=== PATIENT | female | born 1990 | race Caucasian/White ===

== ENCOUNTER 2023-01-10 11:16 | Outpatient (CLI) | payer OTHER, SELFPAY | END 2023-01-10 11:17 | disposition home or self-care (01) | PROVIDERS: Visit Provider Obstetrics & Gynecology | DX: O20.9 Hemorrhage in early pregnancy, unspecified (principal) | CPT/HCPCS: 84702; 84703; 86850; 86900; 86901 ==

== ENCOUNTER 2023-01-12 12:44 | Outpatient (CLI) | payer OTHER, SELFPAY | END 2023-01-12 12:45 | disposition home or self-care (01) | PROVIDERS: Visit Provider Obstetrics & Gynecology | DX: O20.9 Hemorrhage in early pregnancy, unspecified (principal) | CPT/HCPCS: 36415; 84702 ==

== ENCOUNTER 2023-01-28 07:04 | Outpatient (CLI) | payer OTHER, SELFPAY ==
--- NOTE | 2023-01-28 07:15 | CRLHL7_ITS ---
For Patients: As a result of the Century Cures Act, medical imaging exams and procedure reports are released immediately into your electronic medical record. You may view this report before your referring provider. If you have questions, please contact your health care provider. INDICATION: First trimester scan, establish dates. Bleeding in the 1st trimester. COMPARISON: None. TECHNIQUE: Real-time myers-scale imaging of the pelvis was performed. FINDINGS: Sonographic imaging demonstrates a single living intrauterine gestation. The embryo demonstrates a regular cardiac rate measuring 120 beats per minute. The embryo`s crown-rump length measurement of 0.8 cm corresponds to a gestational age of 6 weeks 5 days with a sonographic due date of September 18, 2023. There is a normal-appearing yolk sac measuring 3.5 mm. There are no gross abnormalities noted within the embryo at this early state of development. The placenta has not yet developed. The gestational sac has a normal appearance and there is no evidence of a perigestational hemorrhage. The amount of fluid within the sac appears appropriate for gestational age. The cervix is closed. The myometrium appears normal. The ovaries are of normal size. The right ovary measures 4.7 x 2.8 x 3.4 cm and contains a small corpus luteum cyst of . The left ovary measures 3.3 x 1.9 x 2.6 cm. There are no suspicious fluid collections noted in the cul-de-sac. IMPRESSION: Normal first trimester OB ultrasound exam. Gestational age calculated at 6 weeks 5 days with a sonographic due date of September 18, 2023. Dictated by Seun Swanson MD @ 01/28/2023 8:59:23 AM (Electronically Signed)
== END 2023-01-28 07:05 | disposition home or self-care (01) ==
PROVIDERS: Visit Provider Obstetrics & Gynecology
DX: O20.9 Hemorrhage in early pregnancy, unspecified (principal); Z3A.01 Less than 8 weeks gestation of pregnancy
CPT/HCPCS: 76817; 82565; 82570; 84156; 84450; 84460; 84520; 84550; 86703; 86803; 86850; 86900; 86901; 87086; 87340; 87491; 87591

== ENCOUNTER 2023-01-28 09:05 | Outpatient (CLI) | payer OTHER, SELFPAY ==
[2023-01-28 13:00] LABS: Chlamydia DNA Amplified* NOT DETECTED (No Detected); GC DNA Amplified* NOT DETECTED (No Detected)
== END 2023-01-28 09:06 | disposition home or self-care (01) ==
PROVIDERS: Visit Provider Advanced Practice Midwife
DX: Z34.91 Encounter for supervision of normal pregnancy, unspecified, first trimester (principal)
CPT/HCPCS: 82565; 82570; 84156; 84450; 84460; 84520; 84550; 86592; 86703; 86762; 86787; 86803; 86850; 86900; 86901; 87086; 87340; 87491; 87591

== ENCOUNTER 2023-02-01 13:26 | Outpatient (CLI) | payer OTHER, SELFPAY | END 2023-02-01 13:27 | disposition home or self-care (01) | LOC: NFLDREF 02-04 10:14 | PROVIDERS: Visit Provider Advanced Practice Midwife | DX: Z34.91 Encounter for supervision of normal pregnancy, unspecified, first trimester (principal); Z3A.01 Less than 8 weeks gestation of pregnancy | CPT/HCPCS: 82570; 84156 ==

== ENCOUNTER 2023-05-06 08:40 | Outpatient (CLI) | payer OTHER, SELFPAY | END 2023-05-06 08:41 | disposition home or self-care (01) | LOC: NFLDREF 05-09 11:08 | PROVIDERS: Visit Provider Advanced Practice Midwife | DX: O99.810 Abnormal glucose complicating pregnancy (principal) | CPT/HCPCS: 82951; 82952 ==

== ENCOUNTER 2023-07-01 09:30 | Outpatient (CLI) | payer OTHER, SELFPAY | END 2023-07-01 09:31 | disposition home or self-care (01) | LOC: NFLDREF 07-03 12:15 | PROVIDERS: Visit Provider Advanced Practice Midwife | DX: O16.3 Unspecified maternal hypertension, third trimester (principal); Z3A.30 30 weeks gestation of pregnancy | CPT/HCPCS: 86592; 86850 ==

== ENCOUNTER 2023-07-01 09:35 | Outpatient (CLI) | payer OTHER, SELFPAY ==
--- NOTE | 2023-07-01 09:45 | CRLHL7_ITS ---
For Patients: As a result of the Century Cures Act, medical imaging exams and procedure reports are released immediately into your electronic medical record. You may view this report before your referring provider. If you have questions, please contact your health care provider. INDICATION: female. History of macrosomia. Gestational hypertension. TECHNIQUE: Transabdominal obstetrical ultrasound. FINDINGS: Single living intrauterine in breech presentation. Anterior placenta. Normal amniotic fluid volume with a single deepest pocket measurement of 5.5 cm. heart rate 149 beats per minute. Nonvisualization of the cervix. Biparietal diameter 7.2 cm, 29 weeks 0 days, 43rd percentile. Head circumference 27.8 cm, 30 weeks 3 days, 66 percentile. Abdominal circumference 28 cm, 32 weeks 0 days, greater than the 97th percentile. Femur length 5.7 cm, 30 weeks 0 days, 69th percentile. Composite calculated ultrasound age 30 weeks 3 days with a sonographic due date of September 06, 2023. Estimated weight 1681 g which lies at greater than the 97th percentile. The head to abdominal circumference ratio is normal at 0.99 (0.97-1.18). The femur length to abdominal circumference ratio is 20.5 percent. IMPRESSION: 1. Single living intrauterine in irasema breech presentation. Anterior placenta. The cervix is not seen. 2. Composite calculated ultrasound age 30 weeks 3 days with a sonographic due date of September 06, 2023. 3. Estimated weight lies at greater than 97th percentile. Dictated by Seun Swanson MD @ 07/01/2023 6:49:14 PM (Electronically Signed)
== END 2023-07-01 09:36 | disposition home or self-care (01) ==
LOC: US 09:35
PROVIDERS: Visit Provider Advanced Practice Midwife
DX: O16.3 Unspecified maternal hypertension, third trimester (principal); Z3A.30 30 weeks gestation of pregnancy
CPT/HCPCS: 76816; 86850

== ENCOUNTER 2023-07-24 09:41 | Outpatient (CLI) | payer OTHER, SELFPAY ==
--- NOTE | 2023-07-24 09:45 | CRLHL7_ITS ---
For Patients: As a result of the Century Cures Act, medical imaging exams and procedure reports are released immediately into your electronic medical record. You may view this report before your referring provider. If you have questions, please contact your health care provider. INDICATION: Morbid obesity TECHNIQUE: Limited transabdominal two-dimensional myers-scale ultrasound examination. COMPARISON: 07/01/2023 FINDINGS: There is a living fetus with gestational age of 32 weeks 1 day by LMP and EDC of 09/17/2023. The biophysical profile score is 8/8. The heart rate is measured at 167 beats per minute and the rhythm appears regular. The amniotic fluid volume is within normal limits with single deepest pocket of 4.8 cm. The placenta is anterior and superior to the cervical os. There is no evidence of previa. IMPRESSION: 1. Living fetus with gestational age of 32 weeks 1 day by LMP and EDC of 09/17/2023. 2. Biophysical profile score is 8/8. Dictated by Tyler Vazquez MD @ 07/25/2023 3:12:59 PM (Electronically Signed)
== END 2023-07-24 09:42 | disposition home or self-care (01) ==
LOC: US 09:42
PROVIDERS: Visit Provider Advanced Practice Midwife
DX: O99.213 Obesity complicating pregnancy, third trimester (principal); Z3A.32 32 weeks gestation of pregnancy
CPT/HCPCS: 76819

== ENCOUNTER 2023-07-31 09:43 | Outpatient (CLI) | payer OTHER, SELFPAY ==
--- NOTE | 2023-07-31 09:45 | CRLHL7_ITS ---
For Patients: As a result of the Century Cures Act, medical imaging exams and procedure reports are released immediately into your electronic medical record. You may view this report before your referring provider. If you have questions, please contact your health care provider. INDICATION: Morbid obesity TECHNIQUE: Limited transabdominal two-dimensional myers-scale ultrasound examination. COMPARISON: 07/24/2023 FINDINGS: There is a living fetus in vertex lie with gestational age of 33 weeks 1 day by LMP and 36 weeks 2 days by today`s measurements. EDC based on LMP is 09/17/2023. BPD: 9.1 cm, 36 weeks 5 days Head circumference: 33.3 cm, 38 weeks Abdominal circumference: 34.0 cm, 37 weeks 6 days Femur length: 6.3 cm, 32 weeks 4 days The weight is estimated at 2956 grams, greater than the 97th percentile. The biophysical profile score is 8/8. The heart rate is measured at 157 beats per minute and the rhythm appears regular. The amniotic fluid volume is within normal limits with single deepest pocket of 5.5 cm. The placenta is anterior and superior to the cervical os. There is no evidence of previa. IMPRESSION: 1. Living fetus in vertex lie with gestational age of 33 weeks 1 day by LMP and 36 weeks 2 days by today`s measurements. EDC based on LMP is 09/17/2023. 2. weight estimated at 2956 grams, greater than the 97th percentile. 3. Biophysical profile score is 8/8. Dictated by Tyler Vazquez MD @ 07/31/2023 12:14:14 PM (Electronically Signed)
--- OUTSIDE RECORDS SUMMARY | 2023-07-31 09:46 | XMS_ITS | Encounter Summary ---
Author Name Unknown Organization [facility] Address [address] [place] [address] Care Team Providers Care Pastry Mixer Name Role Phone Shamar Claros MD Primary Care Provider [phone] Shamar Claros MD Unavailable [phone] Reason for Referral * Diagnostic Imaging Ultrasound (Routine) - Pending Review Specialty Diagnoses / Procedures Referred By Contac t Referred To Contact Radiology. Diagnoses related condition, antepartum Procedures MFM US Comprehensive Single [facility] [address] [place] [address] Referral ID Status Reason Start Date Expiration Date V isits Requested Visits Authorized [id number] Pending Review 04/11/2023 04/10/2024 1 1 * Consultation (Routine: Next available opening) - Pending Review Specialty Diagnoses / Procedures Referred By Contac t Referred To Contact Diagnoses related condition, antepartum [facility] [address] [place] [address] Rh [facility] [address] [place] [address] Referral ID Status Reason Start Date Expiration Date V isits Requested Visits Authorized [id number] Pending Review 04/11/2023 04/10/2024 1 1 Question Answer Preferred Location: [facility] [place] JE[facility] 09/17/2023 Ultrasound Comprehensive US (>than 18 weeks GA) US PROC NONE MFM Issue OTHER (enter details in Comments) - BMI MFM MD Consultation (unrelated to Ultrasound findings): No Inflammatory Bowel Disease Clinic: Joint MFM and GI Consultation: No Chronic Kidney Disease: Joint MFM and Nephrology Consultation No Genetic Counseling Consultation: No fax [facility] Casey Bacon [phone] Comments BMI Encounter Details Date Type Department Care Team (Late st Contact Info) Description 04/11/2023 Transcribe Orders [facility] [place] [address] [facility] [address] [place] [address] Casey Bacon APRN [facility] [address] [place] [address] related condition, antepartum (Primary Dx) Social History Tobacco Use Types Packs/Day Years Used Date Smoking Tobacco: Former Smokeless Tobacco: Never Alcohol Use Standard Drinks/Week Comments Yes 0 (1 standard drink = 0.6 oz pur e alcohol) social PHQ-2 Answer Date Recorded PHQ-2 Score 0 04/15/2020 Adolescent Education Answer Date Record ed Getting School Help Needed Not on file 04/05 Sex and Gender Information Value Date Recorded Sex Assigned at Not on file Gender Identity Not on file Sexual Orientation Not on file documented as of this encounter Plan of Treatment Scheduled Referrals Name Type Priority Associated Diagnoses Orde r Schedule [facility] Ctr Referral - Referral Routine: Next available opening related condition, antepartum Expected: 04/16/2023 (Approximate), Expires: 10/08/2023 documented as of this encounter Results * [facility] US Comprehensive Single (04/22/2023 11:59 AM CDT) Anatomical Region Laterality Modality Ultrasound 04/22/2023 11:0 3 AM CDT Impressions 04/22/2023 12:25 PM CDT IMPRESSION ----- 1. Cook intrauterine at 18w 5d gestational age here for evaluation of anatomy. 2. No anomalies commonly detected by ultrasound or soft markers of aneuploidy were identified in the detailed anatomic survey within the limits of ultrasound, however some views were suboptimal, as described above. 3. Growth parameters and estimated weight were consistent with established dates. 4. The amniotic fluid volume appeared normal. 5. On transabdominal imaging the cervix appears long and closed. 6. The placenta is anterior and circumvallate. Narrative 04/22/2023 12:25 PM CDT Comprehensive ----- Pat. Name: MARY ELLEN SCOTT Study Date: 04/22/2023 11:03am Pat. NO: [id number] Referring ??: CASEY BACON Site: [facility] Specialist: Lauren Mcdowell RDMS : 1990 Age: 32 ----- INDICATION ----- Obesity BMI 44 METHOD ----- Transabdominal ultrasound examination. View: Sufficient ----- Cook . Number of fetuses: 1 DATING ----- ? Date ?Details ?Gest. age ?JEFF LMP ?12/05/2022 ?Cycle: irregular, long cycles ? 19 w + 5 d ? 09/11/2023 Prior assessment ? 01/28/2023 ? GA: 6 w + 5 d ?18 w + 5 d ? 09/18/2023 U/S ? 04/22/2023 ? based upon AC, BPD, Femur, HC ?18 w + 5 d ? 09/18/2023 Assigned dating ?Dating performed on 04/22/2023, based on the prior assessment (on 01/28/2023) ?18 w + 5 d ? 09/18/2023 GENERAL EVALUATION ----- Cardiac activity present. FHR 146 bpm. movements present. Presentation breech, transverse with head to maternal right. Placenta anterior, no previa > 2 cm from internal os. Circumvallate placenta . Umbilical cord Cord vessels: 3 vessel cord. Insertion site: normal insertion. Amniotic fluid Amount of AF: normal. MVP 5.6 cm. BIOMETRY ----- Main Biometry: BPD ?42.3 ?mm ? 18w 6d ?Hadlock OFD ?58.4 ?mm ? 19w 1d ?Nicolaides HC ?161.2 ?mm ?18w 6d ?Hadlock Cerebellum tr ?18.9 ? mm ?18w 3d ?Nicolaides AC ?130.2 ?mm ?18w 4d ?41% ?Hadlock Femur ?28.4 ? mm ?18w 5d ?Hadlock Humerus ?27.6 ?mm ? 18w 6d ?Eliot Weight Calculation: EFW ? 251 ? g ? 41% ?Hadlock EFW (lb,oz) ? 0 lb 9 ?oz EFW by ?Hadlock ([id number]) Head / Face / Neck Biometry: Emergency Medicine Physician Assistant ? 6.7 ? mm CM ?2.7 ? mm Nasal bone ? 6.2 ? mm Nuchal fold ? 4.2 ? mm ANATOMY ----- The following structures appear normal: Head / Neck ? Cranium. Head size. Head shape. Lateral ventricles. Choroid plexus. Midline falx. Cavum septi pellucidi. Cerebellum. Cisterna magna. ? Parenchyma. Thalami. Vermis. ? Neck. Nuchal fold. Face ? Profile. Nose. Maxilla. Mandible. Orbits. Lens. Heart / Thorax ?4-chamber view. RVOT view. LVOT view. Situs. Bicaval view. Ductal arch view. Superior vena cava. Inferior vena cava. 3-vessel view. ? 7-jblzlz-lukpwsp view. Cardiac position. Cardiac size. Cardiac rhythm. ? Right lung. Left lung. Abdomen ? Abdominal wall. Cord insertion. Stomach. Kidneys. Bladder. Liver. Bowel. Genitals. Spine ?Cervical spine. Thoracic spine. Lumbar spine. Sacral spine. Extremities / Skeleton ?Right arm. Right hand. Left arm. Left hand. Right leg. Right foot. Left leg. Left foot. The following structures could not be adequately visualized: Face ? Lips. Heart / Thorax ?Aortic arch view. ? Diaphragm. Gender: female. MATERNAL STRUCTURES ----- Cervix ?Visualized ? Appearance: Appears Closed ? Approach - Transabdominal: Cervical length 46.5 mm Right Ovary ?Not visualized Left Ovary ?Not visualized RECOMMENDATION ----- Thank-you for referring your patient for a comprehensive ultrasound. I discussed the findings on today's ultrasound with the patient. I reviewed the limitations of ultrasound both in detecting aneuploidy and structural abnormalities. Ultrasound, when views completed, can routinely detect 80-90% of structural abnormalities. She has not had genetic screening this , genetic screening/testing options were reviewed which she is not interested in today. We reviewed that the placenta appears to be circumvallate. We discussed that this occurs when the chorionic membrane does not insert at the edge of the placenta but rather some inward distance from the placental margin giving it a rolled or curled appearance. We discussed that this is typically an incidental finding but may be associated with an increased risk of growth restriction. Follow-up is scheduled here in three weeks to reassess anatomy that was suboptimally seen today. Once anatomy is complete, evaluation of growth at 28 and 34 weeks is recommended due to BMI > 40 and circumvallate placenta. We would recommend a growth ultrasound at 28 and 34 weeks to re-evaluate growth. Weekly testing is also recommended at 34 weeks. I presume these follow-ups will be done in your office, but can be scheduled here if preferred. Return to primary provider for continued care, dating reviewed, recommend using 09/18/2023 based on her 6 week ultrasound. If you have questions regarding today's evaluation or if we can be of further service, please contact the [facility]. anomalies may be present but not detected I spent a total of 15 minutes on the date of this encounter including preparing to see the patient (reviewing medical records/tests), counseling and discussing the plan of care, documenting the visit in the electronic medical record, and communicating with other health transitions rn care coordinator and/or care coordination. Please see note for details. Procedure Note Patti Ferrsi MD - 04/22/2023 Comprehensive ----- Pat. Name:SHAYY SCOTTCharlenedeon Date:04/22/2023 11:03am Pat. NO: [id number] MD:CASEY BACON [facility]ren [facility]cdowell RDMS :1990Age:32 ----- INDICATION ----- Obesity BMI 44 METHOD ----- Transabdominal ultrasound examination. View: Sufficient ----- Cook . Number of fetuses: 1 DATING ----- DateDetailsGest. age JEFF LMP 12/05/2022ycle: irregular, long cqngia90 w + 5 d 09/11/2023 Prior assessment 01/28/2023 GA: 6 w +5 d18 w + 5 d 09/18/2023 U/S 04/22/2023ased upon AC, BPD, Femur, HC18 w + 5 d 09/18/2023 Assigned dating Dating performed on 04/22/2023, based onthe prior assessment (on 01/28/2023) 18 w + 5 d3 GENERAL EVALUATION ----- Cardiac activity present. FHR 146 bpm. movements present. Presentation breech, transverse with head to maternal right. Placenta anterior, no previa > 2 cm from internal os. Circumvallateplacenta . Umbilical cord Cord vessels: 3 vessel cord. Insertion site: normalinsertion. Amniotic fluid Amount of AF: normal. MVP 5.6 cm. BIOMETRY ----- Main Biometry: BPD 42.3 mm18w 6d Hadlock OFD 58.4 mm19w 1d Nicolaides HC 161.2 mm18w 6d Hadlock Cerebellum tr 18.9 mm18w 3d Nicolaides AC 130.2 mm18w 4d 41% Hadlock Femur 28.4 mm18w 5d Hadlock Humerus 27.6 mm18w 6d Eliot Weight Calculation: EFW 251 g41% Hadlock EFW (lb,oz) 0 lb 9 oz EFW by Radlock ([id number]-FL) Head / Face / Neck Biometry: Emergency Medicine Physician Assistant 6.7 mm CM 2.7 mm Nasal bone 6.2 mm Nuchal fold 4.2 mm ANATOMY ----- The following structures appear normal: Head / Neck Cranium. Head size. Head shape.Lateral ventricles. Choroid plexus. Midline falx. Cavum septi pellucidi.Cerebellum. Cisterna magna. Parenchyma. Thalami. Vermis. Neck. Nuchal fold. Face Profile. Nose. Maxilla. Mandible.Orbits. Lens. Heart / Thorax 4-chamber view. RVOT view. LVOT view.Situs. Bicaval view. Ductal arch view. Superior vena cava. Inferior venacava. 3-vessel view. 4-nusqkw-tqteigl view. Cardiacposition. Cardiac size. Cardiac rhythm. Right lung. Left lung. Abdomen Abdominal wall. Cord insertion.Stomach. Kidneys. Bladder. Liver. Bowel. Genitals. Spine Cervical spine. Thoracic spine.Lumbar spine. Sacral spine. Extremities / Skeleton Right arm. Right hand. Left arm. Lefthand. Right leg. Right foot. Left leg. Left foot. The following structures could not be adequately visualized: Face Lips. Heart / Thorax Aortic arch view. Diaphragm. Gender: female. MATERNAL STRUCTURES ----- Cervix Visualized Appearance: Appears Closed Approach - Transabdominal:Cervical length 46.5 mm Right Ovary Not visualized Left Ovary Not visualized RECOMMENDATION ----- Thank-you for referring your patient for a comprehensive ultrasound. I discussed the findings on today's ultrasound with the patient. Ireviewed the limitations of ultrasound both in detecting aneuploidy andstructural abnormalities. Ultrasound, when views completed, can routinely detect 80-90% of structuralabnormalities. She has not had genetic screening this , geneticscreening/testing options were reviewed which she is not interested in today. We reviewed that the placenta appears to be circumvallate. We discussedthat this occurs when the chorionic membrane does not insert at the edgeof the placenta but rather some inward distance from the placental margin giving it a rolledor curled appearance. We discussed that this is typically an incidentalfinding but may be associated with an increased risk of growth restriction. Follow-up is scheduled here in three weeks to reassess anatomy that wassuboptimally seen today. Once anatomy is complete, evaluation of growth at 28 and 34 weeks isrecommended due to BMI > 40 and circumvallate placenta. We would recommenda growth ultrasound at 28 and 34 weeks to re-evaluate growth. Weeklyantenatal testing is also recommended at 34 weeks. I presume thesefollow-ups will be done in your office, but can be scheduled here if preferred. Return to primary provider for continued care, dating reviewed,recommend using 09/18/2023 based on her 6 week ultrasound. If you have questions regarding today's evaluation or if we can be offurther service, please contact the [facility]. anomalies may be present but not detected I spent a total of 15 minutes on the date of this encounter includingpreparing to see the patient (reviewing medical records/tests), counselingand discussing the plan of care, documenting the visit in the electronic medical record, andcommunicating with other health transitions rn care coordinator and/or carecoordination. Please see note for details. IMPRESSION ----- 1. Cook intrauterine at 18w 5d gestational age here forevaluation of anatomy. 2. No anomalies commonly detected by ultrasound or soft markers ofaneuploidy were identified in the detailed anatomic survey withinthe limits of ultrasound, however some views were suboptimal, as described above. 3. Growth parameters and estimated weight were consistent withestablished dates. 4. The amniotic fluid volume appeared normal. 5. On transabdominal imaging the cervix appears long and closed. 6. The placenta is anterior and circumvallate. Radiology Non-Fv Credentialed Provider Wood MADSEN US ORDERABLES documented in this encounter Visit Diagnoses Diagnosis related condition, antepartum- Primary related condition, antepartum documented in this encounter Additional Health Concerns Assessment Noted Time PHQ-9 Depression Total Score: 8 03/31/20 21 7:02 AM CDT documented as of this encounter Care Teams Pastry Mixer Relationship Specialty Start Date End Date Shamar Claros MD [address] [place] [address] [place] [address] PCP - General Internal Medicine 05/17/17 [place] [address] [place] [address] [place] [address] Assigned PCP 09/08/22 documented as of this encounter
--- OUTSIDE RECORDS SUMMARY | 2023-07-31 09:46 | XMS_ITS | Encounter Summary ---
Author Name Unknown Organization [facility] Address [address] [place] [address] Care Team Providers Care Diesel Service Technician Name Role Phone Shamar Claros MD Primary Care Provider [phone] Melina Sousa PA-C Unavailable [phone] Janis Jacobs MD Unavailable [phone] Shamar Claros MD Unavailable [phone] Patti Ferris MD Unavailable [phone] Encounter Details Date Type Department Care Team (Late st Contact Info) Description 07/18/[address] [facility] [address] [place] [address] Shamar Claros MD [address] [facility] [place] [address] Social History Tobacco Use Types Packs/Day Years Used Date Smoking Tobacco: Former Smokeless Tobacco: Never Alcohol Use Standard Drinks/Week Comments Yes 0 (1 standard drink = 0.6 oz pur e alcohol) social PHQ-2 Answer Date Recorded PHQ-2 Score 0 04/15/2020 Sex and Gender Information Value Date Recorded Sex Assigned at Not on file Gender Identity Not on file Sexual Orientation Not on file COVID-19 Exposure Response Date Recorded In the last month, have you been in contact with someone who was confirmed or suspected to have Coronavirus / COVID-19? Yes 07/20/2021 9:51 PM CHEMICAL ENGINEER documented as of this encounter Plan of Treatment Not on file documented as of this encounter Visit Diagnoses Not on filedocumented in this encounter Additional Health Concerns Assessment Noted Time PHQ-9 Depression Total Score: 8 03/31/20 21 7:02 AM CDT documented as of this encounter Care Teams Diesel Service Technician Relationship Specialty Start Date End Date Shamar Claros MD [address] [facility] [place] [address] PCP - General Internal Medicine 05/17/17 Melina Sousa PA-C [address] [place] [address] [id number] Assigned PCP 12/25/20 03/23/22 Janis Jacobs MD [address] [place] [address] Assigned OBGYN Provider 04/09/21 3 Shamar Claros MD [address] [facility] [place] [address] Assigned PCP 09/08/22 Patti Ferris MD [address] [place], [place] [address] Assigned OBGYN Provider 04/27/23 documented as of this encounter
--- OUTSIDE RECORDS SUMMARY | 2023-07-31 09:46 | XMS_ITS | Encounter Summary ---
Author Name Unknown Organization [facility] Address [address] [place] [address] Care Team Providers Care Check Writing Machine Operator Name Role Phone Shamar Claros MD Primary Care Provider [phone] Melina Sousa PA-C Unavailable [phone] Janis Jacobs MD Unavailable [phone] Shamar Claros MD Unavailable [phone] Patti Ferris MD Unavailable [phone] Encounter Details Date Type Department Care Team (Late st Contact Info) Description 07/12/2021 [facility] [facility] [address] [place] [phone] Britney Hanson Social History Tobacco Use Types Packs/Day Years [...] documented as of this encounter Care Teams Check Writing Machine Operator Relationship Specialty Start Date End Date Shamar Claros MD [address] [facility] [place] [address] PCP - General Internal Medicine 05/17/17 Melina Sousa PA-C [address] [place] [address] Assigned PCP 12/25/20 03/23/22 Janis Jacobs MD [address] [place] [address] Assigned OBGYN Provider 04/09/21 3 Shamar Claros MD [address] [facility] [place] [address] Assigned PCP 09/08/22 Patti Ferris MD [address] [address] Assigned OBGYN Provider 04/27/23 documented as of this encounter
--- OUTSIDE RECORDS SUMMARY | 2023-07-31 09:46 | XMS_ITS | Referral Summary ---
Author Name Unknown Organization [place] Address [address] [place] [address] Care Team Providers Care Corporate Scheduler Name Role Phone Shamar Claros MD Primary Care Provider + [phone] Shamar Claros MD Unavailable [phone] Patti Ferris MD Unavailable [phone] Encounters Date Type Department Care Team Description 05/13/2023 Travel 05/13/2023 9:15 AM CDT Office Visit [facility] Maternal Medicine [facility] [address] [place] [address] Patti Ferris MD Burn, Martina, MD BMI 40.0-44.9, adult (H) (Primary Dx) 05/13/2023 8:38 AM CDT - 05/13/2023 11:59 PM CDT Hospital Encounter [facility] Maternal Medicine [facility] [address] [place] [id number] Patti Ferris MD Burn, Martina, MD Encounter for follow-up ultrasound of anatomy Discharge Disposition: Home or Self Care from Last 3 Months Allergies Active Allergy Reactions Criticality Noted Date Comments Penicillins GI Disturbance 03/26/2014 Sulfa Antibiotics GI Disturbance 03/26/2014 Medications Medication Sig Dispensed Refills Start Date End Date Status omeprazole (PRILOSEC) [address] capsule Take 20 mg by mouth daily 0 Active sertraline (ZOLOFT) 50 MG tabletIndications:Ge neralized anxiety disorder,Recurrent binge eating Take 1 tablet (50 mg) by mouth daily 90 tablet 0 06/01/2021 Active metFORMIN (GLUCOPHAGE) 500 MG tabletIndications:Mo rbid obesity (H),Pre-diabetes,PCO S (polycystic ovarian syndrome) Take 1 tablet (500 mg) by mouth 2 times daily (with meals) Take 1 tab once daily with breakfast for 1 week, then increase to taking 1 tab twice daily with breakfast and dinner 180 tablet 0 06/01/2021 Active fluticasone (FLONASE) 50 MCG/ACT nasal sprayIndications:Acu te sinusitis treated with antibiotics in the past 60 days Witt 1 spray into both nostrils daily 9.9 mL 3 06/01/2021 Active albuterol (PROAIR HFA/PROVENTIL HFA/VENTOLIN HFA) 108 (90 Base) MCG/ACT inhalerIndications:C ough Inhale 2 puffs into the lungs every 6 hours as needed for shortness of breath / dyspnea or wheezing 18 g 1 07/18/2021 Active dexamethasone (DECADRON) 6 MG tabletIndications:In fection due to 2019 novel coronavirus Take 1 tablet (6 mg) by mouth daily 9 tablet 0 07/21/2021 Active acyclovir (ZOVIRAX) 400 MG tabletIndications:RL Q abdominal pain Take 1 tablet (400 mg) by mouth every 8 hours 15 tablet 3 07/30/2022 Active Active Problems Problem Noted Date Diagnosed Date Infection due to 2019 novel coronavirus 07/21/19 22 PCOS (polycystic ovarian syndrome) 06/01/2021 Binge eating 03/30/2021 Generalized anxiety disorder 03/30/2021 Splenomegaly 10/12/2019 Overview: Noted incidentally . Needs repeat US in . Calculus of gallbladder with out cholecystitis without obstruction 10/12/2019 Morbid obesity 12/23/2017 Estimated Date of Delivery Comme nts Yes 09/18/2023 Based on Ultraso und Resolved Problems Problem Noted Date Diagnosed Date Resolved Date Pain in both hands 05/17/2017 8 PIH ( induced hypertension) 02/26/2017 12/20/2017 Post-operative state 02/26/2017 018 High-risk , unspecified trimester 02/21/2017 12/20/2017 Macrosomia affecting managem ent of mother, antepartum 02/19/2017 12/20/2017 PIH ( induced hyper tension), third trimester 02/19/2017 12/20/2017 High-risk , young primigravida 02/19/2017 02/21/2017 Uterine size date discrepanc y , third trimester 02/15/2017 02/19/2017 Supervision of normal first in third trimester 01/25/2017 02/19/2017 Encounter for supervision of normal first in second trimester 11/16/2016 01/25/2017 Immunizations Name Administration Dates Next Due HepB, Unspecified 06/17/2003,02/23/2002 Hepatitis B, Peds 06/17/2003,02/25/2003,02/26/20 03,02/23/2002 Historical DTP/aP 01/26/1995, 5,04/28/1991,04/28/1991,10/27/1990 ,10/27/1990,05/29/1990,05/29/1990,03/29/1990, 0 MMR 02/23/2002,02/17/1991 OPV, trivalent, live 01/26/1995,04/28/1991,05/29,03/29/1990 OPV, unspecified 01/26/1995,04/28/1991, 0,03/29/1990 TD,PF 7+ (Tenivac) 02/23/2002 TDAP Vaccine (Adacel) 01/25/2017,02/19/2012 Td (Adult), Adsorbed 02/23/2002 Social History Tobacco Use Types Packs/Day Years Used Date Smoking Tobacco: Former Smokeless Tobacco: Never Tobacco Cessation:Counseling Given: No Alcohol Use Standard Drinks/Week Comments Yes 0 (1 standard drink = 0.6 oz pur e alcohol) social PHQ-2 Answer Date Recorded PHQ-2 Score 0 04/15/2020 Adolescent Education Answer Date Record ed Getting School Help Needed Not on file 04/05 Estimated Date of Delivery Comme nts Yes 09/18/2023 Based on Ultraso und Sex and Gender Information Value Date Recorded Sex Assigned at Not on file Gender Identity Not on file Sexual Orientation Not on file Last Filed Vital Signs Vital Sign Reading Time Taken Comments Blood Pressure 127/85 07/21/2021 5:26 AM SYSTEM ADMINISTRATION MANAGER Pulse 83 07/21/2021 5:26 AM SYSTEM ADMINISTRATION MANAGER Temperature 37.4 ??C (99.4 ??F) 07/20/2021 9:53 PM CS T Respiratory Rate 20 07/21/2021 5:26 AM SYSTEM ADMINISTRATION MANAGER Oxygen Saturation 97% 07/21/2021 5:26 AM SYSTEM ADMINISTRATION MANAGER Inhaled Oxygen Concentration - - Weight 144.4 kg (318 lb 5.5 oz) 07/20/2021 9:53 PM SYSTEM ADMINISTRATION MANAGER Height 172.7 cm (5' 8) 10/12/2019 11:2 5 AM CDT Body Mass Index 48.4 10/12/2019 11:25 AM CDT Plan of Treatment Not on file Procedures Procedure Name Priority Date/Time Associated Diagnosis Comments [facility] COMPREHENSIVE SINGLE F/U Routine 05/13/2023 9:18 AM CDT Encounter for follow-up ultrasound of anatomy from Last 3 Months Results * [facility] Comprehensive Single F/U (05/13/2023 9:18 AM CDT) Anatomical Region Laterality Modality Ultrasound 05/13/2023 8:32 AM CDT Impressions 05/13/2023 9:43 AM CDT IMPRESSION ----- 1. Cook intrauterine at 21w 5d gestational age here for completion of anatomy. 2. The remaining anatomic survey was completed, no anomalies commonly detected by ultrasound were identified within the limits of ultrasound. 3. Growth parameters and estimated weight were slightly ahead of established dates, EFW 97%. 4. The amniotic fluid volume appeared normal. Narrative 05/13/2023 9:43 AM CDT ?Comp Follow Up ----- Pat. Name: MARY ELLEN SCOTT ? Study Date: ??05/13/2023 8:32am Pat. NO: ??[id number] ?Referring ??MD: CASEY DAVIS Site: ??[facility] ? [employer] T[employer] Bl[employer] Repair Technician: Denise Kuhn RDMS : ??1990 ?Age: ?? 32 ----- INDICATION ----- Follow up suboptimal anatomy. BMI 44. Declined screening. METHOD ----- Transabdominal ultrasound examination. View: Sufficient ----- Cook . Number of fetuses: 1 DATING ----- ? Date ?Details ?Gest. age ?JEFF LMP ?12/05/2022 ?Cycle: irregular, long cycles ? 22 w + 5 d ? 09/11/2023 Prior assessment ? 01/28/2023 ? GA: 6 w + 5 d ?21 w + 5 d ? 09/18/2023 U/S ? 05/13/2023 ? based upon AC, BPD, Femur, HC ?22 w + 6 d ? 09/10/2023 Assigned dating ?Dating performed on 05/13/2023, based on the prior assessment (on 01/28/2023) ? 21 w + 5 d ? 09/18/2023 GENERAL EVALUATION ----- Cardiac activity present. FHR 148 bpm. movements present. Presentation transverse with head to maternal right. Placenta Anterior, no previa > 2 cm from internal os. Circumvallate placenta. Umbilical cord normal, 3 vessel cord. Amniotic fluid Amount of AF: normal. MVP 5.7 cm. BIOMETRY ----- Main Biometry: BPD ?54.1 ?mm ? 22w 3d ?Michele CREWS ?72.6 ?mm ? 22w 3d ?Nicolaides HC ?203.9 ?mm ?22w 4d ?Hadlock Cerebellum tr ?22.1 ? mm ?21w 0d ?Nicolaides AC ?184.5 ?mm ?23w 2d ?87% ?Hadlock Femur ?41.1 ? mm ?23w 2d ?Hadlock Weight Calculation: EFW ? 570 ? g ? 97% ?Hadlock EFW (lb,oz) ? 1 lb 4 ?oz EFW by ?Hadlock ([id number]) Head / Face / Neck Biometry: Radio Time Sales Supervisor ? 3.7 ? mm CM ?3.7 ? mm ANATOMY ----- The following structures appear normal: Head / Neck ? Cranium. Head size. Head shape. Lateral ventricles. Midline falx. Cavum septi pellucidi. Cerebellum. Cisterna magna. Thalami. Face ? Lips. Profile. Nose. Heart / Thorax ?4-chamber view. RVOT view. LVOT view. Aortic arch view. 2-awbsze-lkgytgc view. ? Diaphragm. Abdomen ? Stomach. Bladder. Spine ?Cervical spine. The following structures were documented previously: Abdomen ? Kidneys. Spine ?Thoracic spine. Lumbar spine. Sacral spine. Gender: female. MATERNAL STRUCTURES ----- Cervix ?Not examined Right Ovary ?Not examined Left Ovary ?Not examined RECOMMENDATION ----- Thank-you for referring your patient for ultrasound assessment. I discussed the findings on today's ultrasound with the patient. I reviewed the limitations of ultrasound both in detecting aneuploidy and structural abnormalities. Ultrasound can routinely detect 80-90% of structural abnormalities. She declined genetic screening this . Serial ultrasounds to assess growth are recommended at 28 and 34 weeks, which I presume will be scheduled with your office. She will also need weekly surveillance starting at 34 weeks. Return to primary provider for continued care. If you have questions regarding today's evaluation or if we can be of further service, please contact the [facility]. I spent a total of 20 minutes on the date of this encounter including preparing to see the patient (reviewing medical records/tests), counseling and discussing the plan of care, documenting the visit in the electronic medical record, and communicating with other health home care assistant and/or care coordination. Procedure Note Zoey Real MD - 05/13/2023 Comp Follow Up ----- Pat. Name: MARY ELLEN SCOTT Study Date: 05/13/2023 8:32am Pat. NO: [id number] Referring MD: CASEY DAVIS Site: [facility] [employer] T[employer] Blade Repair Technician: Denise Kuhn RDMS : 1990 Age: 32 ----- INDICATION ----- Follow up suboptimal anatomy. BMI 44. Declined screening. METHOD ----- Transabdominal ultrasound examination. View: Sufficient ----- Cook . Number of fetuses: 1 DATING ----- DateDetailsGest. age JEFF LMP 12/05/2022ycle: irregular, long [id number] w + 5 d 09/11/2023 Prior assessment 01/28/2023 GA: 6 w +5 d21 w + 5 d 09/18/2023 U/S 05/13/2023ased upon AC, BPD, Femur, HC22 w + 6 d 09/10/2023 Assigned dating Dating performed on 05/13/2023, based onthe prior assessment (on 01/28/2023) 21 w + 5 d3 GENERAL EVALUATION ----- Cardiac activity present. FHR 148 bpm. movements present. Presentation transverse with head to maternal right. Placenta Anterior, no previa > 2 cm from internal os. Circumvallateplacenta. Umbilical cord normal, 3 vessel cord. Amniotic fluid Amount of AF: normal. MVP 5.7 cm. BIOMETRY ----- Main Biometry: BPD 54.1 mm22w 3d Hadlock OFD 72.6 mm22w 3d Nicolaides HC 203.9 mm22w 4d Hadlock Cerebellum tr 22.1 mm21w 0d Nicolaides AC 184.5 mm23w 2d 87% Hadlock Femur 41.1 mm23w 2d Hadlock Weight Calculation: EFW 570 g97% Hadlock EFW (lb,oz) 1 lb 4 oz EFW by Michele ([id number]) Head / Face / Neck Biometry: Radio Time Sales Supervisor 3.7 mm CM 3.7 mm ANATOMY ----- The following structures appear normal: Head / Neck Cranium. Head size. Head shape.Lateral ventricles. Midline falx. Cavum septi pellucidi. Cerebellum.Cisterna magna. Thalami. Face Lips. Profile. Nose. Heart / Thorax 4-chamber view. RVOT view. LVOT view.Aortic arch view. 2-lwjdvd-zrmtvbw view. Diaphragm. Abdomen Stomach. Bladder. Spine Cervical spine. The following structures were documented previously: Abdomen Kidneys. Spine Thoracic spine. Lumbar spine.Sacral spine. Gender: female. MATERNAL STRUCTURES ----- Cervix Not examined Right Ovary Not examined Left Ovary Not examined RECOMMENDATION ----- Thank-you for referring your patient for ultrasound assessment. I discussed the findings on today's ultrasound with the patient. Ireviewed the limitations of ultrasound both in detecting aneuploidy andstructural abnormalities. Ultrasound can routinely detect 80-90% of structural abnormalities. She declinedgenetic screening this . Serial ultrasounds to assess growth are recommended at 28 and 34weeks, which I presume will be scheduled with your office. She will alsoneed weekly surveillance starting at 34 weeks. Return to primary provider for continued care. If you have questions regarding today's evaluation or if we can be offurther service, please contact the [facility]. I spent a total of 20 minutes on the date of this encounter includingpreparing to see the patient (reviewing medical records/tests), counselingand discussing the plan of care, documenting the visit in the electronic medical record, andcommunicating with other health home care assistant and/or carecoordination. IMPRESSION ----- 1. Cook intrauterine at 21w 5d gestational age here forcompletion of anatomy. 2. The remaining anatomic survey was completed, no anomaliescommonly detected by ultrasound were identified within the limits ofprenatal ultrasound. 3. Growth parameters and estimated weight were slightly ahead ofestablished dates, EFW 97%. 4. The amniotic fluid volume appeared normal. Patti Ferris MD [facility] ORDERABLE S from Last 3 Months Advance Directives For more information, please contact: [phone] Latest Code Status on File Code Status Date Activated Date Inactivated Comments Full Code 03/02/2017 9:48 AM 07/20/2021 9:47 PM Care Teams Corporate Scheduler Relationship Specialty Start Date End Date Shamar Claros MD [address] [facility] [place] [address] PCP - General Internal Medicine 05/17/17 [place] [address] [place] [address] [place] [address] Assigned PCP 09/08/22 Patti Ferris MD [address] [place] [address] Assigned OBGYN Provider 04/27/23
--- OUTSIDE RECORDS SUMMARY | 2023-07-31 09:46 | XMS_ITS | Encounter Summary ---
Author Name Unknown Organization [facility] Address [address] [place] [address]. [place] [address] Care Team Providers Care Music Leader Name Role Phone Shamar Claros MD Primary Care Provider + [phone] Shamar Claros MD Unavailable [phone] Encounter Details Date Type Department Care Team (Latest Contact Info) Description 04/11/2023 Medical Correspondence [facility] [address] [place] [address] Outside, Provider [facility] PROVIDER SERVICE REQUEST- OUTPATIENT Social History Tobacco Use Types Packs/Day Years [...] documented as of this encounter Care Teams Music Leader Relationship Specialty Start Date End Date Shamar Claros MD [address] [facility] [place] [address] PCP - General Internal Medicine 05/17/17 Shamar Claros MD [address] [facility] [facility] [address] [place], [place] [address] Assigned PCP 09/08/22 documented as of this encounter
--- OUTSIDE RECORDS SUMMARY | 2023-07-31 09:46 | XMS_ITS | Encounter Summary ---
Author Name Unknown Organization [facility] Address [address] [place] [address] Care Team Providers Care Field Support Engineer Name Role Phone Shamar Claros MD Primary Care Provider + [phone] Shamar Claros MD Unavailable [phone] Reason for Visit * Reason Comments Ultrasound L2-elevated BMI Encounter Details Date Type Department Care Team (Late st Contact Info) Description 04/12/2023 PRE VISIT [facility] [place] [address] [facility] [facility] [address] [place] [address] Genet Ruiz RN Ultrasound (L2-elevated BMI) Social History Tobacco Use Types Packs/Day Years [...] documented as of this encounter Care Teams Field Support Engineer Relationship Specialty Start Date End Date Shamar Claros MD [address] [facility] [place] [address] PCP - General Internal Medicine 05/17/17 Shamar Claros MD [address] [facility] [place] [address] Assigned PCP 09/08/22 documented as of this encounter
--- OUTSIDE RECORDS SUMMARY | 2023-07-31 09:46 | XMS_ITS | Encounter Summary ---
Author Name Unknown Organization [facility] Address [address] [place] [address] Care Team Providers Care Fourth Grade Teacher Name Role Phone Shamar Claros MD Primary Care Provider + [phone] Shamar Claros MD Unavailable [phone] Patti Ferris MD Unavailable [phone] Encounter Details Date Type Department Care Team (Latest Contact Info) Description 05/13/2023 Travel Social History Tobacco Use Types Packs/Day Years [...] Exposure Response Date Recorded In the last 10 days, have yo u been in contact with someone who was confirmed or suspected to have Coronavirus/COVID-19? No / Unsure 04/22/2023 11:00 AM CDT documented as of this encounter Plan of Treatment Not on file documented as of this encounter Visit Diagnoses Not on filedocumented in this encounter Additional Health Concerns Assessment Noted Time PHQ-9 Depression Total Score: 8 03/31/20 21 7:02 AM CDT documented as of this encounter Care Teams Fourth Grade Teacher Relationship Specialty Start Date End Date Shamar Claros MD [address] [facility] [place] [address] PCP - General Internal Medicine 05/17/17 Shamar Claros MD [address] [facility] [place] [address] Assigned PCP 09/08/22 Patti Ferris MD [address] [facility] [address] [place] [address] Assigned OBGYN Provider 04/27/23 documented as of this encounter
--- OUTSIDE RECORDS SUMMARY | 2023-07-31 09:46 | XMS_ITS | Encounter Summary ---
Author Name Unknown Organization [place] Address [facility] [place] [address] Care Team Providers Care Business Administration Instructor Name Role Phone Shamar Claros MD Primary Care Provider + [phone] Janis Jacobs MD Unavailable [phone] Shamar Claros MD Unavailable [phone] Patti Ferris MD Unavailable [phone] Encounter Details Date Type Department Care Team (Late st Contact Info) Description 07/30/2022 [facility] Medical Advice [facility] [address] [place] [address] Shamar Claros MD [address] [facility] [place] [address] Social History Tobacco Use [...] documented as of this encounter Care Teams Business Administration Instructor Relationship Specialty Start Date End Date Shamar Claros MD [address] [facility] [place] [address] PCP - General Internal Medicine 05/17/17 Janis Jacobs MD [address] [place] [address] Assigned OBGYN Provider 04/09/21 3 Shamar Claros MD [address] [facility] [place] [address] Assigned PCP 09/08/22 Patti Ferris MD [address] [place] [address] Assigned OBGYN Provider 04/27/23 documented as of this encounter
--- OUTSIDE RECORDS SUMMARY | 2023-07-31 09:46 | XMS_ITS | Encounter Summary ---
Author Name Unknown Organization [facility] Address [address] [place] [address] Care Team Providers Care Flour Mixer Helper Name Role Phone Shamar Claros MD Primary Care Provider [phone] Melina Sousa PA-C Unavailable [phone] Janis Jacobs MD Unavailable [phone] Shamar Claros MD Unavailable [phone] Patti Ferris MD Unavailable [phone] Reason for Visit * Reason Onset Date Comments Heart Problem 05/25/2021 Symptoms Encounter Details Date Type Department Care Team (Late st Contact Info) Description 05/25/2021 [facility] Medical Advice [address] [place] [address] Janis Jacobs MD [address] [place] [address] Heart Problem (Symptoms) Social History Tobacco Use Types Packs/Day Years [...] on file documented as of this encounter Miscellaneous Notes * Telephone Encounter - Olinda Langston RN - 05/25/2021 3:35 PM CST Pt messaging thinking she has yeast infection starting. Is on abx for sinus infection. Requesting Diflucan once now and another dose for when she is done with abx. Pharmacy selected, please advise. Dr Jacobs out today and tomorrow, sending to regional retail sales manager. Olinda Langston RN NEL MACHINE OPERATOR documented in this encounter Plan of Treatment Not on file documented as of this encounter Visit Diagnoses Diagnosis Vaginal symptom- Primary documented in this encounter Additional Health Concerns Assessment Noted Time PHQ-9 Depression Total Score: 8 03/31/20 21 7:02 AM CDT documented as of this encounter Care Teams Flour Mixer Helper Relationship Specialty Start Date End Date Shamar Claros MD [address] [place] [address] [place] [address] PCP - General Internal Medicine 05/17/17 Melina Sousa PA-C [address] [place] [id number] Assigned PCP 12/25/20 03/23/22 Janis Jacobs MD [address] [place] [address] Assigned OBGYN Provider 04/09/21 3 Shamar Claros MD [address] [place] [address] [place] [address] Assigned PCP 09/08/22 Patti Ferris MD [address] [address] [address] Assigned OBGYN Provider 04/27/23 documented as of this encounter
--- OUTSIDE RECORDS SUMMARY | 2023-07-31 09:46 | XMS_ITS | Encounter Summary ---
Author Name Unknown Organization [facility] Address [address] [facility] [place] [address] Care Team Providers Care Boardinghouse Keeper Name Role Phone Shamar Claros MD Primary Care Provider + [phone] Shamar Claros MD Unavailable [phone] Patti Ferris MD Unavailable [phone] Reason for Visit * Reason Comments Ultrasound RL2 for sub-optimal anatomy Encounter Details Date Type Department Care Team (Late st Contact Info) Description 05/13/2023 9:15 AM CDT Office Visit [facility] [place] [address] [facility] [address] [place] [address] Patti Ferris MD [address] [place] [address] Zoey Real MD [address] [place] [address] BMI 40.0-44.9, adult (H) (Primary Dx) Social History Tobacco Use Types [...] AM CDT documented as of this encounter Progress Notes * Zoey Real MD - 05/13/2023 9:15 AM CDT Please see Imaging tab under Chart Review for details of today's visit. Zoey Real documented in this encounter Nursing Notes * Nica Gruber RN - 05/13/2023 9:15 AM CDT Gardenia Scott is a at 21w5d who presents to [facility] for a follow-up ultrasound for sub-optimal anatomy. Pt reports positive movement. Pt denies bldg/lof/change in discharge, contractions, headache, vision changes, chest pain/SOB or edema. SBAR given to Dr. Real, see note in Epic. Nica Gruber RN documented in this encounter Plan of Treatment Not on file documented as of this encounter Visit Diagnoses Diagnosis BMI 40.0-44.9, adult (H)- Primary Body Mass Index 40.0-44.9, adult documented in this encounter Additional Health Concerns Assessment Noted Time PHQ-9 Depression Total Score: 8 03/31/20 21 7:02 AM CDT documented as of this encounter Care Teams Boardinghouse Keeper Relationship Specialty [place] [address] [place] [address] [place] [address] PCP - General Internal Medicine 05/17/17 Shamar Claros MD [address] [place] [address] [place] [address] Assigned PCP 09/08/22 Patti Ferris MD [address] [address] Assigned OBGYN Provider 04/27/23 documented as of this encounter
--- OUTSIDE RECORDS SUMMARY | 2023-07-31 09:46 | XMS_ITS | Encounter Summary ---
Author Name Unknown Organization [place] Address [address] [place] [address] Care Team Providers Care Erp Analyst Name Role Phone Shamar Claros MD Primary Care Provider + [phone] Shamar Claros MD Unavailable [phone] Patti Ferris MD Unavailable [phone] Reason for Referral * Diagnostic Imaging Ultrasound (Routine) - Pending Review Specialty Diagnoses / Procedures Referred By Contac t Referred To Contact Radiology. Diagnoses Encounter for follow-up ultrasound of anatomy Procedures [facility] US Comprehensive Single F/U Patti Ferris MD [address] [place] [address] Referral ID Status Reason Start Date Expiration Date V isits Requested Visits Authorized [id number] Pending Review 04/22/2023 04/21/2024 1 1 Reason for Visit * Diagnostic Imaging Ultrasound (Routine) - Pending Review Specialty Diagnoses / Procedures Referred By Contac t Referred To Contact Radiology. Diagnoses Encounter for follow-up ultrasound of anatomy Procedures [facility] US Comprehensive Single F/U Patti Ferris MD [address] [address] Referral ID Status Reason Start Date Expiration Date V isits Requested Visits Authorized [id number] Pending Review 04/22/2023 04/21/2024 1 1 Encounter Details Date Type Department Care Team (Latest Contact Info) Description 05/13/2023 8:38 AM CDT - 05/13/2023 11:59 PM CDT Hospital Encounter [facility] [place] [address] [facility] [address] [place] [address] Patti Ferris MD [address] [place] [address] Zoey Real MD [address] [place] [address] Encounter for follow-up ultrasound of anatomy Discharge Disposition: Home or Self Care Social History Tobacco Use Types Packs/Day Years [...] AM CDT documented as of this encounter Medications at Time of Discharge Medication Sig Dispensed Refills Start Date End Date acyclovir (ZOVIRAX) 400 MG tabletIndications:RLQ abdominal pain Take 1 tablet (400 mg) by mouth every 8 hours 15 tablet 3 07/30/2022 albuterol (PROAIR HFA/PROVENTIL HFA/VENTOLIN HFA) 108 (90 Base) MCG/ACT inhalerIndications:Coug h Inhale 2 puffs into the lungs every 6 hours as needed for shortness of breath / dyspnea or wheezing 18 g 1 07/18/2021 dexamethasone (DECADRON) 6 MG tabletIndications:Infec tion due to 2019 novel coronavirus Take 1 tablet (6 mg) by mouth daily 9 tablet 0 07/21/2021 fluticasone (FLONASE) 50 MCG/ACT nasal sprayIndications:Acute sinusitis treated with antibiotics in the past 60 days Roy 1 spray into both nostrils daily 9.9 mL 3 06/01/2021 metFORMIN (GLUCOPHAGE) 500 MG tabletIndications:Morbi d obesity (H),Pre-diabetes,PCOS (polycystic ovarian syndrome) Take 1 tablet (500 mg) by mouth 2 times daily (with meals) Take 1 tab once daily with breakfast for 1 week, then increase to taking 1 tab twice daily with breakfast and dinner 180 tablet 0 06/01/2021 omeprazole (PRILOSEC) [address] capsule Take 20 mg by mouth daily 0 sertraline (ZOLOFT) 50 MG tabletIndications:Gener alized anxiety disorder,Recurrent binge eating Take 1 tablet (50 mg) by mouth daily 90 tablet 0 06/01/2021 documented as of this encounter Plan of Treatment Not on file documented as of this encounter Procedures Procedure Name Priority Date/Time Associated Diagnosis Comments [facility] US COMPREHENSIVE SINGLE F/U Routine 05/13/2023 9:18 AM CDT Encounter for follow-up ultrasound of anatomy documented in this encounter Results * [facility] US Comprehensive Single F/U (05/13/2023 9:18 AM [...] CDT ?Comp Follow Up ----- Pat. Name: GARDENIA SCOTT ? Study Date: ??05/13/2023 8:32am Pat. NO: ??[id number] ?Referring ??MD: CASEY DAVIS Site: ??[facility] ? Aerial Survey Technician: Denise Kuhn RDMS : ??1990 ?Age: [...] Biometry: BPD ?54.1 ?mm ? 22w 3d ?Hadlock OFD ?72.6 ?mm ? 22w 3d ?Nicolaides HC ?203.9 ?mm ?22w 4d ?Hadlock Cerebellum tr ?22.1 ? mm ?21w 0d ?Nicolaides AC ?184.5 ?mm ?23w 2d ?87% ?Hadlock Femur ?41.1 ? mm ?23w 2d ?Hadlock Weight Calculation: EFW ? 570 ? g ? 97% ?Hadlock EFW (lb,oz) ? 1 lb 4 ?oz EFW by ?Hadlock ([id number]) Head / Face / Neck Biometry: Auction Clerk ? 3.7 ? mm CM ?3.7 ? mm ANATOMY ----- The following structures appear normal: Head / Neck ? Cranium. Head size. Head shape. Lateral ventricles. Midline falx. Cavum septi pellucidi. Cerebellum. Cisterna magna. Thalami. Face ? Lips. Profile. Nose. Heart / Thorax ?4-chamber view. RVOT view. LVOT view. Aortic arch view. 0-guxzzx-fcybhpu view. ? Diaphragm. Abdomen ? Stomach. Bladder. [...] medical record, and communicating with other health manager managed care and/or care coordination. Procedure Note Zoey Real MD - 05/13/2023 Comp Follow Up ----- Pat. Name: GARDENIA SCOTT Study Date: 05/13/2023 8:32am Pat. NO: [id number] Referring MD: CASEY DAVIS Site: [facility] Aerial Survey Technician: Denise Kuhn RDMS : 1990 Age: 32 ----- INDICATION ----- Follow up suboptimal anatomy. BMI 44. Declined screening. METHOD ----- Transabdominal ultrasound examination. View: Sufficient ----- Cook . Number of fetuses: 1 DATING ----- DateDetailsGest. age JEFF LMP 12/05/2022ycle: irregular, long [id number] w + 5 d 09/11/2023 Prior assessment 01/28/2023 GA: 6 w +5 d21 w + 5 d 09/18/2023 U/S 05/13/2023ased upon AC, BPD, Femur, HC22 w + 6 d 09/10/2023 Assigned dating Dating performed on 05/13/2023, based onthe prior assessment (on 01/28/2023) 21 w + 5 09/18/2023 GENERAL EVALUATION ----- Cardiac activity present. [...] (lb,oz) 1 lb 4 oz EFW by Hadlock ([id number]) Head / Face / Neck Biometry: Auction Clerk 3.7 mm CM 3.7 mm ANATOMY ----- The following structures appear normal: Head / Neck Cranium. Head size. Head shape.Lateral ventricles. Midline falx. Cavum septi pellucidi. Cerebellum.Cisterna magna. Thalami. Face Lips. Profile. Nose. Heart / Thorax 4-chamber view. RVOT view. LVOT view.Aortic arch view. 8-uhpyur-rqjjobf view. Diaphragm. Abdomen Stomach. Bladder. Spine Cervical [...] electronic medical record, andcommunicating with other health manager managed care and/or carecoordination. IMPRESSION ----- 1. Cook intrauterine at 21w 5d gestational age here forcompletion of anatomy. 2. The remaining anatomic survey was completed, no anomaliescommonly detected by ultrasound were identified within the limits ofprenatal ultrasound. 3. Growth parameters and estimated weight were slightly ahead ofestablished dates, EFW 97%. 4. The amniotic fluid volume appeared normal. Patti Ferris MD [facility] ORDERABLE S documented in this encounter Visit Diagnoses Diagnosis Encounter for follow-up ultrasound of anatomy documented in this encounter Additional Health Concerns Assessment Noted Time PHQ-9 Depression Total Score: 8 03/31/20 21 7:02 AM CDT documented as of this encounter Care Teams Erp Analyst Relationship Specialty Start Date End Date Shamar Claros MD [address] [facility] [place] [address] PCP - General Internal Medicine 05/17/17 [place] [address] [place] [address] [place] [address] Assigned PCP 09/08/22 Patti Ferris MD [address] [address] [address] [address] Assigned OBGYN Provider 04/27/23 documented as of this encounter
--- OUTSIDE RECORDS SUMMARY | 2023-07-31 09:46 | XMS_ITS | Clinical Summary ---
Author Name Unknown Organization [place] Address [address] [place] [address] Care Team Providers Care Industrial Hygenist Name Role Phone Shamar Claros MD Primary Care Provider + [phone] Shamar Claros MD Unavailable [phone] Patti Ferris MD Unavailable [phone] Allergies Active Allergy Reactions Criticality Noted Date [...] with antibiotics in the past 60 days [place] 1 spray into both nostrils daily 9.9 mL 3 06/01/2021 Active albuterol (PROAIR HFA/PROVENTIL HFA/VENTOLIN HFA) 108 (90 Base) MCG/ACT inhalerIndications:C ough Inhale 2 puffs into the lungs every 6 hours as needed for shortness of breath / dyspnea or wheezing 18 g 1 07/18/2021 Active dexamethasone (DECADRON) 6 MG tabletIndications:In fection due to 2018 novel coronavirus Take 1 tablet (6 mg) [...] normal first in second trimester 11/16/2016 01/25/2017 Encounters Date Type Department Care Team Description 05/13/2023 9:15 AM CDT Office Visit [facility] [place] [address] [facility] [address] [place] [address] Patti Ferris MD Burn, Martina, MD BMI 40.0-44.9, adult (H) (Primary Dx) 05/13/2023 8:38 AM CDT - 05/13/2023 11:59 PM CDT Hospital Encounter [facility] [place] [address] [facility] [address] [place] [address] Patti Ferris MD Burn, Martina, MD Encounter for follow-up ultrasound of anatomy Discharge Disposition: Home or Self Care 05/13/2023 Travel from Last 3 Months Immunizations Name Administration Dates Next Due HepB, Unspecified 06/17/2003,02/23/2002 Hepatitis B, Peds 06/17/2003,02/25/2003,02/26/20 03,02/23/2002 Historical DTP/aP 01/26/1995, 5,04/28/1991,04/28/1991,10/27/1990 ,10/27/1990,05/29/1990,05/29/1990,03/29/1990, 0 MMR 02/23/2002,02/17/1991 OPV, trivalent, live 01/26/1995,04/28/1991,05/29,03/29/1990 OPV, unspecified 01/26/1995,04/28/1991, 0,03/29/1990 TD,PF 7+ (Tenivac) 02/23/2002 TDAP Vaccine (Adacel) 01/25/2017,02/19/2012 Td (Adult), Adsorbed 02/23/2002 Family History Medical History Relation Comments Cancer Brother 1 testicular Cancer Brother 2 testicular Cancer Father prostate Diabetes Father Breast Cancer Maternal Grandmother mid-late 60 s Cerebrovascular Disease Mother Relation Status Comments Brother 1 Brother 2 Father Maternal Grandmother Mother Social History Tobacco Use Types Packs/Day Years [...] Comments Blood Pressure 127/85 07/21/2021 5:26 AM [employer]AL CEREMONIAL CELEBRANT Pulse 83 07/21/2021 5:26 AM [employer] CELE[employer] Temperature 37.4 ??C (99.4 ??F) 07/20/2021 9:53 PM CS T Respiratory Rate 20 07/21/2021 5:26 AM [employer]LE[employer] Oxygen Saturation 97% 07/21/2021 5:26 AM [employer] CELE[employer] Inhaled Oxygen Concentration - - Weight 144.4 kg (318 lb 5.5 oz) 07/20/2021 9:53 PM [employer]EREM[employer]IAL CELEBRANT Height 172.7 cm (5' 8) 10/12/2019 11:2 5 AM CDT Body Mass Index 48.4 10/12/2019 11:25 AM CDT Plan of Treatment Health Maintenance Due Date Last Done Comments ADVANCE CARE PLANNING 1990 ANNUAL REVIEW OF HM ORDERS 1990 COVID-19 Vaccine (#1) 1994 HEPATITIS C SCREENING 11/08/2007 YEARLY PREVENTIVE VISIT 12/20/2018 12/20/2017 MATERNAL SCREENING DISCUSSION 02/20/2023 09/17/2016 (Declined) INFLUENZA VACCINE (#1) 2023 OBGCT (OB) 05/29/2023 12/06/2016 PHQ-2 (once per calendar year) 2023 03/30/2021, 04/15/2020, 10/12/2019, Additional history exists RSV VACCINE ( & 60+) (1 - Risk 1-dose series) 07/24/2023 GROUP B STREP SCREENING 08/21/2023 02/07/2017 HPV TEST 04/15/2025 04/15/2020, 08/2019, 07/31/2016 PAP 04/15/2025 04/15/2020, 07/31/2016 DTAP/TDAP/TD IMMUNIZATION (8 - Td or Tdap) 01/25/2027 01/25/2017, 02/19/2012, 02/23/2002, Additional history exists IPV IMMUNIZATION Completed 01/26/1995, , 04/28/1991, Additional history exists HEPATITIS B IMMUNIZATION Completed 003, 06/17/2003, 06/17/2003, Additional history exists HIV SCREENING Completed 09/17/2016 HPV IMMUNIZATION Aged Out No longer e ligible based on patient's age to complete this topic MENINGITIS IMMUNIZATION Aged Out No l onger eligible based on patient's age to complete this topic Pneumococcal Vaccine: Pediatrics (0 to 5 Years) and At-Risk Patients (6 to 64 Years) Aged Out No longer eligible based on patient's age to complete this topic RSV MONOCLONAL ANTIBODY Aged Out No l onger eligible based on patient's age to complete this topic Procedures Procedure Name Priority Date/Time Associated Diagnosis Comments [facility] US COMPREHENSIVE SINGLE F/U Routine 05/13/2023 9:18 AM CDT Encounter for follow-up ultrasound of anatomy from Last 3 Months Results * [facility] US Comprehensive Single F/U (05/13/2023 9:18 [...] ? Study Date: ??05/13/2023 8:32am Pat. NO: ??[id number] ?Referring ??MD: CASEY DAVIS Site: ??[facility] ? Dedicated Local Truck Driver: Denise Kuhn RDMS : ??1990 ?Age: ?? [...] ?Michele CREWS ?72.6 ?mm ? 22w 3d ?Nicolasakina ?203.9 ?mm ?22w 4d ?Hadlock Cerebellum tr ?22.1 ? mm ?21w 0d ?Nicolaides AC ?184.5 ?mm ?23w 2d ?87% ?Hadlock Femur ?41.1 ? mm ?23w 2d ?Hadlock Weight Calculation: EFW ? 570 ? g ? 97% ?Hadlock EFW (lb,oz) ? 1 lb 4 ?oz EFW by ?Hadlock ([id number]) Head / Face / Neck Biometry: Health Services Director ? 3.7 ? mm CM ?3.7 ? mm ANATOMY ----- The following structures appear normal: Head / Neck ? Cranium. Head size. Head shape. Lateral ventricles. Midline falx. Cavum septi pellucidi. Cerebellum. Cisterna magna. Thalami. Face ? Lips. Profile. Nose. Heart / Thorax ?4-chamber view. RVOT view. LVOT view. Aortic arch view. 3-kgepbx-wamjxrw view. ? Diaphragm. Abdomen ? Stomach. Bladder. [...] medical record, and communicating with other health patient care associate and/or care coordination. Procedure Note Zoey Real MD - 05/13/2023 Comp Follow Up ----- Pat. Name: GARDENIA SCOTT Study Date: 05/13/2023 8:32am Pat. NO: [id number] Referring MD: CASEY DAVIS Site: [facility] Dedicated Local Truck Driver: Denise Kuhn RDMS : 1990 Age: 32 ----- INDICATION ----- Follow up suboptimal anatomy. BMI 44. Declined screening. METHOD ----- Transabdominal ultrasound examination. View: Sufficient ----- Cook . Number of fetuses: 1 DATING ----- DateDetailsGest. age JEFF LMP 12/05/2022ycle: irregular, long [id number] w + 5 d 09/11/2023 Prior assessment [...] 1 lb 4 oz EFW by Michele ([id number]-FL) Head / Face / Neck Biometry: Health Services Director 3.7 mm CM 3.7 mm ANATOMY ----- The following structures appear normal: Head / Neck Cranium. Head size. Head shape.Lateral ventricles. Midline falx. Cavum septi pellucidi. Cerebellum.Cisterna magna. Thalami. Face Lips. Profile. Nose. Heart / Thorax 4-chamber view. RVOT view. LVOT view.Aortic arch view. 5-wbyqtv-hopqakn view. Diaphragm. Abdomen Stomach. Bladder. Spine Cervical [...] electronic medical record, andcommunicating with other health patient care associate and/or carecoordination. IMPRESSION ----- 1. Cook intrauterine at 21w 5d gestational age here forcompletion of anatomy. 2. The remaining anatomic survey was completed, no anomaliescommonly detected by ultrasound were identified within the limits ofprenatal ultrasound. 3. Growth parameters and estimated weight were slightly ahead ofestablished dates, EFW 97%. 4. The amniotic fluid volume appeared normal. Patti Ferris MD [facility] ORDERABLE S from Last 3 Months Advance Directives For more information, please contact: [phone] Latest Code Status on File Code Status Date Activated Date Inactivated Comments Full Code 03/02/2017 9:48 AM 07/20/2021 9:47 PM Care Teams Industrial Hygenist Relationship Specialty Start Date End Date Shamar Claros MD [address] [facility] [place] [address] PCP - General Internal Medicine 05/17/17 Shamar Claros MD [address] [facility] [place] [address] Assigned PCP 09/08/22 Patti Ferris MD [address] [place] [address] Assigned OBGYN Provider 04/27/23
--- OUTSIDE RECORDS SUMMARY | 2023-07-31 09:46 | XMS_ITS | Encounter Summary ---
Author Name Unknown Organization [place] Address [facility] [place] [address] Care Team Providers Care Cherry Picker Operator Name Role Phone Shamar Claros MD Primary Care Provider [phone] Shamar Claros MD Unavailable [phone] Reason for Referral * Diagnostic Imaging Ultrasound (Routine) - Pending Review Specialty Diagnoses / Procedures Referred By Cecilia philippe Referred To Contact Radiology. Diagnoses Encounter for follow-up ultrasound of anatomy Procedures [facility] US Comprehensive Single F/U Patti Ferris MD [address] [place] [address] Referral ID Status Reason Start Date Expiration Date V isits Requested Visits Authorized [id number] Pending Review 04/22/2023 04/21/2024 1 1 Reason for Visit * Reason Comments Ultrasound L2-obesity in pregna ncy Encounter Details Date Type Department Care Team (Late st Contact Info) Description 04/22/2023 11:30 AM CDT Office Visit [facility] [place] [address] [facility] [address] [place] [address] Non-Fv Credentialed Provider, Radiology Francis Min MD [address] [place] [address] Patti Ferris MD [address] [place] [address] Obesity in , antepartum (Primary Dx); Encounter for follow-up ultrasound of anatomy; BMI 40.0-44.9, adult (H) Social History Tobacco Use Types Packs/Day Years [...] as of this encounter Progress Notes * Patti Ferris MD - 04/22/2023 11:30 AM CDT The patient was seen for an ultrasound in the Maternal- Medicine Center at the [facility] today. For a detailed report of the ultrasound examination, please see the ultrasound report which can be found under the imaging tab. If you have questions regarding today's evaluation or if we can be of further service, please contact the Maternal- Medicine Center. Patti Freris MD Diving Board Assembler, WASHCOAT WIPER Maternal- Medicine [phone] (Pager) documented in this encounter Nursing Notes * Nataly Bailey, JENNIFER - 04/22/2023 11:30 AM CDT Patient presents to [facility] for L2 at 18w5d due to elevated BMI. Positive movement. Denies LOF, vaginal bleeding or cramping/contractions. SBAR given to Katty SPEARS, see their note in Epic. documented in this encounter Plan of Treatment Not on file documented as of this encounter Results * [facility] US Comprehensive Single F/U (05/13/2023 9:18 AM [...] ? Study Date: ??05/13/2023 8:32am Pat. NO: ??[id number] ?Referring ??MD: CASEY DAVIS Site: ??[facility] ? Belt Builder: Denise Kuhn RDMS : ??1990 ?Age: ?? [...] 1 lb 4 ?oz EFW by ?Hadlock ([id number]) Head / Face / Neck Biometry: Field Pipelines Supervisor ? 3.7 ? mm CM ?3.7 ? mm ANATOMY ----- The following structures appear normal: Head / Neck ? Cranium. Head size. Head shape. Lateral ventricles. Midline falx. Cavum septi pellucidi. Cerebellum. Cisterna magna. Thalami. Face ? Lips. Profile. Nose. Heart / Thorax ?4-chamber view. RVOT view. LVOT view. Aortic arch view. 7-hqwupx-guprunc view. ? Diaphragm. Abdomen ? Stomach. Bladder. [...] medical record, and communicating with other health primary care sales representative and/or care coordination. Procedure Note Zoey Real MD - 05/13/2023 Comp Follow Up ----- Pat. Name: GARDENIA SCOTT Study Date: 05/13/2023 8:32am Pat. NO: [id number] Referring MD: CASEY DAVIS Site: [facility] Belt Builder: Denise Kuhn RDMS : 1990 Age: 32 ----- INDICATION ----- Follow up suboptimal anatomy. BMI 44. Declined screening. METHOD ----- Transabdominal ultrasound examination. View: Sufficient ----- Cook . Number of fetuses: 1 DATING ----- DateDetailsGest. age JEFF LMP 12/05/2022ycle: irregular, long [id number] w + 5 d 09/11/2023 Prior assessment [...] 1 lb 4 oz EFW by Hadlock ([id number]) Head / Face / Neck Biometry: Field Pipelines Supervisor 3.7 mm CM 3.7 mm ANATOMY ----- The following structures appear normal: Head / Neck Cranium. Head size. Head shape.Lateral ventricles. Midline falx. Cavum septi pellucidi. Cerebellum.Cisterna magna. Thalami. Face Lips. Profile. Nose. Heart / Thorax 4-chamber view. RVOT view. LVOT view.Aortic arch view. 3-hywjcw-bdwbjqj view. Diaphragm. Abdomen Stomach. Bladder. Spine Cervical [...] electronic medical record, andcommunicating with other health primary care sales representative and/or carecoordination. IMPRESSION ----- 1. Cook intrauterine at 21w 5d gestational age here forcompletion of anatomy. 2. The remaining anatomic survey was completed, no anomaliescommonly detected by ultrasound were identified within the limits ofprenatal ultrasound. 3. Growth parameters and estimated weight were slightly ahead ofestablished dates, EFW 97%. 4. The amniotic fluid volume appeared normal. Patti Ferris MD [facility] ORDERABLE S documented in this encounter Visit Diagnoses Diagnosis Obesity in , antepartum- Primary Obesity complicating , childbirth, or the puerperium, antepartum condition or complication Encounter for follow-up ultrasound of anatomy BMI 40.0-44.9, adult (H) Body Mass Index 40.0-44.9, adult Encounter for follow-up ultrasound of anatomy documented in this encounter Additional Health Concerns Assessment Noted Time PHQ-9 Depression Total Score: 8 03/31/20 21 7:02 AM CDT documented as of this encounter Care Teams Cherry Picker Operator Relationship Specialty Start Date End Date Shamar Claros MD [address] [place] [address] [place] [address] PCP - General Internal Medicine 05/17/17 [place] [address] [place] [address] [place] [address] Assigned PCP 09/08/22 documented as of this encounter
--- OUTSIDE RECORDS SUMMARY | 2023-07-31 09:46 | XMS_ITS | Encounter Summary ---
Author Name Unknown Organization [place] Address [address] [place] [address] Care Team Providers Care Care Services Manager Name Role Phone Shamar Claros MD Primary Care Provider [phone] Melina Sousa PA-C Unavailable [phone] Janis Jacobs MD Unavailable [phone] Shamar Claros MD Unavailable [phone] Patti eFrris MD Unavailable [phone] Encounter Details Date Type Department Care Team (Late st Contact Info) Description 07/20/2021 Documentation Only INTERFACED REPORT Unknown, Provider Social History Tobacco Use Types Packs/Day Years [...] Coronavirus / COVID-19? 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 OPERATOR documented as of this encounter Plan of Treatment Not on file documented as of this encounter Visit Diagnoses Not on filedocumented in this encounter Additional Health Concerns Assessment Noted Time PHQ-9 Depression Total Score: 8 03/31/20 21 7:02 AM CDT documented as of this encounter Care Teams Care Services Manager Relationship Specialty Start Date End Date Shamar Claros MD [address] [facility] [place] [address] PCP - General Internal Medicine 05/17/17 Melina Sousa PA-C [address] [place] [address] Assigned PCP 12/25/20 03/23/22 Janis Jacobs MD [address] [place] [address] Assigned OBGYN Provider 04/09/21 3 Shamar Claros MD [address] [facility] [place] [address] Assigned PCP 09/08/22 Patti Ferris MD [address] [id number] Assigned OBGYN Provider 04/27/23 documented as of this encounter
--- OUTSIDE RECORDS SUMMARY | 2023-07-31 09:46 | XMS_ITS | Encounter Summary ---
Author Name Unknown Organization [place] Address [address] [place] [address] Care Team Providers Care Research Worker Kitchen Name Role Phone Shamar Claros MD Primary Care Provider + [phone] Shamar Claros MD Unavailable [phone] Reason for Referral * Diagnostic Imaging Ultrasound (Routine) - Pending Review Specialty Diagnoses / Procedures Referred By Contac t Referred To Contact Radiology. Diagnoses related condition, antepartum Procedures [facility] US Comprehensive Single Rh [facility] [address] [place] [address] Referral ID Status Reason Start Date Expiration Date V isits Requested Visits Authorized [id number] Pending Review 04/11/2023 04/10/2024 1 1 Reason for Visit * Diagnostic Imaging Ultrasound (Routine) - Pending Review Specialty Diagnoses / Procedures Referred By Contac t Referred To Contact Radiology. Diagnoses related condition, antepartum Procedures [facility] US Comprehensive Single Rh [facility] [address] [place] [address] Referral ID Status Reason Start Date Expiration Date V isits Requested Visits Authorized [id number] Pending Review 04/11/2023 04/10/2024 1 1 Encounter Details Date Type Department Care Team ([facility] st Contact Info) Description 04/22/2023 11:00 AM CDT - 04/22/2023 11:59 PM CDT Hospital Encounter [facility] [place] [address] [place] [address] Non-Fv Credentialed Provider, Radiology Francis Min MD [address] [place] [address] Patti Ferris MD [address] [place] [address] related condition, antepartum Discharge Disposition: Home or Self Care Social [...] with antibiotics in the past 60 days Oral 1 spray into both nostrils daily 9.9 [...] Procedure Name Priority Date/Time Associated Diagnosis Comments [facility] US COMPREHENSIVE SINGLE Routine 04/22/2023 11:59 AM CDT related condition, antepartum documented in this encounter Results * [facility] US Comprehensive Single (04/22/2023 11:59 AM CDT) [...] 12:25 PM CDT Comprehensive ----- Pat. Name: GARDENIA SCOTT Study Date: 04/22/2023 11:03am Pat. NO: [id number] Referring ??MD: CASEY DAVIS Site: [facility] Attendant: Lauren Mcdowell RDMS : 1990 Age: 32 [...] Biometry: BPD ?42.3 ?mm ? 18w 6d ?Michele CREWS ?58.4 ?mm ? 19w 1d ?Nicolaides HC ?161.2 ?mm ?18w 6d ?Hadlock Cerebellum tr ?18.9 ? mm ?18w 3d ?Nicolaides AC ?130.2 ?mm ?18w 4d ?41% ?Hadlock Femur ?28.4 ? mm ?18w 5d ?Hadlock Humerus ?27.6 ?mm ? 18w 6d ?Eliot Weight Calculation: EFW ? 251 ? g ? 41% ?Hadlock EFW (lb,oz) ? 0 lb 9 ?oz EFW by ?Hadlock ([id number]-FL) Head / Face / Neck Biometry: Mineral Resources Inspector ? 6.7 ? mm CM ?2.7 ? [...] cava. Inferior vena cava. 3-vessel view. ? 6-tcuikg-oyfhvqn view. Cardiac position. Cardiac size. Cardiac rhythm. [...] medical record, and communicating with other health care technician and/or care coordination. Please see note for details. Procedure Note Patti Ferris MD - 04/22/2023 Comprehensive ----- Pat. Name:Bill SCOTT Date:04/22/2023 11:03am Pat. NO: [id number] :CASEY DAVIS [facility]ren [facility]cdowell RDMS :1990Age:32 ----- INDICATION ----- Obesity BMI 44 METHOD ----- Transabdominal ultrasound examination. View: Sufficient ----- Cook . Number of fetuses: 1 DATING ----- DateDetailsGest. age JEFF LMP 12/05/2022ycle: irregular, long exyzcs03 w + 5 d 09/11/2023 Prior assessment 01/28/2023 GA: 6 w +5 d18 w + 5 d 09/18/2023 U/S 04/22/2023ased upon AC, BPD, Femur, HC18 w + 5 d 09/18/2023 Assigned dating Dating performed on 04/22/2023, based onthe prior assessment (on 01/28/2023) 18 w + 5 09/18/2023 GENERAL EVALUATION ----- [...] (lb,oz) 0 lb 9 oz EFW by Hadlock (KOO-HJ-GQ-FL) Head / Face / Neck Biometry: Mineral Resources Inspector 6.7 mm CM 2.7 mm Nasal bone [...] Superior vena cava. Inferior venacava. 3-vessel view. 9-yazpmg-iwecqhi view. Cardiacposition. Cardiac size. Cardiac rhythm. Right [...] findings on today's ultrasound with the patient. Gunjanviewed the limitations of ultrasound both in detecting [...] electronic medical record, andcommunicating with other health care technician and/or carecoordination. Please see note for details. [...] anterior and circumvallate. Radiology Non-Fv Credentialed Provider I MG [facility] US ORDERABLES documented in this encounter Visit Diagnoses Diagnosis related condition, antepartum documented in this encounter Additional Health Concerns Assessment Noted Time PHQ-9 Depression Total Score: 8 03/31/20 21 7:02 AM CDT documented as of this encounter Care Teams Research Worker Kitchen Relationship Specialty Start Date End Date Shamar Claros MD [address] [facility] [place] [address] PCP - General Internal Medicine 05/17/17 Shamar Claros MD [address] [facility] [place] [address] Assigned PCP 09/08/22 documented as of this encounter
--- OUTSIDE RECORDS SUMMARY | 2023-07-31 09:46 | XMS_ITS | Encounter Summary ---
Author Name Unknown Organization [place] Address [address] [place] [address] Care Team Providers Care Corn Husker Name Role Phone Shamar Claros MD Primary Care Provider + [phone] Shamar Claros MD Unavailable [phone] Encounter Details Date Type Department Care Team (Latest Contact Info) Description 04/22/2023 Travel Social History Tobacco Use Types Packs/Day [...] documented as of this encounter Care Teams Corn Husker Relationship Specialty Start Date End Date Shamar lCaros MD [address] [facility] [place] [address] PCP - General Internal Medicine 05/17/17 Shamar Claros MD [address] [facility] [place] [id number] Assigned PCP 09/08/22 documented as of this encounter
--- OUTSIDE RECORDS SUMMARY | 2023-07-31 09:47 | XMS_ITS | Encounter Summary ---
Author Name Unknown Organization [place] Address [facility] [place] [address] Care Team Providers Care Cloth Colorer Name Role Phone Shamar Claros MD Primary Care Provider [phone] Alanis Dillard CNKatty Unavailable [phone] Melina Sousa PA-C Unavailable [phone] Janis Jacobs MD Unavailable [phone] Shamar Claros MD Unavailable [phone] Patti Ferris MD Unavailable [phone] Reason for Visit * Reason Onset Date Comments Medication Question 03/28/2021 Encounter Details Date Type Department Care Team (Late st Contact Info) Description 03/28/2021 MyC Medical Advice [address] [place] [address] Janis Jacobs MD [address] [place] [address] Medication Question Social History Tobacco Use Types Packs/Day Years [...] or suspected to have Coronavirus / COVID-19? No / Unsure 03/27/2021 1:28 PM CDT documented as of this encounter Miscellaneous Notes * Telephone Encounter - Olinda Langston RN - 03/30/2021 1:30 PM CDT Advised via mychart. Olinda Langston RN * Telephone Encounter - Janis Jacobs MD - 03/30/2021 1:13 PM CDT Please notify patient that the US with provide further information with regards to PCOS diagnosis, its find to discuss metformin with PCP, and we should can do a quick phone visit follow up to reviewUS and further discuss metformin if she desires. Janis Jacobs MD * Telephone Encounter - Lauren King RN - 03/28/2021 1:55 PM CDT Pt with f/u questions regarding metformin and U/s. Please see mychart. Lauren Baez R.N. documented in this encounter Plan of Treatment Not on file documented as of this encounter Visit Diagnoses Not on filedocumented in this encounter Care Teams Cloth Colorer Relationship Specialty Start Date End Date Shamar Claros MD [address] [place] [place] [address] PCP - General Internal Medicine 05/17/17 Alanis Dillard CNM [address] [place] [address] Assigned OBGYN Provider 05/06/20 Melina Sousa PA-C [address] [place] [address] Assigned PCP 12/25/20 03/23/22 Janis Jacobs MD [address] [place] [address] Assigned OBGYN Provider 04/09/21 3 Shamar Claros MD [address] [place] [address] Assigned PCP 09/08/22 Patti Ferris MD [address] [place] [address] Assigned OBGYN Provider 04/27/23 documented as of this encounter
--- OUTSIDE RECORDS SUMMARY | 2023-07-31 09:47 | XMS_ITS | Encounter Summary ---
Author Name Unknown Organization [place] Address [facility] [place] [address] Care Team Providers Care Wood Patternmaker Apprentice Name Role Phone Shamar Claros MD Primary Care Provider Alanis Dillard CNKatty Unavailable [phone] Melina Sousa PA-C Unavailable [phone] Janis Jacobs MD Unavailable [phone] Shamar Claros MD Unavailable [phone] Patti Ferris MD Unavailable [phone] Encounter Details Date Type Department Care Team (Late st Contact Info) Description 03/30/2021 MyC Medical Advice M [address] [place] [address] Kaykay Leung, ELECTORATE OFFICER Social History Tobacco Use Types Packs/Day Years [...] PM CDT documented as of this encounter Plan of Treatment Not on file documented as of this encounter Visit Diagnoses Not on filedocumented in this encounter Additional Health Concerns Assessment Noted Time PHQ-9 Depression Total Score: 8 03/31/20 21 7:02 AM CDT documented as of this encounter Care Teams Wood Patternmaker Apprentice Relationship Specialty Start Date End Date Shamar Claros MD [address] [place] [address] PCP - General Internal Medicine 05/17/17 Alanis Dillard CNM [address] [place] [address] Assigned OBGYN Provider 05/06/20 Melina Sousa PA-C [address] [place] [address] Assigned PCP 12/25/20 03/23/22 Janis Jacobs MD [address] [place] [address] Assigned OBGYN Provider 04/09/21 3 Shamar Claros MD [address] [place] [address] Assigned PCP 09/08/22 Patti Ferris MD [address] [facility] [address] [place] [address] Assigned OBGYN Provider 04/27/23 documented as of this encounter
--- OUTSIDE RECORDS SUMMARY | 2023-07-31 09:47 | XMS_ITS | Encounter Summary ---
Author Name Unknown Organization [place] Address [address] [place] [address] Care Team Providers Care Hand Molder And Caster Name Role Phone Shamar Claros MD Primary Care Provider Steph Fraga MD Unavailable [phone] Melina Sousa PA-C Unavailable [phone] Alanis Dillard CNM Unavailable [phone] Steph Fraga MD Unavailable [phone] Melina Sousa PA-C Unavailable [phone] Janis Jacobs MD Unavailable [phone] Shamar Claros MD Unavailable Patti Ferris MD Unavailable [phone] Encounter Details Date Type Department Care Team (Late st Contact Info) Description 10/10/2019 [facility] Medical Advice [facility] [place] [address] [place] [address] Drive [address] [place] [address] [place] [address] [place] [address] [place] [address] Social History Tobacco Use Types Packs/Day Years Used Date Smoking Tobacco: Never Smokeless Tobacco: Never Alcohol Use Standard Drinks/Week Comments No 0 (1 standard drink = 0.6 oz pur e alcohol) social PHQ-2 Answer Date Recorded PHQ-2 Score 0 07/23/2018 Sex and Gender Information Value Date Recorded Sex Assigned at Not on file Gender Identity Not on file Sexual Orientation Not on file COVID-19 Exposure Response Date Recorded In the last month, have you been in contact with someone who was confirmed or suspected to have Coronavirus / COVID-19? No / Unsure 10/12/2019 11:24 AM CDT documented as of this encounter Miscellaneous Notes * Telephone Encounter - Vijay Nowak RN - 10/12/2019 9:32 AM CDT Sent [employer] message. - Bryant Nowak, RN - Patient Advocate Liason (PAL) [facility] documented in this encounter Plan of Treatment Not on file documented as of this encounter Visit Diagnoses Not on filedocumented in this encounter Care Teams Hand Molder And Caster Relationship Specialty Start Date End Date Shamar Claros MD [address] [place] [address] [place] [address] PCP - General Internal Medicine 05/17/17 Steph Fraga MD [address] [place] [address] [place] [address] Assigned PCP 12/29/17 10/17/19 Melina Sousa PA-C [address] [place] [address] Assigned PCP 10/18/19 10/15/20 Alanis Dillard CNM [address] [place], [place] 840487 Assigned OBGYN Provider 05/06/20 Steph Fraga MD [address] [place] [address] [place] [address] Assigned PCP 10/16/20 12/24/20 Melina Sousa PA-C [address] [place], [place] 7[address] Assigned PCP 12/25/20 03/23/22 Janis Jacobs MD [address] [place] [address] Assigned OBGYN Provider 04/09/21 3 Shamar Claros MD [address] [facility] [place] [address] Assigned PCP 09/08/22 Patti Ferris MD [address] [id number] Assigned OBGYN Provider 04/27/23 documented as of this encounter
--- OUTSIDE RECORDS SUMMARY | 2023-07-31 09:47 | XMS_ITS | Encounter Summary ---
Author Name Unknown Organization [place] Address [address] [place] [address] Care Team Providers Care Accounts Payable Professional Name Role Phone Shamar Claros MD Primary Care Provider + [phone] Melina Sousa PA-C Unavailable [phone] Alanis Dillard CNM Unavailable [phone] Steph Fraga MD Unavailable [phone] Melina Sousa PA-C Unavailable [phone] Janis Jacobs MD Unavailable [phone] Shamar Claros MD Unavailable [phone] Patti Ferris MD Unavailable [phone] Encounter Details Date Type Department Care Team (Late st Contact Info) Description 04/20/2020 [facility] [address] [place] [address] Alanis Dillard CNM [address] [place] [address] Social History Tobacco Use Types Packs/Day Years [...] have Coronavirus / COVID-19? No / Unsure 04/15/2020 12:58 PM CDT documented as of this encounter Plan of Treatment Not on file documented as of this encounter Visit Diagnoses Not on filedocumented in this encounter Care Teams Accounts Payable Professional Relationship Specialty Start Date End Date Shamar Claros MD [address] [place] [address] [place] [address] PCP - General Internal Medicine 05/17/17 Melina Sousa PA-C [address] [place] [address]60[address] Assigned PCP 10/18/19 10/15/20 Alanis Dillard CNM [address] [place] [address] Assigned OBGYN Provider 05/06/20 Steph Fraga MD [address] [place] [address] [place] [address] Assigned PCP 10/16/20 12/24/20 Melina Sousa PA-C [address] [place] [address] Assigned PCP 12/25/20 03/23/22 Janis Jacobs MD [address] [place] [address] Assigned OBGYN Provider 04/09/21 3 Shamar Claros MD [address] [place] [address] [place] [address] Assigned PCP 09/08/22 Patti Ferris MD [address] [address] Assigned OBGYN Provider 04/27/23 documented as of this encounter
--- OUTSIDE RECORDS SUMMARY | 2023-07-31 09:47 | XMS_ITS | Encounter Summary ---
Author Name Unknown Organization [facility] Address [address] [place] [address] Care Team Providers Care Director Talent Name Role Phone Shamar Claros MD Primary Care Provider [phone] Steph Fraga MD Unavailable [phone] Melina Sousa PA-C Unavailable [phone] Alanis Dillard CNM Unavailable [phone] Steph Fraga MD Unavailable [phone] Melina Sousa PA-C Unavailable Janis Jacobs MD Unavailable [phone] Shamar Claros MD Unavailable Patti Ferris MD Unavailable [phone] Reason for Referral * Diagnostic Imaging Ultrasound (Routine) - Closed Specialty Diagnoses / Procedures Referred By Contluz marina t Referred To Contact Radiology. Diagnoses RLQ abdominal pain Procedures US Pelvic Complete w Transvaginal Melina Sousa PA-C [address] [place] [address] Rh Ultrasound [facility] [address] [place] [address] Referral ID Status Reason Start Date Expiration Date Visits Re quested Visits Authorized [id number] Closed 10/14/2019 10/13/2020 1 1 Reason for Visit * Reason Onset Date Comments MyChart Communication 10/13/2019 lab result s Encounter Details Date Type Department Care Team ([facility] st Contact Info) Description 10/13/2019 My[facility] Medical Advice [address] [address] Melina Sousa PA-C [address] [place] [id number] MyChart Communication (lab results) Social History Tobacco Use Types Packs/Day Years [...] encounter Miscellaneous Notes * Telephone Encounter - Monesrrat Aguayo RN - 10/14/2019 2:35 PM CDT Sent 's advise through . Advised pt to call me back with any questions. Primo, pecan picker Nurse * Telephone Encounter - Vy Sheehan MD - 10/14/2019 2:00 PM CDT Ultrasound ordered, patient should be called to schedule. I would still strongly recommend ongoing COVID-19 pandemic that if her symptoms continue to improve that she does NOT need this and going into the hospital for further testing would put her at risk for possible infection. I would not recommend pap smear at this time as her last was NIL in 2017. She should get a pap smear once we are not on social distancing protocol as she is due for this, but I do not feel that this is an integral part of her work-up. I'm happy to review her lab results with her more following her US if she would prefer. Everything is reassuring (I am not worried about the platelet clumping). A high EBV IgG is expected if she previously had mononucleosis and recovered from this. Her enlarged spleen is likely due to a viral infection; we recommend repeating the ultrasound in 3-6 months to make sure this is improving. REactive lymphocytes are consistent with a viral infection. Large platelets are consistent with these clumpingtogether. Vy Sheehan MD Internal Medicine-Pediatrics * Telephone Encounter - Monserrat Aguayo RN - 10/14/2019 1:22 PM CDT Called pt back & advised as below. 1. US order: Pt says that the pain has been much better, but still has discomfort and would like to get the US done to find an answer. Pended imaging order, please review & sign if appropriate. Thanks. 2. Pap test: Pt says that she wants to get all the needed testings done to rule out any complications. So, she would like to come in for pap if at all possible. She is saying that this will provide her some peaceof mind. Please advise. 3. Questions on lab test results: She has 5 questions on the lab test result notes that she received. * Worried about the EBV Capsid Antibody IgG being high(Result note - The EBV IgG means that you have had Ebstein Warren Virus in the past and have antibodies to it, the IgM is negative meaning no active infection for both Ebstein Warren Virus and Cytomegalovirus). - tried explaining to her that IgG shows that she had a exposure in the past, but IgM confirms thatshe doesn't have any inf now - but pt was physician's opinion * Question on the blood morphology(An occasional reactive lymphoid cells is seen) * Question on the blood morphology(There is some platelet clumping. ??Overall, the platelets show normal size and granulation. ??An occasional large form is seen) * Question on CT result(The spleen is enlarged measuring 14.8 cm in craniocaudal dimension) - doesthis mean she had mono in the past? * Question on the blood morphology(The peripheral blood morphology provides no clues as to etiologyof the splenomegaly) Offered a phone visit to go over the lab result notes. Pt says that she might have more questions after she had the US. So, she prefers to have the phone visit after the US. Doesn't want to do 2 phone visits. Please advise. JENNIFER Tillman Triage Nurse * Telephone Encounter - Monserrat Aguayo RN - 10/14/2019 12:47 PM CDT Called pt back at [phone], not available, so LM to call me back at [phone]. Will await for her call back. JENNIFER Tillman Triage Nurse * Telephone Encounter - Vy Sheehan MD - 10/14/2019 11:19 AM CDT If patient's pain is overall improving (no more episodes from this morning), I think it is fine to monitor at this point. However if she continues to have pain would obtain transvaginal US and I can place this order. Would not have patient get pap done at this point, as this is considered preventative care and typically cervical lesions that pap is intended to coal picker are painless. Vy Sheehan MD Internal Medicine-Pediatrics * Telephone Encounter - Melina Sousa PA-C - 10/14/2019 10:39 AM CDT Images from the original note were not included. Patient's PCP should take over at this point in time. [facility] generally does not do continued follow upbeyond the day of service. We refer back to PCP/specialist if needed. Dr. Sheehan or Dr. Claros, would you feel comfortable reviewing/ordering? Melina Sousa MBA, MS, PAEdwar * Telephone Encounter - Chanelle Franco - 10/14/2019 9:52 AM CDT Patient doesn't want to schedule a phone visit at this time, she wants to move forward with the trans vaginal ultrasound that she said was discussed if her labs came back normal when she was at [facility]. She states the new pain she had discussed in her [employer] Application [employer] message she felt only lasted 20 minutes and hasn't happened again. She states that overall she feels her pain is much improved but is very worry about her reproductive organs and wants to be sure nothing is wrong there. She also said that she is due for a pap and wanted to have that done with the transvaginal ultrasound. I informed her that those are not done together typically has its usually performed by an water filtration technician at an imaging appointment. She wanted to ask if she should get her pap done now anyway dueto symptoms or if she could wait til after the 01/18/2020 date for preventative items. Routing to provider for next step. Chanelle Franco MA * Telephone Encounter - Melina Sousa PA-C - 10/14/2019 9:40 AM CDT Images from the original note were not included. We can do a phone visit today. I'd like to discuss pain/symptoms further. Melina Sousa MBA, MS, SOHAIL * Telephone Encounter - Alanis Wright RN - 10/13/2019 5:13 PM CDT Forwarded to LP. Please review patient's Expandlyt message and advise. Alanis Wright BS, RN, PHN [facility]) [phone] * Telephone Encounter - Alanis Wright RN - 10/13/2019 4:17 PM CDT Expandlyt message sent. BLANCA Bull, RN, [facility] Office: [phone] documented in this encounter Plan of Treatment Not on file documented as of this encounter Results * US Pelvic Complete w Transvaginal (02/11/2020 11:59 AM CDT) Anatomical Region Laterality Modality Abdomen/Pelvis Ultrasound Impressions 02/11/2020 12:25 PM CDT IMPRESSION: Normal pelvic ultrasound. No ultrasound findings to suggest ovarian torsion. No free pelvic fluid. KARTHIK GRAMAJO MD Narrative 02/11/2020 12:25 PM CDT ULTRASOUND PELVIC COMPLETE WITH TRANSVAGINAL February 11, 2020 11:59 AM CLINICAL HISTORY: Right lower quadrant abdominal pain. TECHNIQUE: Transabdominal scans were performed. Endovaginal ultrasound was performed to better visualize the adnexa. COMPARISON: CT abdomen/pelvis 10/12/2019. FINDINGS: UTERUS: 8.2 x 4.4 x 6.2 cm. Normal in size and position with no masses. ENDOMETRIUM: 16 mm. Normal smooth endometrium. Trace amount of fluid noted in the endocervical canal possibly related to patient's history of recent spotting. RIGHT OVARY: 4.3 x 2.3 x 2.9 cm. Normal with flow demonstrated. LEFT OVARY: 3.5 x 2.2 x 2.2 cm. Normal with flow demonstrated. No significant free fluid. Procedure Note Karthik Gramajo MD - 02/11/2020 ULTRASOUND PELVIC COMPLETE WITH TRANSVAGINAL February 11, 2020 11:59 AM CLINICAL HISTORY: Right lower quadrant abdominal pain. TECHNIQUE: Transabdominal scans were performed. Endovaginal ultrasound was performed to better visualize the adnexa. COMPARISON: CT abdomen/pelvis 10/12/2019. FINDINGS: UTERUS: 8.2 x 4.4 x 6.2 cm. Normal in size and position with no masses. ENDOMETRIUM: 16 mm. Normal smooth endometrium. Trace amount of fluid noted in the endocervical canal possibly related to patient's history of recent spotting. RIGHT OVARY: 4.3 x 2.3 x 2.9 cm. Normal with flow demonstrated. LEFT OVARY: 3.5 x 2.2 x 2.2 cm. Normal with flow demonstrated. No significant free fluid. IMPRESSION: Normal pelvic ultrasound. No ultrasound findings to suggest ovarian torsion. No free pelvic fluid. KARTHIK GRAMAJO MD Vy Sheehan MD IMG US ORDERABLES documented in this encounter Visit Diagnoses Diagnosis RLQ abdominal pain- Primary Abdominal pain, right lower quadrant RLQ abdominal pain Abdominal pain, right lower quadrant documented in this encounter Care Teams Director Talent Relationship Specialty Start Date End Date Shamar Claros MD [address] [place] [address] [place] [address] PCP - General Internal Medicine 05/17/17 Steph Fraga MD [address] [place] [address] [place] [address] Assigned PCP 12/29/17 10/17/19 Melina Sousa PA-C [address] [place] [address] Assigned PCP 10/18/19 10/15/20 Alanis Dillard CNM [address] [place] [address] Assigned OBGYN Provider 05/06/20 Steph Fraga MD [address] [place] [address] [place] [address] Assigned PCP 10/16/20 12/24/20 Melina Sousa PA-C [address] [place] [address] Assigned PCP 12/25/20 03/23/22 Janis Jacobs MD [address] [place] [address] Assigned OBGYN Provider 04/09/21 3 Shamar Claros MD [address] [address] Assigned PCP 09/08/22 Patti Ferris MD [address] [place], [place] [address] Assigned OBGYN Provider 04/27/23 documented as of this encounter
--- OUTSIDE RECORDS SUMMARY | 2023-07-31 09:47 | XMS_ITS | Encounter Summary ---
Author Name Unknown Organization [facility] Address [address] [place] [address] Care Team Providers Care Hospital Sales Representative Name Role Phone Shamar Claros MD Primary Care Provider Alanis Dillard CNM Unavailable [phone] Melina Sousa PA-C Unavailable [phone] Janis Jacobs MD Unavailable [phone] Shamar Claros MD Unavailable [phone] Patti Ferris MD Unavailable [phone] Encounter Details Date Type Department Care Team (Late st Contact Info) Description 01/29/2021 [facility] Medical Advice [facility] [place] [address] [facility] [address] [place] [address] [place] [address] [place] [address] [place] [address] Social History Tobacco Use [...] on filedocumented in this encounter Care Teams Hospital Sales Representative Relationship Specialty Start Date End Date Shamar Claros MD [address] [facility] [place] [address] PCP - General Internal Medicine 05/17/17 Alanis Dillard CNM [address] [place] [address] Assigned OBGYN Provider 05/06/20 Melina Sousa PA-C [address] [place] [address] Assigned PCP 12/25/20 03/23/22 Janis Jacobs MD [address] [place] [address] Assigned OBGYN Provider 04/09/21 3 Shamar Claros MD [address] [facility] [place] [address] Assigned PCP 09/08/22 Patti Ferris MD [address] [place] [address] Assigned OBGYN Provider 04/27/23 documented as of this encounter
--- OUTSIDE RECORDS SUMMARY | 2023-07-31 09:47 | XMS_ITS | Encounter Summary ---
Author Name Unknown Organization [facility] Address [facility] [place] [address] Care Team Providers Care Kraft Mill Operator Name Role Phone Shamar Claros MD Primary Care Provider Alanis Dillard CNM Unavailable [phone] Melina Sousa PA-C Unavailable [phone] Janis Jacobs MD Unavailable [phone] Shamar Claros MD Unavailable [phone] Patti Ferris MD Unavailable [phone] Encounter Details Date Type Department Care Team (Late st Contact Info) Description 03/30/2021 [facility] Medical Advice [facility] [place] [address] [place] [address] Maribell Torrez, ENGINE REPAIRER PRODUCTION [address] [facility] [place] [address] Social History Tobacco Use Types Packs/Day Years [...] documented as of this encounter Care Teams Kraft Mill Operator Relationship Specialty Start Date End Date Shamar Claros MD [address] [facility] [place] [address] PCP - General Internal Medicine 05/17/17 Alanis Dillard CNM [address] [place] [address] Assigned OBGYN Provider 05/06/20 Melina Sousa PA-C [address] [place] [address] Assigned PCP 12/25/20 03/23/22 Janis Jacobs MD [address] [place] [address] Assigned OBGYN Provider 04/09/21 3 [place] [address] [place] [address] [place] [address] Assigned PCP 09/08/22 Patti Ferris MD [address] [address]69[address] Assigned OBGYN Provider 04/27/23 documented as of this encounter
== END 2023-07-31 09:44 | disposition home or self-care (01) ==
LOC: US 09:43
PROVIDERS: Visit Provider Advanced Practice Midwife
DX: O99.213 Obesity complicating pregnancy, third trimester (principal); Z3A.36 36 weeks gestation of pregnancy
CPT/HCPCS: 76816; 76819

== ENCOUNTER 2023-08-08 09:44 | Outpatient (CLI) | payer OTHER, SELFPAY ==
--- NOTE | 2023-08-08 09:45 | CRLHL7_ITS ---
For Patients: As a result of the Century Cures Act, medical imaging exams and procedure reports are released immediately into your electronic medical record. You may view this report before your referring provider. If you have questions, please contact your health care provider. INDICATION: severe morbid obesity COMPARISON: 07/31/2023 TECHNIQUE: Real time myers scale imaging of the fetus was performed. Without non-stress testing. FINDINGS: Sonographic imaging demonstrates a single living intrauterine gestation. Fetus demonstrates a regular cardiac rate of 147 beats per minute. Fetus has a vertex position. The amniotic fluid volume appears normal and there is a single deepest pocket measurement of 5.6 cm. The fetus was active and demonstrated normal breathing movements. There was normal flexion and extension of the trunk and extremities. IMPRESSION: Normal biophysical profile score of 8 out of 8. Dictated by Mamadou Anguiano MD @ 08/08/2023 11:00:38 AM (Electronically Signed)
--- OUTSIDE RECORDS SUMMARY | 2023-08-08 09:48 | XMS_ITS | Clinical Summary ---
Author Name Unknown Organization [facility] Address [address] [place] [address] Care Team Providers Care Textile Coating Machine Operator Name Role Phone Shamar Claros MD Primary Care Provider [phone] Shamar Claros MD Unavailable [phone] Patti Ferris MD Unavailable [phone] Allergies Active Allergy Reactions Criticality Noted [...] with antibiotics in the past 60 days Guthrie 1 spray into both nostrils daily 9.9 [...] Description 05/13/2023 9:15 AM CDT Office Visit [facility] [place] [address] [facility] [address] [place] [address] Patti Ferris MD Burn, Martina, MD BMI 40.0-44.9, adult (H) (Primary Dx) 05/13/2023 8:38 AM CDT - 05/13/2023 11:59 PM CDT Hospital Encounter [facility] [place] [address] [facility] [address] [place] [address] Patti Ferris MD Burn, Martina, [...] Comments Blood Pressure 127/85 07/21/2021 5:26 AM MASONRY CONTRACTOR Pulse 83 07/21/2021 5:26 AM MASONRY CONTRACTOR Temperature 37.4 ??C (99.4 ??F) 07/20/2021 9:53 PM CS T Respiratory Rate 20 07/21/2021 5:26 AM MASONRY CONTRACTOR Oxygen Saturation 97% 07/21/2021 5:26 AM MASONRY CONTRACTOR Inhaled Oxygen Concentration - - Weight 144.4 kg (318 lb 5.5 oz) 07/20/2021 9:53 PM MASONRY CONTRACTOR Height 172.7 cm (5' 8) 10/12/2019 11:2 [...] Procedure Name Priority Date/Time Associated Diagnosis Comments [facility] COMPREHENSIVE SINGLE F/U Routine 05/13/2023 9:18 AM CDT Encounter for follow-up ultrasound of anatomy from Last 3 Months Results * [facility] US Comprehensive Single F/U (05/13/2023 9:18 AM [...] ? Study Date: ??05/13/2023 8:32am Pat. NO: ??[id number] ?Referring ??MD: CASEY DAVIS Site: ??[facility] ? Trade Promotion Analyst: Denise Kuhn RDMS : ??1990 ?Age: ?? [...] 1 lb 4 ?oz EFW by ?Hadlock ([id number]) Head / Face / Neck Biometry: Ethical Hacker ? 3.7 ? mm CM ?3.7 ? mm ANATOMY ----- The following structures appear normal: Head / Neck ? Cranium. Head size. Head shape. Lateral ventricles. Midline falx. Cavum septi pellucidi. Cerebellum. Cisterna magna. Thalami. Face ? Lips. Profile. Nose. Heart / Thorax ?4-chamber view. RVOT view. LVOT view. Aortic arch view. 9-zguzuv-dlkzabg view. ? Diaphragm. Abdomen ? Stomach. Bladder. [...] medical record, and communicating with other health child care supervisor and/or care coordination. Procedure Note Zoey Real MD - 05/13/2023 Comp Follow Up ----- Pat. Name: GARDENIA SCOTT Study Date: 05/13/2023 8:32am Pat. NO: [id number] Referring MD: CASEY DAVIS Site: [facility] Trade Promotion Analyst: Denise Kuhn RDMS : 1990 Age: 32 ----- INDICATION ----- Follow up suboptimal anatomy. BMI 44. Declined screening. METHOD ----- Transabdominal ultrasound examination. View: Sufficient ----- Cook . Number of fetuses: 1 DATING ----- DateDetailsGest. age JEFF LMP 12/05/2022ycle: irregular, long zitury07 w + 5 d 09/11/2023 Prior assessment [...] 1 lb 4 oz EFW by Michele ([id number]) Head / Face / Neck Biometry: Ethical Hacker 3.7 mm CM 3.7 mm ANATOMY ----- The following structures appear normal: Head / Neck Cranium. Head size. Head shape.Lateral ventricles. Midline falx. Cavum septi pellucidi. Cerebellum.Cisterna magna. Thalami. Face Lips. Profile. Nose. Heart / Thorax 4-chamber view. RVOT view. LVOT view.Aortic arch view. 8-qrxune-sjcpmyw view. Diaphragm. Abdomen Stomach. Bladder. Spine Cervical [...] electronic medical record, andcommunicating with other health child care supervisor and/or carecoordination. IMPRESSION ----- 1. Cook intrauterine at 21w 5d gestational age here forcompletion of anatomy. 2. The remaining anatomic survey was completed, no anomaliescommonly detected by ultrasound were identified within the limits ofprenatal ultrasound. 3. Growth parameters and estimated weight were slightly ahead ofestablished dates, EFW 97%. 4. The amniotic fluid volume appeared normal. Patti Ferris MD [facility] ORDERABLE S from Last 3 Months Advance Directives For more information, please contact: [phone] Latest Code Status on File Code Status Date Activated Date Inactivated Comments Full Code 03/02/2017 9:48 AM 07/20/2021 9:47 PM Care Teams Textile Coating Machine Operator Relationship Specialty Start Date End Date Shamar Claros MD [address] [facility] [place] [address] PCP - General Internal Medicine 05/17/17 Shamar Claros MD [address] [facility] [place] [address] Assigned PCP 09/08/22 Patti Ferris MD [address] [place] [address] Assigned OBGYN Provider 04/27/23
--- OUTSIDE RECORDS SUMMARY | 2023-08-08 09:49 | XMS_ITS | Encounter Summary ---
Author Name Unknown Organization [facility] Address [facility] [place] [address] Care Team Providers Care Logistics Lead Name Role Phone Shamar Claros MD Primary Care Provider [phone] Janis Jacobs MD Unavailable [phone] Shamar Claros MD Unavailable [phone] Patti Ferris MD Unavailable [phone] Encounter Details Date Type Department Care Team (Late st Contact Info) Description 07/30/2022 [facility] Medical Advice [facility] [place] [address] [place] [address] Shamar Claros MD [address] [facility] [place] [address] Social History Tobacco [...] documented as of this encounter Care Teams Logistics Lead Relationship Specialty Start Date End Date Shamar Claros MD [address] [facility] [place] [address] PCP - General Internal Medicine 05/17/17 Janis Jacobs MD [address] [place] [address] Assigned OBGYN Provider 04/09/21 3 Shamar Claros MD [address] [facility] [place] [address] Assigned PCP 09/08/22 Patti Ferris MD [address] [place] [address] Assigned OBGYN Provider 04/27/23 documented as of this encounter
--- OUTSIDE RECORDS SUMMARY | 2023-08-08 09:49 | XMS_ITS | Encounter Summary ---
Author Name Unknown Organization [facility] Address [address] [place] [address]. [place] [address] Care Team Providers Care Vegetable Farming Supervisor Name Role Phone Shamar Claros MD Primary Care Provider [phone] Shamar Claros MD Unavailable [phone] Encounter Details Date Type Department Care Team (Latest Contact Info) Description 04/11/2023 Medical Correspondence [facility] [address] [place] [address] Outside, Provider [facility] PROVIDER [...] documented as of this encounter Care Teams Vegetable Farming Supervisor Relationship Specialty Start Date End Date Shamar Claros MD [address] [facility] [place] [address] PCP - General Internal Medicine 05/17/17 Shamar Claros MD [address] [facility] [address] [place], [place] [address] Assigned PCP 09/08/22 documented as of this encounter
--- OUTSIDE RECORDS SUMMARY | 2023-08-08 09:49 | XMS_ITS | Encounter Summary ---
Author Name Unknown Organization [facility] Address [address] [place] [address] Care Team Providers Care Railroad Crossing Protection Maintainer Name Role Phone Shamar Claros MD Primary Care Provider + [phone] Shamar Claros MD Unavailable [phone] Reason for Referral * Diagnostic Imaging Ultrasound (Routine) - Pending Review Specialty Diagnoses / Procedures Referred By Contac t Referred To Contact Radiology. Diagnoses related condition, antepartum Procedures MFM US Comprehensive Single Rh Maternal Med [address] [place] [address] Referral ID Status Reason Start Date Expiration Date V isits Requested Visits Authorized [id number] Pending Review 04/11/2023 04/10/2024 1 1 * Consultation (Routine: Next available opening) - Pending Review Specialty Diagnoses / Procedures Referred By Contac t Referred To Contact Diagnoses related condition, antepartum Rh Maternal Med [address] [place] [address] Rh Maternal Med [address] [place] [address] Referral ID Status Reason Start Date Expiration Date V isits Requested Visits Authorized [id number] Pending Review 04/11/2023 04/10/2024 1 1 Question Answer Preferred Location: [facility] [place] JEFF 09/17/2023 Ultrasound Comprehensive US (>than 18 weeks GA) US PROC NONE MFM Issue OTHER (enter details in Comments) - BMI MFM MD Consultation (unrelated to Ultrasound findings): No Inflammatory Bowel Disease Clinic: Joint MFM and GI Consultation: No Chronic Kidney Disease: Joint MFM and Nephrology Consultation No Genetic Counseling Consultation: No fax [facility] Casey Bacon [phone] Comments BMI Encounter Details Date Type Department Care Team (Late st Contact Info) Description 04/11/2023 Transcribe Orders [facility] [place] [address] [facility] [address] [place] [address] Casey Bacon APRN [facility] [address] [place] [address] related condition, antepartum (Primary Dx) Social History [...] documented as of this encounter Results * [facility] US Comprehensive Single (04/22/2023 11:59 AM CDT) [...] SCOTT Study Date: 04/22/2023 11:03am Pat. NO: [id number] Referring ??: ACSEY BACON Site: [facility] Pinion And Wheel: Lauren Mcdowell RDMS : 1990 Age: 32 [...] 0 lb 9 ?oz EFW by ?Hadlock ([id number]-FL) Head / Face / Neck Biometry: Study Lead ? 6.7 ? mm CM ?2.7 ? [...] cava. Inferior vena cava. 3-vessel view. ? 0-uzggqg-cjmdihg view. Cardiac position. Cardiac size. Cardiac rhythm. [...] medical record, and communicating with other health critical care rn and/or care coordination. Please see note for details. Procedure Note Patti Ferris MD - 04/22/2023 Comprehensive ----- Pat. Name:SHAYY SCOTTCharlenedeon Date:04/22/2023 11:03am Pat. NO: [id number] MD:CASEY BACON [facility]Lauren Mcdowell RDMS :1990Age:32 ----- INDICATION ----- Obesity BMI 44 METHOD ----- Transabdominal ultrasound examination. View: Sufficient ----- Cook . Number of fetuses: 1 DATING ----- DateDetailsGest. age JEFF LMP 12/05/2022ycle: irregular, long [id number] w + 5 d 09/11/2023 Prior assessment [...] 0 lb 9 oz EFW by Radlock (GAF-FT-GB-FL) Head / Face / Neck Biometry: Study Lead 6.7 mm CM 2.7 mm Nasal bone [...] Superior vena cava. Inferior venacava. 3-vessel view. 6-kscvyq-watkzhs view. Cardiacposition. Cardiac size. Cardiac rhythm. Right [...] electronic medical record, andcommunicating with other health critical care rn and/or carecoordination. Please see note for details. [...] documented as of this encounter Care Teams Railroad Crossing Protection Maintainer Relationship Specialty Start Date End Date Shamar Claros MD [address] [place] [address] [place]CGARR[place] [address] PCP - General Internal Medicine 05/17/17 [place] [address] [place] [address] [place]CG[place] [address] Assigned PCP 09/08/22 documented as of this encounter
--- OUTSIDE RECORDS SUMMARY | 2023-08-08 09:49 | XMS_ITS | Encounter Summary ---
Author Name Unknown Organization [facility] Address [address] [place] [address] Care Team Providers Care Entry Level Manager Name Role Phone Shamar Claros MD Primary Care Provider + [phone] Shamar Claros MD Unavailable [phone] Reason for Visit * Reason Comments Ultrasound L2-elevated BMI Encounter Details Date Type Department Care Team (Late st Contact Info) Description 04/12/2023 PRE VISIT [facility] [place] [address] [facility] [address] [place] [address] Genet Ruiz RN Ultrasound (L2-elevated [...] documented as of this encounter Care Teams Entry Level Manager Relationship Specialty Start Date End Date Shamar Claros MD [address] [facility] [place] [address] PCP - General Internal Medicine 05/17/17 Shamar Claros MD [address] [facility] [place] [address] Assigned PCP 09/08/22 documented as of this encounter
--- OUTSIDE RECORDS SUMMARY | 2023-08-08 09:49 | XMS_ITS | Referral Summary ---
Author Name Unknown Organization [place] Address [address] [place] [address] Care Team Providers Care Calculating Machine Mechanic Name Role Phone Shamar Claros MD Primary Care Provider + [phone] Shamra Claros MD Unavailable [phone] Patti Ferris MD Unavailable [phone] Encounters Date Type Department Care Team Description 05/13/2023 Travel 05/13/2023 9:15 AM CDT Office Visit [facility] Maternal Medicine [facility] [address] [facility] [address] [place] [address] Patti Ferris MD Burn, Martina, MD BMI 40.0-44.9, adult (H) (Primary Dx) 05/13/2023 8:38 AM CDT - 05/13/2023 11:59 PM CDT Hospital Encounter [facility] [address] [facility] [address] [place] [address] Patti Ferris MD Burn, Martina, MD Encounter [...] with antibiotics in the past 60 days [place] 1 spray into both nostrils daily 9.9 [...] Comments Blood Pressure 127/85 07/21/2021 5:26 AM FIRE ENGINEER Pulse 83 07/21/2021 5:26 AM FIRE ENGINEER Temperature 37.4 ??C (99.4 ??F) 07/20/2021 9:53 PM CS T Respiratory Rate 20 07/21/2021 5:26 AM FIRE ENGINEER Oxygen Saturation 97% 07/21/2021 5:26 AM FIRE ENGINEER Inhaled Oxygen Concentration - - Weight 144.4 kg (318 lb 5.5 oz) 07/20/2021 9:53 PM FIRE ENGINEER Height 172.7 cm (5' 8) 10/12/2019 11:2 5 AM CDT Body Mass Index 48.4 10/12/2019 11:25 AM CDT Plan of Treatment Not on file Procedures Procedure Name Priority Date/Time Associated Diagnosis Comments [facility] US COMPREHENSIVE SINGLE F/U Routine 05/13/2023 9:18 AM CDT Encounter for follow-up ultrasound of anatomy from Last 3 Months Results * [facility] US Comprehensive Single F/U (05/13/2023 9:18 [...] ? Study Date: ??05/13/2023 8:32am Pat. NO: ??[id number] ?Referring ??MD: CASEY DAVIS Site: ??[facility] ? Manager Utilities: Denise Kuhn RDMS : ??1990 ?Age: ?? [...] 1 lb 4 ?oz EFW by ?Hadlock (INQ-IZ-IF-ND) Head / Face / Neck Biometry: Cutting Table Operator ? 3.7 ? mm CM ?3.7 ? mm ANATOMY ----- The following structures appear normal: Head / Neck ? Cranium. Head size. Head shape. Lateral ventricles. Midline falx. Cavum septi pellucidi. Cerebellum. Cisterna magna. Thalami. Face ? Lips. Profile. Nose. Heart / Thorax ?4-chamber view. RVOT view. LVOT view. Aortic arch view. 6-strdzn-mhknbyj view. ? Diaphragm. Abdomen ? Stomach. Bladder. [...] medical record, and communicating with other health dog day care attendant and/or care coordination. Procedure Note Zoey Real MD - 05/13/2023 Comp Follow Up ----- Pat. Name: MARY ELLEN SCOTT Study Date: 05/13/2023 8:32am Pat. NO: [id number] Referring MD: CASEY DAVIS Site: [facility] Manager Utilities: Denise Kuhn RDMS : 1990 Age: 32 ----- INDICATION ----- Follow up suboptimal anatomy. BMI 44. Declined screening. METHOD ----- Transabdominal ultrasound examination. View: Sufficient ----- Cook . Number of fetuses: 1 DATING ----- DateDetailsGest. age JEFF LMP 12/05/2022ycle: irregular, long [id number] w + 5 d 09/11/2023 Prior assessment [...] 1 lb 4 oz EFW by Michele (VRY-JT-XQ-FL) Head / Face / Neck Biometry: Cutting Table Operator 3.7 mm CM 3.7 mm ANATOMY ----- The following structures appear normal: Head / Neck Cranium. Head size. Head shape.Lateral ventricles. Midline falx. Cavum septi pellucidi. Cerebellum.Cisterna magna. Thalami. Face Lips. Profile. Nose. Heart / Thorax 4-chamber view. RVOT view. LVOT view.Aortic arch view. 2-rrhwzn-uwyjegz view. Diaphragm. Abdomen Stomach. Bladder. Spine Cervical [...] electronic medical record, andcommunicating with other health dog day care attendant and/or carecoordination. IMPRESSION ----- 1. Cook intrauterine at 21w 5d gestational age here forcompletion of anatomy. 2. The remaining anatomic survey was completed, no anomaliescommonly detected by ultrasound were identified within the limits ofprenatal ultrasound. 3. Growth parameters and estimated weight were slightly ahead ofestablished dates, EFW 97%. 4. The amniotic fluid volume appeared normal. Patti Ferris MD [facility] ORDERABLE S from Last 3 Months Advance Directives For more information, please contact: [phone] Latest Code Status on File Code Status Date Activated Date Inactivated Comments Full Code 03/02/2017 9:48 AM 07/20/2021 9:47 PM Care Teams Calculating Machine Mechanic Relationship Specialty Start Date End Date Shamar Claros MD [address] [facility] [place] [address] PCP - General Internal Medicine 05/17/17 [place] [address] [place] [address] [place]CGARR[place] [address] Assigned PCP 09/08/22 Patti Ferris MD [address] [place] [address] Assigned OBGYN Provider 04/27/23
--- OUTSIDE RECORDS SUMMARY | 2023-08-08 09:49 | XMS_ITS | Encounter Summary ---
Author Name Unknown Organization [place] Address [address] [facility] [place] [address] Care Team Providers Care Transport Aircrewman Name Role Phone Shamar Claros MD Primary Care Provider + [phone] Shamar Claros MD Unavailable [phone] Patti Ferris MD Unavailable [phone] Reason for Visit * Reason Comments Ultrasound RL2 for sub-optimal anatomy Encounter Details Date Type Department Care Team (Late st Contact Info) Description 05/13/2023 9:15 AM CDT Office Visit [facility] [place] [address] [facility] [address] [place] [address] Patti Ferris MD [address] [place] [address] Zoey Real MD [address] [place] [address] BMI 40.0-44.9, adult (H) (Primary [...] is a at 21w5d who presents to [facility] for a follow-up ultrasound for sub-optimal anatomy. [...] documented as of this encounter Care Teams Transport Aircrewman Relationship Specialty [place] [address] [place] [address] YA[place] MCGARRY [address] PCP - General Internal Medicine 05/17/17 Shamar Claros MD [address] [place] [address] [place] MCGARR[place] [address] Assigned PCP 09/08/22 Patti Ferris MD [address] [address] Assigned OBGYN Provider 04/27/23 documented as of this encounter
--- OUTSIDE RECORDS SUMMARY | 2023-08-08 09:49 | XMS_ITS | Encounter Summary ---
Author Name Unknown Organization [place] Address [address] [place] [address] Care Team Providers Care Machine Washer Name Role Phone Shamar Claros MD Primary Care Provider + [phone] Shamar Claros MD Unavailable [phone] Patti Ferris MD Unavailable [phone] Encounter Details Date Type Department Care [...] documented as of this encounter Care Teams Machine Washer Relationship Specialty Start Date End Date Shamar Claros MD [address] [facility] [place] [address] PCP - General Internal Medicine 05/17/17 Shamar Claros MD [address] [facility] [place] [address] Assigned PCP 09/08/22 Patti Ferris MD [address] [facility] [address] [place] [address] Assigned OBGYN Provider 04/27/23 documented as of this encounter
--- OUTSIDE RECORDS SUMMARY | 2023-08-08 09:49 | XMS_ITS | Encounter Summary ---
Author Name Unknown Organization [place] Address [facility] [place] [address] Care Team Providers Care Hand Developer Name Role Phone Shamar Claros MD Primary Care Provider [phone] Shamar Claros MD Unavailable [phone] Reason for Referral * Diagnostic Imaging Ultrasound (Routine) - Pending Review Specialty Diagnoses / Procedures Referred By Cecilia philippe Referred To Contact Radiology. Diagnoses Encounter for follow-up ultrasound of anatomy Procedures [facility] US Comprehensive Single F/U Patti Ferris MD [address] [place] [address] Referral ID Status Reason Start Date Expiration Date V isits Requested Visits Authorized [id number] Pending Review 04/22/2023 04/21/2024 1 1 Reason for Visit * Reason Comments Ultrasound L2-obesity in pregna ncy Encounter Details Date Type Department Care Team (Late st Contact Info) Description 04/22/2023 11:30 AM CDT Office Visit [facility] [place] [address] [facility] [address] [place] [address] Non-Fv Credentialed Provider, Radiology Francis Min MD [address] [place] [address] Patti Ferris MD [address] [place] [address] Obesity in , antepartum (Primary Dx); Encounter [...] in the Maternal- Medicine Center at the [facility] today. For a detailed report of the ultrasound examination, please see the ultrasound report which can be found under the imaging tab. If you have questions regarding today's evaluation or if we can be of further service, please contact the Maternal- Medicine Center. Patti Ferris MD Crackling Press Operator, RESTAURANT LINE SERVER Maternal- Medicine [phone] (Pager) documented in this encounter Nursing Notes * Nataly Bailey, JENNIFER - 04/22/2023 11:30 AM CDT Patient presents to [facility] for L2 at 18w5d due to elevated [...] ? Study Date: ??05/13/2023 8:32am Pat. NO: ??[id number] ?Referring ??MD: CASEY DAVIS Site: ??[facility] ? Trial Court Judge: Denise Kuhn RDMS : ??1990 ?Age: ?? [...] 1 lb 4 ?oz EFW by ?Hadlock (SRH-BT-[id number]-FL) Head / Face / Neck Biometry: Diamond Die Maker ? 3.7 ? mm CM ?3.7 ? mm ANATOMY ----- The following structures appear normal: Head / Neck ? Cranium. Head size. Head shape. Lateral ventricles. Midline falx. Cavum septi pellucidi. Cerebellum. Cisterna magna. Thalami. Face ? Lips. Profile. Nose. Heart / Thorax ?4-chamber view. RVOT view. LVOT view. Aortic arch view. 7-hwotip-aykrylt view. ? Diaphragm. Abdomen ? Stomach. Bladder. [...] medical record, and communicating with other health animal daycare provider and/or care coordination. Procedure Note Zoey Real MD - 05/13/2023 Comp Follow Up ----- Pat. Name: GARDENIA SCOTT Study Date: 05/13/2023 8:32am Pat. NO: [id number] Referring MD: CASEY DAVIS Site: [facility] Trial Court Judge: Denise Kuhn RDMS : 1990 Age: 32 ----- INDICATION ----- Follow up suboptimal anatomy. BMI 44. Declined screening. METHOD ----- Transabdominal ultrasound examination. View: Sufficient ----- Cook . Number of fetuses: 1 DATING ----- DateDetailsGest. age JEFF LMP 12/05/2022ycle: irregular, long [id number] w + 5 d 09/11/2023 Prior assessment [...] 1 lb 4 oz EFW by Hadlock (HMH-JP-MB-FL) Head / Face / Neck Biometry: Diamond Die Maker 3.7 mm CM 3.7 mm ANATOMY ----- The following structures appear normal: Head / Neck Cranium. Head size. Head shape.Lateral ventricles. Midline falx. Cavum septi pellucidi. Cerebellum.Cisterna magna. Thalami. Face Lips. Profile. Nose. Heart / Thorax 4-chamber view. RVOT view. LVOT view.Aortic arch view. 6-xkwell-swjjysb view. Diaphragm. Abdomen Stomach. Bladder. Spine Cervical [...] electronic medical record, andcommunicating with other health animal daycare provider and/or carecoordination. IMPRESSION ----- 1. Cook intrauterine at 21w 5d gestational age here forcompletion of anatomy. 2. The remaining anatomic survey was completed, no anomaliescommonly detected by ultrasound were identified within the limits ofprenatal ultrasound. 3. Growth parameters and estimated weight were slightly ahead ofestablished dates, EFW 97%. 4. The amniotic fluid volume appeared normal. Patti Ferris MD [facility] S documented in this [...] documented as of this encounter Care Teams Hand Developer Relationship Specialty Start Date End Date Shamar Claros MD [address] [place] [address] [place] MCGARRY [address] PCP - General Internal Medicine 05/17/17 [place] [address] [place] [address] [place] MCGARR[place] [address] Assigned PCP 09/08/22 documented as of this encounter
--- OUTSIDE RECORDS SUMMARY | 2023-08-08 09:49 | XMS_ITS | Encounter Summary ---
Author Name Unknown Organization [place] Address [facility] [place] [address] Care Team Providers Care An Employee Sponsor Or Advocate And Name Role Phone Shamar Claros MD Primary Care Provider Alanis Dillard CNM Unavailable [phone] Melina Sousa PA-C Unavailable [phone] Janis Jacobs MD Unavailable [phone] Shamar Claros MD Unavailable [phone] Patti Ferris MD Unavailable [phone] Encounter Details Date Type Department Care Team (Late st Contact Info) Description 03/30/2021 [facility] Medical Advice M [facility] [place] [address] [facility] [address] [place] [address] Maribell Torrez, SOLAR SALES CONSULTANT [address] [facility] [place] [address] Social History Tobacco [...] documented as of this encounter Care Teams An Employee Sponsor Or Advocate And Relationship Specialty Start Date End Date Shamar Claros MD [address] [facility] [place] [address] PCP - General Internal Medicine 05/17/17 Alanis Dillard CNM [address] [place] [address] Assigned OBGYN Provider 05/06/20 Melina Sousa PA-C [address] [place] [address]1732 Assigned PCP 12/25/20 03/23/22 Janis Jacobs MD [address] [place] [address] Assigned OBGYN Provider 04/09/21 3 [place] [address] [place] [address] [place]CG[place] [address] Assigned PCP 09/08/22 Patti Ferris MD [address] [address] Assigned OBGYN Provider 04/27/23 documented as of this encounter
--- OUTSIDE RECORDS SUMMARY | 2023-08-08 09:49 | XMS_ITS | Encounter Summary ---
Author Name Unknown Organization [place] Address [address] [place] [address] Care Team Providers Care Director Biologics Name Role Phone Shamar Claros MD Primary Care Provider [phone] Melina Sousa PA-C Unavailable [phone] Janis Jacobs MD Unavailable [phone] Shamar Claros MD Unavailable [phone] Patti Ferris MD Unavailable [phone] Encounter Details Date Type Department Care [...] Coronavirus / COVID-19? Yes 07/20/2021 9:51 PM FELLER MACHINE OPERATOR documented as of this encounter Plan of Treatment Not on file documented as of this encounter Visit Diagnoses Not on filedocumented in this encounter Additional Health Concerns Assessment Noted Time PHQ-9 Depression Total Score: 8 03/31/20 21 7:02 AM CDT documented as of this encounter Care Teams Director Biologics Relationship Specialty Start Date End Date Shamar Claros MD [address] [facility] [place] [address] PCP - General Internal Medicine 05/17/17 Melina Sousa PA-C [address] [place] [address] Assigned PCP 12/25/20 03/23/22 Janis Jacobs MD [address] [place] [address] Assigned OBGYN Provider 04/09/21 3 Shamar Claros MD [address] [facility] [place] [address] Assigned PCP 09/08/22 Patti Ferris MD [address] [id number] Assigned OBGYN Provider 04/27/23 documented as of this encounter
--- OUTSIDE RECORDS SUMMARY | 2023-08-08 09:49 | XMS_ITS | Encounter Summary ---
Author Name Unknown Organization [place] Address [address] [place] [address] Care Team Providers Care Shake Maker Name Role Phone Shamar Claros MD Primary Care Provider [phone] Melina Sousa PA-C Unavailable [phone] Janis Jacobs MD Unavailable [phone] Shamar Claros MD Unavailable [phone] Patti Ferris MD Unavailable [phone] Encounter Details Date Type Department Care Team (Late st Contact Info) Description 07/12/2021 [facility] [facility] [address] [place] [address] Britney Hanson Social History Tobacco Use Types [...] documented as of this encounter Care Teams Shake Maker Relationship Specialty Start Date End Date Shamar Claros MD [address] [facility] [place] [address] PCP - General Internal Medicine 05/17/17 Melina Sousa PA-C [address] [place] [address] Assigned PCP 12/25/20 03/23/22 Janis Jacobs MD [address] [place] [address] Assigned OBGYN Provider 04/09/21 3 Shamar Claros MD [address] [facility] [place] [address] Assigned PCP 09/08/22 Patti Ferris MD [address] [address] Assigned OBGYN Provider 04/27/23 documented as of this encounter
--- OUTSIDE RECORDS SUMMARY | 2023-08-08 09:49 | XMS_ITS | Encounter Summary ---
Author Name Unknown Organization [place] Address [address] [place] [address] Care Team Providers Care High Voltage Electrician Name Role Phone Shamar Claros MD Primary Care Provider [phone] Melina Sousa PA-C Unavailable [phone] Janis Jacobs MD Unavailable [phone] Shamar Claros MD Unavailable [phone] Patti Ferris MD Unavailable [phone] Reason for Visit * Reason Onset Date Comments Heart Problem 05/25/2021 Symptoms Encounter Details Date Type Department Care Team (Late st Contact Info) Description 05/25/2021 [facility] [place]ice [address] [place] [address] Janis Jacobs MD [address] [place] [address] Heart Problem (Symptoms) Social History [...] Jacobs out today and tomorrow, sending to copper flotation operator. Olinda Langston RN TLE BUGGY OPERATOR documented in this encounter Plan of Treatment Not on file documented as of this encounter Visit Diagnoses Diagnosis Vaginal symptom- Primary documented in this encounter Additional Health Concerns Assessment Noted Time PHQ-9 Depression Total Score: 8 03/31/20 21 7:02 AM CDT documented as of this encounter Care Teams High Voltage Electrician Relationship Specialty Start Date End Date Shamar Claros MD [address] [place] [address] [place] [address] PCP - General Internal Medicine 05/17/17 Melina Sousa PA-C [address] [place] [place] [address] 612832 Assigned PCP 12/25/20 03/23/22 Janis Jacobs MD [address] [place] [address] Assigned OBGYN Provider 04/09/21 3 Shamar Claros MD [address] [place] [address] [place] [address] Assigned PCP 09/08/22 Patti Ferris MD [address] [facility] [address] [address] Assigned OBGYN Provider 04/27/23 documented as of this encounter
--- OUTSIDE RECORDS SUMMARY | 2023-08-08 09:49 | XMS_ITS | Encounter Summary ---
Author Name Unknown Organization [facility] Address [address] [place] [address] Care Team Providers Care Coffee Roaster Name Role Phone Shamar Claros MD Primary Care Provider [phone] Melina Sousa PA-C Unavailable [phone] Janis Jacobs MD Unavailable [phone] Shamar Claros MD Unavailable [phone] Patti Ferrsi MD Unavailable [phone] Encounter Details Date Type Department Care Team (Late st Contact Info) Description 07/18/2021 [facility] [address] [facility] [address] [place] [address] Shamar Claros MD [address] [facility] [place] [address] Social History Tobacco [...] Coronavirus / COVID-19? Yes 07/20/2021 9:51 PM TECHNICAL TRAINING SPECIALIST documented as of this encounter Plan of Treatment Not on file documented as of this encounter Visit Diagnoses Not on filedocumented in this encounter Additional Health Concerns Assessment Noted Time PHQ-9 Depression Total Score: 8 03/31/20 21 7:02 AM CDT documented as of this encounter Care Teams Coffee Roaster Relationship Specialty Start Date End Date Shamar Claros MD [address] [facility] [place] [address] PCP - General Internal Medicine 05/17/17 Melina Sousa PA-C [address] [place] [address] [id number] Assigned PCP 12/25/20 03/23/22 Janis Jacobs MD [address] [place] [address] Assigned OBGYN Provider 04/09/21 3 Shamar Claros MD [address] [facility] [place] [address] Assigned PCP 09/08/22 Patti Ferris MD [address] [place], [place] [address] Assigned OBGYN Provider 04/27/23 documented as of this encounter
--- OUTSIDE RECORDS SUMMARY | 2023-08-08 09:49 | XMS_ITS | Encounter Summary ---
Author Name Unknown Organization [facility] Address [address] [place] [address] Care Team Providers Care Community Development Specialist Name Role Phone Shamar Claros MD Primary Care Provider + [phone] Shamar Claros MD Unavailable [phone] Reason for Referral * Diagnostic Imaging Ultrasound (Routine) - Pending Review Specialty Diagnoses / Procedures Referred By Contac t Referred To Contact Radiology. Diagnoses related condition, antepartum Procedures [facility] US Comprehensive Single Rh [facility] [address] [place] [address] Referral ID Status Reason Start Date Expiration Date V isits Requested Visits Authorized [id number] Pending Review 04/11/2023 04/10/2024 1 1 Reason for Visit * Diagnostic Imaging Ultrasound (Routine) - Pending Review Specialty Diagnoses / Procedures Referred By Contac t Referred To Contact Radiology. Diagnoses related condition, antepartum Procedures [facility] US Comprehensive Single Rh [facility] [address] [place] [address] Referral ID Status Reason Start Date Expiration Date V isits Requested Visits Authorized [id number] Pending Review 04/11/2023 04/10/2024 1 1 Encounter Details Date Type Department Care Team ([facility] st Contact Info) Description 04/22/2023 11:00 AM CDT - 04/22/2023 11:59 PM CDT Hospital Encounter [facility] [place] [address] [place] [address] Non-Fv Credentialed Provider, Radiology Francis Min MD [address] [place] [address] Patti Ferris MD [address] [place] [address] related condition, antepartum Discharge Disposition: [...] with antibiotics in the past 60 days [place] 1 spray into both nostrils daily 9.9 [...] Procedure Name Priority Date/Time Associated Diagnosis Comments [facility] US COMPREHENSIVE SINGLE Routine 04/22/2023 11:59 AM CDT related condition, antepartum documented in this encounter Results * [facility] US Comprehensive Single (04/22/2023 11:59 AM [...] SCOTT Study Date: 04/22/2023 11:03am Pat. NO: [id number] Referring ??MD: CASEY DAVIS Site: [facility] Leadership Development Instructor: Lauren Mcdowell RDMS : 1990 Age: 32 [...] 0 lb 9 ?oz EFW by ?Hadlock (VQV-[id number]-YC-FL) Head / Face / Neck Biometry: Aviation Project Engineer ? 6.7 ? mm CM ?2.7 ? [...] cava. Inferior vena cava. 3-vessel view. ? 3-qpqmhg-spmffmu view. Cardiac position. Cardiac size. Cardiac rhythm. [...] medical record, and communicating with other health career manager and/or care coordination. Please see note for details. Procedure Note Patti Ferris MD - 04/22/2023 Comprehensive ----- Pat. Name:Bill SCOTT Date:04/22/2023 11:03am Pat. NO: [id number] :CASEY DAVIS [facility]Lauren Mcdowell RDMS :1990Age:32 ----- INDICATION ----- Obesity BMI 44 METHOD ----- Transabdominal ultrasound examination. View: Sufficient ----- Cook . Number of fetuses: 1 DATING ----- DateDetailsGest. age JEFF LMP 12/05/2022ycle: irregular, long vesncy34 w + 5 d 09/11/2023 Prior assessment [...] 0 lb 9 oz EFW by Hadlock ([id number]-[id number]-FL) Head / Face / Neck Biometry: Aviation Project Engineer 6.7 mm CM 2.7 mm Nasal bone [...] Superior vena cava. Inferior venacava. 3-vessel view. 8-cmhfhv-eywdnzv view. Cardiacposition. Cardiac size. Cardiac rhythm. Right [...] electronic medical record, andcommunicating with other health career manager and/or carecoordination. Please see note for details. [...] documented as of this encounter Care Teams Community Development Specialist Relationship Specialty Start Date End Date Shamar Claros MD [address] [facility] [place] [address] PCP - General Internal Medicine 05/17/17 Shamar Claros MD [address] [facility] [place] [address] Assigned PCP 09/08/22 documented as of this encounter
--- OUTSIDE RECORDS SUMMARY | 2023-08-08 09:49 | XMS_ITS | Encounter Summary ---
Author Name Unknown Organization [facility] Address [address] [place] [address] Care Team Providers Care Information Coordinator Name Role Phone Shamar Claros MD Primary Care Provider + [phone] Shamar Claros MD Unavailable [phone] Encounter Details Date Type Department Care Team [...] documented as of this encounter Care Teams Information Coordinator Relationship Specialty Start Date End Date Shamar Claros MD [address] [facility] [place] [address] PCP - General Internal Medicine 05/17/17 Shamar Claros MD [address] [facility] [place] [id number] Assigned PCP 09/08/22 documented as of this encounter
--- OUTSIDE RECORDS SUMMARY | 2023-08-08 09:49 | XMS_ITS | Encounter Summary ---
Author Name Unknown Organization [facility] Address [address] [place] [address] Care Team Providers Care Nuisance Wildlife Trapper Name Role Phone Shamar Claros MD Primary Care Provider + [phone] Shamar Clraos MD Unavailable [phone] Patti Ferris MD Unavailable [phone] Reason for Referral * Diagnostic Imaging Ultrasound (Routine) - Pending Review Specialty Diagnoses / Procedures Referred By Contac t Referred To Contact Radiology. Diagnoses Encounter for follow-up ultrasound of anatomy Procedures [facility] US Comprehensive Single F/U Patti Ferris MD [address] [place] [address] Referral ID Status Reason Start Date Expiration Date V isits Requested Visits Authorized [id number] Pending Review 04/22/2023 04/21/2024 1 1 Reason for Visit * Diagnostic Imaging Ultrasound (Routine) - Pending Review Specialty Diagnoses / Procedures Referred By Contac t Referred To Contact Radiology. Diagnoses Encounter for follow-up ultrasound of anatomy Procedures [facility] US Comprehensive Single F/U Patti Ferris MD [address] [address] Referral ID Status Reason Start Date Expiration Date V isits Requested Visits Authorized [id number] Pending Review 04/22/2023 04/21/2024 1 1 Encounter Details Date Type Department Care Team (Latest Contact Info) Description 05/13/2023 8:38 AM CDT - 05/13/2023 11:59 PM CDT Hospital Encounter [facility] [place] [address] [facility] [address] [place] [address] Patti Ferris MD [address] [place] [address] Zoey Real MD [address] [place] [address] Encounter for follow-up ultrasound of [...] with antibiotics in the past 60 days [place] 1 spray into both nostrils daily 9.9 [...] Procedure Name Priority Date/Time Associated Diagnosis Comments [facility] US COMPREHENSIVE SINGLE F/U Routine 05/13/2023 9:18 AM CDT Encounter for follow-up ultrasound of anatomy documented in this encounter Results * [facility] US Comprehensive Single F/U (05/13/2023 9:18 [...] ? Study Date: ??05/13/2023 8:32am Pat. NO: ??[id number] ?Referring ??MD: CASEY DAVIS Site: [facility] ? Barge Pilot: Denise Kuhn RDMS : ??1990 ?Age: ?? [...] 1 lb 4 ?oz EFW by ?Hadlock ([id number]-FL) Head / Face / Neck Biometry: It Programmer ? 3.7 ? mm CM ?3.7 ? mm ANATOMY ----- The following structures appear normal: Head / Neck ? Cranium. Head size. Head shape. Lateral ventricles. Midline falx. Cavum septi pellucidi. Cerebellum. Cisterna magna. Thalami. Face ? Lips. Profile. Nose. Heart / Thorax ?4-chamber view. RVOT view. LVOT view. Aortic arch view. 2-vacivv-cqakpns view. ? Diaphragm. Abdomen ? Stomach. Bladder. [...] and communicating with other health child care leader and/or care coordination. Procedure Note Zoey Real MD - 05/13/2023 Comp Follow Up ----- Pat. Name: GARDENIA SCOTT Study Date: 05/13/2023 8:32am Pat. NO: [id number] Referring MD: CASEY DAVIS Site: [facility] Barge Pilot: Denise Kuhn RDMS : 1990 Age: 32 ----- INDICATION ----- Follow up suboptimal anatomy. BMI 44. Declined screening. METHOD ----- Transabdominal ultrasound examination. View: Sufficient ----- Cook . Number of fetuses: 1 DATING ----- DateDetailsGest. age JEFF LMP 12/05/2022ycle: irregular, long tuhmws82 w + 5 d 09/11/2023 Prior assessment [...] 1 lb 4 oz EFW by Hadlock (YMU-OS-WN-FL) Head / Face / Neck Biometry: It Programmer 3.7 mm CM 3.7 mm ANATOMY ----- The following structures appear normal: Head / Neck Cranium. Head size. Head shape.Lateral ventricles. Midline falx. Cavum septi pellucidi. Cerebellum.Cisterna magna. Thalami. Face Lips. Profile. Nose. Heart / Thorax 4-chamber view. RVOT view. LVOT view.Aortic arch view. 2-xtbirv-zuibstt view. Diaphragm. Abdomen Stomach. Bladder. Spine Cervical [...] record, andcommunicating with other health child care leader and/or carecoordination. IMPRESSION ----- 1. Cook intrauterine at 21w 5d gestational age here forcompletion of anatomy. 2. The remaining anatomic survey was completed, no anomaliescommonly detected by ultrasound were identified within the limits ofprenatal ultrasound. 3. Growth parameters and estimated weight were slightly ahead ofestablished dates, EFW 97%. 4. The amniotic fluid volume appeared normal. Patti Ferris MD [facility] documented in this encounter Visit Diagnoses Diagnosis Encounter for follow-up ultrasound of anatomy documented in this encounter Additional Health Concerns Assessment Noted Time PHQ-9 Depression Total Score: 8 03/31/20 21 7:02 AM CDT documented as of this encounter Care Teams Nuisance Wildlife Trapper Relationship Specialty Start Date End Date Shamar Claros MD [address] [facility] [place] [address] PCP - General Internal Medicine 05/17/17 [place] [address] [place] [address] [place] [address] Assigned PCP 09/08/22 Patti Ferris MD [address] [facility] [address] [address] Assigned OBGYN Provider 04/27/23 documented as of this encounter
--- OUTSIDE RECORDS SUMMARY | 2023-08-08 09:50 | XMS_ITS | Encounter Summary ---
Author Name Unknown Organization [facility] Address [address] [place] [address] Care Team Providers Care Welder/Fabricator Name Role Phone Shamar Claros MD Primary Care Provider Steph Fraga MD Unavailable [phone] Melina Sousa PA-C Unavailable [phone] Alanis Dillard CNM Unavailable [phone] Steph Fraga MD Unavailable [phone] Melina Sousa PA-C Unavailable [phone] Janis Jacobs MD Unavailable [phone] Shamar Claros MD Unavailable [phone] Patti Ferris MD Unavailable [phone] Encounter Details Date Type Department Care Team (Late st Contact Info) Description 10/10/2019 [facility] Medical Advice [facility] [place] [address] [place] [address] Drive [address] [place] [address] [place] [address] [place] [address] [place] [address] Social History Tobacco Use [...] RN - 10/12/2019 9:32 AM CDT Sent [employer] message. - Bryant Nowak, RN - Patient Advocate Liason (PAL) [facility] documented in this encounter Plan of Treatment Not on file documented as of this encounter Visit Diagnoses Not on filedocumented in this encounter Care Teams Welder/Fabricator Relationship Specialty Start Date End Date Shamar Claros MD [address] [place] [address] [place] [address] PCP - General Internal Medicine 05/17/17 Steph Fraga MD [address] [place] [address] [place] [address] Assigned PCP 12/29/17 10/17/19 Melina Sousa PA-C [address] [place] [address] 127482 Assigned PCP 10/18/19 10/15/20 Alanis Dillard CNM [address] [place], [place] 864687 Assigned OBGYN Provider 05/06/20 Steph Fraga MD [address] [place] [address] [place] [address] Assigned PCP 10/16/20 12/24/20 Melina Sousa PA-C [address] [place], [place] 418212 Assigned PCP 12/25/20 03/23/22 Janis Jacobs MD [address] [place] [address] Assigned OBGYN Provider 04/09/21 3 Shamar Claros MD [address] [facility] [place] [address] Assigned PCP 09/08/22 Patti Ferris MD [address] 028[address] Assigned OBGYN Provider 04/27/23 documented as of this encounter
--- OUTSIDE RECORDS SUMMARY | 2023-08-08 09:50 | XMS_ITS | Encounter Summary ---
Author Name Unknown Organization [facility] Address [facility] [place] [place] [address] Care Team Providers Care Alum Plant Operator Name Role Phone Shamar Claros MD Primary Care Provider Alanis Dillard CNKatty Unavailable [phone] Melina Sousa PA-C Unavailable [phone] Janis Jacobs MD Unavailable [phone] Shamar Claros MD Unavailable [phone] Patti Ferris MD Unavailable [phone] Reason for Visit * Reason Onset Date Comments Medication Question 03/28/2021 Encounter Details Date Type Department Care Team (Late st Contact Info) Description 03/28/2021 MyC Medical Advice [address] [place] [address] Janis Jacobs MD [address] [place] [address] Medication Question Social History Tobacco [...] on filedocumented in this encounter Care Teams Alum Plant Operator Relationship Specialty Start Date End Date Shamar Claros MD [address] [facility] [place] [address] PCP - General Internal Medicine 05/17/17 Alanis Dillard CNM [address] [place] [address] Assigned OBGYN Provider 05/06/20 Melina Sousa PA-C [address] [place] [address] Assigned PCP 12/25/20 03/23/22 Janis Jacobs MD [address] [place] [address] Assigned OBGYN Provider 04/09/21 3 Shamar Claros MD [address] [facility] [place] [address] Assigned PCP 09/08/22 Patti Ferris MD [address] [place] [address] Assigned OBGYN Provider 04/27/23 documented as of this encounter
--- OUTSIDE RECORDS SUMMARY | 2023-08-08 09:50 | XMS_ITS | Encounter Summary ---
Author Name Unknown Organization [facility] Address [address] [place] [address] Care Team Providers Care Punch Press Operator Name Role Phone Shamar Claros MD Primary Care Provider Alanis Dillard CNM Unavailable [phone] Melina Sousa PA-C Unavailable [phone] Janis Jacobs MD Unavailable [phone] Shamar Claros MD Unavailable [phone] Patti Ferris MD Unavailable [phone] Encounter Details Date Type Department Care Team (Late st Contact Info) Description 01/29/2021 [facility] Medical Advice [facility] [place] [address] [facility] [address] [place] [address] [place] [address] [place] [address] [place] [address] Social History Tobacco Use [...] on filedocumented in this encounter Care Teams Punch Press Operator Relationship Specialty Start Date End Date Shamar Claros MD [address] [facility] [place] [address] PCP - General Internal Medicine 05/17/17 Alanis Dillard CNM [address] [place] [address] Assigned OBGYN Provider 05/06/20 Melina Sousa PA-C [address] [place] [address]222 Assigned PCP 12/25/20 03/23/22 Janis Jacobs MD [address] [place] [address] Assigned OBGYN Provider 04/09/21 3 Shamar Claros MD [address] [facility] [place] [address] Assigned PCP 09/08/22 Patti Ferris MD [address] [place] [address]284 Assigned OBGYN Provider 04/27/23 documented as of this encounter
--- OUTSIDE RECORDS SUMMARY | 2023-08-08 09:50 | XMS_ITS | Encounter Summary ---
Author Name Unknown Organization [facility] Address [facility] [place] [address] Care Team Providers Care Skoog Operator Name Role Phone Shamar Claros MD Primary Care Provider Alanis Dillard CNKatty Unavailable [phone] Melina Sousa PA-C Unavailable [phone] Janis Jacobs MD Unavailable [phone] Shamar Claros MD Unavailable [phone] Patti Ferris MD Unavailable [phone] Encounter Details Date Type Department Care Team (Late st Contact Info) Description 03/30/2021 MyC Medical Advice M [address] [place] [address] Kaykay Leung, HEAD OF MUSIC Social History Tobacco Use Types Packs/Day Years [...] documented as of this encounter Care Teams Skoog Operator Relationship Specialty Start Date End Date Shamar Claros MD [address] [facility] [place] [address] PCP - General Internal Medicine 05/17/17 Alanis Dillard CNM [address] [place] [address] Assigned OBGYN Provider 05/06/20 Melina Sousa PA-C [address] [place] [address] Assigned PCP 12/25/20 03/23/22 Janis Jacobs MD [address] [place] [address] Assigned OBGYN Provider 04/09/21 3 Shamar Claros MD [address] [facility] [place] [address] Assigned PCP 09/08/22 Patti Ferris MD [address] [facility] [address] [place] [address] Assigned OBGYN Provider 04/27/23 documented as of this encounter
--- OUTSIDE RECORDS SUMMARY | 2023-08-08 09:50 | XMS_ITS | Encounter Summary ---
Author Name Unknown Organization [facility] Address [address] [place] [address] Care Team Providers Care Qa Test Analyst Name Role Phone Shamar Claros MD Primary Care Provider Steph Fraga MD Unavailable [phone] Melina Sousa PA-C Unavailable Alanis Dillard CNM Unavailable [phone] Steph Fraga MD Unavailable [phone] Melina Sousa PA-C Unavailable [phone] Janis Jacobs MD Unavailable [phone] Shamar Claros MD Unavailable [phone] Patti Ferris MD Unavailable [phone] Reason for Referral * Diagnostic Imaging Ultrasound (Routine) - Closed Specialty Diagnoses / Procedures Referred By Contluz marina t Referred To Contact Radiology. Diagnoses RLQ abdominal pain Procedures US Pelvic Complete w Transvaginal Melina Sousa PA-C [address] [place] [address] Rh Ultrasound [facility] [address] [place] [address] [place] [address] Referral ID Status Reason Start Date Expiration Date Visits Re quested Visits Authorized [id number] Closed 10/14/2019 10/13/2020 1 1 Reason for Visit * Reason Onset Date Comments MyChart Communication 10/13/2019 lab result s Encounter Details Date Type Department Care Team ([facility] st Contact Info) Description 10/13/2019 MyC Medical Advice [address] [address] Melina Sousa PA-C [address] [place] [address] MyChart Communication (lab results) Social History Tobacco [...] encounter Miscellaneous Notes * Telephone Encounter - Monserrat Aguayo RN - 10/14/2019 2:35 PM CDT Sent 's advise through . Advised pt to call me back with any questions. Primo, edge grinder Nurse * Telephone Encounter - Vy Sheehan [...] 12:47 PM CDT Called pt back at [phone], not available, so LM to call me back at [phone]. Will await for her call back. JENNIFER [...] cervical lesions that pap is intended to pick remover are painless. Vy Sheehan MD Internal Medicine-Pediatrics [...] new pain she had discussed in her [employer]ortex Pharmaceuticalst message she felt only lasted 20 minutes [...] typically has its usually performed by an hydro plant technician at an imaging appointment. She wanted [...] CDT Forwarded to LP. Please review patient's [employer] message and advise. Alanis Wright BS, RN, PHN [facility]) [phone] * Telephone Encounter - Alanis Wright RN - 10/13/2019 4:17 PM CDT [employer] message sent. BLANCA Bull, RN, [facility] Office: [phone] documented in this encounter Plan of Treatment [...] quadrant documented in this encounter Care Teams Qa Test Analyst Relationship Specialty Start Date End Date Shamar Claros MD [address] [place] [address] [place] [address] PCP - General Internal Medicine 05/17/17 Steph Fraga MD [address] [place] [address] [place] [address] Assigned PCP 12/29/17 10/17/19 Melina Sousa PA-C [address] [place] [address]1132 Assigned PCP 10/18/19 10/15/20 Alanis Dillard CNM [address] [place] [address] Assigned OBGYN Provider 05/06/20 Steph Fraga MD [address] [place] [address] [place] [address] Assigned PCP 10/16/20 12/24/20 Melina Sousa PA-C [address] [place] [address] Assigned PCP 12/25/20 03/23/22 Janis Jacobs MD [address] [place] [address] Assigned OBGYN Provider 04/09/21 3 Shamar Claros MD [address] [place] [address] Assigned PCP 09/08/22 Patti Ferris MD [address] [place], [place] [address] Assigned OBGYN Provider 04/27/23 documented as of this encounter
--- OUTSIDE RECORDS SUMMARY | 2023-08-08 09:50 | XMS_ITS | Encounter Summary ---
Author Name Unknown Organization [facility] Address [address] [place] [address] Care Team Providers Care Counter Server Name Role Phone Shamar Claros MD Primary Care Provider + [phone] Melina Sousa PA-C Unavailable [phone] Alanis Dillard CNM Unavailable [phone] Steph Fraga MD Unavailable [phone] Melina Sousa PA-C Unavailable [phone] Janis Jacobs MD Unavailable [phone] Shamar Claros MD Unavailable [phone] Patti Ferris MD Unavailable [phone] Encounter Details Date Type Department Care Team (Late st Contact Info) Description 04/20/2020 [facility] Medical [address] [place] [address] Alanis Dillard CNM [address] [place] [address] Social History Tobacco Use Types [...] on filedocumented in this encounter Care Teams Counter Server Relationship Specialty Start Date End Date Shamar Claros MD [address] [place] [address] [place] [address] PCP - General Internal Medicine 05/17/17 Melina Sousa PA-C [address] [place] [address]362 Assigned PCP 10/18/19 10/15/20 Alanis Dillard CNM [address] [place] [address] Assigned OBGYN Provider 05/06/20 Steph Fraga MD [address] [place] [address] [place] [address] Assigned PCP 10/16/20 12/24/20 Melina Sousa PA-C [address] [place] [address] Assigned PCP 12/25/20 03/23/22 Janis Jacobs MD [address] [place] [address] Assigned OBGYN Provider 04/09/21 3 Shamar Claros MD [address] [place] [address] [place] [address] Assigned PCP 09/08/22 Patti Ferris MD [address] [address] Assigned OBGYN Provider 04/27/23 documented as of this encounter
== END 2023-08-08 09:45 | disposition home or self-care (01) ==
LOC: US 09:45
PROVIDERS: Visit Provider Obstetrics & Gynecology
DX: O99.210 Obesity complicating pregnancy, unspecified trimester (principal); Z3A.00 Weeks of gestation of pregnancy not specified
CPT/HCPCS: 76819

== ENCOUNTER 2023-08-14 09:39 | Outpatient (CLI) | payer OTHER, SELFPAY ==
--- OUTSIDE RECORDS SUMMARY | 2023-08-14 09:42 | XMS_ITS | Encounter Summary ---
Author Name Unknown Organization [facility] Address [address] [place] [address] Care Team Providers Care Lead Esthetician Name Role Phone Shamar Claros MD Primary Care Provider + [phone] Shamar Claros MD Unavailable [phone] Patti Ferris MD Unavailable [phone] Reason for Referral * Diagnostic Imaging Ultrasound (Routine) - Pending Review Specialty Diagnoses / Procedures Referred By Contac t Referred To Contact Radiology. Diagnoses Encounter for follow-up ultrasound of anatomy Procedures [facility] US Comprehensive Single F/U Patti Ferris MD [address] [place] [address] Referral ID Status Reason Start Date Expiration Date V isits Requested Visits Authorized [id number] Pending Review 04/22/2023 04/21/2024 1 1 Reason for Visit * Diagnostic Imaging Ultrasound (Routine) - Pending Review Specialty Diagnoses / Procedures Referred By Contac t Referred To Contact Radiology. Diagnoses Encounter for follow-up ultrasound of anatomy Procedures [facility] US Comprehensive Single F/U Patti Ferris MD [address] [address] Referral ID Status Reason Start Date Expiration Date V isits Requested Visits Authorized [id number] Pending Review 04/22/2023 04/21/2024 1 1 Encounter Details Date Type Department Care Team (Latest Contact Info) Description 05/13/2023 8:38 AM CDT - 05/13/2023 11:59 PM CDT Hospital Encounter [facility] [place] [address] [facility] [address] [place] [address] Patti Ferris MD [address] [place] [address] Zoey Real MD [address] [place] [address] Encounter for follow-up ultrasound of [...] with antibiotics in the past 60 days [place] 1 spray into both nostrils daily 9.9 [...] Procedure Name Priority Date/Time Associated Diagnosis Comments [facility] US COMPREHENSIVE SINGLE F/U Routine 05/13/2023 9:18 AM CDT Encounter for follow-up ultrasound of anatomy documented in this encounter Results * [facility] US Comprehensive Single F/U (05/13/2023 9:18 [...] ? Study Date: ??05/13/2023 8:32am Pat. NO: ??[id number] ?Referring ??MD: CASEY DAVIS Site: [facility] ? Racing Mechanic: Denise Kuhn RDMS : ??1990 ?Age: ?? [...] 1 lb 4 ?oz EFW by ?Hadlock ([id number]-RG-[id number]-FL) Head / Face / Neck Biometry: Informatics Manager ? 3.7 ? mm CM ?3.7 ? mm ANATOMY ----- The following structures appear normal: Head / Neck ? Cranium. Head size. Head shape. Lateral ventricles. Midline falx. Cavum septi pellucidi. Cerebellum. Cisterna magna. Thalami. Face ? Lips. Profile. Nose. Heart / Thorax ?4-chamber view. RVOT view. LVOT view. Aortic arch view. 7-jfzagz-dskhjkw view. ? Diaphragm. Abdomen ? Stomach. Bladder. [...] and communicating with other health critical care technician and/or care coordination. Procedure Note Zoey Real MD - 05/13/2023 Comp Follow Up ----- Pat. Name: GARDENIA SCOTT Study Date: 05/13/2023 8:32am Pat. NO: [id number] Referring MD: CASEY DAVIS Site: [facility] Racing Mechanic: Denise Kuhn RDMS : 1990 Age: 32 ----- INDICATION ----- Follow up suboptimal anatomy. BMI 44. Declined screening. METHOD ----- Transabdominal ultrasound examination. View: Sufficient ----- Cook . Number of fetuses: 1 DATING ----- DateDetailsGest. age JEFF LMP 12/05/2022ycle: irregular, long [id number] w + 5 d 09/11/2023 Prior assessment [...] 1 lb 4 oz EFW by Hadlock (VOM-XL-EY-FL) Head / Face / Neck Biometry: Informatics Manager 3.7 mm CM 3.7 mm ANATOMY ----- The following structures appear normal: Head / Neck Cranium. Head size. Head shape.Lateral ventricles. Midline falx. Cavum septi pellucidi. Cerebellum.Cisterna magna. Thalami. Face Lips. Profile. Nose. Heart / Thorax 4-chamber view. RVOT view. LVOT view.Aortic arch view. 4-qlzdxn-vrkfrht view. Diaphragm. Abdomen Stomach. Bladder. Spine Cervical [...] record, andcommunicating with other health critical care technician and/or carecoordination. IMPRESSION ----- 1. Cook intrauterine at 21w 5d gestational age here forcompletion of anatomy. 2. The remaining anatomic survey was completed, no anomaliescommonly detected by ultrasound were identified within the limits ofprenatal ultrasound. 3. Growth parameters and estimated weight were slightly ahead ofestablished dates, EFW 97%. 4. The amniotic fluid volume appeared normal. Patti Ferris MD [facility] documented in this encounter Visit Diagnoses Diagnosis Encounter for follow-up ultrasound of anatomy documented in this encounter Additional Health Concerns Assessment Noted Time PHQ-9 Depression Total Score: 8 03/31/20 21 7:02 AM CDT documented as of this encounter Care Teams Lead Esthetician Relationship Specialty Start Date End Date Shamar Claros MD [address] [facility] [place] [address] PCP - General Internal Medicine 05/17/17 [place] [address] [place] [address] [place] [address] Assigned PCP 09/08/22 Patti Ferris MD [address] [facility] [address] [address] Assigned OBGYN Provider 04/27/23 documented as of this encounter
--- OUTSIDE RECORDS SUMMARY | 2023-08-14 09:42 | XMS_ITS | Clinical Summary ---
Author Name Unknown Organization [facility] Address [address] [place] [address] Care Team Providers Care Field Research Assistant Name Role Phone Shamar Claros MD Primary Care Provider + [phone] Shamar Claros MD Unavailable [phone] Patti Ferris MD Unavailable [phone] Allergies Active Allergy Reactions Criticality Noted [...] with antibiotics in the past 60 days [place] 1 spray into both nostrils daily 9.9 [...] Comments Blood Pressure 127/85 07/21/2021 5:26 AM UNIX SYSTEM ADMINISTRATOR Pulse 83 07/21/2021 5:26 AM UNIX SYSTEM ADMINISTRATOR Temperature 37.4 ??C (99.4 ??F) 07/20/2021 9:53 PM CS T Respiratory Rate 20 07/21/2021 5:26 AM UNIX SYSTEM ADMINISTRATOR Oxygen Saturation 97% 07/21/2021 5:26 AM UNIX SYSTEM ADMINISTRATOR Inhaled Oxygen Concentration - - Weight 144.4 kg (318 lb 5.5 oz) 07/20/2021 9:53 PM UNIX SYSTEM ADMINISTRATOR Height 172.7 cm (5' 8) 10/12/2019 11:2 [...] on patient's age to complete this topic Advance Directives For more information, please contact: [phone] Latest Code Status on File Code Status Date Activated Date Inactivated Comments Full Code 03/02/2017 9:48 AM 07/20/2021 9:47 PM Care Teams Field Research Assistant Relationship Specialty [place] [address] [place] [address] [place] [address] PCP - General Internal Medicine 05/17/17 Shamar Claros MD [address] [place] [address] [place] [address] Assigned PCP 09/08/22 Patti Ferris MD [address] [address] Assigned OBGYN Provider 04/27/23
--- OUTSIDE RECORDS SUMMARY | 2023-08-14 09:42 | XMS_ITS | Encounter Summary ---
Author Name Unknown Organization [facility] Address [facility] [place] [address] Care Team Providers Care Poultry Barn Manager Name Role Phone Shamar Claros MD Primary Care Provider [phone] Shamar Claros MD Unavailable [phone] Reason for Referral * Diagnostic Imaging Ultrasound (Routine) - Pending Review Specialty Diagnoses / Procedures Referred By Cecilia philippe Referred To Contact Radiology. Diagnoses Encounter for follow-up ultrasound of anatomy Procedures [facility] US Comprehensive Single F/U Patti Ferris MD [address] [place] [address] Referral ID Status Reason Start Date Expiration Date V isits Requested Visits Authorized [id number] Pending Review 04/22/2023 04/21/2024 1 1 Reason for Visit * Reason Comments Ultrasound L2-obesity in pregna ncy Encounter Details Date Type Department Care Team (Late st Contact Info) Description 04/22/2023 11:30 AM CDT Office Visit [facility] [place] [address] [facility] [address] [place] [address] Non-Fv Credentialed Provider, Radiology Francis Min MD [address] [place] [address] Patti Ferris MD [address] [place] [address] Obesity in , antepartum (Primary Dx); Encounter [...] in the Maternal- Medicine Center at the [facility] today. For a detailed report of the ultrasound examination, please see the ultrasound report which can be found under the imaging tab. If you have questions regarding today's evaluation or if we can be of further service, please contact the Maternal- Medicine Center. Patti Ferris MD Lamina Searcher, FIBERGLASS TECHNICIAN Maternal- Medicine [phone] (Pager) documented in this encounter Nursing Notes * Nataly Bailey, JENNIFER - 04/22/2023 11:30 AM CDT Patient presents to [facility] for L2 at 18w5d due to [...] ? Study Date: ??05/13/2023 8:32am Pat. NO: ??[id number] ?Referring ??MD: CASEY DAVIS Site: ??[facility] ? Computerized Machine Fabric Cutter: Denise Kuhn RDMS : ??1990 ?Age: ?? [...] 1 lb 4 ?oz EFW by ?Hadlock ([id number]-FL) Head / Face / Neck Biometry: Head Usher ? 3.7 ? mm CM ?3.7 ? mm ANATOMY ----- The following structures appear normal: Head / Neck ? Cranium. Head size. Head shape. Lateral ventricles. Midline falx. Cavum septi pellucidi. Cerebellum. Cisterna magna. Thalami. Face ? Lips. Profile. Nose. Heart / Thorax ?4-chamber view. RVOT view. LVOT view. Aortic arch view. 0-slbwue-urnybbb view. ? Diaphragm. Abdomen ? Stomach. Bladder. [...] record, and communicating with other health manager critical care and/or care coordination. Procedure Note Zoey Real MD - 05/13/2023 Comp Follow Up ----- Pat. Name: GARDENIA SCOTT Study Date: 05/13/2023 8:32am Pat. NO: [id number] Referring MD: CASEY DAVIS Site: [facility] Computerized Machine Fabric Cutter: Denise Kuhn RDMS : 1990 Age: 32 ----- INDICATION ----- Follow up suboptimal anatomy. BMI 44. Declined screening. METHOD ----- Transabdominal ultrasound examination. View: Sufficient ----- Cook . Number of fetuses: 1 DATING ----- DateDetailsGest. age JEFF LMP 12/05/2022ycle: irregular, long [id number] w + 5 d 09/11/2023 Prior assessment [...] 1 lb 4 oz EFW by Hadlock (LEK-YN-AH-FL) Head / Face / Neck Biometry: Head Usher 3.7 mm CM 3.7 mm ANATOMY ----- The following structures appear normal: Head / Neck Cranium. Head size. Head shape.Lateral ventricles. Midline falx. Cavum septi pellucidi. Cerebellum.Cisterna magna. Thalami. Face Lips. Profile. Nose. Heart / Thorax 4-chamber view. RVOT view. LVOT view.Aortic arch view. 9-yznrrm-fiblooi view. Diaphragm. Abdomen Stomach. Bladder. Spine Cervical [...] medical record, andcommunicating with other health manager critical care and/or carecoordination. IMPRESSION ----- 1. Cook intrauterine at 21w 5d gestational age here forcompletion of anatomy. 2. The remaining anatomic survey was completed, no anomaliescommonly detected by ultrasound were identified within the limits ofprenatal ultrasound. 3. Growth parameters and estimated weight were slightly ahead ofestablished dates, EFW 97%. 4. The amniotic fluid volume appeared normal. Patti Ferris MD [facility] ORDERABLE S documented in this [...] documented as of this encounter Care Teams Poultry Barn Manager Relationship Specialty Start Date End Date Shamar Claros MD [address] [place] [address] [place] [address] PCP - General Internal Medicine 05/17/17 [place] [address] [place] [address] [place] [address] Assigned PCP 09/08/22 documented as of this encounter
--- OUTSIDE RECORDS SUMMARY | 2023-08-14 09:42 | XMS_ITS | Encounter Summary ---
Author Name Unknown Organization [place] Address [address] [place] [address] Care Team Providers Care Spanisher Name Role Phone Shamar Claros MD Primary Care Provider + [phone] Shamar Claros MD Unavailable [phone] Reason for Referral * Diagnostic Imaging Ultrasound (Routine) - Pending Review Specialty Diagnoses / Procedures Referred By Contac t Referred To Contact Radiology. Diagnoses related condition, antepartum Procedures [facility] US Comprehensive Single Rh Maternal [facility] [address] [place] [address] Referral ID Status Reason Start Date Expiration Date V isits Requested Visits Authorized [id number] Pending Review 04/11/2023 04/10/2024 1 1 Reason for Visit * Diagnostic Imaging Ultrasound (Routine) - Pending Review Specialty Diagnoses / Procedures Referred By Contac t Referred To Contact Radiology. Diagnoses related condition, antepartum Procedures [facility] US Comprehensive Single Rh [facility]aternal [facility] [address] [place] [address] Referral ID Status Reason Start Date Expiration Date V isits Requested Visits Authorized [id number] Pending Review 04/11/2023 04/10/2024 1 1 Encounter Details Date Type Department Care Team ([facility] st Contact Info) Description 04/22/2023 11:00 AM CDT - 04/22/2023 11:59 PM CDT Hospital Encounter [facility] [place] [address] [place] [address] Non-Fv Credentialed Provider, Radiology Francis Min MD [address] [place] [address] Patti Ferris MD [address] [place] [address] related condition, antepartum Discharge Disposition: [...] with antibiotics in the past 60 days [place] 1 spray into both nostrils daily 9.9 [...] Procedure Name Priority Date/Time Associated Diagnosis Comments [facility] US COMPREHENSIVE SINGLE Routine 04/22/2023 11:59 AM CDT related condition, antepartum documented in this encounter Results * [facility] US Comprehensive Single (04/22/2023 11:59 AM [...] SCOTT Study Date: 04/22/2023 11:03am Pat. NO: [id number] Referring ??MD: CASEY DAVIS Site: [facility] Supervisor Quilting: Lauren Mcdowell RDMS : 1990 Age: 32 [...] 0 lb 9 ?oz EFW by ?Hadlock (HDJ-AT-RF-FL) Head / Face / Neck Biometry: Sales Marketing ? 6.7 ? mm CM ?2.7 ? [...] cava. Inferior vena cava. 3-vessel view. ? 1-dfbsdk-ctvscfz view. Cardiac position. Cardiac size. Cardiac rhythm. [...] medical record, and communicating with other health pet caregiver and/or care coordination. Please see note for details. Procedure Note Patti Ferris MD - 04/22/2023 Comprehensive ----- Pat. Name:Bill SCOTT Date:04/22/2023 11:03am Pat. NO: [id number] :CASEY DAVIS [facility]Lauren Mcdowell RDMS :1990Age:32 ----- INDICATION ----- Obesity BMI 44 METHOD ----- Transabdominal ultrasound examination. View: Sufficient ----- Cook . Number of fetuses: 1 DATING ----- DateDetailsGest. age JEFF LMP 12/05/2022ycle: irregular, long poexvv98 w + 5 d 09/11/2023 Prior assessment [...] 0 lb 9 oz EFW by Hadlock (ZLD-AI-VB-FL) Head / Face / Neck Biometry: Sales Marketing 6.7 mm CM 2.7 mm Nasal bone [...] Superior vena cava. Inferior venacava. 3-vessel view. 4-rkcbbe-notqrwm view. Cardiacposition. Cardiac size. Cardiac rhythm. Right [...] electronic medical record, andcommunicating with other health pet caregiver and/or carecoordination. Please see note for details. [...] documented as of this encounter Care Teams Spanisher Relationship Specialty Start Date End Date Shamar Claros MD [address] [facility] [place] [address] PCP - General Internal Medicine 05/17/17 Shamar Claros MD [address] [facility] [place] [address] Assigned PCP 09/08/22 documented as of this encounter
--- OUTSIDE RECORDS SUMMARY | 2023-08-14 09:42 | XMS_ITS | Encounter Summary ---
Author Name Unknown Organization [place] Address [address] [place] [address] Care Team Providers Care Treatment Manager Name Role Phone Shamar Claros MD Primary Care Provider + [phone] Shamar Claros MD Unavailable [phone] Patti Ferris MD Unavailable [phone] Encounter Details Date Type Department Care [...] documented as of this encounter Care Teams Treatment Manager Relationship Specialty Start Date End Date Shamar Claros MD [address] [facility] [place] [address] PCP - General Internal Medicine 05/17/17 Shamar Claros MD [address] [facility] [place] [address] Assigned PCP 09/08/22 Patti Ferris MD [address] [facility] [address] [place] [address] Assigned OBGYN Provider 04/27/23 documented as of this encounter
--- OUTSIDE RECORDS SUMMARY | 2023-08-14 09:42 | XMS_ITS | Referral Summary ---
Author Name Unknown Organization [place] Address [address] [place] [address] Care Team Providers Care Student Loan Counselor Name Role Phone Shamar Claros MD Primary Care Provider + [phone] Shamar Claros MD Unavailable [phone] Patti Ferris MD Unavailable [phone] Allergies Active Allergy Reactions Criticality Noted [...] with antibiotics in the past 60 days [place] 1 spray into both nostrils daily 9.9 [...] Comments Blood Pressure 127/85 07/21/2021 5:26 AM ORE TESTER Pulse 83 07/21/2021 5:26 AM ORE TESTER Temperature 37.4 ??C (99.4 ??F) 07/20/2021 9:53 PM CS T Respiratory Rate 20 07/21/2021 5:26 AM ORE TESTER Oxygen Saturation 97% 07/21/2021 5:26 AM ORE TESTER Inhaled Oxygen Concentration - - Weight 144.4 kg (318 lb 5.5 oz) 07/20/2021 9:53 PM ORE TESTER Height 172.7 cm (5' 8) 10/12/2019 11:2 5 AM CDT Body Mass Index 48.4 10/12/2019 11:25 AM CDT Plan of Treatment Not on file Advance Directives For more information, please contact: [phone] Latest Code Status on File Code Status Date Activated Date Inactivated Comments Full Code 03/02/2017 9:48 AM 07/20/2021 9:47 PM Care Teams Student Loan Counselor Relationship Specialty Start Date End Date Shamar Claros MD [address] [facility] [place] [address] PCP - General Internal Medicine 05/17/17 Shamar Claros MD [address] [facility] [place] [address] Assigned PCP 09/08/22 Patti Ferris MD [address] [address] Assigned OBGYN Provider 04/27/23
--- OUTSIDE RECORDS SUMMARY | 2023-08-14 09:42 | XMS_ITS | Encounter Summary ---
Author Name Unknown Organization [place] Address [address] [facility] [place] [address] Care Team Providers Care Hog Sawyer Name Role Phone Shamar Claros MD Primary Care Provider + [phone] Shamar Claros MD Unavailable [phone] Patti Ferris MD Unavailable [phone] Reason for Visit * Reason Comments Ultrasound RL2 for sub-optimal anatomy Encounter Details Date Type Department Care Team (Late st Contact Info) Description 05/13/2023 9:15 AM CDT Office Visit [facility] [place] [address] [facility] [address] [place] [address] Patti Ferris MD [address] [place] [address] Zoey Real MD [address] [place] [address] BMI 40.0-44.9, adult (H) (Primary [...] is a at 21w5d who presents to [facility] for a follow-up ultrasound for sub-optimal [...] documented as of this encounter Care Teams Hog Sawyer Relationship Specialty [place] [address] [place] [address] [place] [address] PCP - General Internal Medicine 05/17/17 Shamar Claros MD [address] [place] [address] [place] [address] Assigned PCP 09/08/22 Patti Ferris MD [address] [address] Assigned OBGYN Provider 04/27/23 documented as of this encounter
--- OUTSIDE RECORDS SUMMARY | 2023-08-14 09:42 | XMS_ITS | Encounter Summary ---
Author Name Unknown Organization [place] Address [address] [place] [address] Care Team Providers Care Commanding Officer Traffic Division Name Role Phone Shamar Claros MD Primary Care Provider + [phone] Shamar Claros MD Unavailable [phone] Encounter Details Date Type Department Care Team [...] documented as of this encounter Care Teams Commanding Officer Traffic Division Relationship Specialty Start Date End Date Shamar Claros MD [address] [facility] [place] [address] PCP - General Internal Medicine 05/17/17 Shamar Claros MD [address] [facility] [place] [id number] Assigned PCP 09/08/22 documented as of this encounter
--- OUTSIDE RECORDS SUMMARY | 2023-08-14 09:43 | XMS_ITS | Encounter Summary ---
Author Name Unknown Organization [place] Address [address] [place] [address] Care Team Providers Care Iridologist Name Role Phone Shamar Claros MD Primary Care Provider [phone] Melina Sousa PA-C Unavailable [phone] Janis Jacobs MD Unavailable [phone] Shamar Claros MD Unavailable [phone] Patti Ferris MD Unavailable [phone] Encounter Details Date Type Department Care Team (Late st Contact Info) Description 07/12/2021 [facility] Medical Advice [facility] [address] [place] [address] Britney Hanson Social History Tobacco Use Types [...] documented as of this encounter Care Teams Iridologist Relationship Specialty Start Date End Date Shamar Claros MD [address] [facility] [place] [address] PCP - General Internal Medicine 05/17/17 Melina Sousa PA-C [address] [place] [address] Assigned PCP 12/25/20 03/23/22 Janis Jacobs MD [address] [place] [address] Assigned OBGYN Provider 04/09/21 3 Shamar Claros MD [address] [facility] [place] [address] Assigned PCP 09/08/22 Patti Ferris MD [address] [address] Assigned OBGYN Provider 04/27/23 documented as of this encounter
--- OUTSIDE RECORDS SUMMARY | 2023-08-14 09:43 | XMS_ITS | Encounter Summary ---
Author Name Unknown Organization [place] Address [address] [place] [address] Care Team Providers Care Stock Replenisher Name Role Phone Shamar Claros MD Primary Care Provider [phone] Melina Sousa PA-C Unavailable [phone] Janis Jacobs MD Unavailable [phone] Shamar Claros MD Unavailable [phone] Patti Ferris MD Unavailable [phone] Encounter Details Date Type Department Care Team (Late st Contact Info) Description 07/18/2021 [facility] [address] [facility] [address] [place] [address] Shamar Claros MD [address] [facility] [place] [address] Social History Tobacco [...] Coronavirus / COVID-19? Yes 07/20/2021 9:51 PM CHANNEL DIRECTOR documented as of this encounter Plan of Treatment Not on file documented as of this encounter Visit Diagnoses Not on filedocumented in this encounter Additional Health Concerns Assessment Noted Time PHQ-9 Depression Total Score: 8 03/31/20 21 7:02 AM CDT documented as of this encounter Care Teams Stock Replenisher Relationship Specialty Start Date End Date Shamar Claros MD [address] [facility] [place] [address] PCP - General Internal Medicine 05/17/17 Melina Sousa PA-C [address] [place] [address] Assigned PCP 12/25/20 03/23/22 Janis Jacobs MD [address] [place] [address] Assigned OBGYN Provider 04/09/21 3 Shamar Claros MD [address] [facility] [place] [address] Assigned PCP 09/08/22 Patti Ferris MD [address] [place], [place] [address] Assigned OBGYN Provider 04/27/23 documented as of this encounter
--- OUTSIDE RECORDS SUMMARY | 2023-08-14 09:43 | XMS_ITS | Encounter Summary ---
Author Name Unknown Organization [place] Address [address] [place] [address] Care Team Providers Care Customer Experience Analyst Name Role Phone Shamar Claros MD Primary Care Provider [phone] Melina Sousa PA-C Unavailable [phone] Janis Jacobs MD Unavailable [phone] Shamar Claros MD Unavailable [phone] Patti Ferris MD Unavailable [phone] Reason for Visit * Reason Onset Date Comments Heart Problem 05/25/2021 Symptoms Encounter Details Date Type Department Care Team (Late st Contact Info) Description 05/25/2021 [facility] [place] [address] [place] [address] Janis Jacobs MD [address] [place] [address] Heart Problem (Symptoms) Social History [...] Jacobs out today and tomorrow, sending to independent marketing consultant. Olinda Langston RN [employer] documented in this encounter Plan of Treatment Not on file documented as of this encounter Visit Diagnoses Diagnosis Vaginal symptom- Primary documented in this encounter Additional Health Concerns Assessment Noted Time PHQ-9 Depression Total Score: 8 03/31/20 21 7:02 AM CDT documented as of this encounter Care Teams Customer Experience Analyst Relationship Specialty Start Date End Date Shamar Claros MD [address] [place] [address] [place] [address] PCP - General Internal Medicine 05/17/17 Melina Sousa PA-C [address] [place] [address] 720702 Assigned PCP 12/25/20 03/23/22 Janis Jacobs MD [address] [place] [address] Assigned OBGYN Provider 04/09/21 3 Shamar Claros MD [address] [place] [address] [place] [address] Assigned PCP 09/08/22 Patti Ferris MD [address] [facility] [address] [address] Assigned OBGYN Provider 04/27/23 documented as of this encounter
--- OUTSIDE RECORDS SUMMARY | 2023-08-14 09:43 | XMS_ITS | Encounter Summary ---
Author Name Unknown Organization [place] Address [facility] [place] [address] Care Team Providers Care Creative Services Coordinator Name Role Phone Shamar Claros MD Primary Care Provider [phone] Alanis Dillard CNKatty Unavailable [phone] Melina Sousa PA-C Unavailable [phone] Janis Jacobs MD Unavailable [phone] Shamar Claros MD Unavailable [phone] Patti Ferris MD Unavailable [phone] Reason for Visit * Reason Onset Date Comments Medication Question 03/28/2021 Encounter Details Date Type Department Care Team (Late st Contact Info) Description 03/28/2021 [facility] Medical Advice [address] [place] [address] Janis Jacobs MD [address] [place] [address] Medication Question Social History Tobacco [...] on filedocumented in this encounter Care Teams Creative Services Coordinator Relationship Specialty Start Date End Date Shamar Claros MD [address] [facility] [address] PCP - General Internal Medicine 05/17/17 Alanis Dillard CNM [address] [place] [address] Assigned OBGYN Provider 05/06/20 Melina Sousa PA-C [address] [place] [address] Assigned PCP 12/25/20 03/23/22 Janis Jacobs MD [address] [place] [address] Assigned OBGYN Provider 04/09/21 3 Shamar Claros MD [address] [facility] [address] Assigned PCP 09/08/22 Patti Ferris MD [address] [place] [address] Assigned OBGYN Provider 04/27/23 documented as of this encounter
--- OUTSIDE RECORDS SUMMARY | 2023-08-14 09:43 | XMS_ITS | Encounter Summary ---
Author Name Unknown Organization [place] Address [address] [place] [address] Care Team Providers Care Parole Board Member Name Role Phone Shamar Claros MD Primary Care Provider + [phone] Shamar Claros MD Unavailable [phone] Reason for Visit * Reason Comments Ultrasound L2-elevated BMI Encounter Details Date Type Department Care Team (Late st Contact Info) Description 04/12/2023 PRE VISIT [facility] [place] [address] [facility] [address] [place] [address] Genet Ruiz RN Ultrasound (L2-elevated [...] documented as of this encounter Care Teams Parole Board Member Relationship Specialty Start Date End Date Shamar Claros MD [address] [facility] [place] [address] PCP - General Internal Medicine 05/17/17 Shamar Claros MD [address] [facility] [place] [address] Assigned PCP 09/08/22 documented as of this encounter
--- OUTSIDE RECORDS SUMMARY | 2023-08-14 09:43 | XMS_ITS | Encounter Summary ---
Author Name Unknown Organization [place] Address [address] [place] [address] Care Team Providers Care Preventive Maintenance Coordinator Name Role Phone Shamar Claros MD Primary Care Provider Steph Fraga MD Unavailable [phone] Melina Sousa PA-C Unavailable Alanis Dillard CNM Unavailable [phone] Steph Fraga MD Unavailable [phone] Melina Sousa PA-C Unavailable [phone] Janis Jacobs MD Unavailable [phone] Shamar Claros MD Unavailable Patti Ferris MD Unavailable [phone] Encounter Details Date Type Department Care Team (Late st Contact Info) Description 10/10/2019 [facility] Medical Advice [facility] [place] [address] [place] [address] Drive [address] [place] [address] [place] [address] [place] [address] [place] [address] Social History Tobacco Use [...] RN - 10/12/2019 9:32 AM CDT Sent [employer] message. - Bryant Nowak, RN - Patient Advocate Liason (PAL) [facility] documented in this encounter Plan of Treatment Not on file documented as of this encounter Visit Diagnoses Not on filedocumented in this encounter Care Teams Preventive Maintenance Coordinator Relationship Specialty Start Date End Date Shamar Claros MD [address] [place] [address] [place] [address] PCP - General Internal Medicine 05/17/17 Steph Fraga MD [address] [place] [address] [place] [address] Assigned PCP 12/29/17 10/17/19 Melina Sousa PA-C [address] [place] [address] 930052 Assigned PCP 10/18/19 10/15/20 Alanis Dillard CNM [address] [place], [place] 016567 Assigned OBGYN Provider 05/06/20 Steph Fraga MD [address] [place] [address] [place] [address] Assigned PCP 10/16/20 12/24/20 Melina Sousa PA-C [address] [place], [place] 984922 Assigned PCP 12/25/20 03/23/22 Janis Jacobs MD [address] [place] [address] Assigned OBGYN Provider 04/09/21 3 Shamar Claros MD [address] [facility] [place] [address] Assigned PCP 09/08/22 Patti Ferris MD [address] 548[address] Assigned OBGYN Provider 04/27/23 documented as of this encounter
--- OUTSIDE RECORDS SUMMARY | 2023-08-14 09:43 | XMS_ITS | Encounter Summary ---
Author Name Unknown Organization [place] Address [address] [place] [address] Care Team Providers Care Environmental Construction Engineer Name Role Phone Shamar Claros MD Primary Care Provider + [phone] Melina Sousa PA-C Unavailable [phone] Alanis Dillard CNM Unavailable [phone] Steph Fraga MD Unavailable [phone] Melina Sousa PA-C Unavailable [phone] Janis Jacobs MD Unavailable [phone] Shamar Claros MD Unavailable [phone] Patti Ferris MD Unavailable [phone] Encounter Details Date Type Department Care Team (Late st Contact Info) Description 04/20/2020 [facility] [address] [place] [address] Alanis Dillard CNM [address] [place] [address] Social History Tobacco Use Types [...] on filedocumented in this encounter Care Teams Environmental Construction Engineer Relationship Specialty Start Date End Date Shamar Claros MD [address] [place] [address] [place] [address] PCP - General Internal Medicine 05/17/17 Melina Sousa PA-C [address] [place] [address] 283442 Assigned PCP 10/18/19 10/15/20 Alanis Dillard CNM [address] [place] [address] Assigned OBGYN Provider 05/06/20 Steph Fraga MD [address] [place] [address] [place] [address] Assigned PCP 10/16/20 12/24/20 Melina Sousa PA-C [address] [place] [address] Assigned PCP 12/25/20 03/23/22 Janis Jacobs MD [address] [place] [address] Assigned OBGYN Provider 04/09/21 3 Shamar Claros MD [address] [place] [address] [place] [address] Assigned PCP 09/08/22 Patti Ferris MD [address] [address] Assigned OBGYN Provider 04/27/23 documented as of this encounter
--- OUTSIDE RECORDS SUMMARY | 2023-08-14 09:43 | XMS_ITS | Encounter Summary ---
Author Name Unknown Organization [place] Address [address] [place] [address] Care Team Providers Care Video Editing Intern Name Role Phone Shamar Claros MD Primary Care Provider [phone] Melina Sousa PA-C Unavailable [phone] Janis Jacobs MD Unavailable [phone] Shamar Claros MD Unavailable [phone] Patti Ferris MD Unavailable [phone] Encounter Details Date Type Department Care [...] Coronavirus / COVID-19? Yes 07/20/2021 9:51 PM BLADE CHANGER documented as of this encounter Plan of Treatment Not on file documented as of this encounter Visit Diagnoses Not on filedocumented in this encounter Additional Health Concerns Assessment Noted Time PHQ-9 Depression Total Score: 8 03/31/20 21 7:02 AM CDT documented as of this encounter Care Teams Video Editing Intern Relationship Specialty Start Date End Date Shamar Claros MD [address] [facility] [place] [address] PCP - General Internal Medicine 05/17/17 Melina Sousa PA-C [address] [place] [address] Assigned PCP 12/25/20 03/23/22 Janis Jacobs MD [address] [place] [address] Assigned OBGYN Provider 04/09/21 3 Shamar Claros MD [address] [facility] [place] [address] Assigned PCP 09/08/22 Patti Ferris MD [address] 131724 Assigned OBGYN Provider 04/27/23 documented as of this encounter
--- OUTSIDE RECORDS SUMMARY | 2023-08-14 09:43 | XMS_ITS | Encounter Summary ---
Author Name Unknown Organization [place] Address [facility] [place] [address] Care Team Providers Care Director Center Name Role Phone Shamar Claros MD Primary Care Provider + [phone] Janis Jacobs MD Unavailable [phone] Shamar Claros MD Unavailable [phone] Patti Ferris MD Unavailable [phone] Encounter Details Date Type Department Care Team (Late st Contact Info) Description 07/30/2022 [facility] [place] [facility] [place] [facility] [place] [facility] [place] [address] [place] [address] Shamar Claros MD [address] [facility] [place] [address] Social History Tobacco [...] as of this encounter Care Teams Director Center Relationship Specialty Start Date End Date Shamar Claros MD [address] [facility] [place] [address] PCP - General Internal Medicine 05/17/17 Janis Jacobs MD [address] [place] [address] Assigned OBGYN Provider 04/09/21 3 Shamar Claros MD [address] [facility] [place] [address] Assigned PCP 09/08/22 Patti Ferris MD [address] [place] [address] Assigned OBGYN Provider 04/27/23 documented as of this encounter
--- OUTSIDE RECORDS SUMMARY | 2023-08-14 09:43 | XMS_ITS | Encounter Summary ---
Author Name Unknown Organization [place] Address [address] [place] [address] Care Team Providers Care Communications Systems Engineer Name Role Phone Shamar Claros MD Primary Care Provider Alanis Dillard CNM Unavailable [phone] Melina Sousa PA-C Unavailable [phone] Janis Jacobs MD Unavailable [phone] Shamar Claros MD Unavailable [phone] Patti Ferris MD Unavailable [phone] Encounter Details Date Type Department Care Team (Late st Contact Info) Description 01/29/2021 [facility] Medical Advice [facility] [place] [address] [facility] [address] [place] [address] [place] [address] [place] [address] [place] [address] Social History Tobacco Use [...] on filedocumented in this encounter Care Teams Communications Systems Engineer Relationship Specialty Start Date End Date Shamar Claros MD [address] [facility] [place] [address] PCP - General Internal Medicine 05/17/17 Alanis Dillard CNM [address] [place] [address] Assigned OBGYN Provider 05/06/20 Melina Sousa PA-C [address] [place] [address]422 Assigned PCP 12/25/20 03/23/22 Janis Jacobs MD [address] [place] [address] Assigned OBGYN Provider 04/09/21 3 Shamar Claros MD [address] [facility] [place] [address] Assigned PCP 09/08/22 Patti Ferris MD [address] [place] [address] [place] [address] Assigned OBGYN Provider 04/27/23 documented as of this encounter
--- OUTSIDE RECORDS SUMMARY | 2023-08-14 09:43 | XMS_ITS | Encounter Summary ---
Author Name Unknown Organization [place] Address [address] [place] [address]. [place] [address] Care Team Providers Care Criminal Justice Teacher Name Role Phone Shamar Claros MD Primary Care Provider + [phone] Shamar Claros MD Unavailable [phone] Encounter Details Date Type Department Care Team (Latest Contact Info) Description 04/11/2023 Medical Correspondence [facility] [address] [place] [address] Outside, Provider [facility] PROVIDER [...] documented as of this encounter Care Teams Criminal Justice Teacher Relationship Specialty Start Date End Date Shamar Claros MD [address] [facility] [place] [address] PCP - General Internal Medicine 05/17/17 Shamar Claros MD [address] [facility] [address] [place], [place] [address] Assigned PCP 09/08/22 documented as of this encounter
--- OUTSIDE RECORDS SUMMARY | 2023-08-14 09:43 | XMS_ITS | Encounter Summary ---
Author Name Unknown Organization [place] Address [address] [place] [address] Care Team Providers Care Panel Edge Sealer Name Role Phone Shamar Claros MD Primary Care Provider + [phone] Shamar Claros MD Unavailable [phone] Reason for Referral * Diagnostic Imaging Ultrasound (Routine) - Pending Review Specialty Diagnoses / Procedures Referred By Contac t Referred To Contact Radiology. Diagnoses related condition, antepartum Procedures MFM US Comprehensive Single [facility]aternal [facility] [address] [place] [address] Referral ID Status Reason Start Date Expiration Date V isits Requested Visits Authorized [id number] Pending Review 04/11/2023 04/10/2024 1 1 * Consultation (Routine: Next available opening) - Pending Review Specialty Diagnoses / Procedures Referred By Contac t Referred To Contact Diagnoses related condition, antepartum Rh [facility]aternal Med [address] [place] [address] Rh Maternal Med [address] [place] [address] Referral ID Status Reason Start Date Expiration Date V isits Requested Visits Authorized [id number] Pending Review 04/11/2023 04/10/2024 1 1 Question Answer Preferred Location: [facility] [place] JEFF 09/17/2023 Ultrasound Comprehensive US (>than 18 weeks GA) US PROC NONE MFM Issue OTHER (enter details in Comments) - BMI MFM MD Consultation (unrelated to Ultrasound findings): No Inflammatory Bowel Disease Clinic: Joint MFM and GI Consultation: No Chronic Kidney Disease: Joint MFM and Nephrology Consultation No Genetic Counseling Consultation: No fax [facility] Casey Bacon [phone] Comments BMI Encounter Details Date Type Department Care Team (Late st Contact Info) Description 04/11/2023 Transcribe Orders [facility] [place] [address] [facility] [address] [place] [address] Casey Bacon APRN [facility] [address] [place] [address] related condition, antepartum (Primary Dx) Social History [...] documented as of this encounter Results * [facility] US Comprehensive Single (04/22/2023 11:59 AM [...] SCOTT Study Date: 04/22/2023 11:03am Pat. NO: [id number] Referring ??: CASEY BACON Site: [employer] Supervisor: Lauren Mcdowell RDMS : 1990 Age: 32 [...] 0 lb 9 ?oz EFW by ?Hadlock ([id number]-UV-FL) Head / Face / Neck Biometry: Honing Job Setter ? 6.7 ? mm CM ?2.7 ? [...] cava. Inferior vena cava. 3-vessel view. ? 0-rwnvtm-atttyme view. Cardiac position. Cardiac size. Cardiac rhythm. [...] medical record, and communicating with other health family day carer and/or care coordination. Please see note for details. Procedure Note Patti Ferris MD - 04/22/2023 Comprehensive ----- Pat. Name:SHAYY SCOTTCharlenedeon Date:04/22/2023 11:03am Pat. NO: [id number] MD:CASEY BACON [facility]Lauren Mcdowell RDMS :1990Age:32 ----- INDICATION ----- Obesity BMI 44 METHOD ----- Transabdominal ultrasound examination. View: Sufficient ----- Cook . Number of fetuses: 1 DATING ----- DateDetailsGest. age JEFF LMP 12/05/2022ycle: irregular, long kycdko44 w + 5 d 09/11/2023 Prior assessment [...] 0 lb 9 oz EFW by Radlock ([id number]) Head / Face / Neck Biometry: Honing Job Setter 6.7 mm CM 2.7 mm Nasal bone [...] Superior vena cava. Inferior venacava. 3-vessel view. 2-waamie-yltiiwv view. Cardiacposition. Cardiac size. Cardiac rhythm. Right [...] electronic medical record, andcommunicating with other health family day carer and/or carecoordination. Please see note for details. [...] documented as of this encounter Care Teams Panel Edge Sealer Relationship Specialty Start Date End Date Shamar Claros MD [address] [place] [address] [place] [address] PCP - General Internal Medicine 05/17/17 [place] [address] [place] [address] [place] [address] Assigned PCP 09/08/22 documented as of this encounter
--- OUTSIDE RECORDS SUMMARY | 2023-08-14 09:43 | XMS_ITS | Encounter Summary ---
Author Name Unknown Organization [place] Address [address] [place] [address] Care Team Providers Care Learning Consultant Name Role Phone Shamar Claros MD Primary Care Provider Steph Fraga MD Unavailable [phone] Melina Sousa PA-C Unavailable Alanis Dilladr CNM Unavailable [phone] Steph Fraga MD Unavailable [phone] Melina Sousa PA-C Unavailable [phone] Janis Jacobs MD Unavailable [phone] Shamar Claros MD Unavailable Patti Ferris MD Unavailable [phone] Reason for Referral * Diagnostic Imaging Ultrasound (Routine) - Closed Specialty Diagnoses / Procedures Referred By Contluz marina t Referred To Contact Radiology. Diagnoses RLQ abdominal pain Procedures US Pelvic Complete w Transvaginal Melina Suosa PA-C [address] [place] [address] Rh Ultrasound [facility] [address] [place] [address] [place] [address] Referral ID Status Reason Start Date Expiration Date Visits Re quested Visits Authorized [id number] Closed 10/14/2019 10/13/2020 1 1 Reason for Visit * Reason Onset Date Comments MyChart Communication 10/13/2019 lab result s Encounter Details Date Type Department Care Team ([facility] st Contact Info) Description 10/13/2019 [facility] Medical Advice [address] [address] Melina Sousa PA-C [address] [place] [address] MyChart Communication (lab results) Social History Tobacco [...] call me back with any questions. Primo, seed district sales manager Nurse * Telephone Encounter - Vy Sheehan [...] 12:47 PM CDT Called pt back at [phone], not available, so LM to call me back at [phone]. Will await for her call back. JENNIFER [...] cervical lesions that pap is intended to bean picker machine operator are painless. Vy Sheehan MD Internal Medicine-Pediatrics [...] came back normal when she was at [facility]. She states the new pain she had discussed in her [employer] message she felt only lasted 20 minutes [...] typically has its usually performed by an clinical tech at an imaging appointment. She wanted to [...] CDT Forwarded to LP. Please review patient's [employer] It's what's in storet message and advise. Alanis Wright BS, RN, PHN [facility]) [phone] * Telephone Encounter - Alanis Wright RN - 10/13/2019 4:17 PM CDT [employer] It's what's in storet message sent. BLANCA Bull, RN, [facility] Office: [phone] documented in this encounter Plan of Treatment [...] quadrant documented in this encounter Care Teams Learning Consultant Relationship Specialty Start Date End Date Shamar Claros MD [address] [place] [address] [place] [address] PCP - General Internal Medicine 05/17/17 Steph Fraga MD [address] [place] [address] [place] [address] Assigned PCP 12/29/17 10/17/19 Melina Sousa PA-C [address] [place] [address] 353942 Assigned PCP 10/18/19 10/15/20 Alanis Dillard CNM [address] [place] [address] Assigned OBGYN Provider 05/06/20 Steph Fraga MD [address] [place] [address] [place] [address] Assigned PCP 10/16/20 12/24/20 Melina Sousa PA-C [address] [place] [address] Assigned PCP 12/25/20 03/23/22 Janis Jacobs MD [address] [place] [address] Assigned OBGYN Provider 04/09/21 3 Shamar Claros MD [address] [facility] [place] [address] Assigned PCP 09/08/22 Patti Ferris MD [address] [place], [place] [address]48[address] Assigned OBGYN Provider 04/27/23 documented as of this encounter
--- OUTSIDE RECORDS SUMMARY | 2023-08-14 09:43 | XMS_ITS | Encounter Summary ---
Author Name Unknown Organization [place] Address [facility] [place] [address] Care Team Providers Care Handbag Parts Cutter Name Role Phone Shamar Claros MD Primary Care Provider [phone] Alanis Dillard CNM Unavailable [phone] Melina Sousa PA-C Unavailable [phone] Janis Jacobs MD Unavailable [phone] Shamar Claros MD Unavailable [phone] Patti Ferris MD Unavailable [phone] Encounter Details Date Type Department Care Team (Late st Contact Info) Description 03/30/2021 [facility]C Medical Advice [facility] [place] [address] [facility] [address] [place] [address] Maribell Torrez, STEEL ROLLER [address] [facility] [place] [address] Social History Tobacco Use [...] documented as of this encounter Care Teams Handbag Parts Cutter Relationship Specialty Start Date End Date Shamar Claros MD [address] [facility] [place] [address] PCP - General Internal Medicine 05/17/17 Alanis Dillard CNM [address] [place] [address] Assigned OBGYN Provider 05/06/20 Melina Sousa PA-C [address] [place] [address] 396262 Assigned PCP 12/25/20 03/23/22 Janis Jacobs MD [address] [place] [address] Assigned OBGYN Provider 04/09/21 3 [place] [address] [place] [address] [place] [address] Assigned PCP 09/08/22 Patti Ferris MD [address] 001804 Assigned OBGYN Provider 04/27/23 documented as of this encounter
--- OUTSIDE RECORDS SUMMARY | 2023-08-14 09:43 | XMS_ITS | Encounter Summary ---
Author Name Unknown Organization [place] Address [facility]0 [place] [address] Care Team Providers Care Boat Person Name Role Phone Shamar Claros MD Primary Care Provider [phone] Alanis Dillard CNKatty Unavailable [phone] Melina Sousa PA-C Unavailable [phone] Janis Jacobs MD Unavailable [phone] Shamar Claros MD Unavailable [phone] Patti Ferris MD Unavailable [phone] Encounter Details Date Type Department Care Team (Late st Contact Info) Description 03/30/2021 MyC Medical Advice M [address] [place] [address] Kaykay Leung, LOUVER MORTISER OPERATOR Social History Tobacco Use Types Packs/Day Years [...] documented as of this encounter Care Teams Boat Person Relationship Specialty Start Date End Date Shamar Claros MD [address] [place] [address] PCP - General Internal Medicine 05/17/17 Alanis Dillard CNM [address] [place] [address] Assigned OBGYN Provider 05/06/20 Melina Sousa PA-C [address] [place] [address] Assigned PCP 12/25/20 03/23/22 Janis Jacobs MD [address] [place] [address] Assigned OBGYN Provider 04/09/21 3 Shamar Claros MD [address] [place] [address] Assigned PCP 09/08/22 Patti Ferris MD [address] [facility] [address] [place] [address] Assigned OBGYN Provider 04/27/23 documented as of this encounter
--- NOTE | 2023-08-14 09:45 | CRLHL7_ITS ---
For Patients: As a result of the Century Cures Act, medical imaging exams and procedure reports are released immediately into your electronic medical record. You may view this report before your referring provider. If you have questions, please contact your health care provider. INDICATION: Morbid obesity due to excess calories TECHNIQUE: Real time myers scale imaging of the fetus was performed. COMPARISON: 08/08/2023 FINDINGS: Sonographic imaging demonstrates a single living intrauterine gestation. Fetus demonstrates a regular cardiac rate of 152 beats per minute. Fetus has a vertex position. The placenta lies anteriorly. Amniotic fluid volume appears normal and there is a single deepest pocket of 3.9 cm. The estimated weight is 3018gm which lies at the 88th %. On the prior OB ultrasound dated 07/31/2023 the estimated weight was at the greater than 97th percentile. BPD and HC greater than 97th percentile. AC 97th percentile. FL 9th percentile. The fetus was active and demonstrated normal breathing movements. There was normal flexion and extension of the trunk and extremities. IMPRESSION: Normal biophysical profile score 8/8. Sonographic gestational age 37 weeks 2 days and sonographic due date 09/02/2023. Sonographic age 15 days ahead of the clinical age. Estimated weight 88th percentile. Abdominal circumference 97th percentile. BPD and HC greater than 97th percentile. Dictated by Mamadou Anguiano MD @ 08/14/2023 12:11:14 PM (Electronically Signed)
== END 2023-08-14 09:40 | disposition home or self-care (01) ==
PROVIDERS: Visit Provider Advanced Practice Midwife
DX: O99.213 Obesity complicating pregnancy, third trimester (principal); Z3A.37 37 weeks gestation of pregnancy
CPT/HCPCS: 76816; 76819

== ENCOUNTER 2023-08-19 09:24 | Outpatient (CLI) | payer OTHER, SELFPAY ==
--- OUTSIDE RECORDS SUMMARY | 2023-08-19 09:29 | XMS_ITS | Encounter Summary ---
Author Name Unknown Organization [place] Address [address] [place] [address] Care Team Providers Care Legal Secretary Receptionist Name Role Phone Shamar Claros MD Primary Care Provider + [phone] Shamar Claros MD Unavailable [phone] Reason for Visit * Reason Comments Ultrasound L2-elevated BMI Encounter Details Date Type Department Care Team (Late st Contact Info) Description 04/12/2023 PRE VISIT [facility] [place] [address] [facility] [address] [place] [address] Genet Ruiz RN Ultrasound (L2-elevated [...] documented as of this encounter Care Teams Legal Secretary Receptionist Relationship Specialty Start Date End Date Shamar Claros MD [address] [facility] [place] [address] PCP - General Internal Medicine 05/17/17 Shamar Claros MD [address] [facility] [place] [address] Assigned PCP 09/08/22 documented as of this encounter
--- OUTSIDE RECORDS SUMMARY | 2023-08-19 09:29 | XMS_ITS | Encounter Summary ---
Author Name Unknown Organization [place] Address [facility] access hospital0 [facility] [place] [address] Care Team Providers Care Software Implementation Project Manager Name Role Phone Shamar Claros MD Primary Care Provider [phone] Shamar Claros MD Unavailable [phone] Reason for Referral * Diagnostic Imaging Ultrasound (Routine) - Pending Review Specialty Diagnoses / Procedures Referred By Cecilia philippe Referred To Contact Radiology. Diagnoses Encounter for follow-up ultrasound of anatomy Procedures [facility] US Comprehensive Single F/U Patti Ferris MD [address] [place] [address] Referral ID Status Reason Start Date Expiration Date V isits Requested Visits Authorized [id number] Pending Review 04/22/2023 04/21/2024 1 1 Reason for Visit * Reason Comments Ultrasound L2-obesity in pregna ncy Encounter Details Date Type Department Care Team (Late st Contact Info) Description 04/22/2023 11:30 AM CDT Office Visit [facility] [place] [address] [facility] [address] [place] [address] Non-Fv Credentialed Provider, Radiology Francis Min MD [address] [place] [address] Patti Ferris MD [address] [place] [address] Obesity in , antepartum (Primary Dx); Encounter [...] as of this encounter Progress Notes * Ptati Ferris MD - 04/22/2023 11:30 AM CDT [...] the Maternal- Medicine Center. Patti Ferris MD Embedded Nurse, HVAC/R SERVICE TECHNICIAN Maternal- Medicine [phone] (Pager) documented in this encounter Nursing Notes * Nataly Bailey, JENNIFER - 04/22/2023 11:30 AM CDT Patient presents to [facility] for L2 at 18w5d due to [...] ? Study Date: ??05/13/2023 8:32am Pat. NO: ??[id number] ?Referring ??MD: CASEY DVAIS Site: [facility] ? [place] Flat Surfacer: Denise Kuhn RDMS : ??1990 ?Age: ?? [...] 1 lb 4 ?oz EFW by ?Hadlock ([id number]) Head / Face / Neck Biometry: Dedenter ? 3.7 ? mm CM ?3.7 ? mm ANATOMY ----- The following structures appear normal: Head / Neck ? Cranium. Head size. Head shape. Lateral ventricles. Midline falx. Cavum septi pellucidi. Cerebellum. Cisterna magna. Thalami. Face ? Lips. Profile. Nose. Heart / Thorax ?4-chamber view. RVOT view. LVOT view. Aortic arch view. 1-qeodns-qdlfqza view. ? Diaphragm. Abdomen ? Stomach. Bladder. [...] medical record, and communicating with other health assisted living care manager and/or care coordination. Procedure Note Zoey Real MD - 05/13/2023 Comp Follow Up ----- Pat. Name: GARDENIA SCOTT Study Date: 05/13/2023 8:32am Pat. NO: [id number] Referring MD: CASEY DAVIS Site: [facility] [place] Surfacer: Denise Kuhn RDMS : 1990 Age: 32 ----- INDICATION ----- Follow up suboptimal anatomy. BMI 44. Declined screening. METHOD ----- Transabdominal ultrasound examination. View: Sufficient ----- Cook . Number of fetuses: 1 DATING ----- DateDetailsGest. age JEFF LMP 12/05/2022ycle: irregular, long [id number] w + 5 d 09/11/2023 Prior assessment [...] 1 lb 4 oz EFW by Hadlock ([id number]) Head / Face / Neck Biometry: Dedenter 3.7 mm CM 3.7 mm ANATOMY ----- The following structures appear normal: Head / Neck Cranium. Head size. Head shape.Lateral ventricles. Midline falx. Cavum septi pellucidi. Cerebellum.Cisterna magna. Thalami. Face Lips. Profile. Nose. Heart / Thorax 4-chamber view. RVOT view. LVOT view.Aortic arch view. 9-exdecf-sdxwttn view. Diaphragm. Abdomen Stomach. Bladder. Spine Cervical [...] electronic medical record, andcommunicating with other health assisted living care manager and/or carecoordination. IMPRESSION ----- 1. Cook intrauterine at 21w 5d gestational age here forcompletion of anatomy. 2. The remaining anatomic survey was completed, no anomaliescommonly detected by ultrasound were identified within the limits ofprenatal ultrasound. 3. Growth parameters and estimated weight were slightly ahead ofestablished dates, EFW 97%. 4. The amniotic fluid volume appeared normal. Patti Ferris MD [facility] ORDERABLE S documented in this [...] documented as of this encounter Care Teams Software Implementation Project Manager Relationship Specialty Start Date End Date Shamar Claros MD [address] [place] [address] [place] [address] PCP - General Internal Medicine 05/17/17 [place] [address] [place] [address] [place] [address] Assigned PCP 09/08/22 documented as of this encounter
--- OUTSIDE RECORDS SUMMARY | 2023-08-19 09:29 | XMS_ITS | Clinical Summary ---
Author Name Unknown Organization [place] Address [address] [place] [address] Care Team Providers Care Linesperson Name Role Phone Shamar Claros MD Primary Care Provider + [phone] Shamar Claros MD Unavailable [phone] Patti Ferris MD Unavailable [phone] Allergies Active Allergy Reactions Criticality Noted [...] with antibiotics in the past 60 days [place] 1 spray into both nostrils daily 9.9 [...] Comments Blood Pressure 127/85 07/21/2021 5:26 AM 1ST PRESSMAN ON WEB PRESS Pulse 83 07/21/2021 5:26 AM 1ST PRESSMAN ON WEB PRESS Temperature 37.4 ??C (99.4 ??F) 07/20/2021 9:53 PM CS T Respiratory Rate 20 07/21/2021 5:26 AM 1ST PRESSMAN ON WEB PRESS Oxygen Saturation 97% 07/21/2021 5:26 AM 1ST PRESSMAN ON WEB PRESS Inhaled Oxygen Concentration - - Weight 144.4 kg (318 lb 5.5 oz) 07/20/2021 9:53 PM 1ST PRESSMAN ON WEB PRESS Height 172.7 cm (5' 8) 10/12/2019 11:2 [...] Advance Directives For more information, please contact: [phone] Latest Code Status on File Code Status Date Activated Date Inactivated Comments Full Code 03/02/2017 9:48 AM 07/20/2021 9:47 PM Care Teams Linesperson Relationship Specialty [place] [address] [place] [address] [place] [address] PCP - General Internal Medicine 05/17/17 Shamar Claros MD [address] [place] [address] [place] [address] Assigned PCP 09/08/22 Patti Ferris MD [address] [address] Assigned OBGYN Provider 04/27/23
--- OUTSIDE RECORDS SUMMARY | 2023-08-19 09:29 | XMS_ITS | Encounter Summary ---
Author Name Unknown Organization [place] Address [facility] [place] [address] Care Team Providers Care Bacteriologist Medical Name Role Phone Shamar Claros MD Primary Care Provider + [phone] Janis Jacobs MD Unavailable [phone] Shamar Claros MD Unavailable [phone] Patti Ferris MD Unavailable [phone] Encounter Details Date Type Department Care Team (Late st Contact Info) Description 07/30/2022 [facility] Medical Advice [facility] [address] [facility] [address] [place] [address] Shamar Claros MD [address] [facility] [place] [address] Social History Tobacco Use [...] documented as of this encounter Care Teams Bacteriologist Medical Relationship Specialty Start Date End Date Shamar Claros MD [address] [facility] [place] [address] PCP - General Internal Medicine 05/17/17 Janis Jacobs MD [address] [place] [address] Assigned OBGYN Provider 04/09/21 3 Shamar Claros MD [address] [facility] [place] [address] Assigned PCP 09/08/22 Patti Ferris MD [address] [place] [address] Assigned OBGYN Provider 04/27/23 documented as of this encounter
--- OUTSIDE RECORDS SUMMARY | 2023-08-19 09:29 | XMS_ITS | Referral Summary ---
Author Name Unknown Organization [place] Address [address] [place] [address] Care Team Providers Care Renderer Name Role Phone Shamar Claros MD Primary Care Provider + [phone] Shamar Claros MD Unavailable [phone] Patti Ferris MD Unavailable [phone] Allergies Active Allergy Reactions Criticality Noted [...] with antibiotics in the past 60 days [employer] 1 spray into both nostrils daily 9.9 [...] Comments Blood Pressure 127/85 07/21/2021 5:26 AM AIR CONDITIONING COIL ASSEMBLER Pulse 83 07/21/2021 5:26 AM AIR CONDITIONING COIL ASSEMBLER Temperature 37.4 ??C (99.4 ??F) 07/20/2021 9:53 PM CS T Respiratory Rate 20 07/21/2021 5:26 AM AIR CONDITIONING COIL ASSEMBLER Oxygen Saturation 97% 07/21/2021 5:26 AM AIR CONDITIONING COIL ASSEMBLER Inhaled Oxygen Concentration - - Weight 144.4 kg (318 lb 5.5 oz) 07/20/2021 9:53 PM AIR CONDITIONING COIL ASSEMBLER Height 172.7 cm (5' 8) 10/12/2019 11:2 5 AM CDT Body Mass Index 48.4 10/12/2019 11:25 AM CDT Plan of Treatment Not on file Advance Directives For more information, please contact: [phone] Latest Code Status on File Code Status Date Activated Date Inactivated Comments Full Code 03/02/2017 9:48 AM 07/20/2021 9:47 PM Care Teams Renderer Relationship Specialty Start Date End Date Shamar Claros MD [address] [facility] [place] [address] PCP - General Internal Medicine 05/17/17 Shamar Claros MD [address] [facility] [place] [address] Assigned PCP 09/08/22 Patti Ferris MD [address] [address] Assigned OBGYN Provider 04/27/23
--- OUTSIDE RECORDS SUMMARY | 2023-08-19 09:29 | XMS_ITS | Encounter Summary ---
Author Name Unknown Organization [place] Address [address] [place] [address] Care Team Providers Care Class A Truck Driver Name Role Phone Shamar Claros MD Primary Care Provider + [phone] Shamra Claros MD Unavailable [phone] Patti Ferris MD Unavailable [phone] Encounter Details Date Type Department Care [...] documented as of this encounter Care Teams Class A Truck Driver Relationship Specialty Start Date End Date Shamar Claros MD [address] [facility] [place] [address] PCP - General Internal Medicine 05/17/17 Shamar Claros MD [address] [facility] [place] [address] Assigned PCP 09/08/22 Patti Ferris MD [address] [facility] [address] [place] [address] Assigned OBGYN Provider 04/27/23 documented as of this encounter
--- OUTSIDE RECORDS SUMMARY | 2023-08-19 09:29 | XMS_ITS | Encounter Summary ---
Author Name Unknown Organization [place] Address [address] [place] [address]. [place] [address] Care Team Providers Care Food Service Utility Worker Name Role Phone Shamar Claros MD Primary Care Provider + [phone] Shamar Claros MD Unavailable [phone] Encounter Details Date Type Department Care Team (Latest Contact Info) Description 04/11/[address] [facility] [address] [place] [address] Outside, Provider [facility] PROVIDER [...] documented as of this encounter Care Teams Food Service Utility Worker Relationship Specialty Start Date End Date Shamar Claros MD [address] [facility] [place] [address] PCP - General Internal Medicine 05/17/17 Shamar Claros MD [address] [facility] [address] [place], [place] [address] Assigned PCP 09/08/22 documented as of this encounter
--- OUTSIDE RECORDS SUMMARY | 2023-08-19 09:29 | XMS_ITS | Encounter Summary ---
Author Name Unknown Organization [place] Address [address] [place] [address] Care Team Providers Care Masonry Teacher Name Role Phone Shamar Claros MD Primary Care Provider [phone] Melina Sousa PA-C Unavailable [phone] Janis Jacobs MD Unavailable [phone] Shamar Claros MD Unavailable [phone] Patti Ferris MD Unavailable [phone] Encounter Details Date Type Department Care [...] Coronavirus / COVID-19? Yes 07/20/2021 9:51 PM PUNCH OPERATOR documented as of this encounter Plan of Treatment Not on file documented as of this encounter Visit Diagnoses Not on filedocumented in this encounter Additional Health Concerns Assessment Noted Time PHQ-9 Depression Total Score: 8 03/31/20 21 7:02 AM CDT documented as of this encounter Care Teams Masonry Teacher Relationship Specialty Start Date End Date Shamar Claros MD [address] [facility] [address] PCP - General Internal Medicine 05/17/17 Melina Sousa PA-C [address] [place] [address] Assigned PCP 12/25/20 03/23/22 Janis Jacobs MD [address] [place] [address] Assigned OBGYN Provider 04/09/21 3 Shamar Claros MD [address] [facility] [place] [address] Assigned PCP 09/08/22 Patti Ferris MD [address] [address] Assigned OBGYN Provider 04/27/23 documented as of this encounter
--- OUTSIDE RECORDS SUMMARY | 2023-08-19 09:29 | XMS_ITS | Encounter Summary ---
Author Name Unknown Organization [place] Address [address] [place] [address] Care Team Providers Care House Player Name Role Phone Shamar Claros MD Primary Care Provider + [phone] Shamar Claros MD Unavailable [phone] Patti Ferris MD Unavailable [phone] Reason for Referral * Diagnostic Imaging Ultrasound (Routine) - Pending Review Specialty Diagnoses / Procedures Referred By Contac t Referred To Contact Radiology. Diagnoses Encounter for follow-up ultrasound of anatomy Procedures [facility] US Comprehensive Single F/U Patti Ferris MD [address] [place] [address] Referral ID Status Reason Start Date Expiration Date V isits Requested Visits Authorized [id number] Pending Review 04/22/2023 04/21/2024 1 1 Reason for Visit * Diagnostic Imaging Ultrasound (Routine) - Pending Review Specialty Diagnoses / Procedures Referred By Contac t Referred To Contact Radiology. Diagnoses Encounter for follow-up ultrasound of anatomy Procedures [facility] US Comprehensive Single F/U Patti Ferris MD [address] [address] Referral ID Status Reason Start Date Expiration Date V isits Requested Visits Authorized [id number] Pending Review 04/22/2023 04/21/2024 1 1 Encounter Details Date Type Department Care Team (Latest Contact Info) Description 05/13/2023 8:38 AM CDT - 05/13/2023 11:59 PM CDT Hospital Encounter [facility] [place] [address] [facility] [address] [place] [address] Patti Ferris MD [address] [place] [address] Zoey Real MD [address] [place] [address] Encounter for follow-up ultrasound of [...] with antibiotics in the past 60 days [place] 1 spray into both nostrils daily 9.9 [...] Procedure Name Priority Date/Time Associated Diagnosis Comments [facility] US COMPREHENSIVE SINGLE F/U Routine 05/13/2023 9:18 AM CDT Encounter for follow-up ultrasound of anatomy documented in this encounter Results * [facility] US Comprehensive Single F/U (05/13/2023 9:18 [...] ? Study Date: ??05/13/2023 8:32am Pat. NO: ??[id number] ?Referring ??MD: CASEY DAVIS Site: ??[facility] ? Captain Waiter/Waitress: Denise Kuhn RDMS : ??1990 ?Age: ?? [...] 1 lb 4 ?oz EFW by ?Hadlock ([id number]) Head / Face / Neck Biometry: Dye Can Operator ? 3.7 ? mm CM ?3.7 ? mm ANATOMY ----- The following structures appear normal: Head / Neck ? Cranium. Head size. Head shape. Lateral ventricles. Midline falx. Cavum septi pellucidi. Cerebellum. Cisterna magna. Thalami. Face ? Lips. Profile. Nose. Heart / Thorax ?4-chamber view. RVOT view. LVOT view. Aortic arch view. 3-zlbrlb-rliondp view. ? Diaphragm. Abdomen ? Stomach. Bladder. [...] medical record, and communicating with other health toddler caregiver and/or care coordination. Procedure Note Zoey Real MD - 05/13/2023 Comp Follow Up ----- Pat. Name: GARDENIA SCOTT Study Date: 05/13/2023 8:32am Pat. NO: [id number] Referring MD: CASEY DAVIS Site: [facility] Captain Waiter/Waitress: Denise Kuhn RDMS : 1990 Age: 32 ----- INDICATION ----- Follow up suboptimal anatomy. BMI 44. Declined screening. METHOD ----- Transabdominal ultrasound examination. View: Sufficient ----- Cook . Number of fetuses: 1 DATING ----- DateDetailsGest. age JEFF LMP 12/05/2022ycle: irregular, long w + 5 d 09/11/2023 Prior assessment [...] 1 lb 4 oz EFW by Hadlock ([id number]-FL) Head / Face / Neck Biometry: Dye Can Operator 3.7 mm CM 3.7 mm ANATOMY ----- The following structures appear normal: Head / Neck Cranium. Head size. Head shape.Lateral ventricles. Midline falx. Cavum septi pellucidi. Cerebellum.Cisterna magna. Thalami. Face Lips. Profile. Nose. Heart / Thorax 4-chamber view. RVOT view. LVOT view.Aortic arch view. 7-jqcxer-svzoozg view. Diaphragm. Abdomen Stomach. Bladder. Spine Cervical [...] electronic medical record, andcommunicating with other health toddler caregiver and/or carecoordination. IMPRESSION ----- 1. Cook intrauterine at 21w 5d gestational age here forcompletion of anatomy. 2. The remaining anatomic survey was completed, no anomaliescommonly detected by ultrasound were identified within the limits ofprenatal ultrasound. 3. Growth parameters and estimated weight were slightly ahead ofestablished dates, EFW 97%. 4. The amniotic fluid volume appeared normal. Patti Ferris MD [facility] ORDERABLE S documented in this encounter Visit Diagnoses Diagnosis Encounter for follow-up ultrasound of anatomy documented in this encounter Additional Health Concerns Assessment Noted Time PHQ-9 Depression Total Score: 8 03/31/20 21 7:02 AM CDT documented as of this encounter Care Teams House Player Relationship Specialty Start Date End Date Shamar Claros MD [address] [facility] [place] [address] PCP - General Internal Medicine 05/17/17 [place] [address] [place] [address] [place] [address] Assigned PCP 09/08/22 Patti Ferris MD [address] [facility] [address] [address] Assigned OBGYN Provider 04/27/23 documented as of this encounter
--- OUTSIDE RECORDS SUMMARY | 2023-08-19 09:29 | XMS_ITS | Encounter Summary ---
Author Name Unknown Organization [place] Address [address] [place] [address] Care Team Providers Care Account Solutions Analyst Name Role Phone Shamar Claros MD Primary Care Provider + [phone] Shamar Claros MD Unavailable [phone] Reason for Referral * Diagnostic Imaging Ultrasound (Routine) - Pending Review Specialty Diagnoses / Procedures Referred By Contac t Referred To Contact Radiology. Diagnoses related condition, antepartum Procedures M[facility] US Comprehensive Single Rh Maternal Med [address] [place] [address] Referral ID Status Reason Start Date Expiration Date V isits Requested Visits Authorized [id number] Pending Review 04/11/2023 04/10/2024 1 1 Reason for Visit * Diagnostic Imaging Ultrasound (Routine) - Pending Review Specialty Diagnoses / Procedures Referred By Contac t Referred To Contact Radiology. Diagnoses related condition, antepartum Procedures MFM US Comprehensive Single Rh Maternal Med [address] [place] [address] Referral ID Status Reason Start Date Expiration Date V isits Requested Visits Authorized [id number] Pending Review 04/11/2023 04/10/2024 1 1 Encounter Details Date Type Department Care Team ([facility] st Contact Info) Description 04/22/2023 11:00 AM CDT - 04/22/2023 11:59 PM CDT Hospital Encounter [facility] [place] [address] [place] [address] Non-Fv Credentialed Provider, Radiology Francis Min MD [address] [place] [address] Patti Ferris MD [address] [place] [address] related condition, antepartum Discharge Disposition: [...] with antibiotics in the past 60 days Brandon 1 spray into both nostrils daily 9.9 [...] Procedure Name Priority Date/Time Associated Diagnosis Comments [facility] US COMPREHENSIVE SINGLE Routine 04/22/2023 11:59 AM CDT related condition, antepartum documented in this encounter Results * [facility] US Comprehensive Single (04/22/2023 11:59 AM [...] SCOTT Study Date: 04/22/2023 11:03am Pat. NO: [id number] Referring ??MD: CASEY DAVIS Site: [facility] Sample Card Maker: Lauren Mcdowell RDMS : 1990 Age: 32 [...] 0 lb 9 ?oz EFW by ?Hadlock ([id number]-[id number]-FL) Head / Face / Neck Biometry: Sound Technician Supervisor ? 6.7 ? mm CM ?2.7 ? [...] cava. Inferior vena cava. 3-vessel view. ? 2-syfqbk-wxznnov view. Cardiac position. Cardiac size. Cardiac rhythm. [...] and communicating with other health child care director and/or care coordination. Please see note for details. Procedure Note Patti Ferris MD - 04/22/2023 Comprehensive ----- Pat. Name:Bill SCOTT Date:04/22/2023 11:03am Pat. NO: [id number] :CASEY DAVIS [facility]Lauren Mcdowell RDMS :1990Age:32 ----- INDICATION ----- Obesity BMI 44 METHOD ----- Transabdominal ultrasound examination. View: Sufficient ----- Cook . Number of fetuses: 1 DATING ----- DateDetailsGest. age JEFF LMP 12/05/2022ycle: irregular, long [id number] w + 5 d 09/11/2023 Prior assessment [...] 0 lb 9 oz EFW by Hadlock ([id number]-FL) Head / Face / Neck Biometry: Sound Technician Supervisor 6.7 mm CM 2.7 mm Nasal bone [...] Superior vena cava. Inferior venacava. 3-vessel view. 1-zeisbu-slaflsf view. Cardiacposition. Cardiac size. Cardiac rhythm. Right [...] record, andcommunicating with other health child care director and/or carecoordination. Please see note for details. [...] documented as of this encounter Care Teams Account Solutions Analyst Relationship Specialty Start Date End Date Shamar Claros MD [address] [facility] [place] [address] PCP - General Internal Medicine 05/17/17 Shamar Claros MD [address] [facility] [place] [address] Assigned PCP 09/08/22 documented as of this encounter
--- OUTSIDE RECORDS SUMMARY | 2023-08-19 09:29 | XMS_ITS | Encounter Summary ---
Author Name Unknown Organization [place] Address [address] [place] [address] Care Team Providers Care Actuarial Trainee Name Role Phone Shamar Claros MD Primary Care Provider + [phone] Shamar Claros MD Unavailable [phone] Reason for Referral * Diagnostic Imaging Ultrasound (Routine) - Pending Review Specialty Diagnoses / Procedures Referred By Contac t Referred To Contact Radiology. Diagnoses related condition, antepartum Procedures MFM US Comprehensive Single Rh Maternal Med [address] [place] [address] Referral ID Status Reason Start Date Expiration Date V isits Requested Visits Authorized [id number] Pending Review 04/11/2023 04/10/2024 1 1 * Consultation (Routine: Next available opening) - Pending Review Specialty Diagnoses / Procedures Referred By Contac t Referred To Contact Diagnoses related condition, antepartum Rh Maternal Med [address] [place] [address] Rh Maternal Med [address] [place] [address] Referral ID Status Reason Start Date Expiration Date V isits Requested Visits Authorized [id number] Pending Review 04/11/2023 04/10/2024 1 1 Question Answer Preferred Location: [facility] [place] JEFF 09/17/2023 Ultrasound Comprehensive US (>than 18 weeks GA) US PROC NONE MFM Issue OTHER (enter details in Comments) - BMI MFM MD Consultation (unrelated to Ultrasound findings): No Inflammatory Bowel Disease Clinic: Joint MFM and GI Consultation: No Chronic Kidney Disease: Joint MFM and Nephrology Consultation No Genetic Counseling Consultation: No fax [facility] Casey Bacon [phone] Comments BMI Encounter Details Date Type Department Care Team (Late st Contact Info) Description 04/11/2023 Transcribe Orders [facility] M[facility] Medicine [facility] [place] [address] [facility] [address] [place] [address] Casey Bacon APRN [facility] [address] [place] [address] related condition, antepartum (Primary Dx) Social History [...] documented as of this encounter Results * [facility] US Comprehensive Single (04/22/2023 11:59 AM [...] SCOTT Study Date: 04/22/2023 11:03am Pat. NO: [id number] Referring ??: CASEY BACON Site: [facility] Asst: Lauren Mcdowell RDMS : 1990 Age: 32 [...] 0 lb 9 ?oz EFW by ?Hadlock (GVD-RH-PS-FL) Head / Face / Neck Biometry: Spine Specialist ? 6.7 ? mm CM ?2.7 ? [...] cava. Inferior vena cava. 3-vessel view. ? 4-qqjoah-whbydkg view. Cardiac position. Cardiac size. Cardiac rhythm. [...] medical record, and communicating with other health childcare center director and/or care coordination. Please see note for details. Procedure Note Patti Ferris MD - 04/22/2023 Comprehensive ----- Pat. Name:SHAYY SCOTTCharlenedeon Date:04/22/2023 11:03am Pat. NO: [id number] MD:CASEY BACON [facility]Lauren Mcdowell RDMS :1990Age:32 ----- INDICATION ----- Obesity BMI 44 METHOD ----- Transabdominal ultrasound examination. View: Sufficient ----- Cook . Number of fetuses: 1 DATING ----- DateDetailsGest. age JEFF LMP 12/05/2022ycle: irregular, long [id number] w + 5 d 09/11/2023 Prior assessment [...] 0 lb 9 oz EFW by Radlock ([id number]-EQ-KC-FL) Head / Face / Neck Biometry: Spine Specialist 6.7 mm CM 2.7 mm Nasal bone [...] Superior vena cava. Inferior venacava. 3-vessel view. 3-frdldo-tsjxeuz view. Cardiacposition. Cardiac size. Cardiac rhythm. Right [...] electronic medical record, andcommunicating with other health childcare center director and/or carecoordination. Please see note for [...] documented as of this encounter Care Teams Actuarial Trainee Relationship Specialty Start Date End Date Shamar Claros MD [address] [place] [address] [place] [address] PCP - General Internal Medicine 05/17/17 [place] [address] [place] [address] [place] [address] Assigned PCP 09/08/22 documented as of this encounter
--- OUTSIDE RECORDS SUMMARY | 2023-08-19 09:29 | XMS_ITS | Encounter Summary ---
Author Name Unknown Organization [place] Address [address] [facility] [place] [address] Care Team Providers Care Computer Recycling Worker Name Role Phone Shamar Claros MD Primary Care Provider + [phone] Shamar Claros MD Unavailable [phone] Patti Ferris MD Unavailable [phone] Reason for Visit * Reason Comments Ultrasound RL2 for sub-optimal anatomy Encounter Details Date Type Department Care Team (Late st Contact Info) Description 05/13/2023 9:15 AM CDT Office Visit [facility] M[facility] Medicine [facility] [place] [address] [facility] [address] [place] [address] Patti Ferris MD [address] [place] [address] Zoey Real MD [address] [place] [address] BMI 40.0-44.9, adult (H) (Primary [...] is a at 21w5d who presents to [facility] for a follow-up ultrasound for sub-optimal [...] documented as of this encounter Care Teams Computer Recycling Worker Relationship Specialty [place] [address] [place] [address] [place] [address] PCP - General Internal Medicine 05/17/17 Shamar Claros MD [address] [place] [address] [place] [address] Assigned PCP 09/08/22 Patti Ferris MD [address] [address] Assigned OBGYN Provider 04/27/23 documented as of this encounter
--- OUTSIDE RECORDS SUMMARY | 2023-08-19 09:29 | XMS_ITS | Encounter Summary ---
Author Name Unknown Organization [place] Address [address] [place] [address] Care Team Providers Care Oil Field Operator Name Role Phone Shamar Claros MD Primary Care Provider [phone] Melina Sousa PA-C Unavailable [phone] Janis Jacobs MD Unavailable [phone] Shamar Claros MD Unavailable [phone] Patti Ferris MD Unavailable [phone] Encounter Details Date Type Department Care Team (Late st Contact Info) Description 07/18/2021 MyC Medical Advice [facility] [place] [address] [place] [address] Shamar Claros MD [address] [facility] [place] [address] Social History Tobacco Use [...] Coronavirus / COVID-19? Yes 07/20/2021 9:51 PM EDGER OPERATOR documented as of this encounter Plan of Treatment Not on file documented as of this encounter Visit Diagnoses Not on filedocumented in this encounter Additional Health Concerns Assessment Noted Time PHQ-9 Depression Total Score: 8 03/31/20 21 7:02 AM CDT documented as of this encounter Care Teams Oil Field Operator Relationship Specialty Start Date End Date Shamar Claros MD [address] [facility] [place] [address] PCP - General Internal Medicine 05/17/17 Melina Sousa PA-C [address] [place] [address]682 Assigned PCP 12/25/20 03/23/22 Janis Jacobs MD [address] [place] [address] Assigned OBGYN Provider 04/09/21 3 Shamar Claros MD [address] [facility] [place] [address] Assigned PCP 09/08/22 Patti Ferris MD [address] [place], [place] [address] Assigned OBGYN Provider 04/27/23 documented as of this encounter
--- OUTSIDE RECORDS SUMMARY | 2023-08-19 09:29 | XMS_ITS | Encounter Summary ---
Author Name Unknown Organization [place] Address [address] [place] [address] Care Team Providers Care Food Bagging Machine Operator Name Role Phone Shamar Claros MD Primary Care Provider + [phone] Shamar Claros MD Unavailable [phone] Encounter Details Date Type Department Care Team [...] as of this encounter Care Teams Food Bagging Machine Operator Relationship Specialty Start Date End Date Shamar Claros MD [address] [facility] [place] [address] PCP - General Internal Medicine 05/17/17 Shamar Claros MD [address] [facility] [place] [id number] Assigned PCP 09/08/22 documented as of this encounter
--- OUTSIDE RECORDS SUMMARY | 2023-08-19 09:30 | XMS_ITS | Encounter Summary ---
Author Name Unknown Organization [place] Address [address] [place] [address] Care Team Providers Care Revising Clerk Name Role Phone Shamar Claros MD Primary Care Provider + [phone] Melina Sousa PA-C Unavailable [phone] Alanis Dillard CNM Unavailable [phone] Steph Fraga MD Unavailable [phone] Melina Sousa PA-C Unavailable [phone] Janis Jacobs MD Unavailable [phone] Shamar Claros MD Unavailable [phone] Patti Ferris MD Unavailable [phone] Encounter Details Date Type Department Care Team (Late st Contact Info) Description 04/20/2020 [facility] [place] [facility] [address] [place] [address] Alanis Dillard CNM [address] [place] [address] Social History Tobacco Use Types [...] on filedocumented in this encounter Care Teams Revising Clerk Relationship Specialty Start Date End Date Shamar Claros MD [address] [place] [address] [place] [address] PCP - General Internal Medicine 05/17/17 Melina Sousa PA-C [address] [place] [address] 844302 Assigned PCP 10/18/19 10/15/20 Alanis Dillard CNM [address] [place] [address] Assigned OBGYN Provider 05/06/20 Steph Fraga MD [address] [place] [address] [place] [address] Assigned PCP 10/16/20 12/24/20 Melina Sousa PA-C [address] [place] [address] Assigned PCP 12/25/20 03/23/22 Janis Jacobs MD [address] [place] [address] Assigned OBGYN Provider 04/09/21 3 Shamar Claros MD [address] [place] [address] [place] [address] Assigned PCP 09/08/22 Patti Ferris MD [address] [address] Assigned OBGYN Provider 04/27/23 documented as of this encounter
--- OUTSIDE RECORDS SUMMARY | 2023-08-19 09:30 | XMS_ITS | Encounter Summary ---
Author Name Unknown Organization [place] Address [facility] [place] [address] Care Team Providers Care Warp Worker Name Role Phone Shamar Claros MD Primary Care Provider [phone] Alanis Dillard CNM Unavailable [phone] Melina Sousa PA-C Unavailable [phone] Janis Jacobs MD Unavailable [phone] Shamar Claros MD Unavailable [phone] Patti Ferris MD Unavailable [phone] Encounter Details Date Type Department Care Team (Late st Contact Info) Description 03/30/2021 MyC Medical Advice [facility] [address] [place] [address] Maribell Torrez, NON PROFIT DIRECTOR [address] [facility] [place] [address] Social History Tobacco Use [...] documented as of this encounter Care Teams Warp Worker Relationship Specialty Start Date End Date Shamar Claros MD [address] [facility] [place] [address] PCP - General Internal Medicine 05/17/17 Alanis Dillard CNM [address] [place] [address] Assigned OBGYN Provider 05/06/20 Melina Sousa PA-C [address] [place] [address] 705502 Assigned PCP 12/25/20 03/23/22 Janis Jacobs MD [address] [place] [address] Assigned OBGYN Provider 04/09/21 3 [place] [address] [place] [address] [place] [address] Assigned PCP 09/08/22 Patti Ferris MD [address] 603664 Assigned OBGYN Provider 04/27/23 documented as of this encounter
--- OUTSIDE RECORDS SUMMARY | 2023-08-19 09:30 | XMS_ITS | Encounter Summary ---
Author Name Unknown Organization [place] Address [address] [place] [address] Care Team Providers Care Deck Mechanic Name Role Phone Shamar Claros MD Primary Care Provider Steph Fraga MD Unavailable [phone] Melina Sousa PA-C Unavailable [phone] Alanis Dillard CNM Unavailable [phone] Steph Fraga MD Unavailable [phone] Melina Sousa PA-C Unavailable [phone] Janis Jacobs MD Unavailable Shamar Claros MD Unavailable Patti Ferris MD Unavailable [phone] Reason for Referral * Diagnostic Imaging Ultrasound (Routine) - Closed Specialty Diagnoses / Procedures Referred By Contluz marina t Referred To Contact Radiology. Diagnoses RLQ abdominal pain Procedures US Pelvic Complete w Transvaginal Melina Sousa PA-C [address] [place] [address] Rh Ultrasound [facility] [address] [place] [address] [place] [address] Referral ID Status Reason Start Date Expiration Date Visits Re quested Visits Authorized [id number] Closed 10/14/2019 10/13/2020 1 1 Reason for Visit * Reason Onset Date Comments MyChart Communication 10/13/2019 lab result s Encounter Details Date Type Department Care Team ([facility] st Contact Info) Description 10/13/2019 MyC Medical Advice [address] [address] Melina Sousa PA-C [address] [place] [address] MyChart Communication (lab results) Social History Tobacco [...] call me back with any questions. Primo, dolly driver Nurse * Telephone Encounter - Vy Sheehan [...] 12:47 PM CDT Called pt back at [phone], not available, so LM to call me back at [phone]. Will await for her call back. JENNIFER [...] cervical lesions that pap is intended to hop picker are painless. Vy Sheehan MD Internal [...] came back normal when she was at [facility]. She states the new pain she had discussed in her [employer] message she felt only lasted 20 minutes [...] typically has its usually performed by an urinalysis technician at an imaging appointment. She wanted [...] today. I'd like to discuss pain/symptoms further. Melian Sousa MBA, MS, SOHAIL * Telephone Encounter - Alanis Wright RN - 10/13/2019 5:13 PM CDT Forwarded to LP. Please review patient's [employer] message and advise. Alanis Wright BS, RN, PHN [facility]) [phone] * Telephone Encounter - Alanis Wright RN - 10/13/2019 4:17 PM CDT [employer] message sent. BLANCA Bull, RN, [facility] Office: [phone] documented in this encounter Plan of Treatment [...] quadrant documented in this encounter Care Teams Deck Mechanic Relationship Specialty Start Date End Date Shamar Claros MD [address] [place] [address] [place] [address] PCP - General Internal Medicine 05/17/17 Steph Fraga MD [address] [place] [address] [place] [address] Assigned PCP 12/29/17 10/17/19 Melina Sousa PA-C [address] [place] [address] 402862 Assigned PCP 10/18/19 10/15/20 Alanis Dillard CNM [address] [place] [address] Assigned OBGYN Provider 05/06/20 Steph Fraga MD [address] [place] [address] [place] [address] Assigned PCP 10/16/20 12/24/20 Melina Sousa PA-C [address] [place] [address] Assigned PCP 12/25/20 03/23/22 Janis Jacobs MD [address] [place] [address] Assigned OBGYN Provider 04/09/21 3 Shamar Claros MD [address] [place] [place] [address] Assigned PCP 09/08/22 Patti Ferris MD [address] [place], [place] 7[address] Assigned OBGYN Provider 04/27/23 documented as of this encounter
--- OUTSIDE RECORDS SUMMARY | 2023-08-19 09:30 | XMS_ITS | Encounter Summary ---
Author Name Unknown Organization [place] Address [address] [place] [address] Care Team Providers Care Commercial Photographer Name Role Phone Shamar Claros MD Primary Care Provider [phone] Melina Sousa PA-C Unavailable [phone] Janis Jacobs MD Unavailable [phone] Shamar Claros MD Unavailable [phone] Patti Ferris MD Unavailable [phone] Reason for Visit * Reason Onset Date Comments Heart Problem 05/25/2021 Symptoms Encounter Details Date Type Department Care Team (Late st Contact Info) Description 05/25/2021 [facility] [place] [place] Medical Advice [address] [place] [address] Janis Jacobs MD [address] [place] [address] Heart Problem (Symptoms) Social History [...] Jacobs out today and tomorrow, sending to plant operations manager. Olinda Langston RN NCIAL REPORTING SPECIALIST documented in this encounter Plan of Treatment Not on file documented as of this encounter Visit Diagnoses Diagnosis Vaginal symptom- Primary documented in this encounter Additional Health Concerns Assessment Noted Time PHQ-9 Depression Total Score: 8 03/31/20 21 7:02 AM CDT documented as of this encounter Care Teams Commercial Photographer Relationship Specialty Start Date End Date Shamar Claros MD [address] [place] [address] [place] [address] PCP - General Internal Medicine 05/17/17 Melina Sousa PA-C [address] [place] [address] 899802 Assigned PCP 12/25/20 03/23/22 Janis Jacobs MD [address] [place] [address] Assigned OBGYN Provider 04/09/21 3 Shamar Claros MD [address] [place] [address] [place] [address] Assigned PCP 09/08/22 Patti Ferris MD [address] [facility] [address] [address] Assigned OBGYN Provider 04/27/23 documented as of this encounter
--- OUTSIDE RECORDS SUMMARY | 2023-08-19 09:30 | XMS_ITS | Encounter Summary ---
Author Name Unknown Organization [place] Address [facility] [place] [address] Care Team Providers Care Wood Last Maker Name Role Phone Shamar Claros MD Primary Care Provider [phone] Alanis Dillard CNKatty Unavailable [phone] Melina Sousa PA-C Unavailable [phone] Janis Jacobs MD Unavailable [phone] Shamar Claros MD Unavailable [phone] Patti Ferris MD Unavailable [phone] Encounter Details Date Type Department Care Team (Late st Contact Info) Description 03/30/2021 MyC Medical Advice M [address] [place] [address] Kaykay Leung, VIDEO GAMES MECHANIC Social History Tobacco Use Types Packs/Day Years [...] as of this encounter Care Teams Wood Last Maker Relationship Specialty Start Date End Date Shamar Claros MD [address] [place] [address] PCP - General Internal Medicine 05/17/17 Alanis Dillard CNM [address] [place] [address] Assigned OBGYN Provider 05/06/20 Melina Sousa PA-C [address] [place] [address] Assigned PCP 12/25/20 03/23/22 Janis Jacobs MD [address] [place] [address] Assigned OBGYN Provider 04/09/21 3 Shamar Claros MD [address] [place] [address] Assigned PCP 09/08/22 Patti Ferris MD [address] [facility] [address] [place] [address] Assigned OBGYN Provider 04/27/23 documented as of this encounter
--- OUTSIDE RECORDS SUMMARY | 2023-08-19 09:30 | XMS_ITS | Encounter Summary ---
Author Name Unknown Organization [place] Address [address] [place] [address] Care Team Providers Care Pipe Stem Sawyer Name Role Phone Shamar Claros MD Primary Care Provider Alanis Dillard CNM Unavailable [phone] Melina Sousa PA-C Unavailable [phone] Janis Jacobs MD Unavailable [phone] Shamar Claros MD Unavailable [phone] Patti Ferris MD Unavailable [phone] Encounter Details Date Type Department Care Team (Late st Contact Info) Description 01/29/2021 [facility] Medical Advice [facility] [address] [facility] [address] [place] [address] [place] [address] [place] [address] [place] [address] Social History Tobacco Use [...] on filedocumented in this encounter Care Teams Pipe Stem Sawyer Relationship Specialty Start Date End Date Shamar Claros MD [address] [facility] [place] [address] PCP - General Internal Medicine 05/17/17 Alanis Dillard CNM [address] [place] [address] Assigned OBGYN Provider 05/06/20 Melina Sousa PA-C [address] [place] [address] 242052 Assigned PCP 12/25/20 03/23/22 Janis Jacobs MD [address] [place] [address] Assigned OBGYN Provider 04/09/21 3 Shamar Claros MD [address] [facility] [place] [address] Assigned PCP 09/08/22 Patti Ferris MD [address] [place] [place] [address] 918824 Assigned OBGYN Provider 04/27/23 documented as of this encounter
--- OUTSIDE RECORDS SUMMARY | 2023-08-19 09:30 | XMS_ITS | Encounter Summary ---
Author Name Unknown Organization [place] Address [address] [place] [address] Care Team Providers Care Smoking Pipes Cleaner Name Role Phone Shamar Claros MD Primary Care Provider [phone] Melina Sousa PA-C Unavailable [phone] Janis Jacobs MD Unavailable [phone] Shamar Claros MD Unavailable [phone] Patti Ferris MD Unavailable [phone] Encounter Details Date Type Department Care Team (Late st Contact Info) Description 07/12/2021 [facility] [place] [facility] [address] [place] [id number] Britney Hanson Social History Tobacco Use Types [...] documented as of this encounter Care Teams Smoking Pipes Cleaner Relationship Specialty Start Date End Date Shamar Claros MD [address] [facility] [place] [address] PCP - General Internal Medicine 05/17/17 Melina Sousa PA-C [address] [place] [address] Assigned PCP 12/25/20 03/23/22 Janis Jacobs MD [address] [place] [address] Assigned OBGYN Provider 04/09/21 3 Shamar Claros MD [address] [facility] [place] [address] Assigned PCP 09/08/22 Patti Ferris MD [address] [address] Assigned OBGYN Provider 04/27/23 documented as of this encounter
--- OUTSIDE RECORDS SUMMARY | 2023-08-19 09:30 | XMS_ITS | Encounter Summary ---
Author Name Unknown Organization [place] Address [address] [place] [address] Care Team Providers Care Manager Drug Name Role Phone Shamar Claros MD Primary Care Provider [phone] Steph Fraga MD Unavailable [phone] Melina Sousa PA-C Unavailable Alanis Dillard CNM Unavailable [phone] Steph Fraga MD Unavailable [phone] Melina Sousa PA-C Unavailable [phone] Janis Jacobs MD Unavailable [phone] Shamar Claros MD Unavailable Patti Ferris MD Unavailable [phone] Encounter Details Date Type Department Care Team (Late st Contact Info) Description 10/10/2019 [facility] [place] Medical Advice [facility] [place] [address] [place] [address] Drive [address] [place] [address] [place] [address] [place] [address] [place] [address] Social History Tobacco Use [...] RN - 10/12/2019 9:32 AM CDT Sent Soccer Manager message. - Bryant Nowak, RN - Patient Advocate Liason (PAL) [facility] documented in this encounter Plan of Treatment Not on file documented as of this encounter Visit Diagnoses Not on filedocumented in this encounter Care Teams Manager Drug Relationship Specialty Start Date End Date Shamar Claros MD [address] [place] [address] [place] [address] PCP - General Internal Medicine 05/17/17 Steph Fraga MD [address] [place] [address] [place] [address] Assigned PCP 12/29/17 10/17/19 Melina Sousa PA-C [address] [place] [address]12 Assigned PCP 10/18/19 10/15/20 Alanis Dillard CNM [address] [place], [place] [address] Assigned OBGYN Provider 05/06/20 Steph Fraga MD [address] [place] [address] [place] [address] Assigned PCP 10/16/20 12/24/20 Melina Sousa PA-C [address] [place], [place] 7[address] Assigned PCP 12/25/20 03/23/22 Janis Jacobs MD [address] [place] [address] Assigned OBGYN Provider 04/09/21 3 Shamar Claros MD [address] [facility] [place] [address] Assigned PCP 09/08/22 Patti Ferris MD [address] 9174[address] Assigned OBGYN Provider 04/27/23 documented as of this encounter
--- OUTSIDE RECORDS SUMMARY | 2023-08-19 09:30 | XMS_ITS | Encounter Summary ---
Author Name Unknown Organization [place] Address [facility] [place] [address] Care Team Providers Care Typewriter Ribbon Winder Name Role Phone Shamar Claros MD Primary Care Provider [phone] Alanis Dillard CNKatty Unavailable [phone] Melina Sousa PA-C Unavailable [phone] Janis Jacobs MD Unavailable [phone] Shamar Claros MD Unavailable [phone] Patti Ferris MD Unavailable [phone] Reason for Visit * Reason Onset Date Comments Medication Question 03/28/2021 Encounter Details Date Type Department Care Team (Late st Contact Info) Description 03/28/2021 [facility] Medical Advice [address] [place] [address] Janis Jacobs MD [address] [place] [address] Medication Question Social History Tobacco [...] on filedocumented in this encounter Care Teams Typewriter Ribbon Winder Relationship Specialty Start Date End Date Shamar Claros MD [address] [facility] [place] [address] PCP - General Internal Medicine 05/17/17 Alanis Dillard CNM [address] [place] [address] Assigned OBGYN Provider 05/06/20 Melina Sousa PA-C [address] [place] [address] Assigned PCP 12/25/20 03/23/22 Janis Jacobs MD [address] [place] [address] Assigned OBGYN Provider 04/09/21 3 Shamar Claros MD [address] [facility] [address] Assigned PCP 09/08/22 Patti Ferris MD [address] [place] [address] Assigned OBGYN Provider 04/27/23 documented as of this encounter
[2023-08-20 11:07] LABS: Strep B DNA Probe Positive (Negative)
[2023-08-20 11:29] LABS: Strep B Susceptibility Needed? Yes
== END 2023-08-19 09:25 | disposition home or self-care (01) ==
PROVIDERS: PCP Obstetrics & Gynecology; Visit Provider Obstetrics & Gynecology
DX: O09.893 Supervision of other high risk pregnancies, third trimester (principal); Z3A.35 35 weeks gestation of pregnancy
CPT/HCPCS: 82565; 82570; 84156; 84450; 84460; 84520; 87081; 87186; 87653

== ENCOUNTER 2023-08-19 10:15 | Outpatient (CLI) | payer OTHER, SELFPAY ==
--- NOTE | 2023-08-19 10:15 | CRLHL7_ITS ---
For Patients: As a result of the Century Cures Act, medical imaging exams and procedure reports are released immediately into your electronic medical record. You may view this report before your referring provider. If you have questions, please contact your health care provider. INDICATION: FAILED NST, GDMA2, CHRONIC HTN COMPARISON: 08/14/2023 TECHNIQUE: Real time myers scale imaging of the fetus was performed. Without non-stress testing. FINDINGS: Sonographic imaging demonstrates a single living intrauterine gestation. Fetus demonstrates a regular cardiac rate of 157 beats per minute. Fetus has a vertex position. The amniotic fluid volume appears normal and there is a single deepest pocket measurement of 3.7 cm. The fetus was active and demonstrated normal breathing movements. There was normal flexion and extension of the trunk and extremities. IMPRESSION: Normal biophysical profile score of 8 out of 8. Dictated by Mamadou Anguiano MD @ 08/20/2023 5:58:08 AM (Electronically Signed)
--- OUTSIDE RECORDS SUMMARY | 2023-08-19 10:17 | XMS_ITS | Encounter Summary ---
Author Name Unknown Organization [place] Address [address] [place] [address] Care Team Providers Care Senior Business Consultant Name Role Phone Shamar Claros MD Primary Care Provider + [phone] Shamar Claros MD Unavailable [phone] Encounter Details Date Type Department Care Team [...] documented as of this encounter Care Teams Senior Business Consultant Relationship Specialty Start Date End Date Shamar Claros MD [address] [facility] [place] [address] PCP - General Internal Medicine 05/17/17 Shamar Claros MD [address] [facility] [place] [id number] Assigned PCP 09/08/22 documented as of this encounter
--- OUTSIDE RECORDS SUMMARY | 2023-08-19 10:17 | XMS_ITS | Clinical Summary ---
Author Name Unknown Organization [place] Address [address] [place] [address] Care Team Providers Care Electroneurodiagnostic Technologist Name Role Phone Shamar Claros MD Primary Care Provider + [phone] Shamar Claros MD Unavailable [phone] Patti Ferris MD Unavailable [phone] Allergies Active Allergy Reactions Criticality Noted [...] with antibiotics in the past 60 days [place] 1 spray into both nostrils daily 9.9 [...] Comments Blood Pressure 127/85 07/21/2021 5:26 AM EQUIPMENT CLEANER Pulse 83 07/21/2021 5:26 AM EQUIPMENT CLEANER Temperature 37.4 ??C (99.4 ??F) 07/20/2021 9:53 PM CS T Respiratory Rate 20 07/21/2021 5:26 AM EQUIPMENT CLEANER Oxygen Saturation 97% 07/21/2021 5:26 AM EQUIPMENT CLEANER Inhaled Oxygen Concentration - - Weight 144.4 kg (318 lb 5.5 oz) 07/20/2021 9:53 PM EQUIPMENT CLEANER Height 172.7 cm (5' 8) 10/12/2019 11:2 [...] Advance Directives For more information, please contact: [phone] Latest Code Status on File Code Status Date Activated Date Inactivated Comments Full Code 03/02/2017 9:48 AM 07/20/2021 9:47 PM Care Teams Electroneurodiagnostic Technologist Relationship Specialty [place] [address] [place] [address] [place] [address] PCP - General Internal Medicine 05/17/17 Shamar Claros MD [address] [place] [address] [place] [address] Assigned PCP 09/08/22 Patti Ferris MD [address] [address] Assigned OBGYN Provider 04/27/23
--- OUTSIDE RECORDS SUMMARY | 2023-08-19 10:17 | XMS_ITS | Referral Summary ---
Author Name Unknown Organization [place] Address [address] [place] [address] Care Team Providers Care Electrical Engineering Professor Name Role Phone Shamar Claros MD Primary Care Provider + [phone] Shamar Claros MD Unavailable [phone] Patti Ferris MD Unavailable [phone] Allergies Active Allergy Reactions Criticality Noted [...] with antibiotics in the past 60 days [place] 1 spray into both nostrils daily 9.9 [...] Comments Blood Pressure 127/85 07/21/2021 5:26 AM SILK WORKER Pulse 83 07/21/2021 5:26 AM SILK WORKER Temperature 37.4 ??C (99.4 ??F) 07/20/2021 9:53 PM CS T Respiratory Rate 20 07/21/2021 5:26 AM SILK WORKER Oxygen Saturation 97% 07/21/2021 5:26 AM SILK WORKER Inhaled Oxygen Concentration - - Weight 144.4 kg (318 lb 5.5 oz) 07/20/2021 9:53 PM SILK WORKER Height 172.7 cm (5' 8) 10/12/2019 11:2 5 AM CDT Body Mass Index 48.4 10/12/2019 11:25 AM CDT Plan of Treatment Not on file Advance Directives For more information, please contact: [phone] Latest Code Status on File Code Status Date Activated Date Inactivated Comments Full Code 03/02/2017 9:48 AM 07/20/2021 9:47 PM Care Teams Electrical Engineering Professor Relationship Specialty Start Date End Date Shamar Claros MD [address] [facility] [place] [address] PCP - General Internal Medicine 05/17/17 Shamar Claros MD [address] [facility] [place] [address] Assigned PCP 09/08/22 Patti Ferris MD [address] [address] Assigned OBGYN Provider 04/27/23
--- OUTSIDE RECORDS SUMMARY | 2023-08-19 10:17 | XMS_ITS | Encounter Summary ---
Author Name Unknown Organization [place] Address [address] [place] [address] Care Team Providers Care Manager Perioperative Name Role Phone Shamar Claros MD Primary Care Provider + [phone] Shamar Claros MD Unavailable [phone] Patti Ferris MD Unavailable [phone] Reason for Referral * Diagnostic Imaging Ultrasound (Routine) - Pending Review Specialty Diagnoses / Procedures Referred By Contac t Referred To Contact Radiology. Diagnoses Encounter for follow-up ultrasound of anatomy Procedures [facility] US Comprehensive Single F/U Patti Ferris MD [address] [place] [address] Referral ID Status Reason Start Date Expiration Date V isits Requested Visits Authorized [id number] Pending Review 04/22/2023 04/21/2024 1 1 Reason for Visit * Diagnostic Imaging Ultrasound (Routine) - Pending Review Specialty Diagnoses / Procedures Referred By Contac t Referred To Contact Radiology. Diagnoses Encounter for follow-up ultrasound of anatomy Procedures [facility] US Comprehensive Single F/U Patti Ferris MD [address] [address] Referral ID Status Reason Start Date Expiration Date V isits Requested Visits Authorized [id number] Pending Review 04/22/2023 04/21/2024 1 1 Encounter Details Date Type Department Care Team (Latest Contact Info) Description 05/13/2023 8:38 AM CDT - 05/13/2023 11:59 PM CDT Hospital Encounter [facility] [place] [address] [facility] [address] [place] [address] Patti Ferris MD [address] [place] [address] Zoey Real MD [address] [place] [address] Encounter for follow-up ultrasound of [...] with antibiotics in the past 60 days [place] 1 spray into both nostrils daily 9.9 [...] Procedure Name Priority Date/Time Associated Diagnosis Comments [facility] US COMPREHENSIVE SINGLE F/U Routine 05/13/2023 9:18 AM CDT Encounter for follow-up ultrasound of anatomy documented in this encounter Results * [facility] US Comprehensive Single F/U [...] ? Study Date: ??05/13/2023 8:32am Pat. NO: ??[id number] ?Referring ??MD: CASEY DAVIS Site: ??[facility] ? Vice President Of Instruction: Denise Kuhn RDMS : ??1990 ?Age: ?? [...] 1 lb 4 ?oz EFW by ?Hadlock ([id number]) Head / Face / Neck Biometry: Sports Medicine Trainer ? 3.7 ? mm CM ?3.7 ? mm ANATOMY ----- The following structures appear normal: Head / Neck ? Cranium. Head size. Head shape. Lateral ventricles. Midline falx. Cavum septi pellucidi. Cerebellum. Cisterna magna. Thalami. Face ? Lips. Profile. Nose. Heart / Thorax ?4-chamber view. RVOT view. LVOT view. Aortic arch view. 7-dejykw-iyylobz view. ? Diaphragm. Abdomen ? Stomach. Bladder. [...] record, and communicating with other health care manager cna and/or care coordination. Procedure Note Zoey Real MD - 05/13/2023 Comp Follow Up ----- Pat. Name: GARDENIA SCOTT Study Date: 05/13/2023 8:32am Pat. NO: [id number] Referring MD: CASEY DAVIS Site: [facility] Vice President Of Instruction: Denise Kuhn RDMS : 1990 Age: 32 ----- INDICATION ----- Follow up suboptimal anatomy. BMI 44. Declined screening. METHOD ----- Transabdominal ultrasound examination. View: Sufficient ----- Cook . Number of fetuses: 1 DATING ----- DateDetailsGest. age JEFF LMP 12/05/2022ycle: irregular, long [id number] w + 5 d 09/11/2023 Prior assessment [...] 1 lb 4 oz EFW by Hadlock ([id number]) Head / Face / Neck Biometry: Sports Medicine Trainer 3.7 mm CM 3.7 mm ANATOMY ----- The following structures appear normal: Head / Neck Cranium. Head size. Head shape.Lateral ventricles. Midline falx. Cavum septi pellucidi. Cerebellum.Cisterna magna. Thalami. Face Lips. Profile. Nose. Heart / Thorax 4-chamber view. RVOT view. LVOT view.Aortic arch view. 8-yvvsbv-sffiueq view. Diaphragm. Abdomen Stomach. Bladder. Spine Cervical [...] medical record, andcommunicating with other health care manager cna and/or carecoordination. IMPRESSION ----- 1. Cook intrauterine at 21w 5d gestational age here forcompletion of anatomy. 2. The remaining anatomic survey was completed, no anomaliescommonly detected by ultrasound were identified within the limits ofprenatal ultrasound. 3. Growth parameters and estimated weight were slightly ahead ofestablished dates, EFW 97%. 4. The amniotic fluid volume appeared normal. Patti Ferris MD [facility] ORDERABLE S documented in this encounter Visit Diagnoses Diagnosis Encounter for follow-up ultrasound of anatomy documented in this encounter Additional Health Concerns Assessment Noted Time PHQ-9 Depression Total Score: 8 03/31/20 21 7:02 AM CDT documented as of this encounter Care Teams Manager Perioperative Relationship Specialty Start Date End Date Shamar Claros MD [address] [facility] [place] [address] PCP - General Internal Medicine 05/17/17 [place] [address] [place] [address] [place] [address] Assigned PCP 09/08/22 Patti Ferris MD [address] [facility] [address] [address] Assigned OBGYN Provider 04/27/23 documented as of this encounter
--- OUTSIDE RECORDS SUMMARY | 2023-08-19 10:17 | XMS_ITS | Encounter Summary ---
Author Name Unknown Organization [place] Address [facility] [place] [address] Care Team Providers Care Peoplesoft Financials Name Role Phone Shamar Claros MD Primary Care Provider [phone] Shamar Claros MD Unavailable [phone] Reason for Referral * Diagnostic Imaging Ultrasound (Routine) - Pending Review Specialty Diagnoses / Procedures Referred By Cecilia philippe Referred To Contact Radiology. Diagnoses Encounter for follow-up ultrasound of anatomy Procedures [facility] US Comprehensive Single F/U Patti Ferris MD [address] [place] [address] Referral ID Status Reason Start Date Expiration Date V isits Requested Visits Authorized [id number] Pending Review 04/22/2023 04/21/2024 1 1 Reason for Visit * Reason Comments Ultrasound L2-obesity in pregna ncy Encounter Details Date Type Department Care Team (Late st Contact Info) Description 04/22/2023 11:30 AM CDT Office Visit [facility] [place] [address] [facility] [address] [place] [address] Non-Fv Credentialed Provider, Radiology Francis Min MD [address] [place] [address] Patti Ferris MD [address] [place] [address] Obesity in , antepartum (Primary Dx); Encounter [...] in the Maternal- Medicine Center at the [facility] today. For a detailed report of the ultrasound examination, please see the ultrasound report which can be found under the imaging tab. If you have questions regarding today's evaluation or if we can be of further service, please contact the Maternal- Medicine Center. Patti Ferris MD [employer]acht, FRONT MAN Maternal- Medicine [phone] (Pager) documented in this encounter Nursing Notes * Nataly Bailey, JENNIFER - 04/22/2023 11:30 AM CDT Patient presents to [facility] for L2 at 18w5d due to [...] ? Study Date: ??05/13/2023 8:32am Pat. NO: ??[id number] ?Referring ??MD: CASEY DAVIS Site: ??[facility] ? [employer] Weigher: Denise Kuhn RDMS : ??1990 ?Age: ?? [...] 1 lb 4 ?oz EFW by ?Hadlock ([id number]-FL) Head / Face / Neck Biometry: Customer Care Team Coach ? 3.7 ? mm CM ?3.7 ? mm ANATOMY ----- The following structures appear normal: Head / Neck ? Cranium. Head size. Head shape. Lateral ventricles. Midline falx. Cavum septi pellucidi. Cerebellum. Cisterna magna. Thalami. Face ? Lips. Profile. Nose. Heart / Thorax ?4-chamber view. RVOT view. LVOT view. Aortic arch view. 7-seofng-mnlorep view. ? Diaphragm. Abdomen ? Stomach. Bladder. [...] medical record, and communicating with other health customer care team coach and/or care coordination. Procedure Note Zoey Real MD - 05/13/2023 Comp Follow Up ----- Pat. Name: GARDENIA SCOTT Study Date: 05/13/2023 8:32am Pat. NO: [id number] Referring MD: CASEY DAVIS Site: [facility] [employer] Weigher: Denise Kuhn RDMS : 1990 Age: 32 ----- INDICATION ----- Follow up suboptimal anatomy. BMI 44. Declined screening. METHOD ----- Transabdominal ultrasound examination. View: Sufficient ----- Cook . Number of fetuses: 1 DATING ----- DateDetailsGest. age JEFF LMP 12/05/2022ycle: irregular, long [id number] w + 5 d 09/11/2023 Prior assessment [...] 1 lb 4 oz EFW by Hadlock ([id number]) Head / Face / Neck Biometry: Customer Care Team Coach 3.7 mm CM 3.7 mm ANATOMY ----- The following structures appear normal: Head / Neck Cranium. Head size. Head shape.Lateral ventricles. Midline falx. Cavum septi pellucidi. Cerebellum.Cisterna magna. Thalami. Face Lips. Profile. Nose. Heart / Thorax 4-chamber view. RVOT view. LVOT view.Aortic arch view. 7-ymvsev-sduabvl view. Diaphragm. Abdomen Stomach. Bladder. Spine Cervical [...] electronic medical record, andcommunicating with other health customer care team coach and/or carecoordination. IMPRESSION ----- 1. Cook intrauterine at 21w 5d gestational age here forcompletion of anatomy. 2. The remaining anatomic survey was completed, no anomaliescommonly detected by ultrasound were identified within the limits ofprenatal ultrasound. 3. Growth parameters and estimated weight were slightly ahead ofestablished dates, EFW 97%. 4. The amniotic fluid volume appeared normal. Patti Ferris MD [facility] S documented in this [...] documented as of this encounter Care Teams Peoplesoft Financials Relationship Specialty Start Date End Date Shamar Claros MD [address] [place] [address] [place]CGARR[place] [address] PCP - General Internal Medicine 05/17/17 [place] [address] [place] [address] [place] [address] Assigned PCP 09/08/22 documented as of this encounter
--- OUTSIDE RECORDS SUMMARY | 2023-08-19 10:17 | XMS_ITS | Encounter Summary ---
Author Name Unknown Organization [place] Address [address] [facility] [place] [address] Care Team Providers Care Distribution Sales Manager Name Role Phone Shamar Claros MD Primary Care Provider + [phone] Shamar Claros MD Unavailable [phone] Patti Ferris MD Unavailable [phone] Reason for Visit * Reason Comments Ultrasound RL2 for sub-optimal anatomy Encounter Details Date Type Department Care Team (Late st Contact Info) Description 05/13/2023 9:15 AM CDT Office Visit [facility] M[facility] Medicine [facility] [place] [address] [facility] [address] [place] [address] Patti Ferris MD [address] [place] [address] Zoey Real MD [address] [place] [address] BMI 40.0-44.9, adult (H) (Primary [...] is a at 21w5d who presents to [facility] for a follow-up ultrasound for sub-optimal [...] documented as of this encounter Care Teams Distribution Sales Manager Relationship Specialty [place] [address] [place] [address] [place]CG[place] [address] PCP - General Internal Medicine 05/17/17 Shamar Claros MD [address] [place] [address] [place] [address] Assigned PCP 09/08/22 Patti Ferris MD [address] [address] Assigned OBGYN Provider 04/27/23 documented as of this encounter
--- OUTSIDE RECORDS SUMMARY | 2023-08-19 10:17 | XMS_ITS | Encounter Summary ---
Author Name Unknown Organization [place] Address [address] [place] [address] Care Team Providers Care Regional Truck Driver Name Role Phone Shamar Claros MD Primary Care Provider + [phone] Shamar Claros MD Unavailable [phone] Patti Ferris MD Unavailable [phone] Encounter Details Date Type Department Care [...] documented as of this encounter Care Teams Regional Truck Driver Relationship Specialty Start Date End Date Shamar Claros MD [address] [facility] [place] [address] PCP - General Internal Medicine 05/17/17 Shamar Claros MD [address] [facility] [place] [address] Assigned PCP 09/08/22 Patti Ferris MD [address] [facility] [address] [place] [address] Assigned OBGYN Provider 04/27/23 documented as of this encounter
--- OUTSIDE RECORDS SUMMARY | 2023-08-19 10:18 | XMS_ITS | Encounter Summary ---
Author Name Unknown Organization [place] Address [address] [place] [address] Care Team Providers Care Deer Farmer Name Role Phone Shamar Claros MD Primary Care Provider + [phone] Shamar Claros MD Unavailable [phone] Reason for Visit * Reason Comments Ultrasound L2-elevated BMI Encounter Details Date Type Department Care Team (Late st Contact Info) Description 04/12/2023 PRE VISIT [facility] Medicine [facility] [place] [address] [facility] [address] [place] [address] Genet Ruiz RN Ultrasound (L2-elevated [...] documented as of this encounter Care Teams Deer Farmer Relationship Specialty Start Date End Date Shamar Claros MD [address] [facility] [place] [address] PCP - General Internal Medicine 05/17/17 Shamar Claros MD [address] [facility] [place] [address] Assigned PCP 09/08/22 documented as of this encounter
--- OUTSIDE RECORDS SUMMARY | 2023-08-19 10:18 | XMS_ITS | Encounter Summary ---
Author Name Unknown Organization [employer] Address [address] [place] [address] Care Team Providers Care Hardware Sales Assistant Name Role Phone Shamar Claros MD Primary Care Provider [phone] Steph Fraga MD Unavailable [phone] Melina Sousa PA-C Unavailable Alanis Dillard CNM Unavailable [phone] Steph Fraga MD Unavailable [phone] Melina Sousa PA-C Unavailable Janis Jacobs MD Unavailable [phone] Shamar Claros MD Unavailable Patti Ferris MD Unavailable [phone] Reason for Referral * Diagnostic Imaging Ultrasound (Routine) - Closed Specialty Diagnoses / Procedures Referred By Contluz marina t Referred To Contact Radiology. Diagnoses RLQ abdominal pain Procedures US Pelvic Complete w Transvaginal Melina Sousa PA-C [address] [place] [address] Rh Ultrasound [facility] [address] [employer] [address] [place] [address] Referral ID Status Reason Start Date Expiration Date Visits Re quested Visits Authorized [id number] Closed 10/14/2019 10/13/2020 1 1 Reason for Visit * Reason Onset Date Comments MyChart Communication 10/13/2019 lab result s Encounter Details Date Type Department Care Team ([facility] st Contact Info) Description 10/13/2019 MyC Medical Advice [address] [address] Melina Sousa PA-C [address] [place] [address] MyChart Communication (lab results) Social History Tobacco [...] call me back with any questions. Primo, deputy director Nurse * Telephone Encounter - Vy Sheehan [...] 12:47 PM CDT Called pt back at [phone], not available, so LM to call me back at [phone]. Will await for her call back. JENNIFER [...] cervical lesions that pap is intended to nut picker are painless. Vy Sheehan MD Internal [...] came back normal when she was at [facility]. She states the new pain she had discussed in her Preferred Commercet message she felt only lasted 20 minutes [...] typically has its usually performed by an physical therapist technician at an imaging appointment. She wanted [...] CDT Forwarded to LP. Please review patient's Pricing Assistantt message and advise. Alanis Wright BS, RN, PHN [facility]) [phone] * Telephone Encounter - Alanis Wright RN - 10/13/2019 4:17 PM CDT Pricing Assistantt message sent. BLANCA Bull, RN, [facility] Office: [phone] documented in this encounter Plan of Treatment [...] quadrant documented in this encounter Care Teams Hardware Sales Assistant Relationship Specialty Start Date End Date Shamar Claros MD [address] [place] [address] [place] [address] PCP - General Internal Medicine 05/17/17 Steph Fraga MD [address] [place] [address] [place] [address] Assigned PCP 12/29/17 10/17/19 Melina Sousa PA-C [address] [place] [address] 846172 Assigned PCP 10/18/19 10/15/20 Alanis Dillard CNM [address] [place] [address] Assigned OBGYN Provider 05/06/20 Steph Fraga MD [address] [place] [address] [place] [address] Assigned PCP 10/16/20 12/24/20 Melina Sousa PA-C [address] [place] [address] Assigned PCP 12/25/20 03/23/22 Janis Jacobs MD [address] [place] [address] Assigned OBGYN Provider 04/09/21 3 Shamar Claros MD [address] [facility] [place] [address] Assigned PCP 09/08/22 Patti Ferris MD [address] [place], [place] [address] Assigned OBGYN Provider 04/27/23 documented as of this encounter
--- OUTSIDE RECORDS SUMMARY | 2023-08-19 10:18 | XMS_ITS | Encounter Summary ---
Author Name Unknown Organization [place] Address [address] [place] [address] Care Team Providers Care Cruise Director Name Role Phone Shamar Claros MD Primary Care Provider Steph Fraga MD Unavailable [phone] Melina Sousa PA-C Unavailable Alanis Dillard CNM Unavailable [phone] Steph Fraga MD Unavailable [phone] Melina Sousa PA-C Unavailable [phone] Janis Jacobs MD Unavailable [phone] Shamar Claros MD Unavailable [phone] Patti Ferris MD Unavailable [phone] Encounter Details Date Type Department Care Team (Late st Contact Info) Description 10/10/2019 [facility] Medical Advice [facility] [place] [address] [place] [address] Drive [address] [place] [address] [place] [address] [place] [address] [place] [address] Social History Tobacco Use [...] RN - 10/12/2019 9:32 AM CDT Sent [employer] message. - Bryant Nowak, RN - Patient Advocate Liason (PAL) [facility] documented in this encounter Plan of Treatment Not on file documented as of this encounter Visit Diagnoses Not on filedocumented in this encounter Care Teams Cruise Director Relationship Specialty Start Date End Date Shamar Claros MD [address] [place] [address] [place] [address] PCP - General Internal Medicine 05/17/17 Steph Fraga MD [address] [place] [address] [place] [address] Assigned PCP 12/29/17 10/17/19 Melina Sousa PA-C [address] [place] [address] 477772 Assigned PCP 10/18/19 10/15/20 Alanis Dillard CNM [address] [place] [place], [place] 314[address] Assigned OBGYN Provider 05/06/20 Steph Fraga MD [address] [place] [address] [place] [address] Assigned PCP 10/16/20 12/24/20 Melina Sousa PA-C [address] [place], [place] 092[address] Assigned PCP 12/25/20 03/23/22 Janis Jacobs MD [address] [place] [address] Assigned OBGYN Provider 04/09/21 3 Shamar Claros MD [address] [facility] [place] [address] Assigned PCP 09/08/22 Patti Ferris MD [address] 638344 Assigned OBGYN Provider 04/27/23 documented as of this encounter
--- OUTSIDE RECORDS SUMMARY | 2023-08-19 10:18 | XMS_ITS | Encounter Summary ---
Author Name Unknown Organization [place] Address [address] [place] [address] Care Team Providers Care Milling/Polishing Operator Name Role Phone Shamar Claros MD Primary Care Provider [phone] Melina Sousa PA-C Unavailable [phone] Janis Jacobs MD Unavailable [phone] Shamar Claros MD Unavailable [phone] Patti Ferris MD Unavailable [phone] Encounter Details Date Type Department Care Team (Late st Contact Info) Description 07/18/2021 MyC Medical Advice [facility] [place] [address] [place] [address] Shamar Claros MD [address] [facility] [place] [address] Social History Tobacco [...] Coronavirus / COVID-19? Yes 07/20/2021 9:51 PM PEANUT SEPARATOR documented as of this encounter Plan of Treatment Not on file documented as of this encounter Visit Diagnoses Not on filedocumented in this encounter Additional Health Concerns Assessment Noted Time PHQ-9 Depression Total Score: 8 03/31/20 21 7:02 AM CDT documented as of this encounter Care Teams Milling/Polishing Operator Relationship Specialty Start Date End Date Shamar Claros MD [address] [facility] [place] [address] PCP - General Internal Medicine 05/17/17 Melian Sousa PA-C [address] [place] [address] 391162 Assigned PCP 12/25/20 03/23/22 Janis Jacobs MD [address] [place] [address] Assigned OBGYN Provider 04/09/21 3 Shamar Claros MD [address] [facility] [place] [address] Assigned PCP 09/08/22 Patti Ferris MD [address] [place], [place] [address] Assigned OBGYN Provider 04/27/23 documented as of this encounter
--- OUTSIDE RECORDS SUMMARY | 2023-08-19 10:18 | XMS_ITS | Encounter Summary ---
Author Name Unknown Organization [place] Address [address] [place] [address] Care Team Providers Care Pizza Cook Name Role Phone Shamar Claros MD Primary Care Provider [phone] Melina Sousa PA-C Unavailable [phone] Janis Jacobs MD Unavailable [phone] Shamar Claros MD Unavailable [phone] Patti Ferris MD Unavailable [phone] Reason for Visit * Reason Onset Date Comments Heart Problem 05/25/2021 Symptoms Encounter Details Date Type Department Care Team (Late st Contact Info) Description 05/25/2021 [facility] Medical Advice [address] [place] [address] Janis Jacobs MD [address] [place] [address] Heart Problem (Symptoms) Social History [...] Jacobs out today and tomorrow, sending to reservations manager. Olinda Langston RN ESSOR OF ANTHROPOLOGY documented in this encounter Plan of Treatment Not on file documented as of this encounter Visit Diagnoses Diagnosis Vaginal symptom- Primary documented in this encounter Additional Health Concerns Assessment Noted Time PHQ-9 Depression Total Score: 8 03/31/20 21 7:02 AM CDT documented as of this encounter Care Teams Pizza Cook Relationship Specialty Start Date End Date Shamar Claros MD [address] [place] [address] [place] [address] PCP - General Internal Medicine 05/17/17 Melina Sousa PA-C [address] [place] [address] Assigned PCP 12/25/20 03/23/22 Janis Jacobs MD [address] [place] [address] Assigned OBGYN Provider 04/09/21 3 Shamar Claros MD [address] [place] [address] [place] [address] Assigned PCP 09/08/22 Patti Ferris MD [address] [facility] [address] [address] Assigned OBGYN Provider 04/27/23 documented as of this encounter
--- OUTSIDE RECORDS SUMMARY | 2023-08-19 10:18 | XMS_ITS | Encounter Summary ---
Author Name Unknown Organization [place] Address [facility] [place] [address] Care Team Providers Care Steel Barrel Reamer Name Role Phone Shamar Claros MD Primary Care Provider [phone] Alanis Dillard CNKatty Unavailable [phone] Melina Sousa PA-C Unavailable [phone] Janis Jacobs MD Unavailable [phone] Shamar Claros MD Unavailable [phone] Patti Ferris MD Unavailable [phone] Encounter Details Date Type Department Care Team (Late st Contact Info) Description 03/30/2021 MyC Medical Advice M [address] [place] [address] Kaykay Leung, DECK STEWARD Social History Tobacco Use Types Packs/Day Years [...] documented as of this encounter Care Teams Steel Barrel Reamer Relationship Specialty Start Date End Date Shamar Claros MD [address] [place] [address] PCP - General Internal Medicine 05/17/17 Alanis Dillard CNM [address] [place] [address] Assigned OBGYN Provider 05/06/20 Melina Sousa PA-C [address] [place] [address] Assigned PCP 12/25/20 03/23/22 Janis Jacobs MD [address] [place] [address] Assigned OBGYN Provider 04/09/21 3 Shamar Claros MD [address] [place] [address] Assigned PCP 09/08/22 Patti Ferris MD [address] [facility] [address] [place] [address] Assigned OBGYN Provider 04/27/23 documented as of this encounter
--- OUTSIDE RECORDS SUMMARY | 2023-08-19 10:18 | XMS_ITS | Encounter Summary ---
Author Name Unknown Organization [employer] Address [facility] [place] [address] Care Team Providers Care Administrative Services Officer Name Role Phone Shamar Claros MD Primary Care Provider Alanis Dillard CNKatty Unavailable [phone] Melina Sousa PA-C Unavailable [phone] Janis Jacobs MD Unavailable [phone] Shamar Claros MD Unavailable [phone] Patti Ferris MD Unavailable [phone] Reason for Visit * Reason Onset Date Comments Medication Question 03/28/2021 Encounter Details Date Type Department Care Team (Late st Contact Info) Description 03/28/2021 MyC Medical Advice [address] [place] [address] Janis Jacobs MD [address] [place] [address] Medication Question Social History Tobacco [...] on filedocumented in this encounter Care Teams Administrative Services Officer Relationship Specialty Start Date End Date Shamar Claros MD [address] [facility] [place] [address] PCP - General Internal Medicine 05/17/17 Alanis Dillard CNM [address] [place] [address] Assigned OBGYN Provider 05/06/20 Melina Sousa PA-C [address] [place] [address] Assigned PCP 12/25/20 03/23/22 Janis Jacobs MD [address] [place] [address] Assigned OBGYN Provider 04/09/21 3 Shamar Claros MD [address] [facility] [place] [address] Assigned PCP 09/08/22 Patti Ferris MD [address] [place] [address] Assigned OBGYN Provider 04/27/23 documented as of this encounter
--- OUTSIDE RECORDS SUMMARY | 2023-08-19 10:18 | XMS_ITS | Encounter Summary ---
Author Name Unknown Organization [place] Address [facility] [place] [address] Care Team Providers Care Service Team Leader Name Role Phone Shamar Claros MD Primary Care Provider [phone] Janis Jacobs MD Unavailable [phone] Shamar Claros MD Unavailable [phone] Patti Ferris MD Unavailable [phone] Encounter Details Date Type Department Care Team (Late st Contact Info) Description 07/30/2022 [facility] [place] [facility] [place] [address] [place] [address] Shamar Claros MD [address] [facility] [place] [address] Social History Tobacco [...] documented as of this encounter Care Teams Service Team Leader Relationship Specialty Start Date End Date Shamar Claros MD [address] [facility] [place] [address] PCP - General Internal Medicine 05/17/17 Janis Jacobs MD [address] [place] [address] Assigned OBGYN Provider 04/09/21 3 Shamar Claros MD [address] [facility] [place] [address] Assigned PCP 09/08/22 Patti Ferris MD [address] [place] [address] Assigned OBGYN Provider 04/27/23 documented as of this encounter
--- OUTSIDE RECORDS SUMMARY | 2023-08-19 10:18 | XMS_ITS | Encounter Summary ---
Author Name Unknown Organization [place] Address [address] [place] [address] Care Team Providers Care Field Traffic Investigator Name Role Phone Shamar Claros MD Primary Care Provider [phone] Shamar Claros MD Unavailable [phone] Reason for Referral * Diagnostic Imaging Ultrasound (Routine) - Pending Review Specialty Diagnoses / Procedures Referred By Contac t Referred To Contact Radiology. Diagnoses related condition, antepartum Procedures MFM US Comprehensive Single Rh Maternal Med [address] [place] [address] Referral ID Status Reason Start Date Expiration Date V isits Requested Visits Authorized [id number] Pending Review 04/11/2023 04/10/2024 1 1 * Consultation (Routine: Next available opening) - Pending Review Specialty Diagnoses / Procedures Referred By Contac t Referred To Contact Diagnoses related condition, antepartum Rh Maternal Med [address] [place] [address] Rh Maternal Med [address] [place] [address] Referral ID Status Reason Start Date Expiration Date V isits Requested Visits Authorized [id number] Pending Review 04/11/2023 04/10/2024 1 1 Question Answer Preferred Location: [facility] [place] 09/17/2023 Ultrasound Comprehensive US (>than 18 weeks [place]) US PROC NONE MFM Issue OTHER (enter details in Comments) - BMI MFM MD Consultation (unrelated to Ultrasound findings): No Inflammatory Bowel Disease Clinic: Joint MFM and GI Consultation: No Chronic Kidney Disease: Joint MFM and Nephrology Consultation No Genetic Counseling Consultation: No fax [facility] Casey Bacon [phone] Comments BMI Encounter Details Date Type Department Care Team (Late st Contact Info) Description 04/11/2023 Transcribe Orders [facility] [address] [facility] [address] [place] [address] Casey Bacon APRN [facility] [address] [place] [address] related condition, antepartum (Primary Dx) Social History [...] documented as of this encounter Results * [facility] US Comprehensive Single (04/22/2023 11:59 AM [...] SCOTT Study Date: 04/22/2023 11:03am Pat. NO: [id number] Referring ??: CASEY BACON Site: [facility] Money Manager: Lauren Mcdowell RDMS : 1990 Age: 32 [...] 0 lb 9 ?oz EFW by ?Hadlock ([id number]) Head / Face / Neck Biometry: Cold Rolling Supervisor ? 6.7 ? mm CM ?2.7 [...] cava. Inferior vena cava. 3-vessel view. ? 8-vityvz-yaxquel view. Cardiac position. Cardiac size. Cardiac rhythm. [...] medical record, and communicating with other health health care manager and/or care coordination. Please see note for details. Procedure Note Patti Ferris MD - 04/22/2023 Comprehensive ----- Pat. Name:SHAYY SCOTTCharlenedeon Date:04/22/2023 11:03am Pat. NO: [id number] MD:CASEY BACON [facility]Lauren Mcdowell RDMS :1990Age:32 ----- INDICATION ----- Obesity BMI 44 METHOD ----- Transabdominal ultrasound examination. View: Sufficient ----- Cook . Number of fetuses: 1 DATING ----- DateDetailsGest. age JEFF LMP 12/05/2022ycle: irregular, long ukgeit96 w + 5 d 09/11/2023 Prior assessment [...] 0 lb 9 oz EFW by Radlock ([id number]-FL) Head / Face / Neck Biometry: Cold Rolling Supervisor 6.7 mm CM 2.7 mm Nasal [...] Superior vena cava. Inferior venacava. 3-vessel view. 5-htezgf-tbpmdnj view. Cardiacposition. Cardiac size. Cardiac rhythm. Right [...] electronic medical record, andcommunicating with other health health care manager and/or carecoordination. Please see note for [...] as of this encounter Care Teams Field Traffic Investigator Relationship Specialty Start Date End Date Shamar Claros MD [address] [place] [address] [place] [address] PCP - General Internal Medicine 05/17/17 [place] [address] [place] [address] [place] [address] Assigned PCP 09/08/22 documented as of this encounter
--- OUTSIDE RECORDS SUMMARY | 2023-08-19 10:18 | XMS_ITS | Encounter Summary ---
Author Name Unknown Organization [place] Address [address] [place] [address]. [place] [address] Care Team Providers Care Pipefitter Helper Name Role Phone Shamar Claros MD Primary Care Provider + [phone] Shamar Claros MD Unavailable [phone] Encounter Details Date Type Department Care Team (Latest Contact Info) Description 04/11/2023 Medical Correspondence [facility] [address] [place] [address] Outside, Provider [facility] PROVIDER [...] documented as of this encounter Care Teams Pipefitter Helper Relationship Specialty Start Date End Date Shamar Claros MD [address] [facility] [place] [address] PCP - General Internal Medicine 05/17/17 Shamar Claros MD [address] [facility] [address] [place], [place] [address] Assigned PCP 09/08/22 documented as of this encounter
--- OUTSIDE RECORDS SUMMARY | 2023-08-19 10:18 | XMS_ITS | Encounter Summary ---
Author Name Unknown Organization [place] Address [address] [place] [address] Care Team Providers Care Scrap Crane Operator Name Role Phone Shamar Claros MD Primary Care Provider [phone] Melina Sousa PA-C Unavailable [phone] Janis Jacobs MD Unavailable [phone] Shamar Claros MD Unavailable [phone] Patti Ferris MD Unavailable [phone] Encounter Details Date Type Department Care Team (Late st Contact Info) Description 07/12/2021 [facility] Medical Advice [facility] [address] [place] [address] Britney Hanson Social History Tobacco Use Types [...] documented as of this encounter Care Teams Scrap Crane Operator Relationship Specialty Start Date End Date Shamar Claros MD [address] [facility] [place] [address] PCP - General Internal Medicine 05/17/17 Melina Sousa PA-C [address] [place] [address] Assigned PCP 12/25/20 03/23/22 Janis Jacobs MD [address] [place] [address] Assigned OBGYN Provider 04/09/21 3 Shamar Claros MD [address] [facility] [place] [address] Assigned PCP 09/08/22 Patti Ferris MD [address] [address] Assigned OBGYN Provider 04/27/23 documented as of this encounter
--- OUTSIDE RECORDS SUMMARY | 2023-08-19 10:18 | XMS_ITS | Encounter Summary ---
Author Name Unknown Organization [place] Address [address] [place] [address] Care Team Providers Care Logging Tractor Operator Name Role Phone Shamar Claros MD Primary Care Provider + [phone] Shamar Claros MD Unavailable [phone] Reason for Referral * Diagnostic Imaging Ultrasound (Routine) - Pending Review Specialty Diagnoses / Procedures Referred By Contac t Referred To Contact Radiology. Diagnoses related condition, antepartum Procedures MFM US Comprehensive Single Rh Maternal Med [address] [place] [address] Referral ID Status Reason Start Date Expiration Date V isits Requested Visits Authorized [id number] Pending Review 04/11/2023 04/10/2024 1 1 Reason for Visit * Diagnostic Imaging Ultrasound (Routine) - Pending Review Specialty Diagnoses / Procedures Referred By Contac t Referred To Contact Radiology. Diagnoses related condition, antepartum Procedures MFM US Comprehensive Single Rh Maternal Med [address] [place] [address] Referral ID Status Reason Start Date Expiration Date V isits Requested Visits Authorized [id number] Pending Review 04/11/2023 04/10/2024 1 1 Encounter Details Date Type Department Care Team ([facility] st Contact Info) Description 04/22/2023 11:00 AM CDT - 04/22/2023 11:59 PM CDT Hospital Encounter [facility] [place] [address] [place] [address] Non-Fv Credentialed Provider, Radiology Francis Min MD [address] [place] [address] Patti Ferris MD [address] [place] [address] related condition, antepartum Discharge Disposition: [...] with antibiotics in the past 60 days [place] 1 spray into both nostrils daily 9.9 [...] Procedure Name Priority Date/Time Associated Diagnosis Comments [facility] US COMPREHENSIVE SINGLE Routine 04/22/2023 11:59 AM CDT related condition, antepartum documented in this encounter Results * [facility] US Comprehensive Single (04/22/2023 11:59 AM [...] SCOTT Study Date: 04/22/2023 11:03am Pat. NO: [id number] Referring ??MD: CASEY DAVIS Site: [facility] Ball Sorter: Lauren Mcdowell RDMS : 1990 Age: 32 [...] 0 lb 9 ?oz EFW by ?Hadlock ([id number]-FL) Head / Face / Neck Biometry: Drum Loader And Unloader ? 6.7 ? mm CM ?2.7 ? [...] cava. Inferior vena cava. 3-vessel view. ? 3-mjfmur-rnmphaa view. Cardiac position. Cardiac size. Cardiac rhythm. [...] and communicating with other health child care nurse and/or care coordination. Please see note for details. Procedure Note Patti Ferris MD - 04/22/2023 Comprehensive ----- Pat. Name:Bill SCOTT Date:04/22/2023 11:03am Pat. NO: [id number] :CASEY DAVIS [facility]Lauren Mcdowell RDMS :1990Age:32 ----- INDICATION ----- Obesity BMI 44 METHOD ----- Transabdominal ultrasound examination. View: Sufficient ----- Cook . Number of fetuses: 1 DATING ----- DateDetailsGest. age JEFF LMP 12/05/2022ycle: irregular, long nzayrm96 w + 5 d 09/11/2023 Prior assessment [...] 0 lb 9 oz EFW by Hadlock ([id number]-[id number]-FL) Head / Face / Neck Biometry: Drum Loader And Unloader 6.7 mm CM 2.7 mm Nasal bone [...] Superior vena cava. Inferior venacava. 3-vessel view. 8-aopebw-knnyrqb view. Cardiacposition. Cardiac size. Cardiac rhythm. Right [...] record, andcommunicating with other health child care nurse and/or carecoordination. Please see note for details. [...] documented as of this encounter Care Teams Logging Tractor Operator Relationship Specialty Start Date End Date Shamar Claros MD [address] [facility] [place] [address] PCP - General Internal Medicine 05/17/17 Shamar Claros MD [address] [facility] [place] [address] Assigned PCP 09/08/22 documented as of this encounter
--- OUTSIDE RECORDS SUMMARY | 2023-08-19 10:18 | XMS_ITS | Encounter Summary ---
Author Name Unknown Organization [facility] Address [address] [place] [address] Care Team Providers Care Care Coordinator Name Role Phone Shamar Claros MD Primary Care Provider [phone] Melina Sousa PA-C Unavailable [phone] Janis Jacobs MD Unavailable Shamar Claros MD Unavailable [phone] Patti Ferris MD Unavailable [phone] Encounter Details Date Type Department Care [...] Coronavirus / COVID-19? Yes 07/20/2021 9:51 PM THERAPIST SPEECH documented as of this encounter Plan of Treatment Not on file documented as of this encounter Visit Diagnoses Not on filedocumented in this encounter Additional Health Concerns Assessment Noted Time PHQ-9 Depression Total Score: 8 03/31/20 21 7:02 AM CDT documented as of this encounter Care Teams Care Coordinator Relationship Specialty Start Date End Date Shamar Claros MD [address] [facility] [place] [address] PCP - General Internal Medicine 05/17/17 Melina Sousa PA-C [address] [place] [address] Assigned PCP 12/25/20 03/23/22 Janis Jacobs MD [address] [place] [address] Assigned OBGYN Provider 04/09/21 3 Shamar Claros MD [address] [facility] [place] [address] Assigned PCP 09/08/22 Patti Ferris MD [address] 696124 Assigned OBGYN Provider 04/27/23 documented as of this encounter
--- OUTSIDE RECORDS SUMMARY | 2023-08-19 10:18 | XMS_ITS | Encounter Summary ---
Author Name Unknown Organization [facility] Address [address] [place] [address] Care Team Providers Care Office Coordinator Name Role Phone Shamar Claros MD Primary Care Provider [phone] Alanis Dillard CNM Unavailable [phone] Melina Sousa PA-C Unavailable [phone] Janis Jacobs MD Unavailable [phone] Shamar Claros MD Unavailable [phone] Patti Ferris MD Unavailable [phone] Encounter Details Date Type Department Care Team (Late st Contact Info) Description 01/29/2021 [facility] [place] [facility] [place] [address] [facility] [address] [place] [address] [place] [address] [place] [address] [place] [address] Social History Tobacco Use [...] on filedocumented in this encounter Care Teams Office Coordinator Relationship Specialty Start Date End Date Shamar Claros MD [address] [facility] [place] [address] PCP - General Internal Medicine 05/17/17 Alanis Dillard CNM [address] [place] [address] Assigned OBGYN Provider 05/06/20 Melina Sousa PA-C [address] [place] [address]452 Assigned PCP 12/25/20 03/23/22 Janis Jacobs MD [address] [place] [address] Assigned OBGYN Provider 04/09/21 3 Shamar Claros MD [address] [facility] [place] [address] Assigned PCP 09/08/22 Patti Ferris MD [address] [place] [place] [address]2454 Assigned OBGYN Provider 04/27/23 documented as of this encounter
--- OUTSIDE RECORDS SUMMARY | 2023-08-19 10:18 | XMS_ITS | Encounter Summary ---
Author Name Unknown Organization [facility] Address [facility] [place] [address] Care Team Providers Care Geomorphology Teacher Name Role Phone Shamar Claros MD Primary Care Provider [phone] Alanis Dillard CNM Unavailable [phone] Melina Sousa PA-C Unavailable [phone] Janis Jacobs MD Unavailable [phone] Shamar Claros MD Unavailable [phone] Patti Ferris MD Unavailable [phone] Encounter Details Date Type Department Care Team (Late st Contact Info) Description 03/30/2021 MyC Medical Advice [facility] [place] [address] [place] [address] Maribell Torrez, RECRUITING SPECIALIST [address] [facility] [place] [address] Social History Tobacco Use [...] documented as of this encounter Care Teams Geomorphology Teacher Relationship Specialty Start Date End Date Shamar Claros MD [address] [facility] [place] [address] PCP - General Internal Medicine 05/17/17 Alanis Dillard CNM [address] [place] [address] Assigned OBGYN Provider 05/06/20 Melina Sousa PA-C [address] [place] [address] 970662 Assigned PCP 12/25/20 03/23/22 Janis Jacobs MD [address] [place] [address] Assigned OBGYN Provider 04/09/21 3 [place] [address] [place] [address] [place] [address] Assigned PCP 09/08/22 Patti Ferris MD [address] 833554 Assigned OBGYN Provider 04/27/23 documented as of this encounter
--- OUTSIDE RECORDS SUMMARY | 2023-08-19 10:18 | XMS_ITS | Encounter Summary ---
Author Name Unknown Organization [facility] Address [address] [place] [address] Care Team Providers Care Safety Clothing And Equipment Developer Name Role Phone Shamar Claros MD Primary Care Provider + [phone] Melina Sousa PA-C Unavailable [phone] Alanis Dillard CNM Unavailable [phone] Steph Fraga MD Unavailable [phone] Melina Sousa PA-C Unavailable [phone] Janis Jacobs MD Unavailable [phone] Shamar Claros MD Unavailable [phone] Patti Ferris MD Unavailable [phone] Encounter Details Date Type Department Care Team (Late st Contact Info) Description 04/20/2020 [facility] [place] [facility] [address] [place] [address] Alanis Dillard CNM [address] [place] [address] Social History Tobacco Use Types [...] on filedocumented in this encounter Care Teams Safety Clothing And Equipment Developer Relationship Specialty Start Date End Date Shamar Claros MD [address] [place] [address] [place] [address] PCP - General Internal Medicine 05/17/17 Melina Sousa PA-C [address] [place] [address] 789372 Assigned PCP 10/18/19 10/15/20 Alanis Dillard CNM [address] [place] [address] Assigned OBGYN Provider 05/06/20 Steph Fraga MD [address] [place] [address] [place] [address] Assigned PCP 10/16/20 12/24/20 Melina Sousa PA-C [address] [place] [address] Assigned PCP 12/25/20 03/23/22 Janis Jacobs MD [address] [place] [address] Assigned OBGYN Provider 04/09/21 3 Shamar Claros MD [address] [place] [address] [place] [address] Assigned PCP 09/08/22 Patti Ferris MD [address] [address] Assigned OBGYN Provider 04/27/23 documented as of this encounter
== END 2023-08-19 10:16 | disposition home or self-care (01) ==
LOC: US 10:16
PROVIDERS: Visit Provider Obstetrics & Gynecology
DX: O10.919 Unspecified pre-existing hypertension complicating pregnancy, unspecified trimester (principal); O24.419 Gestational diabetes mellitus in pregnancy, unspecified control
CPT/HCPCS: 76819; 82565; 82570; 84156; 84450; 84460; 84520

== ENCOUNTER 2023-08-21 07:06 | Outpatient (CLI) | payer OTHER, SELFPAY ==
--- OUTSIDE RECORDS SUMMARY | 2023-08-21 07:09 | XMS_ITS | Encounter Summary ---
Author Name Unknown Organization [facility] Address [address] [place] [address] Care Team Providers Care Health Information Internship Name Role Phone Shamar Claros MD Primary Care Provider + [phone] Shamar Claros MD Unavailable [phone] Reason for Referral * Diagnostic Imaging Ultrasound (Routine) - Pending Review Specialty Diagnoses / Procedures Referred By Contac t Referred To Contact Radiology. Diagnoses related condition, antepartum Procedures [facility] US Comprehensive Single Rh [facility]aternal [facility] [address] [place] [address] Referral ID Status Reason Start Date Expiration Date V isits Requested Visits Authorized [id number] Pending Review 04/11/2023 04/10/2024 1 1 Reason for Visit * Diagnostic Imaging Ultrasound (Routine) - Pending Review Specialty Diagnoses / Procedures Referred By Contac t Referred To Contact Radiology. Diagnoses related condition, antepartum Procedures [facility] US Comprehensive Single Rh Maternal [facility] [address] [place] [address] Referral ID Status Reason Start Date Expiration Date V isits Requested Visits Authorized [id number] Pending Review 04/11/2023 04/10/2024 1 1 Encounter Details Date Type Department Care Team ([facility] st Contact Info) Description 04/22/2023 11:00 AM CDT - 04/22/2023 11:59 PM CDT Hospital Encounter [facility] [place] [address] [place] [address] Non-Fv Credentialed Provider, Radiology Francis Min MD [address] [place] [address] Patti Ferris MD [address] [place] [address] related condition, antepartum Discharge Disposition: [...] with antibiotics in the past 60 days [place] 1 spray into both nostrils daily 9.9 [...] Procedure Name Priority Date/Time Associated Diagnosis Comments [facility] US COMPREHENSIVE SINGLE Routine 04/22/2023 11:59 AM CDT related condition, antepartum documented in this encounter Results * [facility] US Comprehensive Single (04/22/2023 11:59 AM [...] SCOTT Study Date: 04/22/2023 11:03am Pat. NO: [id number] Referring ??MD: CASEY DAVIS Site: [facility] Industrial Economist: Lauren Mcdowell RDMS : 1990 Age: 32 [...] 0 lb 9 ?oz EFW by ?Hadlock ([id number]) Head / Face / Neck Biometry: Unix Analyst ? 6.7 ? mm CM ?2.7 ? [...] cava. Inferior vena cava. 3-vessel view. ? 7-ftxopc-cdbosqm view. Cardiac position. Cardiac size. Cardiac rhythm. [...] medical record, and communicating with other health transitional care nurse and/or care coordination. Please see note for details. Procedure Note Patti Ferris MD - 04/22/2023 Comprehensive ----- Pat. Name:Bill SCOTT Date:04/22/2023 11:03am Pat. NO: [id number] :CASEY DAVIS [facility]Lauren Mcdowell RDMS :1990Age:32 ----- [...] 0 lb 9 oz EFW by Hadlock ([id number]-HC-BB-FL) Head / Face / Neck Biometry: Unix Analyst 6.7 mm CM 2.7 mm Nasal bone [...] Superior vena cava. Inferior venacava. 3-vessel view. 3-ooatub-lfqshtr view. Cardiacposition. Cardiac size. Cardiac rhythm. Right [...] electronic medical record, andcommunicating with other health transitional care nurse and/or carecoordination. Please see note [...] documented as of this encounter Care Teams Health Information Internship Relationship Specialty Start Date End Date Shamar Claros MD [address] [facility] [place] [address] PCP - General Internal Medicine 05/17/17 Shamar Claros MD [address] [facility] [place] [address] Assigned PCP 09/08/22 documented as of this encounter
--- OUTSIDE RECORDS SUMMARY | 2023-08-21 07:09 | XMS_ITS | Encounter Summary ---
Author Name Unknown Organization [facility] Address [address] [place] [address] Care Team Providers Care Operator Vacuum Name Role Phone Shamar Claros MD Primary Care Provider + [phone] Shamar Claros MD Unavailable [phone] Encounter Details Date Type Department Care Team [...] documented as of this encounter Care Teams Operator Vacuum Relationship Specialty Start Date End Date Shamar Claros MD [address] [facility] [place] [address] PCP - General Internal Medicine 05/17/17 Shamar Claros MD [address] [facility] [place] [id number] Assigned PCP 09/08/22 documented as of this encounter
--- OUTSIDE RECORDS SUMMARY | 2023-08-21 07:09 | XMS_ITS | Encounter Summary ---
Author Name Unknown Organization [facility] Address [facility] [place] [address] Care Team Providers Care Vice President Tax Name Role Phone Shamar Claros MD Primary Care Provider [phone] Shamar Claros MD Unavailable [phone] Reason for Referral * Diagnostic Imaging Ultrasound (Routine) - Pending Review Specialty Diagnoses / Procedures Referred By Cecilia philippe Referred To Contact Radiology. Diagnoses Encounter for follow-up ultrasound of anatomy Procedures [facility] US Comprehensive Single F/U Patti Ferris MD [address] [place] [address] Referral ID Status Reason Start Date Expiration Date V isits Requested Visits Authorized [id number] Pending Review 04/22/2023 04/21/2024 1 1 Reason for Visit * Reason Comments Ultrasound L2-obesity in pregna ncy Encounter Details Date Type Department Care Team (Late st Contact Info) Description 04/22/2023 11:30 AM CDT Office Visit [facility] [place] [address] [facility] [address] [place] [address] Non-Fv Credentialed Provider, Radiology Francis Min MD [address] [place] [address] Patti Ferris MD [address] [place] [address] Obesity in , antepartum (Primary Dx); Encounter [...] in the Maternal- Medicine Center at the [facility] today. For a detailed report of the ultrasound examination, please see the ultrasound report which can be found under the imaging tab. If you have questions regarding today's evaluation or if we can be of further service, please contact the Maternal- Medicine Center. Patti Ferris MD Filter Screen Cleaner, THIOKOL OPERATOR Maternal- Medicine [phone] (Pager) documented in this encounter Nursing Notes * Nataly Bailey, JENNIFER - 04/22/2023 11:30 AM CDT Patient presents to [facility] for L2 at 18w5d due to [...] ? Study Date: ??05/13/2023 8:32am Pat. NO: ??[id number] ?Referring ??MD: CASEY DAVIS Site: ??[facility] ? Other Wood Processing Machine Operator: Denise Kuhn RDMS : ??1990 ?Age: ?? [...] 1 lb 4 ?oz EFW by ?Hadlock (LSW-WC-ED-FL) Head / Face / Neck Biometry: Management Professor ? 3.7 ? mm CM ?3.7 ? mm ANATOMY ----- The following structures appear normal: Head / Neck ? Cranium. Head size. Head shape. Lateral ventricles. Midline falx. Cavum septi pellucidi. Cerebellum. Cisterna magna. Thalami. Face ? Lips. Profile. Nose. Heart / Thorax ?4-chamber view. RVOT view. LVOT view. Aortic arch view. 3-navhuv-awtrsmi view. ? Diaphragm. Abdomen ? Stomach. Bladder. [...] medical record, and communicating with other health point of care specialist and/or care coordination. Procedure Note Zoey Real MD - 05/13/2023 Comp Follow Up ----- Pat. Name: GARDENIA SCOTT Study Date: 05/13/2023 8:32am Pat. NO: [id number] Referring MD: CASEY DAVIS Site: [facility] Other Wood Processing Machine Operator: Denise Kuhn RDMS : 1990 Age: 32 ----- INDICATION ----- Follow up suboptimal anatomy. BMI 44. Declined screening. METHOD ----- Transabdominal ultrasound examination. View: Sufficient ----- Cook . Number of fetuses: 1 DATING ----- DateDetailsGest. age JEFF LMP 12/05/2022ycle: irregular, long gzmcol21 w + 5 d 09/11/2023 Prior assessment [...] 1 lb 4 oz EFW by Hadlock (IQD-WN-ZO-FL) Head / Face / Neck Biometry: Management Professor 3.7 mm CM 3.7 mm ANATOMY ----- The following structures appear normal: Head / Neck Cranium. Head size. Head shape.Lateral ventricles. Midline falx. Cavum septi pellucidi. Cerebellum.Cisterna magna. Thalami. Face Lips. Profile. Nose. Heart / Thorax 4-chamber view. RVOT view. LVOT view.Aortic arch view. 3-knueak-skbaxmf view. Diaphragm. Abdomen Stomach. Bladder. Spine Cervical [...] electronic medical record, andcommunicating with other health point of care specialist and/or carecoordination. IMPRESSION ----- 1. Cook intrauterine at 21w 5d gestational age here forcompletion of anatomy. 2. The remaining anatomic survey was completed, no anomaliescommonly detected by ultrasound were identified within the limits ofprenatal ultrasound. 3. Growth parameters and estimated weight were slightly ahead ofestablished dates, EFW 97%. 4. The amniotic fluid volume appeared normal. Patti Ferris MD [facility] US ORDERABLE S documented [...] documented as of this encounter Care Teams Vice President Tax Relationship Specialty Start Date End Date Shamar Claros MD [address] [place] [address] [place] [address] PCP - General Internal Medicine 05/17/17 [place] [address] [place] [address] [place] [address] Assigned PCP 09/08/22 documented as of this encounter
--- OUTSIDE RECORDS SUMMARY | 2023-08-21 07:09 | XMS_ITS | Encounter Summary ---
Author Name Unknown Organization [facility] Address [address] [place] [address] Care Team Providers Care Wire Drawing Die Maker Name Role Phone Shamar Claros MD Primary Care Provider [phone] Melina Sousa PA-C Unavailable [phone] Janis Jacobs MD Unavailable [phone] Shamar Claros MD Unavailable [phone] Patti Ferris MD Unavailable [phone] Encounter Details Date Type Department Care Team (Late st Contact Info) Description 07/12/2021 [facility] Advice [facility] [address] [place] [address] Britney Hanson Social History Tobacco Use Types [...] documented as of this encounter Care Teams Wire Drawing Die Maker Relationship Specialty Start Date End Date Shamar Claros MD [address] [facility] [place] [address] PCP - General Internal Medicine 05/17/17 Melina Sousa PA-C [address] [place] [address] Assigned PCP 12/25/20 03/23/22 Janis Jacobs MD [address] [place] [address] Assigned OBGYN Provider 04/09/21 3 Shamar Claros MD [address] [facility] [place] [address] Assigned PCP 09/08/22 Patti Ferris MD [address] [address] Assigned OBGYN Provider 04/27/23 documented as of this encounter
--- OUTSIDE RECORDS SUMMARY | 2023-08-21 07:09 | XMS_ITS | Encounter Summary ---
Author Name Unknown Organization [place] Address [address] [place] [address]. [place] [address] Care Team Providers Care Sales Service Executive Name Role Phone Shamar Claros MD Primary Care Provider + [phone] Shamar Claros MD Unavailable [phone] Encounter Details Date Type Department Care Team (Latest Contact Info) Description 04/11/2023 Medical Correspondence [facility] [address] [place] [address] Outside, Provider [facility] PROVIDER [...] documented as of this encounter Care Teams Sales Service Executive Relationship Specialty Start Date End Date Shamar Claros MD [address] [facility] [place] [address] PCP - General Internal Medicine 05/17/17 Shamar Claros MD [address] [facility] [address] [place], [place] [address] Assigned PCP 09/08/22 documented as of this encounter
--- OUTSIDE RECORDS SUMMARY | 2023-08-21 07:09 | XMS_ITS | Referral Summary ---
Author Name Unknown Organization [place] Address [address] [place] [address] Care Team Providers Care Welder Gas Tungsten Arc Name Role Phone Shamar Claros MD Primary Care Provider + [phone] Shamar Claros MD Unavailable [phone] Patti Ferris MD Unavailable [phone] Allergies Active Allergy Reactions Criticality Noted [...] with antibiotics in the past 60 days [place] 1 spray into both nostrils daily 9.9 [...] Comments Blood Pressure 127/85 07/21/2021 5:26 AM FREIGHT ELEVATOR ERECTOR Pulse 83 07/21/2021 5:26 AM FREIGHT ELEVATOR ERECTOR Temperature 37.4 ??C (99.4 ??F) 07/20/2021 9:53 PM CS T Respiratory Rate 20 07/21/2021 5:26 AM FREIGHT ELEVATOR ERECTOR Oxygen Saturation 97% 07/21/2021 5:26 AM FREIGHT ELEVATOR ERECTOR Inhaled Oxygen Concentration - - Weight 144.4 kg (318 lb 5.5 oz) 07/20/2021 9:53 PM FREIGHT ELEVATOR ERECTOR Height 172.7 cm (5' 8) 10/12/2019 11:2 5 AM CDT Body Mass Index 48.4 10/12/2019 11:25 AM CDT Plan of Treatment Not on file Advance Directives For more information, please contact: [phone] Latest Code Status on File Code Status Date Activated Date Inactivated Comments Full Code 03/02/2017 9:48 AM 07/20/2021 9:47 PM Care Teams Welder Gas Tungsten Arc Relationship Specialty Start Date End Date Shamar Claros MD [address] [facility] [place] [address] PCP - General Internal Medicine 05/17/17 Shamar Claros MD [address] [facility] [place] [address] Assigned PCP 09/08/22 Patti Ferris MD [address] [address] Assigned OBGYN Provider 04/27/23
--- OUTSIDE RECORDS SUMMARY | 2023-08-21 07:09 | XMS_ITS | Encounter Summary ---
Author Name Unknown Organization [place] Address [address] [place] [address] Care Team Providers Care Cisco Network Architect Name Role Phone Shamar Claros MD Primary Care Provider [phone] Melina Sousa PA-C Unavailable [phone] Janis Jacobs MD Unavailable [phone] Shamar Claros MD Unavailable [phone] Patti Ferris MD Unavailable [phone] Encounter Details Date Type Department Care Team (Late st Contact Info) Description 07/18/2021 [facility] [address] [facility] [address] [place] [address] Shamar Claros MD [address] [facility] [place] [address] Social History Tobacco [...] Coronavirus / COVID-19? Yes 07/20/2021 9:51 PM [employer] documented as of this encounter Plan of Treatment Not on file documented as of this encounter Visit Diagnoses Not on filedocumented in this encounter Additional Health Concerns Assessment Noted Time PHQ-9 Depression Total Score: 8 03/31/20 21 7:02 AM CDT documented as of this encounter Care Teams Cisco Network Architect Relationship Specialty Start Date End Date Shamar Claros MD [address] [facility] [place] [address] PCP - General Internal Medicine 05/17/17 Melina Sousa PA-C [address] [place] [address]32 Assigned PCP 12/25/20 03/23/22 Janis Jacobs MD [address] [place] [address] Assigned OBGYN Provider 04/09/21 3 Shamar Claros MD [address] [facility] [place] [address] Assigned PCP 09/08/22 Patti Ferris MD [address] [place], [place] [address] Assigned OBGYN Provider 04/27/23 documented as of this encounter
--- OUTSIDE RECORDS SUMMARY | 2023-08-21 07:09 | XMS_ITS | Encounter Summary ---
Author Name Unknown Organization [place] Address [address] [place] [address] Care Team Providers Care City Manager Name Role Phone Shamar Claros MD Primary Care Provider + [phone] Shamar Claros MD Unavailable [phone] Reason for Referral * Diagnostic Imaging Ultrasound (Routine) - Pending Review Specialty Diagnoses / Procedures Referred By Contac t Referred To Contact Radiology. Diagnoses related condition, antepartum Procedures MFM US Comprehensive Single Rh Maternal Med [address] [place] [address] Referral ID Status Reason Start Date Expiration Date V isits Requested Visits Authorized [id number] Pending Review 04/11/2023 04/10/2024 1 1 * Consultation (Routine: Next available opening) - Pending Review Specialty Diagnoses / Procedures Referred By Contac t Referred To Contact Diagnoses related condition, antepartum Rh Maternal Med [address] [place] [address] Rh Maternal Med [address] [place] [address] Referral ID Status Reason Start Date Expiration Date V isits Requested Visits Authorized [id number] Pending Review 04/11/2023 04/10/2024 1 1 Question Answer Preferred Location: [facility] [place] JEFF 09/17/2023 Ultrasound Comprehensive US (>than 18 weeks GA) US PROC NONE MFM Issue OTHER (enter details in Comments) - BMI MFM MD Consultation (unrelated to Ultrasound findings): No Inflammatory Bowel Disease Clinic: Joint MFM and GI Consultation: No Chronic Kidney Disease: Joint MFM and Nephrology Consultation No Genetic Counseling Consultation: No fax [facility] Casey Bacon [phone] Comments BMI Encounter Details Date Type Department Care Team (Late st Contact Info) Description 04/11/2023 Transcribe Orders [facility] [place] [address] [facility] [address] [place] [address] Casey Bacon APRN [facility] [address] [place] [address] related condition, antepartum (Primary Dx) Social History [...] documented as of this encounter Results * [facility] US Comprehensive Single (04/22/2023 11:59 AM [...] SCOTT Study Date: 04/22/2023 11:03am Pat. NO: [id number] Referring ??: CASEY BACON Site: [facility] [employer] Equipment Tender: Lauren Mcdowell RDMS : 1990 Age: 32 [...] 0 lb 9 ?oz EFW by ?Hadlock ([id number]-DG-YH-FL) Head / Face / Neck Biometry: V Belt Skiver ? 6.7 ? mm CM ?2.7 ? [...] cava. Inferior vena cava. 3-vessel view. ? 0-mvqzqp-cvmmjcw view. Cardiac position. Cardiac size. Cardiac rhythm. [...] record, and communicating with other health home child care provider and/or care coordination. Please see note for details. Procedure Note Patti Ferris MD - 04/22/2023 Comprehensive ----- Pat. Name:SHAYY SCOTTCharlenedeon Date:04/22/2023 11:03am Pat. NO: [id number] MD:CASEY BACON [facility]Lauren Mcdowell RDMS :1990Age:32 ----- INDICATION ----- Obesity BMI 44 METHOD ----- Transabdominal ultrasound examination. View: Sufficient ----- Cook . Number of fetuses: 1 DATING ----- DateDetailsGest. age JEFF LMP 12/05/2022ycle: irregular, long [id number] w + 5 d 09/11/2023 Prior assessment [...] 0 lb 9 oz EFW by Radlock (ZFV-CL-VZ-FL) Head / Face / Neck Biometry: V Belt Skiver 6.7 mm CM 2.7 mm Nasal bone [...] Superior vena cava. Inferior venacava. 3-vessel view. 0-njfhha-gdpwrkb view. Cardiacposition. Cardiac size. Cardiac rhythm. Right [...] medical record, andcommunicating with other health home child care provider and/or carecoordination. Please see note for details. [...] documented as of this encounter Care Teams City Manager Relationship Specialty Start Date End Date Shamar Claros MD [address] [place] [address] [place] [address] PCP - General Internal Medicine 05/17/17 [place] [address] [place] [address] [place] [address] Assigned PCP 09/08/22 documented as of this encounter
--- OUTSIDE RECORDS SUMMARY | 2023-08-21 07:09 | XMS_ITS | Encounter Summary ---
Author Name Unknown Organization [place] Address [address] [place] [address] Care Team Providers Care Breeder Service Technician Name Role Phone Shamar Claros MD Primary Care Provider + [phone] Shamar Claros MD Unavailable [phone] Patti Ferris MD Unavailable [phone] Encounter Details Date Type Department Care [...] documented as of this encounter Care Teams Breeder Service Technician Relationship Specialty Start Date End Date Shamar Claros MD [address] [facility] [place] [address] PCP - General Internal Medicine 05/17/17 Shamar Claros MD [address] [facility] [place] [address] Assigned PCP 09/08/22 Patti Ferris MD [address] [facility] [address] [place] [address] Assigned OBGYN Provider 04/27/23 documented as of this encounter
--- OUTSIDE RECORDS SUMMARY | 2023-08-21 07:09 | XMS_ITS | Encounter Summary ---
Author Name Unknown Organization [place] Address [address] [place] [address] Care Team Providers Care Motor Vehicle Assembler Name Role Phone Shamar Claros MD Primary Care Provider + [phone] Shamar Claros MD Unavailable [phone] Patti Ferris MD Unavailable [phone] Reason for Referral * Diagnostic Imaging Ultrasound (Routine) - Pending Review Specialty Diagnoses / Procedures Referred By Contac t Referred To Contact Radiology. Diagnoses Encounter for follow-up ultrasound of anatomy Procedures [facility] US Comprehensive Single F/U Patti Ferris MD [address] [place] [address] Referral ID Status Reason Start Date Expiration Date V isits Requested Visits Authorized [id number] Pending Review 04/22/2023 04/21/2024 1 1 Reason for Visit * Diagnostic Imaging Ultrasound (Routine) - Pending Review Specialty Diagnoses / Procedures Referred By Contac t Referred To Contact Radiology. Diagnoses Encounter for follow-up ultrasound of anatomy Procedures [facility] US Comprehensive Single F/U Patti Ferris MD [address] [address] Referral ID Status Reason Start Date Expiration Date V isits Requested Visits Authorized [id number] Pending Review 04/22/2023 04/21/2024 1 1 Encounter Details Date Type Department Care Team (Latest Contact Info) Description 05/13/2023 8:38 AM CDT - 05/13/2023 11:59 PM CDT Hospital Encounter [facility] [place] [address] [facility] [address] [place] [address] Patti Ferris MD [address] [place] [address] Zoey Real MD [address] [place] [address] Encounter for follow-up ultrasound of [...] with antibiotics in the past 60 days [place] 1 spray into both nostrils daily 9.9 [...] Priority Date/Time Associated Diagnosis Comments [facility] US COMPREHENSIVE SINGLE F/U Routine 05/13/2023 9:18 AM CDT Encounter for follow-up ultrasound of anatomy documented in this encounter Results * [facility] US Comprehensive Single F/U (05/13/2023 9:18 [...] ? Study Date: ??05/13/2023 8:32am Pat. NO: ??[id number] ?Referring ??MD: CASEY DAVIS Site: ??[facility] ? Flattening Press Operator: Denise Kuhn RDMS : ??1990 ?Age: [...] 1 lb 4 ?oz EFW by ?Hadlock (SGB-HB-PA-FL) Head / Face / Neck Biometry: Sheet Metal Duct Installer Helper ? 3.7 ? mm CM ?3.7 ? mm ANATOMY ----- The following structures appear normal: Head / Neck ? Cranium. Head size. Head shape. Lateral ventricles. Midline falx. Cavum septi pellucidi. Cerebellum. Cisterna magna. Thalami. Face ? Lips. Profile. Nose. Heart / Thorax ?4-chamber view. RVOT view. LVOT view. Aortic arch view. 4-rlueta-jwgnueq view. ? Diaphragm. Abdomen ? Stomach. Bladder. [...] medical record, and communicating with other health memory care program resident and/or care coordination. Procedure Note Zoey Real MD - 05/13/2023 Comp Follow Up ----- Pat. Name: GARDENIA SCOTT Study Date: 05/13/2023 8:32am Pat. NO: [id number] Referring MD: CASEY DAVIS Site: [facility] Flattening Press Operator: Denise Kuhn RDMS : 1990 Age: 32 ----- INDICATION ----- Follow up suboptimal anatomy. BMI 44. Declined screening. METHOD ----- Transabdominal ultrasound examination. View: Sufficient ----- Cook . Number of fetuses: 1 DATING ----- DateDetailsGest. age JEFF LMP 12/05/2022ycle: irregular, long dysdqs89 w + 5 d 09/11/2023 Prior assessment [...] 1 lb 4 oz EFW by Hadlock (GHN-TH-ZB-FL) Head / Face / Neck Biometry: Sheet Metal Duct Installer Helper 3.7 mm CM 3.7 mm ANATOMY ----- The following structures appear normal: Head / Neck Cranium. Head size. Head shape.Lateral ventricles. Midline falx. Cavum septi pellucidi. Cerebellum.Cisterna magna. Thalami. Face Lips. Profile. Nose. Heart / Thorax 4-chamber view. RVOT view. LVOT view.Aortic arch view. 8-leewjl-traxzfr view. Diaphragm. Abdomen Stomach. Bladder. Spine Cervical [...] electronic medical record, andcommunicating with other health memory care program resident and/or carecoordination. IMPRESSION ----- 1. Cook intrauterine at 21w 5d gestational age here forcompletion of anatomy. 2. The remaining anatomic survey was completed, no anomaliescommonly detected by ultrasound were identified within the limits ofprenatal ultrasound. 3. Growth parameters and estimated weight were slightly ahead ofestablished dates, EFW 97%. 4. The amniotic fluid volume appeared normal. Patti Ferris MD [facility] US ORDERABLE S documented in this encounter Visit Diagnoses Diagnosis Encounter for follow-up ultrasound of anatomy documented in this encounter Additional Health Concerns Assessment Noted Time PHQ-9 Depression Total Score: 8 03/31/20 21 7:02 AM CDT documented as of this encounter Care Teams Motor Vehicle Assembler Relationship Specialty Start Date End Date Shamar Claros MD [address] [facility] [place] [address] PCP - General Internal Medicine 05/17/17 [place] [address] [place] [address] [place] [address] Assigned PCP 09/08/22 Patti Ferris MD [address] [address] [address] Assigned OBGYN Provider 04/27/23 documented as of this encounter
--- OUTSIDE RECORDS SUMMARY | 2023-08-21 07:09 | XMS_ITS | Encounter Summary ---
Author Name Unknown Organization [place] Address [address] [place] [address] Care Team Providers Care Dry Food Products Mixer Name Role Phone Shamar Claros MD Primary Care Provider + [phone] Shamar Claros MD Unavailable [phone] Reason for Visit * Reason Comments Ultrasound L2-elevated BMI Encounter Details Date Type Department Care Team (Late st Contact Info) Description 04/12/2023 PRE VISIT [facility] [place] [address] [facility] [address] [place] [address] Genet Ruiz RN Ultrasound (L2-elevated [...] documented as of this encounter Care Teams Dry Food Products Mixer Relationship Specialty Start Date End Date Shamar Claros MD [address] [facility] [place] [address] PCP - General Internal Medicine 05/17/17 Shamar Claros MD [address] [facility] [place] [address] Assigned PCP 09/08/22 documented as of this encounter
--- OUTSIDE RECORDS SUMMARY | 2023-08-21 07:09 | XMS_ITS | Encounter Summary ---
Author Name Unknown Organization [place] Address [address] [place] [address] Care Team Providers Care Capital Markets Specialist Name Role Phone Shamar Claros MD Primary Care Provider + [phone] Shamar Claros MD Unavailable [phone] Patti Ferris MD Unavailable [phone] Reason for Visit * Reason Comments Ultrasound RL2 for sub-optimal anatomy Encounter Details Date Type Department Care Team (Late st Contact Info) Description 05/13/2023 9:15 AM CDT Office Visit [facility] [place] [address] [facility] [address] [place] [address] Patti Ferris MD [address] [place] [address] Zoey Real MD [address] [place] [address] BMI 40.0-44.9, adult (H) (Primary [...] is a at 21w5d who presents to [facility] for a follow-up ultrasound for [...] documented as of this encounter Care Teams Capital Markets Specialist Relationship Specialty [place] [address] [place] [address] [place]CG[place] [address] PCP - General Internal Medicine 05/17/17 Shamar Claors MD [address] [place] [address] [place] [address] Assigned PCP 09/08/22 Patti Ferris MD [address] [address] Assigned OBGYN Provider 04/27/23 documented as of this encounter
--- OUTSIDE RECORDS SUMMARY | 2023-08-21 07:09 | XMS_ITS | Encounter Summary ---
Author Name Unknown Organization [place] Address [address] [place] [address] Care Team Providers Care Domestic Maid Name Role Phone Shamar Claros MD Primary Care Provider [phone] Melina Sousa PA-C Unavailable [phone] Janis Jacobs MD Unavailable [phone] Shamar Claros MD Unavailable [phone] Patti Ferris MD Unavailable [phone] Encounter Details Date Type Department Care [...] Coronavirus / COVID-19? Yes 07/20/2021 9:51 PM SECTIONIZER documented as of this encounter Plan of Treatment Not on file documented as of this encounter Visit Diagnoses Not on filedocumented in this encounter Additional Health Concerns Assessment Noted Time PHQ-9 Depression Total Score: 8 03/31/20 21 7:02 AM CDT documented as of this encounter Care Teams Domestic Maid Relationship Specialty Start Date End Date Shamar Claros MD [address] [facility] [place] [address] PCP - General Internal Medicine 05/17/17 Melina Sousa PA-C [address] [place] [address] Assigned PCP 12/25/20 03/23/22 Janis Jacobs MD [address] [place] [address] Assigned OBGYN Provider 04/09/21 3 Shamar Claros MD [address] [facility] [place] [address] Assigned PCP 09/08/22 Patti Ferris MD [address] [address] Assigned OBGYN Provider 04/27/23 documented as of this encounter
--- OUTSIDE RECORDS SUMMARY | 2023-08-21 07:09 | XMS_ITS | Encounter Summary ---
Author Name Unknown Organization [place] Address [facility] [place] [address] Care Team Providers Care Eeler Name Role Phone Shamar Claros MD Primary Care Provider Alanis Dillard CNM Unavailable [phone] Melina Sousa PA-C Unavailable [phone] Janis Jacobs MD Unavailable [phone] Shamar Claros MD Unavailable [phone] Patti Ferris MD Unavailable [phone] Encounter Details Date Type Department Care Team (Late st Contact Info) Description 03/30/2021 [facility] Medical Advice [facility] [place] [address] [place] [address] Maribell Torrez, SIGN MAKER [address] [facility] [place] [address] Social History Tobacco Use [...] documented as of this encounter Care Teams Eeler Relationship Specialty Start Date End Date Shamar Claros MD [address] [facility] [place] [address] PCP - General Internal Medicine 05/17/17 Alanis Dillard CNM [address] [place] [address] Assigned OBGYN Provider 05/06/20 Melina Sousa PA-C [address] [place] [address] Assigned PCP 12/25/20 03/23/22 Janis Jacobs MD [address] [place] [address] Assigned OBGYN Provider 04/09/21 3 [place] [address] [place] [address] [place] [address] Assigned PCP 09/08/22 Patti Ferris MD [address] [address] Assigned OBGYN Provider 04/27/23 documented as of this encounter
--- OUTSIDE RECORDS SUMMARY | 2023-08-21 07:09 | XMS_ITS | Clinical Summary ---
Author Name Unknown Organization [place] Address [address] [place] [address] Care Team Providers Care Menhaden Vessel Pilot Name Role Phone Shamar Claros MD Primary Care Provider + [phone] Shamar Claros MD Unavailable [phone] Patti Ferris MD Unavailable [phone] Allergies Active Allergy Reactions Criticality Noted [...] with antibiotics in the past 60 days Ruby 1 spray into both nostrils daily 9.9 [...] Comments Blood Pressure 127/85 07/21/2021 5:26 AM HOME HOUSEKEEPER Pulse 83 07/21/2021 5:26 AM HOME HOUSEKEEPER Temperature 37.4 ??C (99.4 ??F) 07/20/2021 9:53 PM CS T Respiratory Rate 20 07/21/2021 5:26 AM HOME HOUSEKEEPER Oxygen Saturation 97% 07/21/2021 5:26 AM HOME HOUSEKEEPER Inhaled Oxygen Concentration - - Weight 144.4 kg (318 lb 5.5 oz) 07/20/2021 9:53 PM HOME HOUSEKEEPER Height 172.7 cm (5' 8) 10/12/2019 11:2 [...] Advance Directives For more information, please contact: [phone] Latest Code Status on File Code Status Date Activated Date Inactivated Comments Full Code 03/02/2017 9:48 AM 07/20/2021 9:47 PM Care Teams Menhaden Vessel Pilot Relationship Specialty [place] [address] [place] [address] [place] [address] PCP - General Internal Medicine 05/17/17 Shamar Claros MD [address] [place] [address] [place] [address] Assigned PCP 09/08/22 Patti Ferris MD [address] [address] Assigned OBGYN Provider 04/27/23
--- OUTSIDE RECORDS SUMMARY | 2023-08-21 07:09 | XMS_ITS | Encounter Summary ---
Author Name Unknown Organization [place] Address [facility] [place] [address] Care Team Providers Care Electronics Repair Technician Name Role Phone Shamar Claros MD Primary Care Provider + [phone] Janis Jacobs MD Unavailable [phone] Shamar Claros MD Unavailable [phone] Patti Ferris MD Unavailable [phone] Encounter Details Date Type Department Care Team (Late st Contact Info) Description 07/30/2022 [facility] Medical Advice [facility] [place] [address] [facility] [address] [place] [address] Shamar Claros MD [address] [facility] [place] [address] Social History Tobacco [...] documented as of this encounter Care Teams Electronics Repair Technician Relationship Specialty Start Date End Date Shamar Claros MD [address] [facility] [place] [address] PCP - General Internal Medicine 05/17/17 Janis Jacobs MD [address] [place] [address] Assigned OBGYN Provider 04/09/21 3 Shamar Claros MD [address] [facility] [place] [address] Assigned PCP 09/08/22 Patti Ferris MD [address] [place] [address] Assigned OBGYN Provider 04/27/23 documented as of this encounter
--- OUTSIDE RECORDS SUMMARY | 2023-08-21 07:09 | XMS_ITS | Encounter Summary ---
Author Name Unknown Organization [place] Address [address] [place] [address] Care Team Providers Care Senior Ui Web Developer Name Role Phone Shamar Claros MD Primary Care Provider [phone] Melina Sousa PA-C Unavailable [phone] Janis Jacobs MD Unavailable [phone] Shamar Claros MD Unavailable [phone] Patti Ferris MD Unavailable [phone] Reason for Visit * Reason Onset Date Comments Heart Problem 05/25/2021 Symptoms Encounter Details Date Type Department Care Team (Late st Contact Info) Description 05/25/2021 [facility] Medical Advice [address] [place] [address] Janis Jacobs MD [address] [place] [address] Heart Problem (Symptoms) Social History [...] Jacobs out today and tomorrow, sending to emergency response technician. lOinda Langston RN Y PLAN SALESPERSON documented in this encounter Plan of Treatment Not on file documented as of this encounter Visit Diagnoses Diagnosis Vaginal symptom- Primary documented in this encounter Additional Health Concerns Assessment Noted Time PHQ-9 Depression Total Score: 8 03/31/20 21 7:02 AM CDT documented as of this encounter Care Teams Senior Ui Web Developer Relationship Specialty Start Date End Date Shamar Claros MD [address] [place] [address] [place] [address] PCP - General Internal Medicine 05/17/17 Melina Sousa PA-C [address] [place] [address]22832 Assigned PCP 12/25/20 03/23/22 Janis Jacobs MD [address] [place] [address] Assigned OBGYN Provider 04/09/21 3 Shamar Claros MD [address] [place] [address] [place] [address] Assigned PCP 09/08/22 Patti Ferris MD [address] [facility] [address] [address] Assigned OBGYN Provider 04/27/23 documented as of this encounter
--- OUTSIDE RECORDS SUMMARY | 2023-08-21 07:10 | XMS_ITS | Encounter Summary ---
Author Name Unknown Organization [place] Address [address] [place] [address] Care Team Providers Care Registered Radiologic Technologist Name Role Phone Shamar Claros MD Primary Care Provider + [phone] Melina Sousa PA-C Unavailable [phone] Alanis Dillard CNM Unavailable [phone] Steph Fraga MD Unavailable [phone] Melina Sousa PA-C Unavailable [phone] Jains Jacobs MD Unavailable [phone] Shamar Claros MD Unavailable [phone] Patti Ferris MD Unavailable [phone] Encounter Details Date Type Department Care Team (Late st Contact Info) Description 04/20/2020 [facility] [address] [place] [address] Alanis Dillard CNM [address] [place] [address] Social History Tobacco Use Types [...] on filedocumented in this encounter Care Teams Registered Radiologic Technologist Relationship Specialty Start Date End Date Shamar Claros MD [address] [place] [address] [place] [address] PCP - General Internal Medicine 05/17/17 Melina Sousa PA-C [address] [place] [address]12[address] Assigned PCP 10/18/19 10/15/20 Alanis Dillard CNM [address] [place] [address] Assigned OBGYN Provider 05/06/20 Steph Fraga MD [address] [place] [address] [place] [address] Assigned PCP 10/16/20 12/24/20 Melina Sousa PA-C [address] [place] [address] Assigned PCP 12/25/20 03/23/22 Janis Jacobs MD [address] [place] [address] Assigned OBGYN Provider 04/09/21 3 Shamar Claros MD [address] [place] [address] [place] [address] Assigned PCP 09/08/22 Patti Ferris MD [address] [address] Assigned OBGYN Provider 04/27/23 documented as of this encounter
--- OUTSIDE RECORDS SUMMARY | 2023-08-21 07:10 | XMS_ITS | Encounter Summary ---
Author Name Unknown Organization [place] Address [facility] [place] [address] Care Team Providers Care Administrative Supervisor Name Role Phone Shamar Claros MD Primary Care Provider Alanis Dillard CNKatty Unavailable [phone] Melina Sousa PA-C Unavailable [phone] Janis Jacobs MD Unavailable [phone] Shamar Claros MD Unavailable [phone] Patti Ferris MD Unavailable [phone] Encounter Details Date Type Department Care Team (Late st Contact Info) Description 03/30/2021 MyC Medical Advice M [address] [place] [address] Kaykay Leung, LAY OUT HELPER Social History Tobacco Use Types Packs/Day Years [...] documented as of this encounter Care Teams Administrative Supervisor Relationship Specialty Start Date End Date Shamar Claros MD [address] [facility] [place] [address] PCP - General Internal Medicine 05/17/17 Alanis Dillard CNM [address] [place] [address] Assigned OBGYN Provider 05/06/20 Melina Sousa PA-C [address] [place] [address] Assigned PCP 12/25/20 03/23/22 Janis Jacobs MD [address] [place] [address] Assigned OBGYN Provider 04/09/21 3 Shamar Claros MD [address] [facility] [address] Assigned PCP 09/08/22 Patti Ferris MD [address] [facility] [address] [place] [address] Assigned OBGYN Provider 04/27/23 documented as of this encounter
--- OUTSIDE RECORDS SUMMARY | 2023-08-21 07:10 | XMS_ITS | Encounter Summary ---
Author Name Unknown Organization [facility] Address [address] [place] [address] Care Team Providers Care Carpet Floor Layer Apprentice Name Role Phone Shamar Claros MD Primary Care Provider Steph Fraga MD Unavailable [phone] Melina Sousa PA-C Unavailable Alanis Dillard CNM Unavailable [phone] Steph Fraga MD Unavailable [phone] Melina Sousa PA-C Unavailable [phone] Janis Jacobs MD Unavailable [phone] Shamar Claros MD Unavailable [phone] Patti Ferris MD Unavailable [phone] Encounter Details Date Type Department Care Team (Late st Contact Info) Description 10/10/2019 [facility] [place] [place] Medical Advice [facility] [place] [address] [place] [address] Drive [address] [place] [address] [place] [address] [place] [address] [place] [address] Social History Tobacco Use [...] RN - 10/12/2019 9:32 AM CDT Sent [employer] message. - Bryant Nowak, RN - Patient Advocate Liason (PAL) [facility] documented in this encounter Plan of Treatment Not on file documented as of this encounter Visit Diagnoses Not on filedocumented in this encounter Care Teams Carpet Floor Layer Apprentice Relationship Specialty Start Date End Date Shamar Claros MD [address] [place] [address] [place] [address] PCP - General Internal Medicine 05/17/17 Steph Fraga MD [address] [place] [address] [place] [address] Assigned PCP 12/29/17 10/17/19 Melina Sousa PA-C [address] [place] [address] 319512 Assigned PCP 10/18/19 10/15/20 Alanis Dillard CNM [address] [place], [place] 091667 Assigned OBGYN Provider 05/06/20 Steph Fraga MD [address] [place] [address] [place] [address] Assigned PCP 10/16/20 12/24/20 Melina Sousa PA-C [address] [place], [place] 668782 Assigned PCP 12/25/20 03/23/22 Janis Jacobs MD [address] [place] [address] Assigned OBGYN Provider 04/09/21 3 Shamar Claros MD [address] [facility] [place] [address] Assigned PCP 09/08/22 Patti Ferris MD [address] [id number] Assigned OBGYN Provider 04/27/23 documented as of this encounter
--- OUTSIDE RECORDS SUMMARY | 2023-08-21 07:10 | XMS_ITS | Encounter Summary ---
Author Name Unknown Organization [facility] Address [address] [place] [address] Care Team Providers Care Rock Mason Name Role Phone Shamar Claros MD Primary Care Provider Alanis Dillard CNM Unavailable [phone] Melina Sousa PA-C Unavailable [phone] Janis Jacobs MD Unavailable [phone] Shamar Claros MD Unavailable [phone] Patti Ferris MD Unavailable [phone] Encounter Details Date Type Department Care Team (Late st Contact Info) Description 01/29/2021 [facility] [place] Medical Advice [facility] [place] [address] [facility] [address] [place] [address] [place] [address] [place] [address] [place] [address] Social History Tobacco Use [...] on filedocumented in this encounter Care Teams Rock Mason Relationship Specialty Start Date End Date Shamar Claros MD [address] [facility] [place] [address] PCP - General Internal Medicine 05/17/17 Alanis Dillard CNM [address] [place] [address] Assigned OBGYN Provider 05/06/20 Melina Sousa PA-C [address] [place] [address] 829912 Assigned PCP 12/25/20 03/23/22 Janis Jacobs MD [address] [place] [address] Assigned OBGYN Provider 04/09/21 3 Shamar Claros MD [address] [facility] [place] [address] Assigned PCP 09/08/22 Patti Ferris MD [address] [place] [address] [place] [address] [id number] Assigned OBGYN Provider 04/27/23 documented as of this encounter
--- OUTSIDE RECORDS SUMMARY | 2023-08-21 07:10 | XMS_ITS | Encounter Summary ---
Author Name Unknown Organization [facility] Address [facility] [place] [address] Care Team Providers Care Clinical Research Manager Name Role Phone Shamar Claros MD Primary Care Provider Alanis Dillard CNKatty Unavailable [phone] Melina Sousa PA-C Unavailable [phone] Janis Jacobs MD Unavailable [phone] Shamar Claros MD Unavailable [phone] Patti Ferris MD Unavailable [phone] Reason for Visit * Reason Onset Date Comments Medication Question 03/28/2021 Encounter Details Date Type Department Care Team (Late st Contact Info) Description 03/28/2021 [facility] Medical Advice [address] [place] [address] Janis Jacobs MD [address] [place] [address] Medication Question Social History Tobacco [...] on filedocumented in this encounter Care Teams Clinical Research Manager Relationship Specialty Start Date End Date Shamar Claros MD [address] [facility] [place] [address] PCP - General Internal Medicine 05/17/17 Alanis Dillard CNM [address] [place] [address] Assigned OBGYN Provider 05/06/20 Melina Sousa PA-C [address] [place] [address] Assigned PCP 12/25/20 03/23/22 Janis Jacobs MD [address] [place] [address] Assigned OBGYN Provider 04/09/21 3 Shamar Claros MD [address] [facility] [place] [place] [address] Assigned PCP 09/08/22 Patti Ferris MD [address] [place] [address] Assigned OBGYN Provider 04/27/23 documented as of this encounter
--- OUTSIDE RECORDS SUMMARY | 2023-08-21 07:10 | XMS_ITS | Encounter Summary ---
Author Name Unknown Organization [facility] Address [address] [place] [address] Care Team Providers Care Chaplain Name Role Phone Shamar Claros MD Primary Care Provider Steph Fraga MD Unavailable [phone] Melina Sousa PA-C Unavailable Alanis Dillard CNM Unavailable Steph Fraga MD Unavailable [phone] Melina Sousa PA-C Unavailable Janis Jacobs MD Unavailable [phone] Shamar Claros MD Unavailable [phone] Patti Ferris MD Unavailable [phone] Reason for Referral * Diagnostic Imaging Ultrasound (Routine) - Closed Specialty Diagnoses / Procedures Referred By Contluz marina t Referred To Contact Radiology. Diagnoses RLQ abdominal pain Procedures US Pelvic Complete w Transvaginal Melina Sousa PA-C [address] [place] [address] Rh Ultrasound [facility] [address] [place] [address] Referral ID Status Reason Start Date Expiration Date Visits Re quested Visits Authorized [id number] Closed 10/14/2019 10/13/2020 1 1 Reason for Visit * Reason Onset Date Comments MyChart Communication 10/13/2019 lab result s Encounter Details Date Type Department Care Team ([facility] st Contact Info) Description 10/13/2019 [facility] Medical Advice [address] [address] Melina Sousa PA-C [address] [place] [address] MyChart Communication (lab results) Social History Tobacco [...] call me back with any questions. Primo, armament mechanic Nurse * Telephone Encounter - Vy Sheehan [...] 12:47 PM CDT Called pt back at [phone], not available, so LM to call me back at [phone]. Will await for her call back. JENNIFER [...] lesions that pap is intended to pick up worker are painless. Vy Sheehan MD Internal Medicine-Pediatrics [...] came back normal when she was at [facility]. She states the new pain she had discussed in her [employer] message she felt only lasted 20 minutes [...] typically has its usually performed by an service technician copier at an imaging appointment. She wanted to [...] CDT Forwarded to LP. Please review patient's [employer] message and advise. Alanis Wright BS, RN, PHN [facility]) [phone] * Telephone Encounter - Alanis Wright RN - 10/13/2019 4:17 PM CDT [employer] message sent. BLANCA Bull, RN, [facility] Office: [phone] documented in this encounter Plan of Treatment [...] ovarian torsion. No free pelvic fluid. KARTHIK GRAMJAO MD Vy Sheehan MD IMG US ORDERABLES documented in this encounter Visit Diagnoses Diagnosis RLQ abdominal pain- Primary Abdominal pain, right lower quadrant RLQ abdominal pain Abdominal pain, right lower quadrant documented in this encounter Care Teams Chaplain Relationship Specialty Start Date End Date Shamar Claros MD [address] [place] [address] [place] [address] PCP - General Internal Medicine 05/17/17 Steph Fraga MD [address] [place] [address] [place] [address] Assigned PCP 12/29/17 10/17/19 Melina Sousa PA-C [address] [place] [address] 045042 Assigned PCP 10/18/19 10/15/20 Alanis Dillard CNM [address] [place] [address] Assigned OBGYN Provider 05/06/20 Steph Fraga MD [address] [place] [address] [place] [address] Assigned PCP 10/16/20 12/24/20 Melina Sousa PA-C [address] [place] [address] Assigned PCP 12/25/20 03/23/22 Janis Jacobs MD [address] [place] [address] Assigned OBGYN Provider 04/09/21 3 Shamar Claros MD [address] [facility] [place] [address] Assigned PCP 09/08/22 Patti Ferris MD [address] [place], [place] [address]384 Assigned OBGYN Provider 04/27/23 documented as of this encounter
--- NOTE | 2023-08-21 07:15 | CRLHL7_ITS ---
For Patients: As a result of the Century Cures Act, medical imaging exams and procedure reports are released immediately into your electronic medical record. You may view this report before your referring provider. If you have questions, please contact your health care provider. INDICATION: GDM, HTN, BMI COMPARISON: 08/19/2024 TECHNIQUE: Real time myers scale imaging of the fetus was performed. Without non-stress testing. FINDINGS: Sonographic imaging demonstrates a single living intrauterine gestation. Fetus demonstrates a regular cardiac rate of 171 beats per minute. Fetus has a vertex position. The amniotic fluid volume appears normal and there is a single deepest pocket measurement of 4.7 cm. The fetus was active and demonstrated normal breathing movements. There was normal flexion and extension of the trunk and extremities. IMPRESSION: Normal biophysical profile score of 8 out of 8. Dictated by Mamadou Anguiano MD @ 08/21/2023 10:00:56 AM (Electronically Signed)
== END 2023-08-21 07:07 | disposition home or self-care (01) ==
LOC: US 07:07
PROVIDERS: Visit Provider Advanced Practice Midwife
DX: O24.419 Gestational diabetes mellitus in pregnancy, unspecified control (principal); O10.919 Unspecified pre-existing hypertension complicating pregnancy, unspecified trimester
CPT/HCPCS: 76819

== ENCOUNTER 2023-08-28 05:17 | Inpatient (IN) | payer OTHER, SELFPAY ==
[2023-08-28] VITALS (27 sets, daily range): BP systolic 90–127; BP diastolic 51–80; PULSE 52–87; RESP 16; TEMP 36.4–36.8; O2SAT 96–99; BMI 48.2
--- OUTSIDE RECORDS SUMMARY | 2023-08-28 05:23 | XMS_ITS | Encounter Summary ---
Author Name Unknown Organization [facility] Address [address] [place] [address] Care Team Providers Care Manager Ct Name Role Phone Shamar Claros MD Primary Care Provider + [phone] Shamar Claros MD Unavailable [phone] Patti Ferris MD Unavailable [phone] Encounter Details Date Type Department Care [...] as of this encounter Care Teams Manager Ct Relationship Specialty Start Date End Date Shamar Claros MD [address] [facility] [place] [address] PCP - General Internal Medicine 05/17/17 Shamar Claros MD [address] [facility] [place] [address] Assigned PCP 09/08/22 Patti Ferris MD [address] [facility] [address] [place] [address] Assigned OBGYN Provider 04/27/23 documented as of this encounter
--- OUTSIDE RECORDS SUMMARY | 2023-08-28 05:23 | XMS_ITS | Referral Summary ---
Author Name Unknown Organization [facility] Address [address] [place] [address] Care Team Providers Care Transfer Car Operator Name Role Phone Shamar Claros MD Primary Care Provider + [phone] Shamar Claros MD Unavailable [phone] Patti Ferris MD Unavailable [phone] Allergies Active Allergy Reactions Criticality Noted [...] with antibiotics in the past 60 days Lithia 1 spray into both nostrils daily 9.9 [...] Comments Blood Pressure 127/85 07/21/2021 5:26 AM VEHICLE MONITOR TECHNICIAN Pulse 83 07/21/2021 5:26 AM VEHICLE MONITOR TECHNICIAN Temperature 37.4 ??C (99.4 ??F) 07/20/2021 9:53 PM CS T Respiratory Rate 20 07/21/2021 5:26 AM VEHICLE MONITOR TECHNICIAN Oxygen Saturation 97% 07/21/2021 5:26 AM VEHICLE MONITOR TECHNICIAN Inhaled Oxygen Concentration - - Weight 144.4 kg (318 lb 5.5 oz) 07/20/2021 9:53 PM VEHICLE MONITOR TECHNICIAN Height 172.7 cm (5' 8) 10/12/2019 11:2 5 AM CDT Body Mass Index 48.4 10/12/2019 11:25 AM CDT Plan of Treatment Not on file Advance Directives For more information, please contact: [phone] Latest Code Status on File Code Status Date Activated Date Inactivated Comments Full Code 03/02/2017 9:48 AM 07/20/2021 9:47 PM Care Teams Transfer Car Operator Relationship Specialty Start Date End Date Shamar Claros MD [address] [facility] [place] [address] PCP - General Internal Medicine 05/17/17 Shamar Claros MD [address] [facility] [place] [address] Assigned PCP 09/08/22 Patti Ferris MD [address] [address] Assigned OBGYN Provider 04/27/23
--- OUTSIDE RECORDS SUMMARY | 2023-08-28 05:23 | XMS_ITS | Clinical Summary ---
Author Name Unknown Organization [facility] Address [address] [place] [address] Care Team Providers Care Executive Pilot Name Role Phone Shamar Claros MD Primary Care Provider + [phone] Shamar Claros MD Unavailable [phone] Patti Ferris MD Unavailable [phone] Allergies Active Allergy Reactions Criticality Noted [...] with antibiotics in the past 60 days Lantry 1 spray into both nostrils daily 9.9 [...] Comments Blood Pressure 127/85 07/21/2021 5:26 AM ELECTRICAL INSTALLATION SUPERVISOR Pulse 83 07/21/2021 5:26 AM ELECTRICAL INSTALLATION SUPERVISOR Temperature 37.4 ??C (99.4 ??F) 07/20/2021 9:53 PM CS T Respiratory Rate 20 07/21/2021 5:26 AM ELECTRICAL INSTALLATION SUPERVISOR Oxygen Saturation 97% 07/21/2021 5:26 AM ELECTRICAL INSTALLATION SUPERVISOR Inhaled Oxygen Concentration - - Weight 144.4 kg (318 lb 5.5 oz) 07/20/2021 9:53 PM ELECTRICAL INSTALLATION SUPERVISOR Height 172.7 cm (5' 8) 10/12/2019 11:2 [...] 2023 03/30/2021, 04/15/2020, 10/12/2019, Additional history exists GROUP B STREP SCREENING 08/21/2023 02/07/2017 HPV [...] patient's age to complete this topic RSV VACCINE ( & 60+) (No Doses Required) Completed Advance Directives For more information, please contact: [phone] Latest Code Status on File Code Status Date Activated Date Inactivated Comments Full Code 03/02/2017 9:48 AM 07/20/2021 9:47 PM Care Teams Executive Pilot Relationship Specialty Start Date End Date Shamar Claros MD [address] [facility] [place] [address] PCP - General Internal Medicine 05/17/17 [place] [address] [place] [address] [place] [address] Assigned PCP 09/08/22 Patti Ferris MD [address] [place] [address] Assigned OBGYN Provider 04/27/23
--- OUTSIDE RECORDS SUMMARY | 2023-08-28 05:24 | XMS_ITS | Encounter Summary ---
Author Name Unknown Organization [facility] Address [address] [place] [address] Care Team Providers Care Ct Scan Technician Name Role Phone Shamar Claros MD Primary Care Provider + [phone] Melina Sousa PA-C Unavailable [phone] Alanis Dillard CNM Unavailable [phone] Steph Fraga MD Unavailable [phone] Melina Sousa PA-C Unavailable [phone] Janis Jacobs MD Unavailable [phone] Shamar Claros MD Unavailable [phone] Patti Ferris MD Unavailable [phone] Encounter Details Date Type Department Care Team (Late st Contact Info) Description 04/20/2020 [facility] [address] [place] [address] Alanis Dillard CNM [address] [place] [address] Social History Tobacco Use Types [...] on filedocumented in this encounter Care Teams Ct Scan Technician Relationship Specialty Start Date End Date Shamar Claros MD [address] [place] [address] [place] [address] PCP - General Internal Medicine 05/17/17 Melina Sousa PA-C [address] [place] [address] 391012 Assigned PCP 10/18/19 10/15/20 Alanis Dillard CNM [address] [place] [address] Assigned OBGYN Provider 05/06/20 Steph Fraga MD [address] [place] [address] [place] [address] Assigned PCP 10/16/20 12/24/20 Melina Sousa PA-C [address] [place] [address] Assigned PCP 12/25/20 03/23/22 Janis Jacobs MD [address] [place] [address] Assigned OBGYN Provider 04/09/21 3 Shamar Claros MD [address] [place] [address] [place] [address] Assigned PCP 09/08/22 Patti Ferris MD [address] [address] Assigned OBGYN Provider 04/27/23 documented as of this encounter
--- OUTSIDE RECORDS SUMMARY | 2023-08-28 05:24 | XMS_ITS | Encounter Summary ---
Author Name Unknown Organization [place] Address [address] [facility] [place] [address] Care Team Providers Care Food Service Helper Name Role Phone Shamar Claros MD Primary Care Provider + [phone] Shamar Claros MD Unavailable [phone] Patti Ferris MD Unavailable [phone] Reason for Visit * Reason Comments Ultrasound RL2 for sub-optimal anatomy Encounter Details Date Type Department Care Team (Late st Contact Info) Description 05/13/2023 9:15 AM CDT Office Visit [facility] [place] [address] [facility] [address] [place] [address] Patti Ferris MD [address] [place] [address] Zoey Real MD [address] [place] [address] BMI 40.0-44.9, adult (H) (Primary [...] is a at 20w5d who presents to [facility] for a follow-up ultrasound for [...] of this encounter Care Teams Food Service Helper Relationship Specialty [place] [address] [place] [address] [place] [address] PCP - General Internal Medicine 05/17/17 Shamar Claros MD [address] [place] [address] [place] [address] Assigned PCP 09/08/22 Patti Ferris MD [address] [address] Assigned OBGYN Provider 04/27/23 documented as of this encounter
--- OUTSIDE RECORDS SUMMARY | 2023-08-28 05:24 | XMS_ITS | Encounter Summary ---
Author Name Unknown Organization [facility] Address [address] [place] [address] Care Team Providers Care Polymer Materials Consultant Name Role Phone Shamar Claros MD Primary Care Provider + [phone] Shamar Claros MD Unavailable [phone] Encounter Details Date Type Department Care Team [...] documented as of this encounter Care Teams Polymer Materials Consultant Relationship Specialty Start Date End Date Shamar Claros MD [address] [facility] [place] [address] PCP - General Internal Medicine 05/17/17 Shamar Claros MD [address] [facility] [place] [id number] Assigned PCP 09/08/22 documented as of this encounter
--- OUTSIDE RECORDS SUMMARY | 2023-08-28 05:24 | XMS_ITS | Encounter Summary ---
Author Name Unknown Organization [place] Address [facility] [place] [address] Care Team Providers Care Water Quality Assistant Name Role Phone Shamar Claros MD Primary Care Provider + [phone] Janis Jacobs MD Unavailable [phone] Shamar Claros MD Unavailable [phone] Patti Ferris MD Unavailable [phone] Encounter Details Date Type Department Care Team (Late st Contact Info) Description 07/30/2022 [facility] [place] [facility] [place] [address] [place] [address] Shamar Claros MD [address] [facility] [place] [address] Social History [...] documented as of this encounter Care Teams Water Quality Assistant Relationship Specialty Start Date End Date Shamar Claros MD [address] [facility] [place] [address] PCP - General Internal Medicine 05/17/17 Janis Jacobs MD [address] [place] [address] Assigned OBGYN Provider 04/09/21 3 Shamar Claros MD [address] [facility] [place] [address] Assigned PCP 09/08/22 Patti Ferris MD [address] [place] [address] Assigned OBGYN Provider 04/27/23 documented as of this encounter
--- OUTSIDE RECORDS SUMMARY | 2023-08-28 05:24 | XMS_ITS | Encounter Summary ---
Author Name Unknown Organization [facility] Address [address] [place] [address] Care Team Providers Care Compensation And Benefits Advisor Name Role Phone Shamar Claros MD Primary Care Provider [phone] Melina Sousa PA-C Unavailable [phone] Janis Jacobs MD Unavailable [phone] Shamar Claros MD Unavailable [phone] Patti Ferris MD Unavailable [phone] Encounter Details Date Type Department Care Team (Late st Contact Info) Description 07/18/2021 [facility] [address] [facility] [address] [place] [address] Shamar Claros MD [address] [facility] [place] [address] Social History Tobacco [...] Coronavirus / COVID-19? Yes 07/20/2021 9:51 PM SENIOR PROCESS ANALYST documented as of this encounter Plan of Treatment Not on file documented as of this encounter Visit Diagnoses Not on filedocumented in this encounter Additional Health Concerns Assessment Noted Time PHQ-9 Depression Total Score: 8 03/31/20 21 7:02 AM CDT documented as of this encounter Care Teams Compensation And Benefits Advisor Relationship Specialty Start Date End Date Shamar Claros MD [address] [facility] [place] [address] PCP - General Internal Medicine 05/17/17 Melina Sousa PA-C [address] [place] [address] 733372 Assigned PCP 12/25/20 03/23/22 Janis Jacobs MD [address] [place] [address] Assigned OBGYN Provider 04/09/21 3 Shamar Claros MD [address] [facility] [place] [address] Assigned PCP 09/08/22 Patti Ferris MD [address] [place], [place] 3[address] Assigned OBGYN Provider 04/27/23 documented as of this encounter
--- OUTSIDE RECORDS SUMMARY | 2023-08-28 05:24 | XMS_ITS | Encounter Summary ---
Author Name Unknown Organization [place] Address [address] [place] [address] Care Team Providers Care Senior Embedded Software Engineer Name Role Phone Shamar Claros MD Primary Care Provider [phone] Melina Sousa PA-C Unavailable [phone] Janis Jacobs MD Unavailable [phone] Shamar Claros MD Unavailable [phone] Patti Ferris MD Unavailable [phone] Encounter Details Date Type Department Care [...] Coronavirus / COVID-19? 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 documented as of this encounter Plan of Treatment Not on file documented as of this encounter Visit Diagnoses Not on filedocumented in this encounter Additional Health Concerns Assessment Noted Time PHQ-9 Depression Total Score: 8 03/31/20 21 7:02 AM CDT documented as of this encounter Care Teams Senior Embedded Software Engineer Relationship Specialty Start Date End Date Shamar Claros MD [address] [facility] [place] [address] PCP - General Internal Medicine 05/17/17 Melina Sousa PA-C [address] [place] [address] Assigned PCP 12/25/20 03/23/22 Janis Jacobs MD [address] [place] [address] Assigned OBGYN Provider 04/09/21 3 Shamar Claros MD [address] [facility] [place] [address] Assigned PCP 09/08/22 Patti Ferris MD [address] [address] Assigned OBGYN Provider 04/27/23 documented as of this encounter
--- OUTSIDE RECORDS SUMMARY | 2023-08-28 05:24 | XMS_ITS | Encounter Summary ---
Author Name Unknown Organization [place] Address [address] [place] [address] Care Team Providers Care Radiation Control Health Physicist Name Role Phone Shamar Claros MD Primary Care Provider [phone] Melina Sousa PA-C Unavailable [phone] Janis Jacobs MD Unavailable [phone] Shamar Claros MD Unavailable [phone] Patti Ferris MD Unavailable [phone] Encounter Details Date Type Department Care Team (Late st Contact Info) Description 07/12/2021 [facility] [place] [facility] [address] [place] [phone] Britney Hanson Social History Tobacco Use Types [...] documented as of this encounter Care Teams Radiation Control Health Physicist Relationship Specialty Start Date End Date Shamar Claros MD [address] [facility] [place] [address] PCP - General Internal Medicine 05/17/17 Melina Sousa PA-C [address] [place] [address] Assigned PCP 12/25/20 03/23/22 Janis Jacobs MD [address] [place] [address] Assigned OBGYN Provider 04/09/21 3 Shamar Claros MD [address] [facility] [place] [address] Assigned PCP 09/08/22 Patti Ferris MD [address] [address] Assigned OBGYN Provider 04/27/23 documented as of this encounter
--- OUTSIDE RECORDS SUMMARY | 2023-08-28 05:24 | XMS_ITS | Encounter Summary ---
Author Name Unknown Organization [place] Address [address] [place] [address]. [place] [address] Care Team Providers Care Special Police Officer Name Role Phone Shamar Claros MD Primary Care Provider + [phone] Shamar Claros MD Unavailable [phone] Encounter Details Date Type Department Care Team (Latest Contact Info) Description 04/11/2023 Medical Correspondence [facility] S[facility] [address] [place] [address] Outside, Provider [facility] PROVIDER [...] documented as of this encounter Care Teams Special Police Officer Relationship Specialty Start Date End Date Shamar Claros MD [address] [facility] [place] [address] PCP - General Internal Medicine 05/17/17 Shamar Claros MD [address] [facility] [address] [place], [place] [address] Assigned PCP 09/08/22 documented as of this encounter
--- OUTSIDE RECORDS SUMMARY | 2023-08-28 05:24 | XMS_ITS | Encounter Summary ---
Author Name Unknown Organization [place] Address [address] [place] [address] Care Team Providers Care Bilingual Teacher Assistant Name Role Phone Shamar Claros MD Primary Care Provider [phone] Steph Fraga MD Unavailable [phone] Melina Sousa PA-C Unavailable [phone] Alanis Dillard CNM Unavailable [phone] Steph Fraga MD Unavailable [phone] Melina Sousa PA-C Unavailable [phone] Janis Jacobs MD Unavailable [phone] Shamar Claros MD Unavailable Patti Ferris MD Unavailable [phone] Encounter Details Date Type Department Care Team (Late st Contact Info) Description 10/10/2019 [facility] [place] [facility] [place] [address] [place] [address] Drive [address] [place] [address] [place] [address] [place] [address] [place] [address] Social History Tobacco Use [...] RN - 10/12/2019 9:32 AM CDT Sent [employer] message. - Bryant Nowak, RN - Patient Advocate Liason (PAL) [facility] documented in this encounter Plan of Treatment Not on file documented as of this encounter Visit Diagnoses Not on filedocumented in this encounter Care Teams Bilingual Teacher Assistant Relationship Specialty Start Date End Date Shamar Claros MD [address] [place] [address] [place] [address] PCP - General Internal Medicine 05/17/17 Steph Fraga MD [address] [place] [address] [place] [address] Assigned PCP 12/29/17 10/17/19 Melina Sousa PA-C [address] [place] [address] 598452 Assigned PCP 10/18/19 10/15/20 Alanis Dillard CNM [address] [place], [place] 231667 Assigned OBGYN Provider 05/06/20 Steph Fraga MD [address] [place] [address] [place] [address] Assigned PCP 10/16/20 12/24/20 Melina Sousa PA-C [address] [place], [place] 054872 Assigned PCP 12/25/20 03/23/22 Janis Jacobs MD [address] [place] [address] Assigned OBGYN Provider 04/09/21 3 Shamar Claros MD [address] [facility] [place] [address] Assigned PCP 09/08/22 Patti Ferris MD [address] [address] Assigned OBGYN Provider 04/27/23 documented as of this encounter
--- OUTSIDE RECORDS SUMMARY | 2023-08-28 05:24 | XMS_ITS | Encounter Summary ---
Author Name Unknown Organization [place] Address [address] [place] [address] Care Team Providers Care Commercial Lines Account Assistant Name Role Phone Shamar Claros MD Primary Care Provider Steph Fraga MD Unavailable [phone] Melina Sousa PA-C Unavailable Alanis Dillard CNM Unavailable [phone] Steph Fraga MD Unavailable [phone] Melina Sousa PA-C Unavailable [phone] Janis Jacobs MD Unavailable [phone] Shamar Claros MD Unavailable Patti Ferris MD Unavailable Reason for Referral * Diagnostic Imaging Ultrasound (Routine) - Closed Specialty Diagnoses / Procedures Referred By Contluz marina t Referred To Contact Radiology. Diagnoses RLQ abdominal pain Procedures US Pelvic Complete w Transvaginal Melina Sousa PA-C [address] [place] [address] Rh Ul[facility] [place] [address] [place] [address] [place] [address] Referral ID Status Reason Start Date Expiration Date Visits Re quested Visits Authorized [id number] Closed 10/14/2019 10/13/2020 1 1 Reason for Visit * Reason Onset Date Comments MyChart Communication 10/13/2019 lab result s Encounter Details Date Type Department Care Team ([facility] st Contact Info) Description 10/13/2019 [facility] Medical Advice [address] [address] Melina Sousa PA-C [address] [place] [address] MyChart Communication (lab results) Social History Tobacco [...] call me back with any questions. Primo, textile bag sewer Nurse * Telephone Encounter - Vy Sheehan [...] 12:47 PM CDT Called pt back at [phone], not available, so LM to call me back at [phone]. Will await for her call back. JENNIFER [...] cervical lesions that pap is intended to pickling drum operator are painless. Vy Sheehan MD Internal [...] back normal when she was at [facility]. She states the new pain she had discussed in her [employer] 1t message she felt only lasted 20 minutes [...] typically has its usually performed by an server support technician at an imaging appointment. She wanted [...] CDT Forwarded to LP. Please review patient's Conversant [employer] message and advise. Alanis Wright BS, RN, PHN [facility]) [phone] * Telephone Encounter - Alanis Wright RN - 10/13/2019 4:17 PM CDT Conversant Lab[employer] message sent. BLANCA Bull, RN, [facility] Office: [phone] documented in this encounter Plan of Treatment [...] quadrant documented in this encounter Care Teams Commercial Lines Account Assistant Relationship Specialty Start Date End Date Shamar Claros MD [address] [place] [address] [place] [address] PCP - General Internal Medicine 05/17/17 Steph Fraga MD [address] [place] [address] [place] [address] Assigned PCP 12/29/17 10/17/19 Melina Sousa PA-C [address] [place] [address] 933082 Assigned PCP 10/18/19 10/15/20 Alanis Dillard CNM [address] [place] [address] Assigned OBGYN Provider 05/06/20 Steph Fraga MD [address] [place] [address] [place] [address] Assigned PCP 10/16/20 12/24/20 Melina Sousa PA-C [address] [place] [address] Assigned PCP 12/25/20 03/23/22 Janis Jacobs MD [address] [place] [address] Assigned OBGYN Provider 04/09/21 3 Shamar Claros MD [address] [place] [address] Assigned PCP 09/08/22 Patti Ferris MD [address] [place], [place] 160834 Assigned OBGYN Provider 04/27/23 documented as of this encounter
--- OUTSIDE RECORDS SUMMARY | 2023-08-28 05:24 | XMS_ITS | Encounter Summary ---
Author Name Unknown Organization [place] Address [facility] [place] [address] Care Team Providers Care Water Softener Service Supervisor Name Role Phone hSamar Claros MD Primary Care Provider Alanis Dillard CNKatty Unavailable [phone] Melina Sousa PA-C Unavailable [phone] Janis Jacobs MD Unavailable [phone] Shamar Claros MD Unavailable [phone] Patti Ferris MD Unavailable [phone] Encounter Details Date Type Department Care Team (Late st Contact Info) Description 03/30/2021 My[facility] Medical Advice M [address] [place] [address] Kaykay Leung, SAMPLE BODY BUILDER Social History Tobacco Use Types Packs/Day Years [...] as of this encounter Care Teams Water Softener Service Supervisor Relationship Specialty Start Date End Date Shamar Claros MD [address] [facility] [place] [address] PCP - General Internal Medicine 05/17/17 Alanis Dillard CNM [address] [place] [address] Assigned OBGYN Provider 05/06/20 Melina Sousa PA-C [address] [place] [address] Assigned PCP 12/25/20 03/23/22 Janis Jacobs MD [address] [place] [address] Assigned OBGYN Provider 04/09/21 3 Shamar Claros MD [address] [facility] [place] [address] Assigned PCP 09/08/22 Patti Ferris MD [address] [facility] [address] [place] [address] Assigned OBGYN Provider 04/27/23 documented as of this encounter
--- OUTSIDE RECORDS SUMMARY | 2023-08-28 05:24 | XMS_ITS | Encounter Summary ---
Author Name Unknown Organization [facility] Address [address] [place] [address] Care Team Providers Care Timber Robber Name Role Phone Shamar Claros MD Primary Care Provider + [phone] Shamar Claros MD Unavailable [phone] Reason for Visit * Reason Comments Ultrasound L2-elevated BMI Encounter Details Date Type Department Care Team (Late st Contact Info) Description 04/12/[address] [facility] [place] [address] [facility] [address] [place] [address] Genet Ruiz RN Ultrasound (L2-elevated [...] documented as of this encounter Care Teams Timber Robber Relationship Specialty Start Date End Date Shamar Claros MD [address] [facility] [place] [address] PCP - General Internal Medicine 05/17/17 Shamar Claros MD [address] [facility] [place] [address] Assigned PCP 09/08/22 documented as of this encounter
--- OUTSIDE RECORDS SUMMARY | 2023-08-28 05:24 | XMS_ITS | Encounter Summary ---
Author Name Unknown Organization [facility] Address [address] [place] [address] Care Team Providers Care Design Teacher Name Role Phone Shamar Claros MD Primary Care Provider + [phone] Shamar Claros MD Unavailable [phone] Reason for Referral * Diagnostic Imaging Ultrasound (Routine) - Pending Review Specialty Diagnoses / Procedures Referred By Contac t Referred To Contact Radiology. Diagnoses related condition, antepartum Procedures [facility] US Comprehensive Single Rh Maternal Med [address] [place] [address] Referral ID Status Reason Start Date Expiration Date V isits Requested Visits Authorized [id number] Pending Review 04/11/2023 04/10/2024 1 1 Reason for Visit * Diagnostic Imaging Ultrasound (Routine) - Pending Review Specialty Diagnoses / Procedures Referred By Contac t Referred To Contact Radiology. Diagnoses related condition, antepartum Procedures [facility] US Comprehensive Single Rh [facility] [address] [place] [address] Referral ID Status Reason Start Date Expiration Date V isits Requested Visits Authorized [id number] Pending Review 04/11/2023 04/10/2024 1 1 Encounter Details Date Type Department Care Team ([facility] st Contact Info) Description 04/22/2023 11:00 AM CDT - 04/22/2023 11:59 PM CDT Hospital Encounter [facility] [place] [address] [place] [address] Non-Fv Credentialed Provider, Radiology Francis Min MD [address] [place] [address] Patti Ferris MD [address] [place] [address] related condition, antepartum Discharge Disposition: [...] with antibiotics in the past 60 days [place] 1 spray into both nostrils daily 9.9 [...] Procedure Name Priority Date/Time Associated Diagnosis Comments [facility] US COMPREHENSIVE SINGLE Routine 04/22/2023 11:59 AM CDT related condition, antepartum documented in this encounter Results * [facility] US Comprehensive Single (04/22/2023 11:59 AM CDT) [...] SCOTT Study Date: 04/22/2023 11:03am Pat. NO: [id number] Referring ??MD: CASEY DAVIS Site: [facility] Customer Service: Lauren Mcdowell RDMS : 1990 Age: 32 [...] 0 lb 9 ?oz EFW by ?Hadlock ([id number]-AW-UQ-FL) Head / Face / Neck Biometry: Distribution Center Assistant ? 6.7 ? mm CM ?2.7 [...] cava. Inferior vena cava. 3-vessel view. ? 4-jgdxeo-opjefzr view. Cardiac position. Cardiac size. Cardiac rhythm. [...] medical record, and communicating with other health adult daycare coordinator and/or care coordination. Please see note for details. Procedure Note Patti Ferris MD - 04/22/2023 Comprehensive ----- Pat. Name:Bill SCOTT Date:04/22/2023 11:03am Pat. NO: [id number] :CASEY DAVIS [facility]Lauren Mcdowell RDMS :1990Age:32 ----- INDICATION ----- Obesity BMI 44 METHOD ----- Transabdominal ultrasound examination. View: Sufficient ----- Cook . Number of fetuses: 1 DATING ----- DateDetailsGest. age JEFF LMP 12/05/2022ycle: irregular, long [id number] w + 5 d 09/11/2023 Prior assessment [...] 0 lb 9 oz EFW by Hadlock (ZOA-QP-FT-FL) Head / Face / Neck Biometry: Distribution Center Assistant 6.7 mm CM 2.7 mm Nasal [...] Superior vena cava. Inferior venacava. 3-vessel view. 0-lbmyqx-uutcswe view. Cardiacposition. Cardiac size. Cardiac rhythm. Right [...] electronic medical record, andcommunicating with other health adult daycare coordinator and/or carecoordination. Please see note for [...] documented as of this encounter Care Teams Design Teacher Relationship Specialty Start Date End Date Shamar Claros MD [address] [facility] [place] [address] PCP - General Internal Medicine 05/17/17 Shamar Claros MD [address] [facility] [place] [address] Assigned PCP 09/08/22 documented as of this encounter
--- OUTSIDE RECORDS SUMMARY | 2023-08-28 05:24 | XMS_ITS | Encounter Summary ---
Author Name Unknown Organization [facility] Address [address] [place] [address] Care Team Providers Care Office Administrator Name Role Phone Shamar Claros MD Primary Care Provider [phone] Melina Sousa PA-C Unavailable [phone] Janis Jacobs MD Unavailable [phone] Shamar Claros MD Unavailable [phone] Patti Ferris MD Unavailable [phone] Reason for Visit * Reason Onset Date Comments Heart Problem 05/25/2021 Symptoms Encounter Details Date Type Department Care Team (Late st Contact Info) Description 05/25/2021 [facility] [place] [address] [place] [address] Janis Jacobs MD [address] [place] [address] Heart Problem (Symptoms) Social History [...] Jacobs out today and tomorrow, 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 Olinda Langston RN ENGER RELATIONS REPRESENTATIVE documented in this encounter Plan of Treatment Not on file documented as of this encounter Visit Diagnoses Diagnosis Vaginal symptom- Primary documented in this encounter Additional Health Concerns Assessment Noted Time PHQ-9 Depression Total Score: 8 03/31/20 21 7:02 AM CDT documented as of this encounter Care Teams Office Administrator Relationship Specialty Start Date End Date Shamar Claros MD [address] [place] [address] [place] [address] PCP - General Internal Medicine 05/17/17 Melina Sousa PA-C [address] [place] [address] 988232 Assigned PCP 12/25/20 03/23/22 Janis aJcobs MD [address] [place] [address] Assigned OBGYN Provider 04/09/21 3 Shamar Claros MD [address] [place] [address] [place] [address] Assigned PCP 09/08/22 Patti Ferris MD [address] [address] [address] Assigned OBGYN Provider 04/27/23 documented as of this encounter
--- OUTSIDE RECORDS SUMMARY | 2023-08-28 05:24 | XMS_ITS | Encounter Summary ---
Author Name Unknown Organization [place] Address [address] [place] [address] Care Team Providers Care Train Braker Name Role Phone Shamar Claros MD Primary Care Provider + [phone] Shamar Claros MD Unavailable [phone] Patti Ferris MD Unavailable [phone] Reason for Referral * Diagnostic Imaging Ultrasound (Routine) - Pending Review Specialty Diagnoses / Procedures Referred By Contac t Referred To Contact Radiology. Diagnoses Encounter for follow-up ultrasound of anatomy Procedures [facility] US Comprehensive Single F/U Patti Ferris MD [address] [place] [address] Referral ID Status Reason Start Date Expiration Date V isits Requested Visits Authorized [id number] Pending Review 04/22/2023 04/21/2024 1 1 Reason for Visit * Diagnostic Imaging Ultrasound (Routine) - Pending Review Specialty Diagnoses / Procedures Referred By Contac t Referred To Contact Radiology. Diagnoses Encounter for follow-up ultrasound of anatomy Procedures [facility] US Comprehensive Single F/U Patti Ferris MD [address] [address] Referral ID Status Reason Start Date Expiration Date V isits Requested Visits Authorized [id number] Pending Review 04/22/2023 04/21/2024 1 1 Encounter Details Date Type Department Care Team (Latest Contact Info) Description 05/13/2023 8:38 AM CDT - 05/13/2023 11:59 PM CDT Hospital Encounter [facility] [place] [address] [facility] [address] [place] [address] Patti Ferris MD [address] [place] [address] Zoey Real MD [address] [place] [address] Encounter for follow-up ultrasound of [...] with antibiotics in the past 60 days [place] 1 spray into both nostrils daily 9.9 [...] Procedure Name Priority Date/Time Associated Diagnosis Comments [facility] US COMPREHENSIVE SINGLE F/U Routine 05/13/2023 9:18 AM CDT Encounter for follow-up ultrasound of anatomy documented in this encounter Results * [facility] US Comprehensive Single F/U (05/13/2023 9:18 [...] ? Study Date: ??05/13/2023 8:32am Pat. NO: ??[id number] ?Referring ??MD: CASEY DAVIS Site: ??[facility] ? Website Programmer: Denise Kuhn RDMS : ??1990 ?Age: ?? [...] 1 lb 4 ?oz EFW by ?Hadlock ([id number]-PP-SS-FL) Head / Face / Neck Biometry: Switchbox Assembler ? 3.7 ? mm CM ?3.7 ? mm ANATOMY ----- The following structures appear normal: Head / Neck ? Cranium. Head size. Head shape. Lateral ventricles. Midline falx. Cavum septi pellucidi. Cerebellum. Cisterna magna. Thalami. Face ? Lips. Profile. Nose. Heart / Thorax ?4-chamber view. RVOT view. LVOT view. Aortic arch view. 2-spzxsx-dmpbohv view. ? Diaphragm. Abdomen ? Stomach. Bladder. [...] record, and communicating with other health animal care provider and/or care coordination. Procedure Note Zoey Real MD - 05/13/2023 Comp Follow Up ----- Pat. Name: GARDENIA SCOTT Study Date: 05/13/2023 8:32am Pat. NO: [id number] Referring MD: CASEY DAVIS Site: [facility] Website Programmer: Denise Kuhn RDMS : 1990 Age: 32 ----- INDICATION ----- Follow up suboptimal anatomy. BMI 44. Declined screening. METHOD ----- Transabdominal ultrasound examination. View: Sufficient ----- Cook . Number of fetuses: 1 DATING ----- DateDetailsGest. age JEFF LMP 12/05/2022ycle: irregular, long [id number] w + 5 d 09/11/2023 Prior assessment [...] 1 lb 4 oz EFW by Hadlock (ICH-SE-BH-FL) Head / Face / Neck Biometry: Switchbox Assembler 3.7 mm CM 3.7 mm ANATOMY ----- The following structures appear normal: Head / Neck Cranium. Head size. Head shape.Lateral ventricles. Midline falx. Cavum septi pellucidi. Cerebellum.Cisterna magna. Thalami. Face Lips. Profile. Nose. Heart / Thorax 4-chamber view. RVOT view. LVOT view.Aortic arch view. 6-graglk-fczynhy view. Diaphragm. Abdomen Stomach. Bladder. Spine Cervical [...] medical record, andcommunicating with other health animal care provider and/or carecoordination. IMPRESSION ----- 1. Cook intrauterine at 21w 5d gestational age here forcompletion of anatomy. 2. The remaining anatomic survey was completed, no anomaliescommonly detected by ultrasound were identified within the limits ofprenatal ultrasound. 3. Growth parameters and estimated weight were slightly ahead ofestablished dates, EFW 97%. 4. The amniotic fluid volume appeared normal. Patti Ferris MD [facility] documented in this encounter Visit Diagnoses Diagnosis Encounter for follow-up ultrasound of anatomy documented in this encounter Additional Health Concerns Assessment Noted Time PHQ-9 Depression Total Score: 8 03/31/20 21 7:02 AM CDT documented as of this encounter Care Teams Train Braker Relationship Specialty Start Date End Date Shamar Claros MD [address] [facility] [place] [address] PCP - General Internal Medicine 05/17/17 [place] [address] [place] [address] [place] [address] Assigned PCP 09/08/22 Patti Ferris MD [address] [facility] [address] [address] Assigned OBGYN Provider 04/27/23 documented as of this encounter
--- OUTSIDE RECORDS SUMMARY | 2023-08-28 05:24 | XMS_ITS | Encounter Summary ---
Author Name Unknown Organization [place] Address [facility] [place] [address] Care Team Providers Care Personnel Generalist Manager Name Role Phone Shamar Claros MD Primary Care Provider Alanis Dillard CNKatty Unavailable [phone] Melina Sousa PA-C Unavailable [phone] Janis Jacobs MD Unavailable [phone] Shamar Claros MD Unavailable [phone] Patti Ferris MD Unavailable [phone] Reason for Visit * Reason Onset Date Comments Medication Question 03/28/2021 Encounter Details Date Type Department Care Team (Late st Contact Info) Description 03/28/2021 MyC Medical Advice [address] [place] [address] Janis Jacobs MD [address] [place] [address] Medication Question Social History Tobacco [...] on filedocumented in this encounter Care Teams Personnel Generalist Manager Relationship Specialty Start Date End Date Shamar Claros MD [address] [facility] [address] PCP - General Internal Medicine 05/17/17 Alanis Dillard CNM [address] [place] [address] Assigned OBGYN Provider 05/06/20 Melina Sousa PA-C [address] [place] [address] Assigned PCP 12/25/20 03/23/22 Janis Jacobs MD [address] [place] [address] Assigned OBGYN Provider 04/09/21 3 Shamar Claros MD [address] [facility] [address] Assigned PCP 09/08/22 Patti Ferris MD [address] [place] [address] Assigned OBGYN Provider 04/27/23 documented as of this encounter
--- OUTSIDE RECORDS SUMMARY | 2023-08-28 05:24 | XMS_ITS | Encounter Summary ---
Author Name Unknown Organization [place] Address [facility] [place] [address] Care Team Providers Care Auto Customize Painter Name Role Phone Shamar Claros MD Primary Care Provider Alanis Dillard CNM Unavailable [phone] Melina Sousa PA-C Unavailable [phone] Janis Jacobs MD Unavailable [phone] Shamar Claros MD Unavailable [phone] Patti Ferris MD Unavailable [phone] Encounter Details Date Type Department Care Team (Late st Contact Info) Description 03/30/2021 My[facility] Medical Advice M [facility] [place] [address] [place] [address] Maribell Torrez, IMPACT HAMMER OPERATOR [address] [facility] [place] [address] Social History Tobacco [...] documented as of this encounter Care Teams Auto Customize Painter Relationship Specialty Start Date End Date Shamar Claros MD [address] [facility] [place] [address] PCP - General Internal Medicine 05/17/17 Alanis Dillard CNM [address] [place] [address] Assigned OBGYN Provider 05/06/20 Melina Sousa PA-C [address] [place] [address] [id number] Assigned PCP 12/25/20 03/23/22 Janis Jacobs MD [address] [place] [address] Assigned OBGYN Provider 04/09/21 3 [place] [address] [place] [address] [place] [address] Assigned PCP 09/08/22 Patti Ferris MD [address] 987404 Assigned OBGYN Provider 04/27/23 documented as of this encounter
--- OUTSIDE RECORDS SUMMARY | 2023-08-28 05:24 | XMS_ITS | Encounter Summary ---
Author Name Unknown Organization [place] Address [address] [place] [address] Care Team Providers Care Centerless Grinder Set Up Operator Name Role Phone Shamar Claros MD Primary Care Provider Alanis Dillard CNM Unavailable [phone] Melina Sousa PA-C Unavailable [phone] Janis Jacobs MD Unavailable [phone] Shamar Claros MD Unavailable [phone] Patti Ferris MD Unavailable [phone] Encounter Details Date Type Department Care Team (Late st Contact Info) Description 01/29/2021 [facility] Medical Advice [facility] [place] [address] [facility] [address] [place] [address] [place] [address] [place] [address] [place] [address] Social History Tobacco Use [...] on filedocumented in this encounter Care Teams Centerless Grinder Set Up Operator Relationship Specialty Start Date End Date Shamar Claros MD [address] [place] [address] PCP - General Internal Medicine 05/17/17 Alanis Dillard CNM [address] [place] [address] Assigned OBGYN Provider 05/06/20 Melina Sousa PA-C [address] [place] [address] [id number] Assigned PCP 12/25/20 03/23/22 Janis Jacobs MD [address] [place] [address] Assigned OBGYN Provider 04/09/21 3 Shamar Claros MD [address] [facility] [place] [address] Assigned PCP 09/08/22 Patti Ferris MD [address] [place] [address] [place] [address] [id number] Assigned OBGYN Provider 04/27/23 documented as of this encounter
--- OUTSIDE RECORDS SUMMARY | 2023-08-28 05:24 | XMS_ITS | Encounter Summary ---
Author Name Unknown Organization [place] Address [facility] [place] [address] Care Team Providers Care Receivable Executive Name Role Phone Shamar Claros MD Primary Care Provider [phone] Shamar Claros MD Unavailable [phone] Reason for Referral * Diagnostic Imaging Ultrasound (Routine) - Pending Review Specialty Diagnoses / Procedures Referred By Cecilia philippe Referred To Contact Radiology. Diagnoses Encounter for follow-up ultrasound of anatomy Procedures [facility] US Comprehensive Single F/U Patti Ferris MD [address] [place] [address] Referral ID Status Reason Start Date Expiration Date V isits Requested Visits Authorized [id number] Pending Review 04/22/2023 04/21/2024 1 1 Reason for Visit * Reason Comments Ultrasound L2-obesity in pregna ncy Encounter Details Date Type Department Care Team (Late st Contact Info) Description 04/22/2023 11:30 AM CDT Office Visit [facility] [place] [address] [facility] [address] [place] [address] Non-Fv Credentialed Provider, Radiology Francis Min MD [address] [place] [address] Patti Ferris MD [address] [place] [address] Obesity in , antepartum (Primary Dx); Encounter [...] in the Maternal[facility] Medicine Center at the [facility] today. For a detailed report of the ultrasound examination, please see the ultrasound report which can be found under the imaging tab. If you have questions regarding today's evaluation or if we can be of further service, please contact the Maternal- Medicine Center. Patti Ferris MD Brick Burner Head, CANNED FOOD RECONDITIONING INSPECTOR Maternal- Medicine [phone] (Pager) documented in this encounter Nursing Notes * Nataly Bailey, JENNIFER - 04/22/2023 11:30 AM CDT Patient presents to [facility] for L2 at 18w5d due [...] ? Study Date: ??05/13/2023 8:32am Pat. NO: ??[id number] ?Referring ??MD: CASEY DAVIS Site: ??[facility] ? Instructional Technology Facilitator: Denise Kuhn RDMS : ??1990 ?Age: ?? [...] 1 lb 4 ?oz EFW by ?Hadlock ([id number]) Head / Face / Neck Biometry: Director Critical Care ? 3.7 ? mm CM ?3.7 ? mm ANATOMY ----- The following structures appear normal: Head / Neck ? Cranium. Head size. Head shape. Lateral ventricles. Midline falx. Cavum septi pellucidi. Cerebellum. Cisterna magna. Thalami. Face ? Lips. Profile. Nose. Heart / Thorax ?4-chamber view. RVOT view. LVOT view. Aortic arch view. 2-pjhbmg-lbhwypi view. ? Diaphragm. Abdomen ? Stomach. Bladder. [...] medical record, and communicating with other health emergency care tech and/or care coordination. Procedure Note Zoey Real MD - 05/13/2023 Comp Follow Up ----- Pat. Name: GARDENIA SCOTT Study Date: 05/13/2023 8:32am Pat. NO: [id number] Referring MD: CASEY DAVIS Site: [facility] Instructional Technology Facilitator: Denise Kuhn RDMS : 1990 Age: 32 ----- INDICATION ----- Follow up suboptimal anatomy. BMI 44. Declined screening. METHOD ----- Transabdominal ultrasound examination. View: Sufficient ----- Cook . Number of fetuses: 1 DATING ----- DateDetailsGest. age JEFF LMP 12/05/2022ycle: irregular, long atkeal87 w + 5 d 09/11/2023 Prior assessment [...] 1 lb 4 oz EFW by Hadlock ([id number]) Head / Face / Neck Biometry: Director Critical Care 3.7 mm CM 3.7 mm ANATOMY ----- The following structures appear normal: Head / Neck Cranium. Head size. Head shape.Lateral ventricles. Midline falx. Cavum septi pellucidi. Cerebellum.Cisterna magna. Thalami. Face Lips. Profile. Nose. Heart / Thorax 4-chamber view. RVOT view. LVOT view.Aortic arch view. 1-ktsrjr-ivbszyx view. Diaphragm. Abdomen Stomach. Bladder. Spine Cervical [...] electronic medical record, andcommunicating with other health emergency care tech and/or carecoordination. IMPRESSION ----- 1. Cook intrauterine at 21w 5d gestational age here forcompletion of anatomy. 2. The remaining anatomic survey was completed, no anomaliescommonly detected by ultrasound were identified within the limits ofprenatal ultrasound. 3. Growth parameters and estimated weight were slightly ahead ofestablished dates, EFW 97%. 4. The amniotic fluid volume appeared normal. [facility] Ferris [facility] S documented in this [...] documented as of this encounter Care Teams Receivable Executive Relationship Specialty Start Date End Date Shamar Claros MD [address] [place] [address] [place] [address] PCP - General Internal Medicine 05/17/17 [place] [address] [place] [address] [place] [address] Assigned PCP 09/08/22 documented as of this encounter
[2023-08-28] MEDS: LACTATED RINGERS 1000 ML 1,000 ML 125 ML IV ×3 (05:45→10:29)
[2023-08-28 05:56] LABS: Hemoglobin* 11.1 gm/dL (12.0-16.0)
--- NOTE | 2023-08-28 07:18 | P.PCN_ITS ---
Procedure Note Time Seen by Provider: 08:53 Date Seen: 08/28/23 Date of procedure: 08/28/23 Will [facility] bill your pro fee for this procedure?: Yes Procedure Description: Preoperative diagnosis: 32-year-old 2 para 1 at 37 and 1/7 weeks a dmitted for a scheduled repeat low transverse section. * Chronic hypertension with superimposed mild preeclampsia * GDM A2 on insulin Postoperative diagnosis: Same Procedure: Repeat low-transverse section. Anesthesia: Spinal Surgeon: Elin Carpio MD Private Duty Rn: Leslie Lal MD Quantitative blood loss: 250 mL IVF: 1800 mL UOP: 125 mL clear urine at the end of the procedure Drain(s): Moffett to gravity. Specimen: Placenta to pathology Findings: A live female infant was delivered from the direct OA position at 8:13 a.m. . Apgars were 8 at 1 min and 9 at 5 min., respectively. Infant weight: 3405 g, 7 lb 8 oz. Nuchal cord(s): Yes single nuchal cord, loose easily reduced at the surgical incision before delivery of the . The placenta was delivered spontaneously and complete at 8:14 a.m. . Amniotic fluid: Clear.. Normal uterus, fallopian tubes and ovaries were noted. Other findings: Omental adhesions to the anterior peritoneum. Procedure: Baillie was taken to the OR where spinal anesthetic was found be adequate. A Moffett catheter was placed. The patient was then placed in the dorsal supine position with a leftward tilt. She was then prepped and draped in a normal sterile manner. A Pfannenstiel skin incision was made and carried through sharply to the underlying layer of fascia. Fascia was incised in the midline and this incision carried laterally with Shane scissors. The superior aspect of fascial incision was grasped with Ursula clamps, tented up, and the rectus muscles dissected off with a combination of blunt and sharp dissection. The inferior aspect of the fascial incision was grasped with Ursula clamps, tented up and again the rectus muscles dissected off with a combination of blunt and sharp dissection. The rectus muscles were in the midline. The peritoneum was entered bluntly. This opening was extended bluntly. An Bruce-O self-retaining retractor was placed. A bladder flap was not created. Uterus was incised in a low transverse manner in the midline. This incision carried laterally with blunt pressure on the inferior and superior aspects of the uterine incision. The amniotic sac was ruptured. The infant's head and body were delivered atraumatically. The infant was shown to the patient and her support person. The umbilical was clamped and cut immediately/after a 30-60 second delay. The was then handed to waiting pediatric and nursing staff. The placenta was delivered spontaneously. The uterus was cleared of clots and debris. The uterine incision was re-approximated with the uterus in vivo. The 1st layer using 0-Vicryl in a running, locked manner. The 2nd layer using 0- Monocryl in a running, vertical, imbricating layer. Additional sutures needed for hemostasis: Yes, 1 ifqxrz-sa-wkuiw suture using 2-0 chromic. . Excellent hemostasis was confirmed. The Bruce retractor was removed. The peritoneum was repaired using 3-0 Vicryl in a running manner. The rectus muscles were not reapproximated. The rectus muscles were then closely inspected to verify hemostasis. Hemostasis was obtained with bipolar cautery. The fascia was then reapproximated using 0-Maxon loop in a running manner. The subcutaneous tissue was then irrigated with saline and hemostasis obtained with bipolar cautery. The subcutaneous tissue was reapproximated using 3-0 plain gut interrupted sutures in 3 layers. The skin was reapproximated using 4-0 Monocryl in a running subcuticular manner. A silver-containing Methaplex dressing was applied. The patient tolerated this procedure well. Sponge, lap and instrument counts were correct x2 active to the procedure. Patient was taken to the recovery area in stable condition. The patient received 3 g of IV Ancef prior to skin incision. Anesthesia: spinal
--- NOTE | 2023-08-28 07:18 | W.PM.H&PU ---
History & Physical Update History & Physical Update H&P Reviewed and patient assessed: No changes noted
[2023-08-28] MEDS: CEFAZOLIN 2 GM INJ IVP (07:33)
--- NOTE | 2023-08-28 09:25 | W.ANESCHARGE ---
Anesthesia Charges Start Date/Time Anesthesia Start Date: 08/28/23 Anesthesia Start Time: 07:29 Stop Date/Time Anesthesia Stop Date: 08/28/23 Anesthesia Stop Time: 09:14
--- NOTE | 2023-08-28 09:59 | P.NB_ITS ---
Nerve Block Nerve Block Time Seen by Provider: 09:05 Date Seen: 08/28/23 Type of block requested by surgeon for post-operative analgesia: TAP Side: bilateral Time out performed: Yes Verification of patient name: Yes Verification of date of : Yes Site marking: site marked Name of person performing procedure: Raza Continuous monitoring Was continuous monitoring of O2 sat, B/P, color television console monitor, recorded every 15 minutes?: Yes Procedure Checklist: sterile prep, needles and gloves Ultrasound guided. Images saved: Yes Medications given in 5ml increments after negative aspiration: Marcaine %: 0.25 mL: 30 Needle gauge: 20 and Exparel mL: 10 Patient tolerated procedure well: Yes Additional comments: Needle noted between internal oblique and transversus abdominus. Local spread visualized Block Charges Block Charge (with Pro Fee): TAP Bilateral Use of Ultrasound Machine for Block: Yes- US Guidance/pain block
--- NOTE | 2023-08-28 09:59 | W.ANESCHARGE ---
Anesthesia Charges Start Date/Time Anesthesia Start Date: 08/28/23 Anesthesia Start Time: 07:29 Stop Date/Time Anesthesia Stop Date: 08/28/23 Anesthesia Stop Time: 09:14
[2023-08-28] MEDS: DOCUSATE SODIUM 100 MG CAPSULE PO (15:02)
[2023-08-28] MEDS: KETOROLAC 30 MG/ML inj IVP ×2 (15:02→20:47)
[2023-08-28] MEDS: ENOXAPARIN 40 MG/0.4 ML INJ SUBCUT (20:47)
[2023-08-29] VITALS (7 sets, daily range): BP systolic 101–114; BP diastolic 64–76; PULSE 58–72; RESP 14–17; TEMP 36.8–37; O2SAT 94–97
[2023-08-29] MEDS: KETOROLAC 30 MG/ML inj IVP ×3 (03:35→15:35)
[2023-08-29 06:12] LABS: Hemoglobin* 9.7 gm/dL (12.0-16.0)
--- NOTE | 2023-08-29 07:33 | PM.OBPNVD1 ---
OB - PN:Subj Subjective Date Seen: 09/11/23 Narrative: Gardenia is a 32 y.o. who was admitted to L & D for repeat section in the setting of GDM and Hypertension. ?She had an uncomplicated .?The patient feels well. ?The pain is well controlled with current medications. ?She has no new complaints. ?She is breast feeding and reports things are going ok. She is working on it with the nurses help. the patient has done well.? Vitals have been stable.? She has remained afebrile.? Has a good appetite, is tolerating a general diet. ?She is voiding without difficulty.? She is passing gas and has not had a bowel movement.? She is ambulating and denies any dizziness.? Has Small amount of rubra lochia. Her older daughter has been sick, we reviewed precautions for her and . OB - PN: Obj Exam Physical Exam: Vital signs: Temp Pulse Resp BP Pulse Ox O2 Del Method 97.6 F 62 16 127/81 98 Room Air 08/30/23 12:18 08/30/23 12:18 08/30/23 12:18 08/30/23 12:18 08/30/23 12:18 08/30/23 12:18 Narrative: GENERAL APPEARANCE:? normal affect, alert, no distress MOOD:? appropriate CHEST:? clear to auscultation HEART:? regular rate and rhythm ABDOMEN:? soft, non-tender the uterine fundus is at Umbilicus, Midline and is appropriate for the stage of recovery. EXTREMITIES:? normal and trace edema INCISION: Dressing in place; clean dry and intact. Silver nitrate dressing on. Urinary Catheter Management: 3-way Urethral: Cath placed during this visit: yes Urethral indwelling: No Reason for continuing: surgical procedure Insertion date: 08/28/23 Insertion time: 07:50 OB - PN: A/P Delivery Assessment and Plan (1) Status post repeat low transverse section: Problem details: 37w1d. Girl, Robyn, 7#8oz born at 8:13am, apgars 8/9. Status: Acute (2) Pre-eclampsia superimposed on chronic hypertension: Status: Acute (3) care and examination immediately after delivery: Status: Acute (4) Lactating mother: Status: Acute Plan day: 1 Plan: routine care Comments: Routine post-op care. Lactating mother. May see if desired. GDM. Will need morning fasting. Plan 2 hour gct at 6 weeks. Pre-E superimposed on chronic. Continue to monitor BP. Anticipate discharge tomorrow or the following day.
[2023-08-29] MEDS: ENOXAPARIN 40 MG/0.4 ML INJ SUBCUT ×2 (09:22→21:09)
[2023-08-29] MEDS: SODIUM CHLORIDE 0.9 % (FLUSH) 10 ML SYRINGE IVF (15:37)
[2023-08-29] MEDS: DOCUSATE SODIUM 100 MG CAPSULE PO (17:42)
[2023-08-29] MEDS: ACETAMINOPHEN 500 MG TABLET 1000 MG PO (17:42)
[2023-08-29] MEDS: IBUPROFEN 600 MG TABLET PO (21:06)
[2023-08-30 00:30] VITALS: BP 122/72; PULSE 72; RESP 18; TEMP 36.7; O2SAT 97
[2023-08-30] MEDS: ACETAMINOPHEN 500 MG TABLET 1000 MG PO ×3 (00:38→12:04)
[2023-08-30] MEDS: OXYCODONE 5 MG TABLET PO ×2 (00:38→14:42)
[2023-08-30] MEDS: IBUPROFEN 600 MG TABLET PO ×3 (03:17→15:11)
[2023-08-30 03:30] VITALS: BP 119/73; PULSE 70; RESP 16; TEMP 36.8; O2SAT 97
[2023-08-30 06:42] LABS: Rapid Plasma Reagin (RPR) Non Reactive (Non Reactive)
--- NOTE | 2023-08-30 08:48 | PM.OBDSVD1 ---
DS: Providers Provider Date Seen: 08/30/23 Date of admission: 08/28/23 05:17 Primary care physician: Not a Local Provider Admitting Clinician: Martha Murphy MD Attending Physician on discharge: Luke Bacon CNM Date of Discharge: 08/30/23 DS: Diagnosis Discharge Diagnosis (1) Status post repeat low transverse section: Status: Acute Problem details: 37w1d. Girl, Robyn, 7#8oz born at 8:13am, apgars 8/9. (2) Pre-eclampsia superimposed on chronic hypertension: Status: Acute (3) care and examination immediately after delivery: Status: Acute Exam Narrative: Exam Narrative: GENERAL APPEARANCE:? normal affect, alert, no distress MOOD:? appropriate CHEST:? clear to auscultation HEART:? regular rate and rhythm ABDOMEN:? soft, non-tender the uterine fundus is firm At Umbilicus, Midline and is appropriate for the stage of recovery. EXTREMITIES:? normal and trace edema Incision: Silver nitrate dressing intact Const: Vital Signs, click to edit/add: Vital Signs - 24 hr 08/29/23 11:30 08/30/23 00:30 08/30/23 03:30 Temperature 98.6 F 98.1 F 98.3 F Pulse Rate [Pulse Oximeter] 72 72 70 Respiratory Rate 16 18 16 Blood Pressure [Le ft Arm] 111/68 122/72 119/73 Pulse Oximetry 97 97 97 Oxygen Delivery Me thod Room Air Room Air Room Air Documenting provider has reviewed patient's vital signs: yes OB - DS: Summary Hospital Course Hospital Course: Gardenia is a 32 y.o. who was admitted to L & D for repeat C/S. ?She had an uncomplicated .?The patient feels well. ?The pain is well controlled with current medications. ?She has no new complaints. ?She is breast feeding and reports things are not going well. She would like to meet with today.? the patient has done well.? Vitals have been stable.? She has remained afebrile.? Has a good appetite, is tolerating a general diet. ?She is voiding without difficulty.? She is passing gas and has not had a bowel movement.? She is ambulating and denies any dizziness.? Has Small amount of rubra lochia. ?She is planning a vasectomy for her partner for prevention. She wants to go home today as her 6 year old is having difficulty with being from her parents. Peripartum Data delivery method: Repeat Section Procedures: Procedures Operation Date: 08/28/23 07:15 Actual Procedure Side Surgeon p Repeat Section Not Applicable Elin Carpio MD complications: none [place] Gender: Female Discharge Plan: Home Status at Discharge Functional status at discharge: independent ambulation Overall status at discharge: patient is progressing back to baseline Time Spent with Patient Time attestation: Total time spent providing and/or coordinating discharge services: Time spent: Less than 30 minutes Discharge Plan Discharge Disposition: Home, Self-Care Date of Admission: 08/28/23 05:17 Attending Provider on Discharge: Luke Bacon Primary Care Provider: Provider,Not a Local Condition: Stable Anticipated Discharge Date/Time: 08/30/23 12:00 Discharge Medications: New acetaminophen 500 mg Tablet 1,000 mg PO Q6H PRN (Reason: Pain) Qty: 0 0RF docusate sodium 100 mg Capsule 100 mg PO BID PRNQty: 90 2RF ferrous sulfate 325 mg (65 mg iron) Tablet 325 mg PO Q48H Qty: 30 2RF Rx Instructions: Take one tablet every other day, do not take with dairy products. Take with glass of orange juice or Vitamin C supplement. ibuprofen 600 mg Tablet 600 mg PO Q6H PRN (Reason: Pain) Qty: 60 0RF oxycodone 5 mg Tablet 5 - 10 mg PO Q4H PRN (Reason: Pain) Qty: 10 0RF Continued DHA 200 mg capsule PO DAILY lactobacillus combination no.8 3 billion cell capsule PO QDAY cholecalciferol (vitamin D3) 25 mcg (1,000 unit) capsule 25 mcg PO QDAY ascorbate calcium (vitamin C) 500 mg tablet 500 mg PO QDAY calcium carbonate [Tums] 200 mg calcium (500 mg) tablet,chewable 200 mg PO BID PRN metamucil PO DAILY Discontinued aspirin 81 mg tablet,chewable 81 mg PO QDAY (DME) insulin syringe-needle U-100 [Sure Comfort Insulin Syringe] 1 mL 30 gauge x 5/16 syringe See Rx Instructions .ROUTE .MEDSUPPLY Qty: 100 3RF Rx Instructions: As directed valacyclovir 1 gram tablet 1,000 mg PO QDAY Qty: 30 0RF Discharge Orders: Discharge Order (Routine); Ordered 08/30/23 Ordered By: Luke Bacon Patient Education: OB Over the Counter Medication Information, OB /Breast Feeding Additional Instructions: Discharge instructions were reviewed with the patient including signs and symptoms of infection and home going medications Lifting Restrictions: 20 pounds for 6 weeks No not submerge incision under water X 2 weeks? Nothing vaginally for 6 weeks: no tampons or intercourse Do not drive while taking narcotic pain medication(s) Off Work or School for 6 weeks [facility] for a BP check?09/02/23 Call with BP greater than or equal to 160/110 2-week visit: incision check, discuss feeding concerns, review control options and screen for anxiety/depression. 6-week visit for an annual exam. consultation services are available to all mothers and babies for the first year after delivery.? To make an appointment, please call [phone]. Activity Level: Activity as Tolerated Discharge Diet: Regular Follow Up Appointments: [facility] [Provider Group] Provider,Not a Local [Primary Care Provider] - Forms: GPMESS Info Instructions
[2023-08-30] MEDS: FERROUS SULFATE 325 MG TABLET PO (09:12)
[2023-08-30] MEDS: DOCUSATE SODIUM 100 MG CAPSULE PO (09:12)
[2023-08-30] MEDS: ENOXAPARIN 40 MG/0.4 ML INJ SUBCUT (11:59)
[2023-08-30 12:18] VITALS: BP 127/81; PULSE 62; RESP 16; TEMP 36.4; O2SAT 98
--- NOTE | 2023-09-13 10:55 | PC.NURSE ---
This patient came in with her today, as the needed a rescreen for hearing, 16 days from . The patient then wanted to speak with a nurse as she had concern about bleeding. She stated that yesterday around noon she had a roughly golf ball size eliana colored clot come out in the toilet with a moderate size gush of eliana colored blood as well with some cramping. For the rest of the day she noted stringy discharge, eliana in color as well that has slowly tapered down to now today she has no bleeding at all with no cramping. The patient was instructed to call the hospital if this happens again, that patient agreed.
== END 2023-08-30 16:25 | disposition home or self-care (01) | DRG 787 ==
PROVIDERS: Admitting Provider Obstetrics & Gynecology; Visit Provider Obstetrics & Gynecology
PROC: 10D00Z1 Extraction of Products of Conception, Low, Open Approach (ICD-10-PCS; CPT 59514; principal; 2023-08-28 07:15)
DX: O11.4 Pre-existing hypertension with pre-eclampsia, complicating childbirth (principal); O98.32 Other infections with a predominantly sexual mode of transmission complicating childbirth; O34.211 Maternal care for low transverse scar from previous cesarean delivery; Z3A.37 37 weeks gestation of pregnancy; Z37.0 Single live birth; O24.424 Gestational diabetes mellitus in childbirth, insulin controlled; O99.214 Obesity complicating childbirth; G89.18 Other acute postprocedural pain
CPT/HCPCS: 01961; 36415; 64488; 76942; 82962; 85018; 86592; 86850; 86900; 86901; 88307; A9270; C9290; J0665; J0690; J1650; J1885; J2274; J2371; J2405; J2590; J7120

== ENCOUNTER 2023-09-04 11:40 | Outpatient (CLI) | payer OTHER, SELFPAY ==
--- OUTSIDE RECORDS SUMMARY | 2023-09-04 12:06 | XMS_ITS | Clinical Summary ---
Author Name Unknown Organization [place] Address [address] [place] [address] Care Team Providers Care Pocket Stitcher Name Role Phone Shamar Claros MD Primary Care Provider [phone] Shamar Claros MD Unavailable [phone] Patti Ferris MD Unavailable [phone] Allergies Active Allergy Reactions Criticality Noted [...] with antibiotics in the past 60 days Perry 1 spray into both nostrils daily 9.9 [...] Comments Blood Pressure 127/85 07/21/2021 5:26 [facility] Pulse 83 07/21/2021 5:26 AM [facility] Temperature 37.4 ??C (99.4 ??F) 07/20/2021 9:53 PM CS T Respiratory Rate 20 07/21/2021 5:26 AM [facility] Oxygen Saturation 97% 07/21/2021 5:26 AM [facility] Inhaled Oxygen Concentration - - Weight 144.4 kg (318 lb 5.5 oz) 07/20/2021 9:53 PM [facility] Height 172.7 cm (5' 8) 10/12/2019 11:2 [...] Advance Directives For more information, please contact: [phone] Latest Code Status on File Code Status Date Activated Date Inactivated Comments Full Code 03/02/2017 9:48 AM 07/20/2021 9:47 PM Care Teams Pocket Stitcher Relationship Specialty Start Date End Date Shamar Claros MD [address] [facility] [place] [address] PCP - General Internal Medicine 05/17/17 [place] [address] [place] [address] [place] [address] Assigned PCP 09/08/22 Patti Ferris MD [address] [place] [address] Assigned OBGYN Provider 04/27/23
--- OUTSIDE RECORDS SUMMARY | 2023-09-04 12:06 | XMS_ITS | Encounter Summary ---
Author Name Unknown Organization [place] Address [address] [place] [address] Care Team Providers Care Batch Mixing Truck Driver Name Role Phone Shamar Claros MD Primary Care Provider [phone] Shamar Claros MD Unavailable [phone] Patti Ferris MD Unavailable [phone] Encounter Details Date Type Department Care [...] documented as of this encounter Care Teams Batch Mixing Truck Driver Relationship Specialty Start Date End Date Shamar Claros MD [address] [facility] [place] [address] PCP - General Internal Medicine 05/17/17 Shamar Claros MD [address] [facility] [place] [address] Assigned PCP 09/08/22 Patti Ferris MD [address] [facility] [address] [place] [address] Assigned OBGYN Provider 04/27/23 documented as of this encounter
--- OUTSIDE RECORDS SUMMARY | 2023-09-04 12:06 | XMS_ITS | Referral Summary ---
Author Name Unknown Organization [place] Address [address] [place] [address] Care Team Providers Care Automotive Product Specialist Name Role Phone Shamar Claros MD Primary Care Provider + [phone] Shamar Claros MD Unavailable [phone] Patti Ferris MD Unavailable [phone] Allergies Active Allergy Reactions Criticality Noted [...] with antibiotics in the past 60 days [place] 1 spray into both nostrils daily 9.9 [...] Comments Blood Pressure 127/85 07/21/2021 5:26 AM GLOBAL ACCOUNT MANAGER Pulse 83 07/21/2021 5:26 AM GLOBAL ACCOUNT MANAGER Temperature 37.4 ??C (99.4 ??F) 07/20/2021 9:53 PM CS T Respiratory Rate 20 07/21/2021 5:26 AM GLOBAL ACCOUNT MANAGER Oxygen Saturation 97% 07/21/2021 5:26 AM GLOBAL ACCOUNT MANAGER Inhaled Oxygen Concentration - - Weight 144.4 kg (318 lb 5.5 oz) 07/20/2021 9:53 PM GLOBAL ACCOUNT MANAGER Height 172.7 cm (5' 8) 10/12/2019 11:2 5 AM CDT Body Mass Index 48.4 10/12/2019 11:25 AM CDT Plan of Treatment Not on file Advance Directives For more information, please contact: [phone] Latest Code Status on File Code Status Date Activated Date Inactivated Comments Full Code 03/02/2017 9:48 AM 07/20/2021 9:47 PM Care Teams Automotive Product Specialist Relationship Specialty Start Date End Date Shamar Claros MD [address] [facility] [place] [address] PCP - General Internal Medicine 05/17/17 Shamar Claros MD [address] [facility] [place] [address] Assigned PCP 09/08/22 Patti Ferris MD [address] [address] Assigned OBGYN Provider 04/27/23
--- OUTSIDE RECORDS SUMMARY | 2023-09-04 12:06 | XMS_ITS | Encounter Summary ---
Author Name Unknown Organization [place] Address [address] [facility] [address] Care Team Providers Care Mail Processor Name Role Phone Shamar Claros MD Primary Care Provider + [phone] Shamar Claros MD Unavailable [phone] Patti Ferris MD Unavailable [phone] Reason for Visit * Reason Comments Ultrasound RL2 for sub-optimal anatomy Encounter Details Date Type Department Care Team (Late st Contact Info) Description 05/13/2023 9:15 AM CDT Office Visit [facility] [place] [address] [facility] [address] [place] [address] Patti Ferris MD [address] [place] [address] Zoey Real MD [address] [place] [address] BMI 40.0-44.9, adult (H) (Primary [...] documented in this encounter Nursing Notes * Ncia Gruber RN - 05/13/2023 9:15 AM CDT Gardenia Scott is a at 21w5d who presents to [facility] for a follow-up ultrasound for sub-optimal [...] documented as of this encounter Care Teams Mail Processor Relationship Specialty [place] [address] [place] [address] [place] [address] PCP - General Internal Medicine 05/17/17 Shamar Claros MD [address] [place] [address] [place] [address] Assigned PCP 09/08/22 Patti Ferris MD [address] [address] Assigned OBGYN Provider 04/27/23 documented as of this encounter
--- OUTSIDE RECORDS SUMMARY | 2023-09-04 12:07 | XMS_ITS | Encounter Summary ---
Author Name Unknown Organization [facility] Address [address] [place] [address] Care Team Providers Care Medical Detailist Name Role Phone Shamar Claros MD Primary Care Provider [phone] Melina Sousa PA-C Unavailable [phone] Janis Jacobs MD Unavailable [phone] Shamar Claros MD Unavailable [phone] Patti Ferris MD Unavailable [phone] Encounter Details Date Type Department Care [...] Coronavirus / COVID-19? Yes 07/20/2021 9:51 PM BARREL COATER documented as of this encounter Plan of Treatment Not on file documented as of this encounter Visit Diagnoses Not on filedocumented in this encounter Additional Health Concerns Assessment Noted Time PHQ-9 Depression Total Score: 8 03/31/20 21 7:02 AM CDT documented as of this encounter Care Teams Medical Detailist Relationship Specialty Start Date End Date Shamar Claros MD [address] [facility] [place] [address] PCP - General Internal Medicine 05/17/17 Melina Sousa PA-C [address] [place] [address] Assigned PCP 12/25/20 03/23/22 Janis Jacobs MD [address] [place] [address] Assigned OBGYN Provider 04/09/21 3 Shamar Claros MD [address] [facility] [place] [address] Assigned PCP 09/08/22 Patti Ferris MD [address] [address] Assigned OBGYN Provider 04/27/23 documented as of this encounter
--- OUTSIDE RECORDS SUMMARY | 2023-09-04 12:07 | XMS_ITS | Encounter Summary ---
Author Name Unknown Organization [place] Address [facility] [place] [address] Care Team Providers Care Platform Attendant Name Role Phone Shamar Claros MD Primary Care Provider [phone] Shamar Claros MD Unavailable [phone] Reason for Referral * Diagnostic Imaging Ultrasound (Routine) - Pending Review Specialty Diagnoses / Procedures Referred By Cecilia philippe Referred To Contact Radiology. Diagnoses Encounter for follow-up ultrasound of anatomy Procedures [facility] US Comprehensive Single F/U Patti Ferris MD [address] [place] [address] Referral ID Status Reason Start Date Expiration Date V isits Requested Visits Authorized [id number] Pending Review 04/22/2023 04/21/2024 1 1 Reason for Visit * Reason Comments Ultrasound L2-obesity in pregna ncy Encounter Details Date Type Department Care Team (Late st Contact Info) Description 04/22/2023 11:30 AM CDT Office Visit [facility] [place] [address] [facility] [address] [place] [address] Non-Fv Credentialed Provider, Radiology Francis Min MD [address] [place] [address] Patti Ferris MD [address] [place] [address] Obesity in , antepartum (Primary Dx); Encounter [...] in the [facility] at [facility] today. For a detailed report of the ultrasound examination, please see the ultrasound report which can be found under the imaging tab. If you have questions regarding today's evaluation or if we can be of further service, please contact the Maternal- Medicine Center. Patti Ferris MD Melt House Supervisor, BATON TEACHER Maternal- Medicine [phone] (Pager) documented in this encounter Nursing Notes * Nataly Bailey, JENNIFER - 04/22/2023 11:30 AM CDT Patient presents to [facility] for L2 at 18w5d due to elevated [...] ? Study Date: ??05/13/2023 8:32am Pat. NO: ??[id number] ?Referring ??MD: CASEY DAVIS Site: ??[facility] ? Advertising Internship: Denise Kuhn RDMS : ??1990 ?Age: ?? [...] 1 lb 4 ?oz EFW by ?Hadlock ([id number]) Head / Face / Neck Biometry: Control Systems Eng ? 3.7 ? mm CM ?3.7 ? mm ANATOMY ----- The following structures appear normal: Head / Neck ? Cranium. Head size. Head shape. Lateral ventricles. Midline falx. Cavum septi pellucidi. Cerebellum. Cisterna magna. Thalami. Face ? Lips. Profile. Nose. Heart / Thorax ?4-chamber view. RVOT view. LVOT view. Aortic arch view. 0-opuqyb-dtcwfcj view. ? Diaphragm. Abdomen ? Stomach. Bladder. [...] and communicating with other health health care attorney and/or care coordination. Procedure Note Zoey Real MD - 05/13/2023 Comp Follow Up ----- Pat. Name: GARDENIA SCOTT Study Date: 05/13/2023 8:32am Pat. NO: [id number] Referring MD: CASEY DAVIS Site: [facility] Advertising Internship: Denise Kuhn RDMS : 1990 Age: 32 ----- INDICATION ----- Follow up suboptimal anatomy. BMI 44. Declined screening. METHOD ----- Transabdominal ultrasound examination. View: Sufficient ----- Cook . Number of fetuses: 1 DATING ----- DateDetailsGest. age JEFF LMP 12/05/2022ycle: irregular, long [id number] w + 5 d 09/11/2023 Prior assessment [...] 1 lb 4 oz EFW by Hadlock ([id number]-FL) Head / Face / Neck Biometry: Control Systems Eng 3.7 mm CM 3.7 mm ANATOMY ----- The following structures appear normal: Head / Neck Cranium. Head size. Head shape.Lateral ventricles. Midline falx. Cavum septi pellucidi. Cerebellum.Cisterna magna. Thalami. Face Lips. Profile. Nose. Heart / Thorax 4-chamber view. RVOT view. LVOT view.Aortic arch view. 9-ynwefw-kybfitg view. Diaphragm. Abdomen Stomach. Bladder. Spine Cervical [...] record, andcommunicating with other health health care attorney and/or carecoordination. IMPRESSION ----- 1. Cook intrauterine at 21w 5d gestational age here forcompletion of anatomy. 2. The remaining anatomic survey was completed, no anomaliescommonly detected by ultrasound were identified within the limits ofprenatal ultrasound. 3. Growth parameters and estimated weight were slightly ahead ofestablished dates, EFW 97%. 4. The amniotic fluid volume appeared normal. Patti Ferris MD [facility] documented in this encounter [...] documented as of this encounter Care Teams Platform Attendant Relationship Specialty Start Date End Date Shamar Claros MD [address] [place] [address] [place] [address] PCP - General Internal Medicine 05/17/17 [place] [address] [place] [address] [place] [address] Assigned PCP 09/08/22 documented as of this encounter
--- OUTSIDE RECORDS SUMMARY | 2023-09-04 12:07 | XMS_ITS | Encounter Summary ---
Author Name Unknown Organization [place] Address [facility] [place] [address] Care Team Providers Care Boiler House Supervisor Name Role Phone Shamar Claros MD Primary Care Provider Alanis Dillard CNKatty Unavailable [phone] Melina Sousa PA-C Unavailable [phone] Janis Jacobs MD Unavailable [phone] Shamar Claros MD Unavailable [phone] Patti Ferris MD Unavailable [phone] Encounter Details Date Type Department Care Team (Late st Contact Info) Description 03/30/2021 [facility] Medical Advice M [address] [place] [address] Kaykay Leung, AWNING ASSEMBLER Social History Tobacco Use Types Packs/Day Years [...] documented as of this encounter Care Teams Boiler House Supervisor Relationship Specialty Start Date End Date Shamar Claros MD [address] [facility] [place] [address] PCP - General Internal Medicine 05/17/17 Alanis Dillard CNM [address] [place] [address] Assigned OBGYN Provider 05/06/20 Melina Sousa PA-C [address] [place] [address] Assigned PCP 12/25/20 03/23/22 Janis Jacobs MD [address] [place] [address] Assigned OBGYN Provider 04/09/21 3 Shamar Claros MD [address] [facility] [address] Assigned PCP 09/08/22 Patti Ferris MD [address] [facility] [address] [place] [address] Assigned OBGYN Provider 04/27/23 documented as of this encounter
--- OUTSIDE RECORDS SUMMARY | 2023-09-04 12:07 | XMS_ITS | Encounter Summary ---
Author Name Unknown Organization [facility] Address [address] [place] [address] Care Team Providers Care Back Tender Pulp Drier Name Role Phone Shamar Claros MD Primary Care Provider [phone] Melina Sousa PA-C Unavailable [phone] Janis Jacobs MD Unavailable [phone] Shamar Claros MD Unavailable [phone] Patti Ferris MD Unavailable [phone] Reason for Visit * Reason Onset Date Comments Heart Problem 05/25/2021 Symptoms Encounter Details Date Type Department Care Team (Late st Contact Info) Description 05/25/2021 [facility] Medical Advice [address] [place] [address] Janis Jacobs MD [address] [place] [address] Heart Problem (Symptoms) Social History [...] Jacobs out today and tomorrow, sending to family preservation caseworker. Olinda Langston RN ET SPECIALIST documented in this encounter Plan of Treatment Not on file documented as of this encounter Visit Diagnoses Diagnosis Vaginal symptom- Primary documented in this encounter Additional Health Concerns Assessment Noted Time PHQ-9 Depression Total Score: 8 03/31/20 21 7:02 AM CDT documented as of this encounter Care Teams Back Tender Pulp Drier Relationship Specialty Start Date End Date Shamar Claros MD [address] [place] [address] [place] [address] PCP - General Internal Medicine 05/17/17 Melina Sousa PA-C [address] [place] [address] 8[address]592 Assigned PCP 12/25/20 03/23/22 Janis Jacobs MD [address] [place] [address] Assigned OBGYN Provider 04/09/21 3 Shamar Claros MD [address] [place] [address] [place] [address] Assigned PCP 09/08/22 Patti Ferris MD [address] [facility] [address] [address] Assigned OBGYN Provider 04/27/23 documented as of this encounter
--- OUTSIDE RECORDS SUMMARY | 2023-09-04 12:07 | XMS_ITS | Encounter Summary ---
Author Name Unknown Organization [place] Address [address] [place] [address] Care Team Providers Care Electronic Game Developer Name Role Phone Shamar Claros MD Primary Care Provider [phone] Alanis Dillard CNM Unavailable [phone] Melina Sousa PA-C Unavailable [phone] Janis Jacobs MD Unavailable [phone] Shamar Claros MD Unavailable [phone] Patti Ferris MD Unavailable [phone] Encounter Details Date Type Department Care Team (Late st Contact Info) Description 01/29/2021 [facility] [place] [address] [facility] [address] [place] [address] [place] [address] [place] [address] [place] [address] Social History Tobacco Use [...] on filedocumented in this encounter Care Teams Electronic Game Developer Relationship Specialty Start Date End Date Shamar Claros MD [address] [facility] [place] [place] [address] PCP - General Internal Medicine 05/17/17 Alanis Dillard CNM [address] [place] [address] Assigned OBGYN Provider 05/06/20 Melina Sousa PA-C [address] [place] [address] Assigned PCP 12/25/20 03/23/22 Janis Jacobs MD [address] [place] [address] Assigned OBGYN Provider 04/09/21 3 Shamar Claros MD [address] [facility] [place] [address] Assigned PCP 09/08/22 Patti Ferris MD [address] [place] [address] Assigned OBGYN Provider 04/27/23 documented as of this encounter
--- OUTSIDE RECORDS SUMMARY | 2023-09-04 12:07 | XMS_ITS | Encounter Summary ---
Author Name Unknown Organization [place] Address [address] [place] [address] Care Team Providers Care Non Emergency Services Ambulance Driver Name Role Phone Shamar Claros MD Primary Care Provider + [phone] Shamar Claros MD Unavailable [phone] Reason for Visit * Reason Comments Ultrasound L2-elevated BMI Encounter Details Date Type Department Care Team (Late st Contact Info) Description 04/12/2023 PRE VISIT [facility] [place] [address] [facility] [address] [place] [address] Genet Ruiz RN Ultrasound (L2-elevated [...] documented as of this encounter Care Teams Non Emergency Services Ambulance Driver Relationship Specialty Start Date End Date Shamar Claros MD [address] [facility] [place] [address] PCP - General Internal Medicine 05/17/17 Shamar Claros MD [address] [facility] [place] [address] Assigned PCP 09/08/22 documented as of this encounter
--- OUTSIDE RECORDS SUMMARY | 2023-09-04 12:07 | XMS_ITS | Encounter Summary ---
Author Name Unknown Organization [place] Address [address] [place] [address] Care Team Providers Care Equipment Maintenance Tech Name Role Phone Shamar Claros MD Primary Care Provider + [phone] Shamar Claros MD Unavailable [phone] Patti Ferris MD Unavailable [phone] Reason for Referral * Diagnostic Imaging Ultrasound (Routine) - Pending Review Specialty Diagnoses / Procedures Referred By Contac t Referred To Contact Radiology. Diagnoses Encounter for follow-up ultrasound of anatomy Procedures [facility] US Comprehensive Single F/U Patti Ferris MD [address] [place] [address] Referral ID Status Reason Start Date Expiration Date V isits Requested Visits Authorized [id number] Pending Review 04/22/2023 04/21/2024 1 1 Reason for Visit * Diagnostic Imaging Ultrasound (Routine) - Pending Review Specialty Diagnoses / Procedures Referred By Contac t Referred To Contact Radiology. Diagnoses Encounter for follow-up ultrasound of anatomy Procedures [facility] US Comprehensive Single F/U Patti Ferris MD [address] [address] Referral ID Status Reason Start Date Expiration Date V isits Requested Visits Authorized [id number] Pending Review 04/22/2023 04/21/2024 1 1 Encounter Details Date Type Department Care Team (Latest Contact Info) Description 05/13/2023 8:38 AM CDT - 05/13/2023 11:59 PM CDT Hospital Encounter [facility] [place] [address] [address] [place] [address] Patti Ferris MD [address] [place] [address] Zoey Real MD [address] [place] [address] Encounter for follow-up ultrasound of [...] with antibiotics in the past 60 days [place] 1 spray into both nostrils daily 9.9 [...] Procedure Name Priority Date/Time Associated Diagnosis Comments [facility] US COMPREHENSIVE SINGLE F/U Routine 05/13/2023 9:18 AM CDT Encounter for follow-up ultrasound of anatomy documented in this encounter Results * [facility] US Comprehensive Single F/U (05/13/2023 9:18 AM [...] ? Study Date: ??05/13/2023 8:32am Pat. NO: ??[id number] ?Referring ??MD: CASEY DAVIS Site: ??[facility] ? Appeals Specialist: Denise Kuhn RDMS : ??1990 ?Age: ?? [...] 1 lb 4 ?oz EFW by ?Hadlock ([id number]) Head / Face / Neck Biometry: Coordinator Of Placement ? 3.7 ? mm CM ?3.7 ? mm ANATOMY ----- The following structures appear normal: Head / Neck ? Cranium. Head size. Head shape. Lateral ventricles. Midline falx. Cavum septi pellucidi. Cerebellum. Cisterna magna. Thalami. Face ? Lips. Profile. Nose. Heart / Thorax ?4-chamber view. RVOT view. LVOT view. Aortic arch view. 2-cmstlp-opkwsdf view. ? Diaphragm. Abdomen ? Stomach. Bladder. [...] medical record, and communicating with other health medicare contact specialist and/or care coordination. Procedure Note Zoey Real MD - 05/13/2023 Comp Follow Up ----- Pat. Name: GARDENIA SCOTT Study Date: 05/13/2023 8:32am Pat. NO: [id number] Referring MD: CASEY DAVIS Site: [facility] Appeals Specialist: Denise Kuhn RDMS : 1990 Age: 32 ----- INDICATION ----- Follow up suboptimal anatomy. BMI 44. Declined screening. METHOD ----- Transabdominal ultrasound examination. View: Sufficient ----- Cook . Number of fetuses: 1 DATING ----- DateDetailsGest. age JEFF LMP 12/05/2022ycle: irregular, long [id number] w + 5 d 09/11/2023 Prior assessment [...] 1 lb 4 oz EFW by Hadlock ([id number]-MB-[id number]-FL) Head / Face / Neck Biometry: Coordinator Of Placement 3.7 mm CM 3.7 mm ANATOMY ----- The following structures appear normal: Head / Neck Cranium. Head size. Head shape.Lateral ventricles. Midline falx. Cavum septi pellucidi. Cerebellum.Cisterna magna. Thalami. Face Lips. Profile. Nose. Heart / Thorax 4-chamber view. RVOT view. LVOT view.Aortic arch view. 3-toeatc-kdxpqup view. Diaphragm. Abdomen Stomach. Bladder. Spine Cervical [...] electronic medical record, andcommunicating with other health medicare contact specialist and/or carecoordination. IMPRESSION ----- 1. Cook intrauterine at 21w 5d gestational age here forcompletion of anatomy. 2. The remaining anatomic survey was completed, no anomaliescommonly detected by ultrasound were identified within the limits ofprenatal ultrasound. 3. Growth parameters and estimated weight were slightly ahead ofestablished dates, EFW 97%. 4. The amniotic fluid volume appeared normal. Patti Ferris MD [facility] documented in this encounter Visit Diagnoses Diagnosis Encounter for follow-up ultrasound of anatomy documented in this encounter Additional Health Concerns Assessment Noted Time PHQ-9 Depression Total Score: 8 03/31/20 21 7:02 AM CDT documented as of this encounter Care Teams Equipment Maintenance Tech Relationship Specialty Start Date End Date Shamar Claros MD [address] [facility] [place] [address] PCP - General Internal Medicine 05/17/17 [place] [address] [place] [address] [place] [address] Assigned PCP 09/08/22 Patti Ferris MD [address] [address] [address] Assigned OBGYN Provider 04/27/23 documented as of this encounter
--- OUTSIDE RECORDS SUMMARY | 2023-09-04 12:07 | XMS_ITS | Encounter Summary ---
Author Name Unknown Organization [place] Address [address] [place] [address] Care Team Providers Care Front Maker Name Role Phone Shamar Claros MD Primary Care Provider + [phone] Shamar Claros MD Unavailable [phone] Reason for Referral * Diagnostic Imaging Ultrasound (Routine) - Pending Review Specialty Diagnoses / Procedures Referred By Contac t Referred To Contact Radiology. Diagnoses related condition, antepartum Procedures MFM US Comprehensive Single Rh Maternal Med [address] [place] [address] Referral ID Status Reason Start Date Expiration Date V isits Requested Visits Authorized [id number] Pending Review 04/11/2023 04/10/2024 1 1 * Consultation (Routine: Next available opening) - Pending Review Specialty Diagnoses / Procedures Referred By Contac t Referred To Contact Diagnoses related condition, antepartum Rh Maternal Med [address] [place] [address] Rh Maternal Med [address] [place] [address] Referral ID Status Reason Start Date Expiration Date V isits Requested Visits Authorized [id number] Pending Review 04/11/2023 04/10/2024 1 1 Question Answer Preferred Location: [facility] [place] JEFF 09/17/2023 Ultrasound Comprehensive US (>than 18 weeks GA) US PROC NONE MFM Issue OTHER (enter details in Comments) - BMI MFM MD Consultation (unrelated to Ultrasound findings): No Inflammatory Bowel Disease Clinic: Joint MFM and GI Consultation: No Chronic Kidney Disease: Joint MFM and Nephrology Consultation No Genetic Counseling Consultation: No fax [facility] Casey Bacon [phone] Comments BMI Encounter Details Date Type Department Care Team (Late st Contact Info) Description 04/11/2023 Transcribe Orders [facility] [place] [address] [facility] [address] [place] [address] Casey Bacon APRN [facility] [address] [place] [address] related condition, antepartum (Primary Dx) Social History [...] documented as of this encounter Results * [facility] US Comprehensive Single (04/22/2023 11:59 AM CDT) [...] SCOTT Study Date: 04/22/2023 11:03am Pat. NO: [id number] Referring ??: CASYE BACON Site: [facility] Dispenser: Lauren Mcdowell RDMS : 1990 Age: 32 [...] 0 lb 9 ?oz EFW by ?Hadlock ([id number]) Head / Face / Neck Biometry: Steam Gigger ? 6.7 ? mm CM ?2.7 ? [...] cava. Inferior vena cava. 3-vessel view. ? 6-iohaox-zkpilgz view. Cardiac position. Cardiac size. Cardiac rhythm. [...] medical record, and communicating with other health attending ambulatory care and/or care coordination. Please see note for details. Procedure Note Patti Ferris MD - 04/22/2023 Comprehensive ----- Pat. Name:SHAYY SCOTTCharlenedeon Date:04/22/2023 11:03am Pat. NO: [id number] MD:CASEY BACON [facility]:Lauren Mcdowell RDMS :1990Age:32 ----- INDICATION ----- Obesity BMI 44 METHOD ----- Transabdominal ultrasound examination. View: Sufficient ----- Cook . Number of fetuses: 1 DATING ----- DateDetailsGest. age JEFF LMP 12/05/2022ycle: irregular, long [id number] w + 5 d 09/11/2023 Prior assessment [...] 0 lb 9 oz EFW by Radlock ([id number]) Head / Face / Neck Biometry: Steam Gigger 6.7 mm CM 2.7 mm Nasal bone [...] Superior vena cava. Inferior venacava. 3-vessel view. 2-jpdcay-rltczix view. Cardiacposition. Cardiac size. Cardiac rhythm. Right [...] electronic medical record, andcommunicating with other health attending ambulatory care and/or carecoordination. Please see note for details. [...] documented as of this encounter Care Teams Front Maker Relationship Specialty Start Date End Date Shamar Claros MD [address] [place] [address] [place] [address] PCP - General Internal Medicine 05/17/17 [place] [address] [place] [address] [place] [address] Assigned PCP 09/08/22 documented as of this encounter
--- OUTSIDE RECORDS SUMMARY | 2023-09-04 12:07 | XMS_ITS | Encounter Summary ---
Author Name Unknown Organization [place] Address [address] [place] [address] Care Team Providers Care Counselor/Art Therapist Name Role Phone Shamar Claros MD Primary Care Provider [phone] Melina Sousa PA-C Unavailable [phone] Janis Jacobs MD Unavailable [phone] Shamar Claros MD Unavailable [phone] Patti Ferris MD Unavailable [phone] Encounter Details Date Type Department Care Team (Late st Contact Info) Description 07/12/2021 [facility] [place] [place] Medical Advice [facility] [address] [place] [id number] Britney Hanson Social History Tobacco Use Types [...] Noted Time PHQ-9 Depression Total Score: 8 03/31/ 21 7:02 AM CDT documented as of this encounter Care Teams Counselor/Art Therapist Relationship Specialty Start Date End Date Shamar Claros MD [address] [facility] [place] [address] PCP - General Internal Medicine 05/17/17 Melina Sousa PA-C [address] [place] [address] Assigned PCP 12/25/20 03/23/22 Janis Jacobs MD [address] [place] [address] Assigned OBGYN Provider 04/09/21 3 Shamar Claros MD [address] [facility] [place] [address] Assigned PCP 09/08/22 Patti Ferris MD [address] [address] Assigned OBGYN Provider 04/27/23 documented as of this encounter
--- OUTSIDE RECORDS SUMMARY | 2023-09-04 12:07 | XMS_ITS | Encounter Summary ---
Author Name Unknown Organization [place] Address [address] [place] [address] Care Team Providers Care Dough Cutting Machine Operator Name Role Phone Shamar Claros MD Primary Care Provider Steph Fraga MD Unavailable [phone] Melina Sousa PA-C Unavailable [phone] Alanis Dillard CNM Unavailable [phone] Steph Fraga MD Unavailable [phone] Melina Sousa PA-C Unavailable [phone] Janis Jacobs MD Unavailable [phone] Shamar Claros MD Unavailable Patti Ferris MD Unavailable [phone] Encounter Details Date Type Department Care Team (Late st Contact Info) Description 10/10/2019 [facility] [place] [facility] [place] [address] [place] [address] Drive [address] [place] [address] [place] [address] [place] [address] [place] [address] Social History Tobacco Use [...] RN - 10/12/2019 9:32 AM CDT Sent Highlighter message. - Bryant Nowak, RN - Patient Advocate Liason (PAL) [facility] documented in this encounter Plan of Treatment Not on file documented as of this encounter Visit Diagnoses Not on filedocumented in this encounter Care Teams Dough Cutting Machine Operator Relationship Specialty Start Date End Date Shaamr Claros MD [address] [place] [address] [place] [address] PCP - General Internal Medicine 05/17/17 Steph Fraga MD [address] [place] [address] [place] [address] Assigned PCP 12/29/17 10/17/19 Melina Sousa PA-C [address] [place] [address] 427522 Assigned PCP 10/18/19 10/15/20 Alanis Dillard CNM [address] [place] [place], [place] 4[address] Assigned OBGYN Provider 05/06/20 Steph Fraga MD [address] [place] [address] [place] [address] Assigned PCP 10/16/20 12/24/20 Melina Sousa PA-C [address] [place], [place] 140[address] Assigned PCP 12/25/20 03/23/22 Janis Jacobs MD [address] [place] [address] Assigned OBGYN Provider 04/09/21 3 Shamar Claros MD [address] [facility] [place] [address] Assigned PCP 09/08/22 Patti Ferris MD [address] 463494 Assigned OBGYN Provider 04/27/23 documented as of this encounter
--- OUTSIDE RECORDS SUMMARY | 2023-09-04 12:07 | XMS_ITS | Encounter Summary ---
Author Name Unknown Organization [place] Address [address] [place] [address]. [place] [address] Care Team Providers Care Civil Structural Engineer Name Role Phone Shamar Claros MD Primary Care Provider + [phone] Shamar Claros MD Unavailable [phone] Encounter Details Date Type Department Care Team (Latest Contact Info) Description 04/11/[address] [facility] [address] [place] [address] Outside, Provider [facility] PROVIDER [...] documented as of this encounter Care Teams Civil Structural Engineer Relationship Specialty Start Date End Date Shamar Claros MD [address] [facility] [place] [address] PCP - General Internal Medicine 05/17/17 Shamar Claros MD [address] [facility] [address] [place], [place] [address] Assigned PCP 09/08/22 documented as of this encounter
--- OUTSIDE RECORDS SUMMARY | 2023-09-04 12:07 | XMS_ITS | Encounter Summary ---
Author Name Unknown Organization [place] Address [facility] [place] [address] Care Team Providers Care Clearance Center Manager Name Role Phone Shamar Claros MD Primary Care Provider + [phone] Janis Jacobs MD Unavailable [phone] Shamar Claros MD Unavailable [phone] Patti Ferrsi MD Unavailable [phone] Encounter Details Date Type Department Care Team (Late st Contact Info) Description 07/30/2022 [facility] [place] Medical Advice [facility] [place] [address] [facility] [address] [place] [address] Shamar Claros MD [address] [facility] [place] [address] Social History Tobacco Use [...] documented as of this encounter Care Teams Clearance Center Manager Relationship Specialty Start Date End Date Shamar Claros MD [address] [facility] [place] [address] PCP - General Internal Medicine 05/17/17 Janis Jacobs MD [address] [place] [address] Assigned OBGYN Provider 04/09/21 3 Shamar Claros MD [address] [facility] [place] [address] Assigned PCP 09/08/22 Patti Ferris MD [address] [place] [address] Assigned OBGYN Provider 04/27/23 documented as of this encounter
--- OUTSIDE RECORDS SUMMARY | 2023-09-04 12:07 | XMS_ITS | Encounter Summary ---
Author Name Unknown Organization [place] Address [address] [place] [address] Care Team Providers Care Meteorological Observer Name Role Phone Shamar Claros MD Primary Care Provider Steph Fraga MD Unavailable [phone] Melina Sousa PA-C Unavailable [phone] Alanis Dillard CNM Unavailable [phone] Steph Fraga MD Unavailable [phone] Melina Sousa PA-C Unavailable Janis Jacobs MD Unavailable [phone] Shamar Claros MD Unavailable [phone] Patti Ferris MD Unavailable [phone] Reason for Referral * Diagnostic Imaging Ultrasound (Routine) - Closed Specialty Diagnoses / Procedures Referred By Contluz marina t Referred To Contact Radiology. Diagnoses RLQ abdominal pain Procedures US Pelvic Complete w Transvaginal Melina Sousa PA-C [address] [place] [address] Rh Ultrasound [facility] [address] [place] [address] [place] [address] Referral ID Status Reason Start Date Expiration Date Visits Re quested Visits Authorized [id number] Closed 10/14/2019 10/13/2020 1 1 Reason for Visit * Reason Onset Date Comments MyChart Communication 10/13/2019 lab result s Encounter Details Date Type Department Care Team ([facility] st Contact Info) Description 10/13/2019 My[facility] Medical Advice [address] [address] Melina Sousa PA-C [address] [place] [address] MyChart Communication (lab results) Social History Tobacco [...] call me back with any questions. Primo, chart clerk Nurse * Telephone Encounter - Vy Sheehan [...] 12:47 PM CDT Called pt back at [phone], not available, so LM to call me back at [phone]. Will await for her call back. JENNIFER [...] cervical lesions that pap is intended to product picker are painless. Vy Sheehan MD Internal [...] came back normal when she was at [facility]. She states the new pain she had discussed in her WriteReader ApSt message she felt only lasted 20 minutes [...] typically has its usually performed by an wire technician at an imaging appointment. She wanted [...] CDT Forwarded to LP. Please review patient's TrekCafet message and advise. Alanis Wright BS, RN, PHN [facility]) [phone] * Telephone Encounter - Alanis Wright RN - 10/13/2019 4:17 PM CDT TrekCafet message sent. BLANCA Bull, RN, [facility] Office: [phone] documented in this encounter Plan of Treatment [...] quadrant documented in this encounter Care Teams Meteorological Observer Relationship Specialty Start Date End Date Shamar Claros MD [address] [place] [address] [place] [address] PCP - General Internal Medicine 05/17/17 Steph Fraga MD [address] [place] [address] [place] [address] Assigned PCP 12/29/17 10/17/19 Melina Sousa PA-C [address] [place] [address] Assigned PCP 10/18/19 10/15/20 Alanis Dillard CNM [address] [place] [address] Assigned OBGYN Provider 05/06/20 Steph Fraga MD [address] [place] [address] [place] [address] Assigned PCP 10/16/20 12/24/20 Melina Sousa PA-C [address] [place] [address] Assigned PCP 12/25/20 03/23/22 Janis Jacobs MD [address] [place] [address] Assigned OBGYN Provider 04/09/21 3 Shamar Claros MD [address] [place] [address] Assigned PCP 09/08/22 Patti Ferris MD [address] [place], [place] [address] Assigned OBGYN Provider 04/27/23 documented as of this encounter
--- OUTSIDE RECORDS SUMMARY | 2023-09-04 12:07 | XMS_ITS | Encounter Summary ---
Author Name Unknown Organization [place] Address [facility] [place] [address] Care Team Providers Care Toy Designer Name Role Phone Shamar Claros MD Primary Care Provider Alanis Dillard CNM Unavailable [phone] Melina Sousa PA-C Unavailable [phone] Janis Jacobs MD Unavailable [phone] Shamar Claros MD Unavailable [phone] Patti Ferris MD Unavailable [phone] Encounter Details Date Type Department Care Team (Late st Contact Info) Description 03/30/2021 MyC Medical Advice [facility] [place] [address] [facility] [address] [place] [address] Maribell Torrez, LOG DECKMAN [address] [facility] [place] [address] [...] documented as of this encounter Care Teams Toy Designer Relationship Specialty Start Date End Date Shamar Claros MD [address] [facility] [place] [address] PCP - General Internal Medicine 05/17/17 Alanis Dillard CNM [address] [place] [address] Assigned OBGYN Provider 05/06/20 Melina Sousa PA-C [address] [place] [address] 874302 Assigned PCP 12/25/20 03/23/22 Janis Jacobs MD [address] [place] [address] Assigned OBGYN Provider 04/09/21 3 [place] [address] [place] [address] [place] [address] Assigned PCP 09/08/22 Patti Ferris MD [address] 919854 Assigned OBGYN Provider 04/27/23 documented as of this encounter
--- OUTSIDE RECORDS SUMMARY | 2023-09-04 12:07 | XMS_ITS | Encounter Summary ---
Author Name Unknown Organization [place] Address [address] [place] [address] Care Team Providers Care Caravan Park And Camping Ground Manager Name Role Phone Shamar Claros MD Primary Care Provider + [phone] Shamar Claros MD Unavailable [phone] Encounter Details Date Type Department Care Team [...] documented as of this encounter Care Teams Caravan Park And Camping Ground Manager Relationship Specialty Start Date End Date Shamar Claros MD [address] [facility] [place] [address] PCP - General Internal Medicine 05/17/17 Shamar Claros MD [address] [facility] [place] [id number] Assigned PCP 09/08/22 documented as of this encounter
--- OUTSIDE RECORDS SUMMARY | 2023-09-04 12:07 | XMS_ITS | Encounter Summary ---
Author Name Unknown Organization [place] Address [address] [place] [address] Care Team Providers Care Substation Electrician Name Role Phone Shamar Claros MD Primary Care Provider + [phone] Melina Sousa PA-C Unavailable [phone] Alanis Dillard CNM Unavailable [phone] Steph Fraga MD Unavailable [phone] Melina Sousa PA-C Unavailable [phone] Janis Jacobs MD Unavailable [phone] Shamar Claros MD Unavailable [phone] Patti Ferris MD Unavailable [phone] Encounter Details Date Type Department Care Team (Late st Contact Info) Description 04/20/2020 [facility] [address] [place] [address] Alanis Dillard CNM [address] [place] [address] Social History Tobacco Use Types [...] on filedocumented in this encounter Care Teams Substation Electrician Relationship Specialty Start Date End Date Shamar Claros MD [address] [place] [address] [place] [address] PCP - General Internal Medicine 05/17/17 Melina Sousa PA-C [address] [place] [address] 459262 Assigned PCP 10/18/19 10/15/20 Alanis Dillard CNM [address] [place] [address] Assigned OBGYN Provider 05/06/20 Steph Fraga MD [address] [place] [address] [place] [address] Assigned PCP 10/16/20 12/24/20 Melina Sousa PA-C [address] [place] [address] Assigned PCP 12/25/20 03/23/22 Janis Jacobs MD [address] [place] [address] Assigned OBGYN Provider 04/09/21 3 Shamar Claros MD [address] [place] [address] [place] [address] Assigned PCP 09/08/22 Patti Ferris MD [address] [address] Assigned OBGYN Provider 04/27/23 documented as of this encounter
--- OUTSIDE RECORDS SUMMARY | 2023-09-04 12:07 | XMS_ITS | Encounter Summary ---
Author Name Unknown Organization [place] Address [address] [place] [address] Care Team Providers Care Licensed Sales Producer Name Role Phone Shamar Claros MD Primary Care Provider + [phone] Shamar Claros MD Unavailable [phone] Reason for Referral * Diagnostic Imaging Ultrasound (Routine) - Pending Review Specialty Diagnoses / Procedures Referred By Contac t Referred To Contact Radiology. Diagnoses related condition, antepartum Procedures MFM US Comprehensive Single Rh Maternal Med [address] [place] [address] Referral ID Status Reason Start Date Expiration Date V isits Requested Visits Authorized [id number] Pending Review 04/11/2023 04/10/2024 1 1 Reason for Visit * Diagnostic Imaging Ultrasound (Routine) - Pending Review Specialty Diagnoses / Procedures Referred By Contac t Referred To Contact Radiology. Diagnoses related condition, antepartum Procedures MFM US Comprehensive Single Rh Maternal Med [address] [place] [address] Referral ID Status Reason Start Date Expiration Date V isits Requested Visits Authorized [id number] Pending Review 04/11/2023 04/10/2024 1 1 Encounter Details Date Type Department Care Team ([facility] st Contact Info) Description 04/22/2023 11:00 AM CDT - 04/22/2023 11:59 PM CDT Hospital Encounter [facility] [place] [address] [place] [address] Non-Fv Credentialed Provider, Radiology Francis Min MD [address] [place] [address] Patti Ferris MD [address] [place] [address] related condition, antepartum Discharge Disposition: [...] with antibiotics in the past 60 days [place] 1 spray into both nostrils daily 9.9 [...] Procedure Name Priority Date/Time Associated Diagnosis Comments [facility] US COMPREHENSIVE SINGLE Routine 04/22/2023 11:59 AM CDT related condition, antepartum documented in this encounter Results * [facility] US Comprehensive Single (04/22/2023 11:59 AM [...] SCOTT Study Date: 04/22/2023 11:03am Pat. NO: [id number] Referring ??MD: CASEY DAVIS Site: [facility] Blueprint Reproducer: Lauren Mcdowell RDMS : 1990 Age: 32 [...] 0 lb 9 ?oz EFW by ?Hadlock ([id number]-RY-[id number]-FL) Head / Face / Neck Biometry: Director Informatics ? 6.7 ? mm CM ?2.7 ? [...] cava. Inferior vena cava. 3-vessel view. ? 6-tuezfd-pyeefvp view. Cardiac position. Cardiac size. Cardiac rhythm. [...] and communicating with other health child care teacher and/or care coordination. Please see note for details. Procedure Note Patti Ferris MD - 04/22/2023 Comprehensive ----- Pat. Name:Bill SCOTT Date:04/22/2023 11:03am Pat. NO: [id number] :CASEY DAVIS [facility]Lauren [facility]cdowell RDMS :1990Age:32 ----- INDICATION ----- Obesity BMI 44 METHOD ----- Transabdominal ultrasound examination. View: Sufficient ----- Cook . Number of fetuses: 1 DATING ----- DateDetailsGest. age JEFF LMP 12/05/2022ycle: irregular, long [id number] w + 5 d 09/11/2023 Prior assessment [...] 0 lb 9 oz EFW by Hadlock (FGB-WR-[id number]-FL) Head / Face / Neck Biometry: Director Informatics 6.7 mm CM 2.7 mm Nasal bone [...] Superior vena cava. Inferior venacava. 3-vessel view. 2-paxhkb-prvhcqv view. Cardiacposition. Cardiac size. Cardiac rhythm. Right [...] record, andcommunicating with other health child care teacher and/or carecoordination. Please see note for details. [...] documented as of this encounter Care Teams Licensed Sales Producer Relationship Specialty Start Date End Date Shamar Claros MD [address] [facility] [place] [address] PCP - General Internal Medicine 05/17/17 Shamar Claros MD [address] [facility] [place] [address] Assigned PCP 09/08/22 documented as of this encounter
--- OUTSIDE RECORDS SUMMARY | 2023-09-04 12:07 | XMS_ITS | Encounter Summary ---
Author Name Unknown Organization [place] Address [address] [place] [address] Care Team Providers Care Habitat Conservation Planner Name Role Phone Shamar Claros MD Primary Care Provider [phone] Melina Sousa PA-C Unavailable [phone] Janis Jacobs MD Unavailable [phone] Shamar Claros MD Unavailable [phone] Patti Ferris MD Unavailable [phone] Encounter Details Date Type Department Care Team (Late st Contact Info) Description 07/18/2021 [facility] [address] [place] [address] Shamar Claros MD [address] [facility] [place] [address] Social History Tobacco [...] Coronavirus / COVID-19? Yes 07/20/2021 9:51 PM PRODUCTION SORTER documented as of this encounter Plan of Treatment Not on file documented as of this encounter Visit Diagnoses Not on filedocumented in this encounter Additional Health Concerns Assessment Noted Time PHQ-9 Depression Total Score: 8 03/31/20 21 7:02 AM CDT documented as of this encounter Care Teams Habitat Conservation Planner Relationship Specialty Start Date End Date Shamar Claros MD [address] [facility] [place] [address] PCP - General Internal Medicine 05/17/17 Melina Sousa PA-C [address] [place] [address] 834722 Assigned PCP 12/25/20 03/23/22 Janis Jacobs MD [address] [place] [address] Assigned OBGYN Provider 04/09/21 3 Shamar Claros MD [address] [facility] [place] [address] Assigned PCP 09/08/22 Patti Ferris MD [address] [place], [place] [address] Assigned OBGYN Provider 04/27/23 documented as of this encounter
--- OUTSIDE RECORDS SUMMARY | 2023-09-04 12:07 | XMS_ITS | Encounter Summary ---
Author Name Unknown Organization [place] Address [facility], [facility] [place] [address] Care Team Providers Care Sewing Teacher Name Role Phone Shamar Claros MD Primary Care Provider [phone] Alanis Dillard CNKatty Unavailable [phone] Melina Sousa PA-C Unavailable [phone] Janis Jacobs MD Unavailable [phone] Shamar Claros MD Unavailable [phone] Patti Ferris MD Unavailable [phone] Reason for Visit * Reason Onset Date Comments Medication Question 03/28/2021 Encounter Details Date Type Department Care Team (Late st Contact Info) Description 03/28/2021 My[facility] Medical Advice [address] [place] [address] Janis Jacobs MD [address] [place] [address] Medication Question Social History Tobacco [...] on filedocumented in this encounter Care Teams Sewing Teacher Relationship Specialty Start Date End Date Shamar Claros MD [address] [facility] [place] [address] PCP - General Internal Medicine 05/17/17 Alanis Dillard CNM [address] [place] [address] Assigned OBGYN Provider 05/06/20 Melina Sousa PA-C [address] [place] [address] Assigned PCP 12/25/20 03/23/22 Janis Jacobs MD [address] [place] [address] Assigned OBGYN Provider 04/09/21 3 Shamar Claros MD [address] [facility] [place] [address] Assigned PCP 09/08/22 Patti Ferris MD [address] [place] [address] Assigned OBGYN Provider 04/27/23 documented as of this encounter
== END 2023-09-04 11:41 | disposition home or self-care (01) ==
LOC: NFLDREF 12:05
PROVIDERS: Visit Provider Obstetrics & Gynecology
DX: Z34.93 Encounter for supervision of normal pregnancy, unspecified, third trimester (principal)
CPT/HCPCS: 87070

== ENCOUNTER 2024-03-02 09:05 | Emergency (ER) | payer OTHER, SELFPAY ==
[2024-03-02 09:08] VITALS: BP 137/81; PULSE 60; RESP 18; TEMP 35.6; O2SAT 98; BMI 45.6
--- NOTE | 2024-03-02 09:54 | ED.CHESTPAIN ---
HPI - Chest Pain General Date Seen: 03/02/24 <Emir Hargrove DO - Last Filed: 03/02/24 14:35> Chief Complaint: Chest Pain <Emir Hargrove DO - Last Filed: 03/02/24 14:35> Stated Complaint: Chest pain <Emir Hargrove DO - Last Filed: 03/02/24 14:35> Time Seen by Provider: 03/02/24 09:16 <Emir Hargrove DO - Last Filed: 03/02/24 14:35> Source: patient <Emir Hargrove DO - Last Filed: 03/02/24 14:35> Mode of arrival: ambulatory <Emir Hargrove DO - Last Filed: 03/02/24 14:35> Limitations: no limitations <Emir Hargrove DO - Last Filed: 03/02/24 14:35> History of Present Illness HPI narrative: Patient is a 33-year-old female presenting to emergency department for chest pain. She states chest pain is her lower sternal region about around her bra line/epigastric region. Symptoms started this morning and she feels it radiate into her back. States she feels mildly short of breath with this. She started feeling site the off last night but did not think much about it until she woke up this morning and was having the symptoms come and intermittently. She thought it was GERD which she has had before so tried omeprazole without relief. Also took Tylenol without improvement in her symptoms. Initially thought it was anxiety but states she has never had symptoms like this before with her anxiety. No history of blood clots, unilateral leg swelling, hormone use, surgery within the past 4 weeks, hemoptysis, blood clots. No family history of cardiac issues so young age and she is aware of. No recent injuries to her chest. States it feels like is difficult to get a full breath when she takes a deep breath. No other concerns noted. No recent viral symptoms. No known sick contacts <Emir Hargrove DO - Last Filed: 03/02/24 14:35> Related Data Home Medications: Previous Rx's ?Medication ?Instructions ?Recorded oxycodone 5 mg capsule 5 mg PO Q6H PRN pain #12 caps 03/02/24 oxycodone 5 mg capsule 5 mg PO Q6H PRN pain #12 caps 03/02/24 <Emir Hargrove DO - Last Filed: 03/02/24 14:35> Allergies/Adverse Reactions: Allergies Allergy/AdvReac Type Severity Reaction Status Date / Time Sulfa (Sulfonamide Allergy Mild Rash Verified 10/07/23 10:03 Antibiotics) <Emir Hargrove DO - Last Filed: 03/02/24 14:35> Review of Systems Status of ROS Reports: 10 or more systems reviewed and unremarkable except as noted in History and below <Emir Hargrove DO - Last Filed: 03/02/24 14:35> PFSH PFSH Medical History: Medical History Hx of macrosomia in infant in prior , currently ?O09.299 - Supervision of with other poor reproductive or obstetric history, unspecified trimester (ICD-10) Fracture dislocation of joint of right upper extremity <Emir Hargrove DO - Last Filed: 03/02/24 14:35> Surgical History: Surgical History Status post repeat low transverse section (08/28/23) ?Z98.891 - History of uterine scar from previous surgery (ICD-10) S/P ORIF (open reduction internal fixation) fracture ?Z98.890 - Other specified postprocedural states (ICD-10) ?Z87.81 - Personal history of (healed) traumatic fracture (ICD-10) History of delivery ?Z98.891 - History of uterine scar from previous surgery (ICD-10) <Emir Hargrove DO - Last Filed: 03/02/24 14:35> Social History: Social History Narrative: SOCIAL Education: Bachelors degree, Psychology 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, [employer] Partner: Malcolm, Works 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 home as [employer]ner in [employer] Lives with: Katalina Fowler Pets: 3 cats Abuse: Denies past/present Special Diet: Denies, has used KETO in past and may use at times during Ok with a blood transfusion: yes Culture or bahai beliefs: Nondenominational RISK FACTORS Exercise Times/wk: not routine, planning to start some mild activity Depression/Anxiety: Not diagnosed Seat Belt Use: Routinely Smoking: Denies past/present Alcohol/day: Denies while ; occasionally socially Caffeine: Diet Coke and Celsius drinks, stopped with Drug Use: Denies past/present Chicken Pox: Vaccinated MRSA: Denies What is your current living situation?: I presently have a place to live Problems where you live: no known problems In the past 12 months, utilities in danger of being shut off: no In past 12 months, lack of transportation kept you from medical appts, meetings, work, or getting things needed for daily living: no In the past 12 mos, have been you worried that your food would run out before you had money to buy more?: never true In the past 12 mos, the food you bought just didn't last and you didn't have money to buy more?: never true Smoking Status: Never smoker How often do you have a drink containing alcohol: never AUDIT-C Alcohol total score: 0 Non-prescribed substance use: denies use How often does anyone, including family, friends and others, physically hurt you: never How often does anyone, including family, friends and others, insult or talk down to you: never How often does anyone, including family, friends and others, threaten you with harm: never How often does anyone, including family, friends and others, scream or curse at you: never Little interest or pleasure in doing things: not at all Feeling down, depressed, or hopeless: not at all <Emir Hargrove DO - Last Filed: 03/02/24 14:35> Exam Narrative Exam Narrative: Const: Well-nourished, Well-developed, in mild distress Eyes: PERRL, no conjunctival injection, and symmetrical lids HENT: Atraumatic external nose and ears. Moist mucous membranes. Neck: Symmetric, trachea midline, No thyromegaly. CVS: RRR, No murmurs or gallops. Peripheral pulses 2+ and equal in all extremities RESP: Unlabored respiratory effort. Clear to auscultation bilaterally. GI: Nontender/Nondistended, No rebound or guarding. MSK:Extremities w/o deformity, Normal Active ROM, no tenderness to palpation of chest, no lower extremity swelling noted Skin: Warm, Dry. No rashes or lesions. Neuro: Normal Muscle tone, No focal neurological deficits. Psych: Awake, Alert, & Oriented x3. Appropriate mood and affect. <Emir Hargrove DO - Last Filed: 03/02/24 14:35> Const Vital Signs, click to edit/add: Vital Signs - 24 hr 03/02/24 09:08 03/02/24 11:06 03/02/24 14:12 Temperature 96.1 F L Pulse Rate [Pulse Oximeter] 60 64 54 L Respiratory Rate 18 20 16 Blood Pressure [Right Upper Arm] 137/81 136/74 117/41 L Pulse Oximetry 98 96 98 Oxygen Delivery Method Room Air Room Air Room Air <Emir Hargrove DO - Last Filed: 03/02/24 14:35> Vital Signs - 24 hr 03/02/24 09:08 03/02/24 11:06 03/02/24 14:12 Temperature 96.1 F L Pulse Rate [Pulse Oximeter] 60 64 54 L Respiratory Rate 18 20 16 Blood Pressure [Right Upper Arm] 137/81 136/74 117/41 L Pulse Oximetry 98 96 98 Oxygen Delivery Method Room Air Room Air Room Air <Nica Russo MD - Last Filed: 03/02/24 17:21> Course Vital Signs Vital signs: Initial Vital Signs Temperature 96.1 F L 03/02/24 09:08 Temperature Source Temporal Artery Scan 03/02/24 09:08 Pulse Rate 60 03/02/24 09:08 Respiratory Rate 18 03/02/24 09:08 Blood Pressure 137/81 03/02/24 09:08 Blood Pressure Mean 99 03/02/24 09:08 Blood Pressure Position Sitting 03/02/24 09:08 Pulse Oximetry 98 03/02/24 09:08 Oxygen Delivery Method Room Air 03/02/24 09:08 Vital Signs Temperature 96.1 F L 03/02/24 09:08 Pulse Rate 60 03/02/24 09:08 Respiratory Rate 18 03/02/24 09:08 Blood Pressure 137/81 03/02/24 09:08 Pulse Oximetry 98 03/02/24 09:08 Oxygen Delivery Method Room Air 03/02/24 09:08 Temperature 96.1 F L 03/02/24 09:08 Pulse Rate 54 L 03/02/24 14:12 Respiratory Rate 16 03/02/24 14:12 Blood Pressure 117/41 L 03/02/24 14:12 Pulse Oximetry 98 03/02/24 14:12 Oxygen Delivery Method Room Air 03/02/24 14:12 <Emir Hargrove DO - Last Filed: 03/02/24 14:35> Initial Vital Signs Temperature 96.1 F L 03/02/24 09:08 Temperature Source Temporal Artery Scan 03/02/24 09:08 Pulse Rate 60 03/02/24 09:08 Respiratory Rate 18 03/02/24 09:08 Blood Pressure 137/81 03/02/24 09:08 Blood Pressure Mean 99 03/02/24 09:08 Blood Pressure Position Sitting 03/02/24 09:08 Pulse Oximetry 98 03/02/24 09:08 Oxygen Delivery Method Room Air 03/02/24 09:08 Vital Signs Temperature 96.1 F L 03/02/24 09:08 Pulse Rate 60 03/02/24 09:08 Respiratory Rate 18 03/02/24 09:08 Blood Pressure 137/81 03/02/24 09:08 Pulse Oximetry 98 03/02/24 09:08 Oxygen Delivery Method Room Air 03/02/24 09:08 Temperature 96.1 F L 03/02/24 09:08 Pulse Rate 54 L 03/02/24 14:12 Respiratory Rate 16 03/02/24 14:12 Blood Pressure 117/41 L 03/02/24 14:12 Pulse Oximetry 98 03/02/24 14:12 Oxygen Delivery Method Room Air 03/02/24 14:12 <Nica Russo MD - Last Filed: 03/02/24 17:21> Medications Administered Medications: Discontinued Medications Generic Name Dose Route Start Last Admin Trade Name Freq PRN Reason Stop Dose Admin Lidocaine/Aluminum/Magnesium/Simeth 30 ml 03/02/24 11:13 03/02/24 11:24 Gi Cocktail (Visc Lido/Antacid) 30 Ml PO 03/02/24 11:14 30 ml ONCE ONE Administration Lorazepam 1 mg 03/02/24 13:35 03/02/24 13:47 Lorazepam 1 Mg Tablet PO 03/02/24 13:36 1 mg ONCE ONE Administration Oxycodone HCl 5 mg 03/02/24 14:18 08/19/24 14:23 Oxycodone 5 Mg Tablet PO 03/02/24 14:19 5 mg ONCE ONE Administration <Emir Hargrove DO - Last Filed: 03/02/24 14:35> Discontinued Medications Generic Name Dose Route Start Last Admin Trade Name Ryan PRN Reason Stop Dose Admin Lidocaine/Aluminum/Magnesium/Simeth 30 ml 03/02/24 11:13 03/02/24 11:24 Gi Cocktail (Visc Lido/Antacid) 30 Ml PO 03/02/24 11:14 30 ml ONCE ONE Administration Lorazepam 1 mg 03/02/24 13:35 03/02/24 13:47 Lorazepam 1 Mg Tablet PO 03/02/24 13:36 1 mg ONCE ONE Administration Oxycodone HCl 5 mg 03/02/24 14:18 03/02/24 14:23 Oxycodone 5 Mg Tablet PO 03/02/24 14:19 5 mg ONCE ONE Administration <Nica Russo MD - Last Filed: 03/02/24 17:21> MDM - Chest Pain MDM Narrative Medical decision making narrative: Patient is a 33-year-old female presenting to emergency department for chest pain. The differential diagnosis of chest pain is broad and includes common etiologies such as musculoskeletal strain, GERD, pneumonia, etc. More serious etiologies considered include PE, coronary artery disease, pneumothorax, aortic dissection, aortic aneurysm. Will do a chest x-ray to look for signs of pneumonia or pneumothorax. She is PERC rule negative in PE can not be ruled out. EKG and troponin order to look for signs of coronary artery disease. She has very few risk factors for aortic dissection or aortic aneurysm is otherwise stable vital signs in the seem relatively unlikely at this time. Pains also in epigastric region so I will order a lipase, CBC, CMP, magnesium, urinalysis. Will also do a COVID/flu/RSV. Lab work showed no acute concerning abnormalities. She has very mildly elevated AST and ALT. Urinalysis shows no concerning abnormalities. EKG shows no concerning findings and troponin is within normal limits. Concerning symptoms started yesterday and not believe a repeat troponin is necessary. COVID/flu/RSV shows no concerning findings. Chest x-ray reviewed by myself and the radiologist shows no acute abnormalities. Considering the location of her symptoms though there is some concern for gallbladder issues and an ultrasound will be ordered. Ultrasound shows cholelithiasis but no signs of cholecystitis. She does have a dilated common bile duct of unknown etiology. Considering her symptoms have improved she can follow-up outpatient general surgery for an MRCP/ERCP if they deem necessary. She is agreeable to this plan. She still is concerned this could be anxiety related so I will order a dose of Ativan. Patient's pain was starting to come back and now offered to do the MRCP now but she refuses and would rather follow up outpatient. She is now seen the pain is more in her lower sternal region rather than the epigastric illness this seems inconsistent with gallbladder pain. She is given oxycodone prior to discharge. Oxycodone prescriptions given as it is safer in breast feeding than Toradol <Emir Hargrove, DO - Last Filed: 03/02/24 14:35> Patient is a 33-year-old female presenting to emergency department for chest pain. The differential diagnosis of chest pain is broad and includes common etiologies such as musculoskeletal strain, GERD, pneumonia, etc. More serious etiologies considered include PE, coronary artery disease, pneumothorax, aortic dissection, aortic aneurysm. Will do a chest x-ray to look for signs of pneumonia or pneumothorax. She is PERC rule negative in PE can not be ruled out. EKG and troponin order to look for signs of coronary artery disease. She has very few risk factors for aortic dissection or aortic aneurysm is otherwise stable vital signs in the seem relatively unlikely at this time. Pains also in epigastric region so I will order a lipase, CBC, CMP, magnesium, urinalysis. Will also do a COVID/flu/RSV. Lab work showed no acute concerning abnormalities. She has very mildly elevated AST and ALT. Urinalysis shows no concerning abnormalities. EKG shows no concerning findings and troponin is within normal limits. Concerning symptoms started yesterday and not believe a repeat troponin is necessary. COVID/flu/RSV shows no concerning findings. Chest x-ray reviewed by myself and the radiologist shows no acute abnormalities. Considering the location of her symptoms though there is some concern for gallbladder issues and an ultrasound will be ordered. Ultrasound shows cholelithiasis but no signs of cholecystitis. She does have a dilated common bile duct of unknown etiology. Considering her symptoms have improved she can follow-up outpatient general surgery for an MRCP/ERCP if they deem necessary. She is agreeable to this plan. She still is concerned this could be anxiety related so I will order a dose of Ativan. Patient's pain was starting to come back and now offered to do the MRCP now but she refuses and would rather follow up outpatient. She is now seen the pain is more in her lower sternal region rather than the epigastric illness this seems inconsistent with gallbladder pain. She is given oxycodone prior to discharge. Oxycodone prescriptions given as it is safer in breast feeding than Toradol 172: I was asked by nursing to send the prescription for oxycodone block from original physician to [facility] in [place] as the [facility]'s was out of this medication and patient is on her way of [place]. We did confirm with [facility]'s [place] that the indeed did not fill this prescription. I send oxycodone 5 mg p.o. q.6 hours p.r.n. 12. Tablets to [facility] in [place] electronically. <Nica Russo MD - Last Filed: 03/02/24 17:21> Lab Data Labs: Lab Results 03/02/24 03/02/24 03/02/24 Range/Units 09:32 09:40 09:41 WBC 7.24 (4.50-11.00) K/uL RBC 4.92 (4.00-5.20) m/uL Hgb 14.0 (12.0-16.0) gm/dL Hct 42.6 (33.0-51.0) % MCV 87 (80-100) fL MCH 29 (26-34) pg MCHC 33 (32-36) gm/dL RDW Coeff of Stefanie 13.1 (11.5-15.5) % Plt Count 255 (140-440) K/uL Neut % (Auto) 75.8 H (42.0-72.0) % Lymph % (Auto) 19.3 L (20-44) % [place] % (Auto) 3.7 (0.0-11.0) % Eos % (Auto) 1.0 (0.0-7.0) % Baso % (Auto) 0.1 (0.0-3.0) % Neut # (Auto) 5.50 (1.7-7.0) K/uL Lymph # (Auto) 1.40 (0.90-2.90) K/uL [place] # (Auto) 0.30 (0.00-0.90) K/UL Eos # (Auto) 0.07 (0.00-0.50) K/uL Baso # (Auto) 0.01 (0.00-0.30) K/uL Abs Immat Gran (auto) 0.01 (0.00-0.30) K/uL Imm/Tot Granulo (auto) 0.1 % Sodium 136 (135-149) mmol/L Potassium 4.2 (3.6-5.1) mmol/L Chloride 102 (96-114) mmol/L Carbon Dioxide 27 (20-32) mmol/L Anion Gap 7 (7-15) mEq/L BUN 12 (5-24) mg/dL Creatinine 0.7 (0.5-1.5) mg/dL Estimated Creat Clear 114.23 Estimated GFR 116 ml/min Glucose 121 H (60-115) mg/dL Calcium 9.9 (8.4-10.6) mg/dL Magnesium 1.7 (1.5-2.6) mg/dL Total Bilirubin 1.0 (0.1-1.5) mg/dL AST 55 H (12-35) U/L ALT 40 H (4-35) U/L Alkaline Phosphatase 97 (40-150) U/L Total Protein 7.6 (6.0-8.3) g/dL Albumin 4.3 (3.3-5.0) g/dL Lipase 64 (23-300) U/L Urine Color Yellow (Yellow) Urine Appearance Clear (Clear) Urine pH 7.5 (5.0-8.5) Ur Specific [place] 1.020 (1.000-1.030) Urine Protein Negative (Negative) Urine Glucose (UA) Negative (Negative) Urine Ketones Negative (Negative) Urine Blood Negative (Negative) Urine Nitrite Negative (Negative) Urine Bilirubin Negative (Negative) Urine Urobilinogen 0.2 (0.2-1.0) Ur Leukocyte Esterase Negative (Negative) Urine RBC 0-2 (0-2) Urine WBC 0-2 (0-5) Ur Squamous Epith Cells Few (None-Few) Urine Bacteria Few A (None) Urine HCG, Qual Negative (Negative) SARS-CoV-2 (PCR) Negative SARS-CoV-2 (Negative) Influenza Type A (PCR) Negative PCR FLU A (Negative) Influenza Type B (PCR) Negative PCR FLU B (Negative) RSV (PCR) Negative PCR RSV (Negative) POC Troponin I 0.00 L (0.01-0.04) ng/ml 03/02/24 Range/Units 13:38 WBC (4.50-11.00) K/uL RBC (4.00-5.20) m/uL Hgb (12.0-16.0) gm/dL Hct (33.0-51.0) % MCV (80-100) fL MCH (26-34) pg MCHC (32-36) gm/dL RDW Coeff of Stfeanie (11.5-15.5) % Plt Count (140-440) K/uL Neut % (Auto) (42.0-72.0) % Lymph % (Auto) (20-44) % [place] % (Auto) (0.0-11.0) % Eos % (Auto) (0.0-7.0) % Baso % (Auto) (0.0-3.0) % Neut # (Auto) (1.7-7.0) K/uL Lymph # (Auto) (0.90-2.90) K/uL [place] # (Auto) (0.00-0.90) K/UL Eos # (Auto) (0.00-0.50) K/uL Baso # (Auto) (0.00-0.30) K/uL Abs Immat Gran (auto) (0.00-0.30) K/uL Imm/Tot Granulo (auto) % Sodium (135-149) mmol/L Potassium (3.6-5.1) mmol/L Chloride (96-114) mmol/L Carbon Dioxide (20-32) mmol/L Anion Gap (7-15) mEq/L BUN (5-24) mg/dL Creatinine (0.5-1.5) mg/dL Estimated Creat Clear Estimated GFR ml/min Glucose (60-115) mg/dL Calcium (8.4-10.6) mg/dL Magnesium (1.5-2.6) mg/dL Total Bilirubin (0.1-1.5) mg/dL AST (12-35) U/L ALT (4-35) U/L Alkaline Phosphatase (40-150) U/L Total Protein (6.0-8.3) g/dL Albumin (3.3-5.0) g/dL Lipase (23-300) U/L Urine Color (Yellow) Urine Appearance (Clear) Urine pH (5.0-8.5) Ur Specific [place] (1.000-1.030) Urine Protein (Negative) Urine Glucose (UA) (Negative) Urine Ketones (Negative) Urine Blood (Negative) Urine Nitrite (Negative) Urine Bilirubin (Negative) Urine Urobilinogen (0.2-1.0) Ur Leukocyte Esterase (Negative) Urine RBC (0-2) Urine WBC (0-5) Ur Squamous Epith Cells (None-Few) Urine Bacteria (None) Urine HCG, Qual (Negative) SARS-CoV-2 (PCR) (Negative) Influenza Type A (PCR) (Negative) Influenza Type B (PCR) (Negative) RSV (PCR) (Negative) POC Troponin I 0.01 (0.01-0.04) ng/ml <Emir Hargrove, DO - Last Filed: 03/02/24 14:35> Lab Results 03/02/24 03/02/24 03/02/24 Range/Units 09:32 09:40 09:41 WBC 7.24 (4.50-11.00) K/uL RBC 4.92 (4.00-5.20) m/uL Hgb 14.0 (12.0-16.0) gm/dL Hct 42.6 (33.0-51.0) % MCV 87 (80-100) fL MCH 29 (26-34) pg MCHC 33 (32-36) gm/dL RDW Coeff of Stefanie 13.1 (11.5-15.5) % Plt Count 255 (140-440) K/uL Neut % (Auto) 75.8 H (42.0-72.0) % Lymph % (Auto) 19.3 L (20-44) % [place] % (Auto) 3.7 (0.0-11.0) % Eos % (Auto) 1.0 (0.0-7.0) % Baso % (Auto) 0.1 (0.0-3.0) % Neut # (Auto) 5.50 (1.7-7.0) K/uL Lymph # (Auto) 1.40 (0.90-2.90) K/uL [place] # (Auto) 0.30 (0.00-0.90) K/UL Eos # (Auto) 0.07 (0.00-0.50) K/uL Baso # (Auto) 0.01 (0.00-0.30) K/uL Abs Immat Gran (auto) 0.01 (0.00-0.30) K/uL Imm/Tot Granulo (auto) 0.1 % Sodium 136 (135-149) mmol/L Potassium 4.2 (3.6-5.1) mmol/L Chloride 102 (96-114) mmol/L Carbon Dioxide 27 (20-32) mmol/L Anion Gap 7 (7-15) mEq/L BUN 12 (5-24) mg/dL Creatinine 0.7 (0.5-1.5) mg/dL Estimated Creat Clear 114.23 Estimated GFR 116 ml/min Glucose 121 H (60-115) mg/dL Calcium 9.9 (8.4-10.6) mg/dL Magnesium 1.7 (1.5-2.6) mg/dL Total Bilirubin 1.0 (0.1-1.5) mg/dL AST 55 H (12-35) U/L ALT 40 H (4-35) U/L Alkaline Phosphatase 97 (40-150) U/L Total Protein 7.6 (6.0-8.3) g/dL Albumin 4.3 (3.3-5.0) g/dL Lipase 64 (23-300) U/L Urine Color Yellow (Yellow) Urine Appearance Clear (Clear) Urine pH 7.5 (5.0-8.5) Ur Specific [place] 1.020 (1.000-1.030) Urine Protein Negative (Negative) Urine Glucose (UA) Negative (Negative) Urine Ketones Negative (Negative) Urine Blood Negative (Negative) Urine Nitrite Negative (Negative) Urine Bilirubin Negative (Negative) Urine Urobilinogen 0.2 (0.2-1.0) Ur Leukocyte Esterase Negative (Negative) Urine RBC 0-2 (0-2) Urine WBC 0-2 (0-5) Ur Squamous Epith Cells Few (None-Few) Urine Bacteria Few A (None) Urine HCG, Qual Negative (Negative) SARS-CoV-2 (PCR) Negative SARS-CoV-2 (Negative) Influenza Type A (PCR) Negative PCR FLU A (Negative) Influenza Type B (PCR) Negative PCR FLU B (Negative) RSV (PCR) Negative PCR RSV (Negative) POC Troponin I 0.00 L (0.01-0.04) ng/ml 03/02/24 Range/Units 13:38 WBC (4.50-11.00) K/uL RBC (4.00-5.20) m/uL Hgb (12.0-16.0) gm/dL Hct (33.0-51.0) % MCV (80-100) fL MCH (26-34) pg MCHC (32-36) gm/dL RDW Coeff of Stefanie (11.5-15.5) % Plt Count (140-440) K/uL Neut % (Auto) (42.0-72.0) % Lymph % (Auto) (20-44) % [place] % (Auto) (0.0-11.0) % Eos % (Auto) (0.0-7.0) % Baso % (Auto) (0.0-3.0) % Neut # (Auto) (1.7-7.0) K/uL Lymph # (Auto) (0.90-2.90) K/uL [place] # (Auto) (0.00-0.90) K/UL Eos # (Auto) (0.00-0.50) K/uL Baso # (Auto) (0.00-0.30) K/uL Abs Immat Gran (auto) (0.00-0.30) K/uL Imm/Tot Granulo (auto) % Sodium (135-149) mmol/L Potassium (3.6-5.1) mmol/L Chloride (96-114) mmol/L Carbon Dioxide (20-32) mmol/L Anion Gap (7-15) mEq/L BUN (5-24) mg/dL Creatinine (0.5-1.5) mg/dL Estimated Creat Clear Estimated GFR ml/min Glucose (60-115) mg/dL Calcium (8.4-10.6) mg/dL Magnesium (1.5-2.6) mg/dL Total Bilirubin (0.1-1.5) mg/dL AST (12-35) U/L ALT (4-35) U/L Alkaline Phosphatase (40-150) U/L Total Protein (6.0-8.3) g/dL Albumin (3.3-5.0) g/dL Lipase (23-300) U/L Urine Color (Yellow) Urine Appearance (Clear) Urine pH (5.0-8.5) Ur Specific [place] (1.000-1.030) Urine Protein (Negative) Urine Glucose (UA) (Negative) Urine Ketones (Negative) Urine Blood (Negative) Urine Nitrite (Negative) Urine Bilirubin (Negative) Urine Urobilinogen (0.2-1.0) Ur Leukocyte Esterase (Negative) Urine RBC (0-2) Urine WBC (0-5) Ur Squamous Epith Cells (None-Few) Urine Bacteria (None) Urine HCG, Qual (Negative) SARS-CoV-2 (PCR) (Negative) Influenza Type A (PCR) (Negative) Influenza Type B (PCR) (Negative) RSV (PCR) (Negative) POC Troponin I 0.01 (0.01-0.04) ng/ml <Nica Russo MD - Last Filed: 03/02/24 17:21> Imaging Data Chest x-ray: Attestation: I have reviewed the pertinent imaging results. <Emir Hargrove DO - Last Filed: 03/02/24 14:35> Radiologist's impression: No acute cardiopulmonary process. Dictated by Yosvany Roís MD @ 03/02/2024 11:49:05 AM <Emir Hargrove DO - Last Filed: 03/02/24 14:35> Gallbladder ultrasound: Attestation: I have reviewed the pertinent imaging results. <Emir Hargrove DO - Last Filed: 03/02/24 14:35> Radiologist's impression: 1. Cholelithiasis without sonographic evidence of acute cholecystitis. 2. The common bile duct is dilated to 1.1 centimeters without visualized stone or obstructing mass/lesion. This could be further assessed with an ERCP/MRCP. Dictated by Yosvany Ríos MD @ 03/02/2024 1:02:44 PM <Emir Hargrove DO - Last Filed: 03/02/24 14:35> ECG Data Attestation: I personally reviewed and interpreted this ECG as follows: <Emir Hargrove - Last Filed: 03/02/24 14:35> Prior ECG tracings: not available for review <Emir Hargrove, - Last Filed: 03/02/24 14:35> Interpretation: Normal sinus rhythm with rate 64 beats per minute, normal intervals, normal axis, no ST or T-wave abnormality <Emir Hargrove, DO - Last Filed: 03/02/24 14:35> Discharge Plan Discharge Clinical Impression: Atypical chest pain, Dilation of common bile duct <Emir Hargrove DO - Last Filed: 03/02/24 14:35> Patient Disposition: Home, Self-Care <Emir Hargrove DO - Last Filed: 03/02/24 14:35> Condition: Stable <Emir Hargrove, - Last Filed: 03/02/24 14:35> Instructions: Chest Pain (ED) <Emir Hargrove DO - Last Filed: 03/02/24 14:35> Additional Instructions: Follow-up with general surgery for your dilated common bile duct as you may need an ERCP/MRCP. Take the pain medication as directed. Return to emergency department for new or worsening symptoms. Call at [phone]. Oxycodone was provided for pain management and you will need to see an outpatient provider if you need this script refilled as we will not be able to refill it in the emergency department <Emir Hargrove DO - Last Filed: 03/02/24 14:35> Prescriptions: New oxycodone 5 mg capsule 5 mg PO Q6H PRN (Reason: pain) Qty: 12 0RF oxycodone 5 mg capsule 5 mg PO Q6H PRN (Reason: pain) Qty: 12 0RF <Emir Hargrove, DO - Last Filed: 03/02/24 14:35> Follow Up/Referrals: Provider,Not a Local [Primary Care Provider] - <Emir Hargorve DO - Last Filed: 03/02/24 14:35> [facility] <Emir Hargrove DO - Last Filed: 03/02/24 14:35>
--- OUTSIDE RECORDS SUMMARY | 2024-03-02 09:54 | XMS_ITS | Encounter Summary ---
Author Organization [facility] Address [address] [place] [address]. [place] [address] Care Team Providers Care Sky Diver Name Role Phone Shamar Claros MD Primary Care Provider + [phone] Janis Jacobs MD Unavailable [phone] Shamar Claros MD Unavailable [phone] Patti Ferris MD Unavailable [phone] Encounter Details Date Type Department Care Team (Late st Contact Info) Description 07/30/2022 [facility] [place] [address] [place] [address] Shamar Claros MD [address] [facility] [place] [address] Social History Tobacco [...] documented as of this encounter Care Teams Sky Diver Relationship Specialty Start Date End Date Shamar Claros MD [address] [facility] [place] [address] PCP - General Internal Medicine 05/17/17 Janis Jacobs MD [address] [place] [address] Assigned OBGYN Provider 04/09/21 3 Shamar Claros MD [address] [facility] [place] [address] Assigned PCP 09/08/22 Patti Ferris MD [address] [facility] [address] [place] [address] Assigned OBGYN Provider 04/27/23 documented as of this encounter
--- OUTSIDE RECORDS SUMMARY | 2024-03-02 09:54 | XMS_ITS | Encounter Summary ---
Author Organization [place] Address [address] [place] [address] Care Team Providers Care Couture Dressmaker Name Role Phone Shamar Claros MD Primary Care Provider [phone] Melina Sousa PA-C Unavailable [phone] Janis Jacobs MD Unavailable [phone] Shamar Claros MD Unavailable [phone] Patti Ferris MD Unavailable [phone] Encounter Details Date Type Department Care Team (Late st Contact Info) Description 07/12/2021 [facility] Medical Advice [facility] [address] [place] [address] Britney Hanson Social History Tobacco Use Types [...] documented as of this encounter Care Teams Couture Dressmaker Relationship Specialty Start Date End Date Shamar Claros MD [address] [facility] [place] [address] PCP - General Internal Medicine 05/17/17 Melina Sousa PA-C [address] [place] [address] Assigned PCP 12/25/20 03/23/22 Janis Jacobs MD [address] [place] [address] Assigned OBGYN Provider 04/09/21 3 Shamar Claros MD [address] [facility] [place] [address] Assigned PCP 09/08/22 Patti Ferris MD [address] [facility] [address] [address] Assigned OBGYN Provider 04/27/23 documented as of this encounter
--- OUTSIDE RECORDS SUMMARY | 2024-03-02 09:54 | XMS_ITS | Encounter Summary ---
Author Organization [facility] Address [address] [place] [address] Care Team Providers Care Electronic Prepress System Operator Name Role Phone Shamar Claros MD Primary Care Provider Steph Fraga MD Unavailable [phone] Melina Sousa PA-C Unavailable [phone] Alanis Dillard CNM Unavailable [phone] Steph Fraga MD Unavailable [phone] Melina Sousa PA-C Unavailable Janis Jacobs MD Unavailable [phone] Shamar Claros MD Unavailable [phone] Patti Ferris MD Unavailable [phone] Reason for Referral * Diagnostic Imaging Ultrasound (Routine) - Closed Specialty Diagnoses / Procedures Referred By Contluz marina t Referred To Contact Radiology. Diagnoses RLQ abdominal pain Procedures US Pelvic Complete w Transvaginal Melina Sousa PA-C [address] [place] [address] Rh Ultrasound [facility] [address] [facility] [address] [place] [address] Referral ID Status Reason Start Date Expiration Date Visits Re quested Visits Authorized [id number] Closed 10/14/2019 10/13/2020 1 1 Reason for Visit * Reason Onset Date Comments MyChart Communication 10/13/2019 lab result s Encounter Details Date Type Department Care Team (Late st Contact Info) Description 10/13/2019 My[facility] Medical Advice [facility] [address] [place] [address] Melina Sousa PA-C [address] [place] [address] MyChart Communication (lab results) Social History Tobacco [...] to call me back with any questions. [facility] correctional case manager Nurse * Telephone Encounter - Vy [...] 12:47 PM CDT Called pt back at [phone], not available, so LM to call me back at [phone]. Will await for her call back. JENNIFER [...] cervical lesions that pap is intended to cotton picking machine operator are painless. Vy Sheehan MD Internal Medicine-Pediatrics * Telephone Encounter - Melina oSusa PA-C - 10/14/2019 10:39 AM CDT Images [...] came back normal when she was at [facility]. She states the new pain she had discussed in her 9SLIDEShart message she felt only lasted 20 minutes [...] typically has its usually performed by an metal room dental technician at an imaging appointment. She wanted [...] CDT Forwarded to LP. Please review patient's Personalingt message and advise. Alanis Wright, BS, RN, PHN [facility]) [phone] * Telephone Encounter - Alanis Wright RN - 10/13/2019 4:17 PM CDT Personalingt message sent. BLANCA Bull, RN, [facility] Office: [phone] documented in this encounter Plan of Treatment [...] quadrant documented in this encounter Care Teams Electronic Prepress System Operator Relationship Specialty Start Date End Date Shamar Claros MD [address] [place] [address] [place] [address] PCP - General Internal Medicine 05/17/17 Steph Fraga MD [address] [place] [address] [place] [address] Assigned PCP 12/29/17 10/17/19 Melina Sousa PA-C [address] [place] [address] Assigned PCP 10/18/19 10/15/20 Alansi Dillard CNM [address] [place] [address] Assigned OBGYN Provider 05/06/20 Steph Fraga MD [address] [place] [address] [place] [address] Assigned PCP 10/16/20 12/24/20 Melina Sousa PA-C [address] [place] [address] Assigned PCP 12/25/20 03/23/22 Janis Jacobs MD [address] [place] [address] Assigned OBGYN Provider 04/09/21 3 Shamar Claros MD [address] [facility] [place] [address] Assigned PCP 09/08/22 Patti Ferris MD [address] [place] [address] Assigned OBGYN Provider 04/27/23 documented as of this encounter
--- OUTSIDE RECORDS SUMMARY | 2024-03-02 09:54 | XMS_ITS | Encounter Summary ---
Author Organization [facility] Address [address] [place] [address] Care Team Providers Care Hospital Television Rental Clerk Name Role Phone Shamar Claros MD Primary Care Provider + [phone] Alanis Dillard CNKatty Unavailable [phone] Melina Sousa PA-C Unavailable [phone] Janis Jacobs MD Unavailable [phone] Shamar Claros MD Unavailable [phone] Patti Ferris MD Unavailable [phone] Encounter Details Date Type Department Care Team (Late st Contact Info) Description 03/30/2021 My[facility] Medical Advice [address] [place] [id number] Kaykay Leung, MEDICAL CODING MANAGER Social History Tobacco Use Types Packs/Day Years [...] documented as of this encounter Care Teams Hospital Television Rental Clerk Relationship Specialty Start Date End Date Shamar Claros MD [address] [facility] [place] [id number] PCP - General Internal Medicine 05/17/17 Alanis Dillard CNM [address] [place] [address] Assigned OBGYN Provider 05/06/20 Melina Sousa PA-C [address] [place] [address] Assigned PCP 12/25/20 03/23/22 Janis Jacobs MD [address] [place] [address] Assigned OBGYN Provider 04/09/21 3 Shamar Claros MD [address] [facility] [place] [id number] Assigned PCP 09/08/22 Patti Ferris MD [address] [facility] [address] [address] Assigned OBGYN Provider 04/27/23 documented as of this encounter
--- OUTSIDE RECORDS SUMMARY | 2024-03-02 09:54 | XMS_ITS | Encounter Summary ---
Author Organization [facility] Address [address] [place] [address] Care Team Providers Care Fish Checker Name Role Phone Shamar Claros MD Primary Care Provider + [phone] Melina Sousa PA-C Unavailable [phone] Alanis Dillard CNM Unavailable [phone] Steph Fraga MD Unavailable [phone] Melina Sousa PA-C Unavailable [phone] Janis Jacobs MD Unavailable [phone] Shamar Claros MD Unavailable [phone] Patti Ferris MD Unavailable [phone] Encounter Details Date Type Department Care Team (Late st Contact Info) Description 04/20/2020 [facility] Medical Advice [address] [place] [address] Alanis Dillard CNM [address] [place] [address] Social History Tobacco Use Types [...] on filedocumented in this encounter Care Teams Fish Checker Relationship Specialty Start Date End Date Shamar Claros MD [address] [place] [address] [place] [address] PCP - General Internal Medicine 05/17/17 Mleina Sousa PA-C [address] [place] [address] 928792 Assigned PCP 10/18/19 10/15/20 Alanis Dillard CNM [address] [place], [place] 5747[address] Assigned OBGYN Provider 05/06/20 Steph Fraga MD [address] [place] [address] [place] [address] Assigned PCP 10/16/20 12/24/20 Melina Sousa PA-C [address] [place] [address] Assigned PCP 12/25/20 03/23/22 Janis Jacobs MD [address] [facility] [place] [address] Assigned OBGYN Provider 04/09/21 4 3 Shamar Claros MD [address] [place] [address] [place] [address] Assigned PCP 09/08/22 Patti Ferris MD [address] [address] Assigned OBGYN Provider 04/27/23 documented as of this encounter
--- OUTSIDE RECORDS SUMMARY | 2024-03-02 09:54 | XMS_ITS | Encounter Summary ---
Author Organization [facility] Address [address] [place] [address] Care Team Providers Care Blooming Mill Supervisor Name Role Phone Shamar Claros MD Primary Care Provider [phone] Melina Sousa PA-C Unavailable [phone] Janis Jacobs MD Unavailable [phone] Shamar Claros MD Unavailable [phone] Patti Ferris MD Unavailable [phone] Reason for Visit * Reason Onset Date Comments Heart Problem 05/25/2021 Symptoms Encounter Details Date Type Department Care Team (Late st Contact Info) Description 05/25/2021 [facility] Medical Advice [address] [address] Janis Jacobs MD [facility] [place] [address] Heart Problem (Symptoms) Social History [...] Jacobs out today and tomorrow, sending to sap solutions architect. Olinda Langston, RN FIRE SPECIALIST documented in this encounter Plan of Treatment Not on file documented as of this encounter Visit Diagnoses Diagnosis Vaginal symptom- Primary documented in this encounter Additional Health Concerns Assessment Noted Time PHQ-9 Depression Total Score: 8 03/31/20 21 7:02 AM CDT documented as of this encounter Care Teams Blooming Mill Supervisor Relationship Specialty Start Date End Date Shamar Claros MD [address] [place] [address] [place] [address] PCP - General Internal Medicine 05/17/17 Melina Sousa PA-C [address] [place] [address] Assigned PCP 12/25/20 03/23/22 Janis Jacobs MD [address] [place] [address] Assigned OBGYN Provider 04/09/21 3 Shamar Claros MD [address] [place] [address] [place] [address] Assigned PCP 09/08/22 Patti Ferris MD [address] [facility] [address] [address] Assigned OBGYN Provider 04/27/23 documented as of this encounter
--- OUTSIDE RECORDS SUMMARY | 2024-03-02 09:54 | XMS_ITS | Encounter Summary ---
Author Organization [facility] [place] Address [address] [place] [address] Care Team Providers Care Mig Welder Name Role Phone Shamar Claros MD Primary Care Provider [phone] Melina Sousa PA-C Unavailable [phone] Janis Jacobs MD Unavailable [phone] Shamar Claros MD Unavailable [phone] Patti Ferris MD Unavailable [phone] Encounter Details Date Type Department Care Team (Late st Contact Info) Description 07/18/2021 [facility] Medical Advice [facility] [place] [address] [facility] [address] [place] [address] Shamar Claros MD [address] [facility] [place] [address] Social History [...] / COVID-19? Yes 07/20/2021 9:51 PM SENIOR BUSINESS DEVELOPMENT ANALYST documented as of this encounter Plan of Treatment Not on file documented as of this encounter Visit Diagnoses Not on filedocumented in this encounter Additional Health Concerns Assessment Noted Time PHQ-9 Depression Total Score: 8 03/31/20 21 7:02 AM CDT documented as of this encounter Care Teams Mig Welder Relationship Specialty Start Date End Date Shamar Claros MD [address] [facility] [place] [address] PCP - General Internal Medicine 05/17/17 Melina Sousa PA-C [address] [place] [address]7612 Assigned PCP 12/25/20 03/23/22 Janis Jacobs MD [address] [place] [address] Assigned OBGYN Provider 04/09/21 3 Shamar Claros MD [address] [facility] [place] [address] Assigned PCP 09/08/22 Patti Ferris MD [address] [place], [place] [address] Assigned OBGYN Provider 04/27/23 documented as of this encounter
--- OUTSIDE RECORDS SUMMARY | 2024-03-02 09:54 | XMS_ITS | Encounter Summary ---
Author Organization [facility] Address [address] [place] [address] Care Team Providers Care Product Test Engineer Name Role Phone Shamar Claros MD Primary Care Provider Alanis Dillard CNM Unavailable [phone] Melina Sousa PA-C Unavailable [phone] Janis Jacobs MD Unavailable [phone] Shamar Claros MD Unavailable [phone] Patti Ferris MD Unavailable [phone] Encounter Details Date Type Department Care Team (Late st Contact Info) Description 03/30/2021 [facility] [address] [facility] [address] [place] [address] Maribell Torrez, COMPUTER NETWORKER [address] [facility] [place] [address] Social History Tobacco [...] documented as of this encounter Care Teams Product Test Engineer Relationship Specialty Start Date End Date Shamar Claros MD [address] [facility] [place] [address] PCP - General Internal Medicine 05/17/17 Alanis Dillard CNM [address] [place] [address] Assigned OBGYN Provider 05/06/20 Melina Sousa PA-C [address] [place] [address]112 Assigned PCP 12/25/20 03/23/22 Janis Jacobs MD [address] [place] [address] Assigned OBGYN Provider 04/09/21 3 Shamar Claros MD [address] [facility] [place] [address] Assigned PCP 09/08/22 Patti Ferris MD [address] [address]22[address] Assigned OBGYN Provider 04/27/23 documented as of this encounter
--- OUTSIDE RECORDS SUMMARY | 2024-03-02 09:54 | XMS_ITS | Encounter Summary ---
Author Organization [facility] Address [address] [place] [address] Care Team Providers Care Pull Tab Dealer Name Role Phone Shamar Claros MD Primary Care Provider [phone] Melina Sousa PA-C Unavailable Janis Jacobs MD Unavailable [phone] Shamar Claros MD Unavailable [phone] Patti Ferris MD Unavailable [phone] Encounter Details Date Type Department Care [...] Coronavirus / COVID-19? Yes 07/20/2021 9:51 PM DIRECTOR OF GOVERNMENT SALES documented as of this encounter Plan of Treatment Not on file documented as of this encounter Visit Diagnoses Not on filedocumented in this encounter Additional Health Concerns Assessment Noted Time PHQ-9 Depression Total Score: 8 03/31/20 21 7:02 AM CDT documented as of this encounter Care Teams Pull Tab Dealer Relationship Specialty Start Date End Date Shamar Claros MD [address] [facility] [place] [address] PCP - General Internal Medicine 05/17/17 Melina Sousa PA-C [address] [place] [address] Assigned PCP 12/25/20 03/23/22 Janis Jacobs MD [address] [place] [address] Assigned OBGYN Provider 04/09/21 3 Shamar Claros MD [address] [facility] [place] [address] Assigned PCP 09/08/22 Patti Ferris MD [address] [address] Assigned OBGYN Provider 04/27/23 documented as of this encounter
--- OUTSIDE RECORDS SUMMARY | 2024-03-02 09:54 | XMS_ITS | Encounter Summary ---
Author Organization [place] Address [address] [place] [address] Care Team Providers Care Canvas Baster Name Role Phone Shamar Claros MD Primary Care Provider Alanis Dillard CNM Unavailable [phone] Melina Sousa PA-C Unavailable [phone] Janis Jacobs MD Unavailable [phone] Shamar Claros MD Unavailable [phone] Patti Ferris MD Unavailable [phone] Encounter Details Date Type Department Care Team (Late st Contact Info) Description 01/29/2021 [facility] [place] [address] [facility] [address] [place] [address] [place] [address] [place] [address] [place] [address] Social History Tobacco Use [...] on filedocumented in this encounter Care Teams Canvas Baster Relationship Specialty Start Date End Date Shamar Claros MD [address] [facility] [place] [address] PCP - General Internal Medicine 05/17/17 Alanis Dillard CNM [address] [place] [address] Assigned OBGYN Provider 05/06/20 Melina Sousa PA-C [address] [place] [address]80972 Assigned PCP 12/25/20 03/23/22 Janis Jacobs MD [address] [place] [address] Assigned OBGYN Provider 04/09/21 3 Shamar Claros MD [address] [facility] [place] [address] Assigned PCP 09/08/22 Patti Ferris MD [address] 719754 Assigned OBGYN Provider 04/27/23 documented as of this encounter
--- OUTSIDE RECORDS SUMMARY | 2024-03-02 09:54 | XMS_ITS | Encounter Summary ---
Author Organization [place] Address [address] [place] [address] Care Team Providers Care Endocrinology Physician Name Role Phone Shamar Claros MD Primary Care Provider [phone] Alanis Dillard CNKatty Unavailable [phone] Melina Sousa PA-C Unavailable [phone] Janis Jacobs MD Unavailable [phone] Shamar Claros MD Unavailable [phone] Patti Ferris MD Unavailable [phone] Reason for Visit * Reason Onset Date Comments Medication Question 03/28/2021 Encounter Details Date Type Department Care Team (Late st Contact Info) Description 03/28/2021 [facility] Medical Advice [address] [place] [address] Janis Jacobs MD [facility] [place] [address] Medication Question Social History Tobacco [...] on filedocumented in this encounter Care Teams Endocrinology Physician Relationship Specialty Start Date End Date Shamar Claros MD [address] [facility] [place] [address] PCP - General Internal Medicine 05/17/17 Alanis Dillard CNM [address] [place] [address] Assigned OBGYN Provider 05/06/20 Melina Sousa PA-C [address] [place] [address] Assigned PCP 12/25/20 03/23/22 Janis Jacobs MD [address] [place] [address] Assigned OBGYN Provider 04/09/21 3 Shamar Claros MD [address] [facility] [place] [address] Assigned PCP 09/08/22 Patti Ferris MD [address] [place] [address] Assigned OBGYN Provider 04/27/23 documented as of this encounter
--- OUTSIDE RECORDS SUMMARY | 2024-03-02 09:54 | XMS_ITS | Clinical Summary ---
Author Organization [facility] Address [address] [place] [address] Care Team Providers Care Senior Applications Architect Name Role Phone Shamar Claros MD Primary Care Provider [phone] Shamar Claros MD Unavailable [phone] Patti Ferris MD Unavailable [phone] Allergies Active Allergy Reactions Criticality Noted Date Comments Penicillins GI Disturbance 03/26/2014 Sulfa Antibiotics GI Disturbance 03/26/2014 Medications Medication Sig Dispensed Refills Start Date End Date Status omeprazole (PRILOSEC) [address] capsule Take 20 mg by mouth daily Active sertraline (ZOLOFT) 50 MG tabletIndications:Ge neralized anxiety disorder,Recurrent binge eating Take 1 tablet (50 mg) by mouth daily 90 tablet 06/01/2021 Active metFORMIN (GLUCOPHAGE) 500 MG tabletIndications:Mo rbid obesity (H),Pre-diabetes,PCO S (polycystic ovarian syndrome) Take 1 tablet (500 mg) by mouth 2 times daily (with meals) Take 1 tab once daily with breakfast for 1 week, then increase to taking 1 tab twice daily with breakfast and dinner 180 tablet 06/01/2021 Active fluticasone (FLONASE) 50 MCG/ACT nasal sprayIndications:Acu te sinusitis treated with antibiotics in the past 60 days [place] 1 spray into both nostrils daily 9.9 [...] (6 mg) by mouth daily 9 tablet 07/21/2021 Active acyclovir (ZOVIRAX) 400 MG tabletIndications:RL [...] cholecystitis without obstruction 10/12/2019 Morbid obesity 12/23/2017 Resolved Problems Problem Noted Date Diagnosed Date [...] Comments Blood Pressure 127/85 07/21/2021 5:26 AM MANAGER SUPPLIER Pulse 83 07/21/2021 5:26 AM MANAGER SUPPLIER Temperature 37.4 ??C (99.4 ??F) 07/20/2021 9:53 PM CS T Respiratory Rate 20 07/21/2021 5:26 AM MANAGER SUPPLIER Oxygen Saturation 97% 07/21/2021 5:26 AM MANAGER SUPPLIER Inhaled Oxygen Concentration - - Weight 144.4 kg (318 lb 5.5 oz) 07/20/2021 9:53 PM MANAGER SUPPLIER Height 172.7 cm (5' 8) 10/12/2019 11:2 5 AM CDT Body Mass Index 48.4 10/12/2019 11:25 AM CDT Plan of Treatment Health Maintenance Due Date Last Done Comments ADVANCE CARE PLANNING 1989 ANNUAL REVIEW OF HM ORDERS 1989 COVID-19 Vaccine (#1) 1994 HEPATITIS C SCREENING 11/08/2007 YEARLY PREVENTIVE VISIT 12/20/2018 12/20/2017 PHQ-2 (once per calendar year) 2023 03/30/2021, 04/15/2020, 10/12/2019, Additional history exists INFLUENZA VACCINE (#1) 2024 HPV TEST 04/15/2025 04/15/2020 PAP 04/15/2025 04/15/2020, 07/31/2016 DTAP/TDAP/TD IMMUNIZATION (8 [...] Procedure Name Priority Date/Time Associated Diagnosis Comments PAP IMAGED THIN LAYER SCREEN Routine 04/15/2020 2:38 PM CDT Screening for cervical cancer HPV HIGH RISK TYPES DNA CERVICAL Routine 04/15/2020 2:00 PM CDT Screening for cervical cancer HIV ANTIGEN ANTIBODY COMBO Routine 09/17/2016 2:24 PM MANAGER SUPPLIER Encounter for supervision of normal first in second trimester from Last 3 Months or Most Recently Relevant to Health Maintenance Results * Pap imaged thin layer screen with HPV - recommended age 30 - 65 years (select HPV order below) (04/15/2020 2:38 PM CDT) PAP JAKUB Pascual Report Patient Name: MARY ELLEN SCOTT MR#: [id number] Specimen #: [id number] Collected: 04/15/2020 Received: 04/18/2020 Reported: 04/20/2020 12:33 Ordering Phy(s): JOSEPH CRANDALL For improved result formatting, select 'View Enhanced Report Format' under Linked Documents section. SPECIMEN/STAIN PROCESS: Pap imaged thin layer prep screening (Surepath, FocalPoint with guided screening) ? Pap-Cyto x 1, HPV ordered x 1 SOURCE: Cervical, endocervical Pap imaged thin layer prep screening (Surepath, FocalPoint with guided screening) SPECIMEN ADEQUACY: Satisfactory for evaluation. -Transformation zone component present. CYTOLOGIC INTERPRETATION: Negative for intraepithelial lesion or malignancy Electronically signed out by: Vivek NORIEGA, (ASCP) CLINICAL HISTORY: LMP: 07/15/19 Irregular Bleeding, Papanicolaou Test Limitations: ??Cervical cytology is a screening test with limited sensitivity; regular screening is critical for cancer prevention; Pap tests are primarily effective for the diagnosis/preventi on of squamous cell carcinoma, not adenocarcinomas or other cancers. COLLECTION SITE: Client: ??[facility] Location: [facility] () The technical component of this testing was completed at the [facility], with the professional component performed at the [facility], [address] [place] [phone] ([phone]) COPATH Cytologic material (specimen) 04/15/2020 2:38 PM CDT 04/18/2020 11:10 AM CDT Joseph Crandall CN LAB - [facility] SPECIMEN COPATH * HPV High Risk Types DNA Cervical (04/15/2020 2:00 PM CDT) HPV Source SurePath 04/15/2020 2:38 PM CDT [facility] HPV 16 DNA Negative NEG^Nega tive 04/22/2020 2:32 PM CDT [facility] HPV 18 DNA Negative NEG^Nega tive 04/22/2020 2:32 PM CDT [facility] Other HR HPV Negative NEG^Nega tive 04/22/2020 2:32 PM CDT [facility] Final Diagnosis This patient's sample is negative for HPV DNA. 04/22/2020 2:32 PM CDT [facility] Comment: This test was developed and its performance characteristics determined by the [facility], Molecular Diagnostics Laboratory. It has not been cleared or approved by the FDA. The laboratory is regulated under CLIA as qualified to perform high-complexity testing. This test is used for clinical purposes. It should not be regarded as investigational or for research. (Note) METHODOLOGY: ??The Fiona sherri 4800 system uses automated extraction, simultaneous amplification of HPV (L1 region) and beta-globin, ?? followed by ??real time detection of fluorescent labeled HPV and beta globin using specific oligonucleotide probes . The test specifically identifies types HPV 16 DNA and HPV 18 DNA while concurrently detecting the rest of the high risk types (31, 33, 35, 39, 45, 51, 52, 56, 58, 59, 66 or 68). COMMENTS: ??This test is not intended for use as a screening device for women under age 30 with normal cervical cytology. ??Results should be correlated with cytologic and histologic findings. Close clinical followup is recommended. Specimen Description Cervical Cells 04/15/2020 2:38 PM CDT [facility] Cervical Cells CERVIX UTERI STRUCTURE / Unknown 04/15/2020 2:00 PM CDT 04/15/2020 2:42 PM CDT Joseph Crandall CNM LAB - BLOOD ORDERABL ES [facility] [address] [place] [address] [address] * HIV Antigen Antibody Combo (09/17/2016 2:24 PM MANAGER SUPPLIER) HIV Antigen Antibody Combo Nonreactive HIV-1 p24 Ag & HIV-1/HIV-2 Ab Not Detected NR [facility] Blood specimen (specimen) 09/17/2016 2:24 PM MANAGER SUPPLIER 09/17/2016 2:25 PM MANAGER SUPPLIER Irasema Trevino MD LAB - BLOOD COMFORT GARCIA [facility] [address] [place] [address] from Last 3 Months or Most Recently Relevant to Health Maintenance Advance Directives For more information, please contact: [phone] * Full Code (Latest Code Status on File) Date Activated Date Inactivated Comments 03/02/2017 9:48 AM 07/20/2021 9:47 PM Care Teams Senior Applications Architect Relationship Specialty Start Date End Date Shamar Claros MD [address] [facility] [place] [address] PCP - General Internal Medicine 05/17/17 Shamar Claros MD [address] [facility] [place] [address] Assigned PCP 09/08/22 Patti Ferris MD [address] [place] [address] Assigned OBGYN Provider 04/27/23
--- OUTSIDE RECORDS SUMMARY | 2024-03-02 09:54 | XMS_ITS | Referral Summary ---
Author Organization [facility] Address [address] [place] [address] Care Team Providers Care Vacuum Forming Machine Operator Name Role Phone Shamar Claros MD Primary Care Provider [phone] Shamar Claros MD Unavailable [phone] Patti Ferris MD Unavailable [phone] Allergies Active Allergy Reactions Criticality Noted [...] with antibiotics in the past 60 days [place] 1 spray into both nostrils daily 9.9 [...] Comments Blood Pressure 127/85 07/21/2021 5:26 AM PHYSICIAN INDUSTRIAL Pulse 83 07/21/2021 5:26 AM PHYSICIAN INDUSTRIAL Temperature 37.4 ??C (99.4 ??F) 07/20/2021 9:53 PM CS T Respiratory Rate 20 07/21/2021 5:26 AM PHYSICIAN INDUSTRIAL Oxygen Saturation 97% 07/21/2021 5:26 AM PHYSICIAN INDUSTRIAL Inhaled Oxygen Concentration - - Weight 144.4 kg (318 lb 5.5 oz) 07/20/2021 9:53 PM PHYSICIAN INDUSTRIAL Height 172.7 cm (5' 8) 10/12/2019 11:2 [...] ANTIGEN ANTIBODY COMBO Routine 09/17/2016 2:24 PM PHYSICIAN INDUSTRIAL Encounter for supervision of normal first in second trimester from Last 3 Months or Most Recently Relevant to Health Maintenance Results * Pap imaged thin layer screen with HPV - recommended age 30 - 65 years (select HPV order below) (04/15/2020 2:38 PM CDT) PAP NIL COPATH [facility] Report Patient Name: MARY ELLEN SCOTT MR#: [id number] Specimen #: [id number] Collected: 04/15/2020 Received: 04/18/2020 Reported: 04/20/2020 12:33 [...] adenocarcinomas or other cancers. COLLECTION SITE: Client: ??[facility] Location: [facility] ([place]) [facility] of [facility], with the professional component performed at the [facility], [address] [place] [phone] ([phone]) COPATH Cytologic material (specimen) 04/15/2020 2:38 PM CDT 04/18/2020 11:10 AM CDT [address] Nishant [facility] LAB - [facility] L SPECIMEN COPATH * HPV High Risk Types DNA Cervical (04/15/2020 2:00 PM CDT) HPV Source SurePath 04/15/2020 2:38 PM CDT [facility] HPV 16 DNA Negative NEG^Nega tive 04/22/2020 2:32 PM CDT [facility] HPV 18 DNA Negative NEG^Nega tive 04/22/2020 2:32 PM CDT [facility] Other HR HPV Negative NEG^Nega tive 04/22/2020 2:32 PM CDT [facility] Final Diagnosis This patient's sample is negative for HPV DNA. 04/22/2020 2:32 PM CDT [facility] Comment: This test was developed and its performance characteristics determined by the [facility], Molecular Diagnostics Laboratory. It has not been [...] Description Cervical Cells 04/15/2020 2:38 PM CDT [facility] Cervical Cells CERVIX UTERI STRUCTURE / Unknown 04/15/2020 2:00 PM CDT 04/15/2020 2:42 PM CDT Joseph Crandall CNM LAB - BLOOD ORDERABL ES [facility] [address] [place] [address] [address] * HIV Antigen Antibody Combo (09/17/2016 2:24 PM PHYSICIAN INDUSTRIAL) HIV Antigen Antibody Combo Nonreactive HIV-1 p24 Ag & HIV-1/HIV-2 Ab Not Detected NR [facility] Blood specimen (specimen) 09/17/2016 2:24 PM PHYSICIAN INDUSTRIAL 09/17/2016 2:25 PM PHYSICIAN INDUSTRIAL Irasema Trevino MD LAB - BLOOD ORDWillam GARCIA Performing Organization Address City/[facility]/ZIP Co de Phone Number [address] [address] from Last 3 Months or Most Recently Relevant to Health Maintenance Advance Directives For more information, please contact: [phone] * Full Code (Latest Code Status on File) Date Activated Date Inactivated Comments 03/02/2017 9:48 AM 07/20/2021 9:47 PM Care Teams Vacuum Forming Machine Operator Relationship Specialty Start Date End Date Shamar Claros MD [address] [facility] [place] [address] PCP - General Internal Medicine 05/17/17 Shamar Claros MD [address] [facility] [place] [address] Assigned PCP 09/08/22 Patti Ferris MD [address] [place], [place] [address] Assigned OBGYN Provider 04/27/23
--- OUTSIDE RECORDS SUMMARY | 2024-03-02 09:55 | XMS_ITS | Encounter Summary ---
Author Organization [place] Address [address] [place] [address] Care Team Providers Care Quilter Fixer Name Role Phone Shamar Claros MD Primary Care Provider [phone] Steph Fraga MD Unavailable [phone] Melina Sousa PA-C Unavailable [phone] Alanis Dillard CNM Unavailable [phone] Steph Fraga MD Unavailable [phone] Melina Sousa PA-C Unavailable [phone] Janis Jacobs MD Unavailable [phone] Shamar Claros MD Unavailable [phone] Patti Ferris MD Unavailable [phone] Encounter Details Date Type Department Care Team (Late st Contact Info) Description 10/10/2019 [facility] [facility] [place] [address] [place] [address] Drive [address] [place] [address] [place] [address] [place] [address] [place] [address] Social History Tobacco Use [...] RN - 10/12/2019 9:32 AM CDT Sent C2C Link message. - Bryant Nowak, RN - Patient Advocate Liason (PAL) [facility] documented in this encounter Plan of Treatment Not on file documented as of this encounter Visit Diagnoses Not on filedocumented in this encounter Care Teams Quilter Fixer Relationship Specialty Start Date End Date Shamar Claros MD [address] [place] [address] [place] [address] PCP - General Internal Medicine 05/17/17 Steph Fraga MD [address] [place] [address] [place] [address] Assigned PCP 12/29/17 10/17/19 Melina Sousa PA-C [address] [place] [address] 429822 Assigned PCP 10/18/19 10/15/20 Alanis Dillard CNM [address] [place] [address] Assigned OBGYN Provider 05/06/20 Steph Fraga MD [address] [place] [address] [place] [address] Assigned PCP 10/16/20 12/24/20 Melina Sousa PA-C [address] [place], [place] 620202 Assigned PCP 12/25/20 03/23/22 Janis Jacobs MD [address] [place], [place] 416297 Assigned OBGYN Provider 04/09/21 3 Shamar Claros MD [address] [facility] [place] [address] Assigned PCP 09/08/22 Patti Ferris MD 606 [facility] [address] 968384 Assigned OBGYN Provider 04/27/23 documented as of this encounter
[2024-03-02 10:00] LABS: Appearance Urine Clear (Clear); Bilirubin Urine Negative (Negative); Blood Urine Negative (Negative); Color Urine Yellow (Yellow); Glucose Urine Negative (Negative); Ketones Urine Negative (Negative); Leukocyte Esterase Urine Negative (Negative); Nitrite Urine Negative (Negative); Protein Urine Negative (Negative); Urobilinogen Urine 0.2 (0.2-1.0); pH Urine 7.5 (5.0-8.5)
[2024-03-02 10:00] LABS: Basophils Absolute Auto 0.01 K/uL (0.00-0.30); Basophils Percent Auto 0.1 % (0.0-3.0); Eosinophils Absolute Auto 0.07 K/uL (0.00-0.50); Hematocrit 42.6 % (33.0-51.0); Immature Granulocytes Abs Auto 0.01 K/uL (0.00-0.30); Immature Granulocytes Pct Auto 0.1 %; Lymphocytes Percent Auto 19.3 % (20-44); Mean Corpuscular HGB Conc 33 gm/dL (32-36); Mean Corpuscular Hemoglobin 29 pg (26-34); Mean Corpuscular Volume 87 fL (80-100); Monocytes Percent Auto 3.7 % (0.0-11.0); Neutrophils Percent Auto 75.8 % (42.0-72.0); Platelet Count* 255 K/uL (140-440); RDW Coefficient of Variation % 13.1 % (11.5-15.5); Red Blood Count 4.92 m/uL (4.00-5.20); White Blood Count* 7.24 K/uL (4.50-11.00)
[2024-03-02 10:06] LABS: Chloride* 102 mmol/L (96-114)
[2024-03-02 10:07] LABS: Albumin* 4.3 g/dL (3.3-5.0); Potassium* 4.2 mmol/L (3.6-5.1); Sodium* 136 mmol/L (135-149)
[2024-03-02 10:09] LABS: Anion Gap 7 mEq/L (7-15); Carbon Dioxide* 27 mmol/L (20-32); Creatinine* 0.7 mg/dL (0.5-1.5); Est. Creatinine Clearance* 114.23; Estimated Glomerular Filt Rate 116 ml/min; Total Protein* 7.6 g/dL (6.0-8.3)
[2024-03-02 10:10] LABS: Bacteria Urine Few; RBC Urine 0-2 (0-2); Squamous Epithelial Cell Urine Few (None-Few); WBC Urine 0-2 (0-5)
[2024-03-02 10:10] LABS: Alanine Aminotransferase* 40 U/L (4-35); Alkaline Phosphatase* 97 U/L (40-150); Aspartate Amino Transferase* 55 U/L (12-35); Blood Urea Nitrogen* 12 mg/dL (5-24); Calcium* 9.9 mg/dL (8.4-10.6); Glucose* 121 mg/dL (60-115); Lipase* 64 U/L (23-300); Magnesium* 1.7 mg/dL (1.5-2.6); Slide Review Reflex No
[2024-03-02 10:23] LABS: PCR FLU A Negative PCR FLU A (Negative); PCR FLU B Negative PCR FLU B (Negative); PCR RSV Negative PCR RSV (Negative); SARS PCR* Negative SARS-CoV-2 (Negative)
[2024-03-02 11:06] VITALS: BP 136/74; PULSE 64; RESP 20; O2SAT 96
--- NOTE | 2024-03-02 11:13 | CRLHL7_ITS ---
For Patients: As a result of the Cures Act, medical imaging exams and procedure reports are released immediately into your electronic medical record. You may view this report before your referring provider. If you have questions, please contact your health care provider. INDICATION: : Chest pain COMPARISON: None TECHNIQUE: Two view(s) of the chest FINDINGS: The cardiomediastinal silhouette and pulmonary vasculature are unremarkable. There is no focal airspace consolidation, pleural effusion, or pneumothorax. No displaced fractures. IMPRESSION: No acute cardiopulmonary process. Dictated by Yosvany Ríos MD @ 03/02/2024 11:49:05 AM (Electronically Signed)
[2024-03-02] MEDS: GI COCKTAIL (VISC LIDO/ANTACID) 30 ML PO (11:24)
--- NOTE | 2024-03-02 11:59 | CRLHL7_ITS ---
For Patients: As a result of the Century Cures Act, medical imaging exams and procedure reports are released immediately into your electronic medical record. You may view this report before your referring provider. If you have questions, please contact your health care provider. INDICATION: Abdominal pain COMPARISON: None. TECHNIQUE: Ultrasound abdomen limited. Real time myers scale imaging and color Doppler analysis was performed of the abdomen. FINDINGS: Visualized liver: Unremarkable Gallbladder: Cholelithiasis. No wall thickening or pericholecystic fluid. No reported positive sonographic Granados sign. Bile ducts: The common bile duct measures 1.1 cm in diameter without visualized obstructing stone or mass. Pancreas: Normal where seen. Right kidney: The right kidney measures 12.2 x 4.1 x 5.3 cm in length. No hydronephrosis, calculus, or mass. Vascular: Normal caliber of the visualized abdominal aorta. IMPRESSION: 1. Cholelithiasis without sonographic evidence of acute cholecystitis. 2. The common bile duct is dilated to 1.1 centimeters without visualized stone or obstructing mass/lesion. This could be further assessed with an ERCP/MRCP. Dictated by Yosvany Ríos MD @ 03/02/2024 1:02:44 PM (Electronically Signed)
[2024-03-02] MEDS: LORazepam 1 MG TABLET PO (13:47)
[2024-03-02 14:12] VITALS: BP 117/41; PULSE 54; RESP 16; O2SAT 98
[2024-03-02] MEDS: OXYCODONE 5 MG TABLET PO (14:23)
[2024-03-02 14:31] LABS: Troponin, Point-of-Care* 0.01 ng/ml (0.01-0.04)
[2024-03-02 15:32] LABS: Ur HCG Qualitative* Negative (Negative)
== END 2024-03-02 14:45 | disposition home or self-care (01) ==
PROVIDERS: Emergency Provider Student in an Organized Health Care Education/Training Program
DX: R07.9 Chest pain, unspecified (principal); K83.9 Disease of biliary tract, unspecified
CPT/HCPCS: 36415; 71046; 76705; 80053; 81001; 81025; 83690; 83735; 84484; 85025; 87086; 87631; 93005; 99283; 99284; 99285; A9270

== ENCOUNTER 2024-03-27 09:03 | Outpatient (CLI) | payer OTHER, SELFPAY ==
--- NOTE | 2024-03-27 09:00 | CRLHL7_ITS ---
For Patients: As a result of the Century Cures Act, medical imaging exams and procedure reports are released immediately into your electronic medical record. You may view this report before your referring provider. If you have questions, please contact your health care provider. INDICATION: Abdominal pain TECHNIQUE: An MRCP, including 2D, 3D and maximum intensity projection imaging, was performed. COMPARISON: None. FINDINGS: The common bile duct is smoothly marginated and measures up to 12 mm in diameter. Multiple stones are demonstrated in common duct as well as in the contracted gallbladder. The intrahepatic ducts are enlarged commensurate with the common duct enlargement and appear to branch and taper in a grossly normal fashion. The pancreatic duct is normal. Mild fatty change is noted in the liver. The liver is normal in size and shape. The spleen, pancreas and adrenal glands are within normal limits. The kidneys are unremarkable. No bowel abnormality, lymphadenopathy or free fluid is demonstrated. IMPRESSION: 1. Cholelithiasis and choledocholithiasis. 2. Mild fatty change in the liver. Dictated by Tyler Vazquez MD @ 03/28/2024 8:09:01 AM (Electronically Signed)
--- OUTSIDE RECORDS SUMMARY | 2024-03-27 09:06 | XMS_ITS | Encounter Summary ---
Author Organization [place] Address [address] [place] [address] Care Team Providers Care Project Financial Analyst Name Role Phone Shamar Claros MD Primary Care Provider [phone] Steph Fraga MD Unavailable [phone] Melina Sousa PA-C Unavailable [phone] Alanis Dillard CNM Unavailable [phone] Steph Fraga MD Unavailable [phone] Melina Sousa PA-C Unavailable [phone] Janis Jacobs MD Unavailable [phone] Shamar Claros MD Unavailable [phone] Patti Ferris MD Unavailable [phone] Encounter Details Date Type Department Care Team (Late st Contact Info) Description 10/10/2019 [facility] Medical Advice [facility] [place] [address] [place] [address] Drive [address] [place] [address] [place] [address] [place] [address] [place] [address] Social History Tobacco Use [...] RN - 10/12/2019 9:32 AM CDT Sent Internet Mall message. - Bryant Nowak, RN - Patient Advocate Liason (PAL) [facility] documented in this encounter Plan of Treatment Not on file documented as of this encounter Visit Diagnoses Not on filedocumented in this encounter Care Teams Project Financial Analyst Relationship Specialty Start Date End Date Shamar Claros MD [address] [place] [address] [place] [address] PCP - General Internal Medicine 05/17/17 Steph Fraga MD [address] [place] [address] [place] [address] Assigned PCP 12/29/17 10/17/19 Melina Sousa PA-C [address] [place] [address] 188182 Assigned PCP 10/18/19 10/15/20 Alanis Dillard CNM [address] [place] [address] Assigned OBGYN Provider 05/06/20 Steph Fraga MD [address] [place] [address] [place] [address] Assigned PCP 10/16/20 12/24/20 Melina Sousa PA-C [address] [place], [place] 806482 Assigned PCP 12/25/20 03/23/22 Janis Jacobs MD [address] [place], [place] 140307 Assigned OBGYN Provider 04/09/21 3 Shamar Claros MD [address]305 [facility] [place] [address] Assigned PCP 09/08/22 Patti Ferris MD 606 24[facility] [address] 334164 Assigned OBGYN Provider 04/27/23 documented as of this encounter
--- OUTSIDE RECORDS SUMMARY | 2024-03-27 09:06 | XMS_ITS | Encounter Summary ---
Author Organization [facility] Address [address] [place] [address] Care Team Providers Care Substation Superintendent Name Role Phone Shamar Claros MD Primary Care Provider [phone] Melina Sousa PA-C Unavailable [phone] Alanis Dillard CNM Unavailable [phone] Steph Fraga MD Unavailable [phone] Melina Sousa PA-C Unavailable [phone] Janis Jacobs MD Unavailable [phone] Shamar Claros MD Unavailable [phone] Patti Ferris MD Unavailable [phone] Encounter Details Date Type Department Care Team (Late st Contact Info) Description 04/20/2020 [facility] [place] Medical Advice [address] [place] [address] Alanis Dillard CNM [address] [place] [address] Social History Tobacco Use Types [...] filedocumented in this encounter Care Teams Substation Superintendent Relationship Specialty Start Date End Date Shamar Claros MD [address] [place] [address] [place] [address] PCP - General Internal Medicine 05/17/17 Melina Sousa PA-C [address] [place] [address] 907332 Assigned PCP 10/18/19 10/15/20 Alanis Dillard CNM [address] [place], [place] 955997 Assigned OBGYN Provider 05/06/20 Steph Fraga MD [address] [place] [address] [place] [address] Assigned PCP 10/16/20 12/24/20 Melina Sousa PA-C [address] [place] [address] Assigned PCP 12/25/20 03/23/22 Janis Jacobs MD [address] [facility] [place] [address] Assigned OBGYN Provider 04/09/21 4 3 Shamar Claros MD [address] [place] [address] [place] [address] Assigned PCP 09/08/22 Patti Ferris MD [address] [address] Assigned OBGYN Provider 04/27/23 documented as of this encounter
--- OUTSIDE RECORDS SUMMARY | 2024-03-27 09:06 | XMS_ITS | Encounter Summary ---
Author Organization [place] Address [address] [place] [address] Care Team Providers Care Entry Writer Name Role Phone Shamar Claros MD Primary Care Provider [phone] Alanis Dillard CNKatty Unavailable [phone] Melina Sousa PA-C Unavailable [phone] Janis Jacobs MD Unavailable [phone] Shamar Claros MD Unavailable [phone] Patti Ferris MD Unavailable [phone] Encounter Details Date Type Department Care Team (Late st Contact Info) Description 03/30/2021 [facility]ice [address] [place] [phone] Kaykay Leung, ELECTRONICS LEAD Social History Tobacco Use Types Packs/Day Years [...] as of this encounter Care Teams Entry Writer Relationship Specialty Start Date End Date Shamar Claros MD [address] [facility] [place] [address] PCP - General Internal Medicine 05/17/17 Alanis Dillard CNM [address] [place] [address] Assigned OBGYN Provider 05/06/20 Melina Sousa PA-C [address] [place] [address] Assigned PCP 12/25/20 03/23/22 Janis Jacobs MD [address] [place] [address] Assigned OBGYN Provider 04/09/21 3 Shamar Clarso MD [address] [facility] [place] [address] Assigned PCP 09/08/22 Patti Ferris MD 606 [address] [address] [address] Assigned OBGYN Provider 04/27/23 documented as of this encounter
--- OUTSIDE RECORDS SUMMARY | 2024-03-27 09:06 | XMS_ITS | Encounter Summary ---
Author Organization [place] Address [address] [place] [address]. [place] [address] Care Team Providers Care Front Office Clerk Name Role Phone Shamar Claros MD Primary Care Provider [phone] Janis Jacobs MD Unavailable [phone] Shamar Claros MD Unavailable [phone] Patti Ferris MD Unavailable [phone] Encounter Details Date Type Department Care Team (Late st Contact Info) Description 07/30/2022 [facility] Medical Adv[place] [facility] [place] [address] [facility] [address] [place] [address] Shamar Claros MD [address]305 [facility] [place] [address] Social History [...] as of this encounter Care Teams Front Office Clerk Relationship Specialty Start Date End Date Shamar Claros MD [address] [facility] [place] [address] PCP - General Internal Medicine 05/17/17 Janis Jacobs MD [address] [place] [address] Assigned OBGYN Provider 04/09/21 3 Shamar Claros MD [address] [facility] [place] [address] Assigned PCP 09/08/22 Patti Ferris MD [address] [facility] [address] [place] [address] Assigned OBGYN Provider 04/27/23 documented as of this encounter
--- OUTSIDE RECORDS SUMMARY | 2024-03-27 09:06 | XMS_ITS | Encounter Summary ---
Author Organization [place] Address [address] [place] [address] Care Team Providers Care Sparker And Patcher Name Role Phone Shamar Claros MD Primary Care Provider Alanis Dillard CNM Unavailable [phone] Melina Sousa PA-C Unavailable [phone] Janis Jacobs MD Unavailable [phone] Shamar Claros MD Unavailable [phone] Patti Ferris MD Unavailable [phone] Encounter Details Date Type Department Care Team (Late st Contact Info) Description 03/30/2021 [facility] [address] [facility] [address] [place] [address] Maribell Torrez, WHEEL INSTALLER [address] [facility] [place] [address] Social History Tobacco [...] documented as of this encounter Care Teams Sparker And Patcher Relationship Specialty Start Date End Date Shamar Claros MD [address] [facility] [place] [address] PCP - General Internal Medicine 05/17/17 Alanis Dillard CNM [address] [place] [address] Assigned OBGYN Provider 05/06/20 Melina Sousa PA-C [address] [place] [address] 528132 Assigned PCP 12/25/20 03/23/22 Janis Jacobs MD [address] [place] [address] Assigned OBGYN Provider 04/09/21 3 Shamar Claros MD [address] [facility] [place] [address] Assigned PCP 09/08/22 Patti Ferris MD [address] 512504 Assigned OBGYN Provider 04/27/23 documented as of this encounter
--- OUTSIDE RECORDS SUMMARY | 2024-03-27 09:06 | XMS_ITS | Encounter Summary ---
Author Organization [place] Address [address] [place] [address] Care Team Providers Care Blow Molder Name Role Phone Shamar Claros MD Primary Care Provider Steph Fraga MD Unavailable [phone] Melina Sousa PA-C Unavailable [phone] Alanis Dillard CNM Unavailable [phone] Steph Fraga MD Unavailable [phone] Melina Sousa PA-C Unavailable [phone] Janis Jacobs MD Unavailable [phone] Shamar Claros MD Unavailable [phone] Patti Ferris MD Unavailable [phone] Reason for Referral * Diagnostic Imaging Ultrasound (Routine) - Closed Specialty Diagnoses / Procedures Referred By Contluz marina t Referred To Contact Radiology. Diagnoses RLQ abdominal pain Procedures US Pelvic Complete w Transvaginal Melina Sousa PA-C [address] [place] [address] Rh Ultrasound [facility] [address] [facility] [address] [place] [address] Referral ID Status Reason Start Date Expiration Date Visits Re quested Visits Authorized [id number] Closed 10/14/2019 10/13/2020 1 1 Reason for Visit * Reason Onset Date Comments MyChart Communication 10/13/2019 lab result s Encounter Details Date Type Department Care Team (Late st Contact Info) Description 10/13/2019 [facility] Medical Advice [facility] [address] [place] [address] Melina Sousa PA-C [address] [place] [address] MyChart Communication (lab results) Social History Tobacco [...] call me back with any questions. Primo terrazzo grinder Nurse * Telephone Encounter - Vy [...] 12:47 PM CDT Called pt back at [phone], not available, so LM to call me back at [phone]. Will await for her call back. JENNIFER [...] cervical lesions that pap is intended to pharmacy picking technician are painless. Vy Sheehan MD Internal Medicine-Pediatrics [...] came back normal when she was at [facility]. She states the new pain she had discussed in her Backspaceshart message she felt only lasted 20 minutes [...] typically has its usually performed by an farm operations technical director at an imaging appointment. She wanted to [...] CDT Forwarded to LP. Please review patient's Rennoviat message and advise. Alanis Wright, BS, RN, PHN [facility]) [phone] * Telephone Encounter - Alanis Wright RN - 10/13/2019 4:17 PM CDT Rennoviat message sent. BLANCA Bull, RN, [facility] Office: [phone] documented in this encounter Plan of Treatment [...] quadrant documented in this encounter Care Teams Blow Molder Relationship Specialty Start Date End Date Shamar Claors MD [address] [place] [address] [place] [address] PCP - General Internal Medicine 05/17/17 Steph Fraga MD [address] [place] [address] [place] [address] Assigned PCP 12/29/17 10/17/19 Melina Sousa PA-C [address] [place] [address] 096072 Assigned PCP 10/18/19 10/15/20 Alanis Dillard CNM [address] [place] [address] Assigned OBGYN Provider 05/06/20 Steph Fraga MD [address] [place] [address] [place] [address] Assigned PCP 10/16/20 12/24/20 Melina Sousa PA-C [address] [place] [address] Assigned PCP 12/25/20 03/23/22 Janis Jacobs MD [address] [place] [address] Assigned OBGYN Provider 04/09/21 3 Shamar Claros MD [address] [place] [address] Assigned PCP 09/08/22 Patti Ferris MD [address] [place] [address] Assigned OBGYN Provider 04/27/23 documented as of this encounter
--- OUTSIDE RECORDS SUMMARY | 2024-03-27 09:06 | XMS_ITS | Encounter Summary ---
Author Organization [place] Address [address] [place] [address] Care Team Providers Care Occupational Therapy Professor Name Role Phone Shamar Claros MD Primary Care Provider [phone] Melina Sousa PA-C Unavailable [phone] Janis Jacosb MD Unavailable [phone] Shamar Claros MD Unavailable [phone] Patti Ferris MD Unavailable [phone] Encounter Details Date Type Department Care Team (Late st Contact Info) Description 07/18/2021 [facility] [place] [facility] [place] [address] [facility] [address] [place] [address] Shamar Claros MD [address] [facility] [place] [address] Social History Tobacco [...] Coronavirus / COVID-19? Yes 07/20/2021 9:51 PM HEALTH INSURANCE SPECIALIST documented as of this encounter Plan of Treatment Not on file documented as of this encounter Visit Diagnoses Not on filedocumented in this encounter Additional Health Concerns Assessment Noted Time PHQ-9 Depression Total Score: 8 03/31/20 21 7:02 AM CDT documented as of this encounter Care Teams Occupational Therapy Professor Relationship Specialty Start Date End Date Shamar Claros MD [address] [facility] [place] [address] PCP - General Internal Medicine 05/17/17 Melina Sousa PA-C [address] [place] [address] 157652 Assigned PCP 12/25/20 03/23/22 Janis Jacobs MD [address] [place] [address] Assigned OBGYN Provider 04/09/21 3 Shamar Claros MD [address] [facility] [place] [address] Assigned PCP 09/08/22 Patti Ferris MD [address] [place], [place] 362514 Assigned OBGYN Provider 04/27/23 documented as of this encounter
--- OUTSIDE RECORDS SUMMARY | 2024-03-27 09:06 | XMS_ITS | Encounter Summary ---
Author Organization [place] Address [address] [place] [address] Care Team Providers Care Bridge Crew Member Name Role Phone Shamar Claros MD Primary Care Provider [phone] Melina Sousa PA-C Unavailable [phone] Janis Jacobs MD Unavailable [phone] Shamar Claros MD Unavailable [phone] Patti Ferris MD Unavailable [phone] Reason for Visit * Reason Onset Date Comments Heart Problem 05/25/2021 Symptoms Encounter Details Date Type Department Care Team (Late st Contact Info) Description 05/25/2021 [facility] Medical Advice [address] [address] [facility] [place] [address] Heart Problem (Symptoms) Social History [...] Jacobs out today and tomorrow, sending to machine stone polisher apprentice. Olinda Langston, RN TATISTICS MANAGER documented in this encounter Plan of Treatment Not on file documented as of this encounter Visit Diagnoses Diagnosis Vaginal symptom- Primary documented in this encounter Additional Health Concerns Assessment Noted Time PHQ-9 Depression Total Score: 8 03/31/20 21 7:02 AM CDT documented as of this encounter Care Teams Bridge Crew Member Relationship Specialty Start Date End Date Shamar Claros MD [address] [place] [address] [place] [address] PCP - General Internal Medicine 05/17/17 Melina Sousa PA-C [address] [place] [address] 041852 Assigned PCP 12/25/20 03/23/22 Janis Jacobs MD [address] [place] [address] Assigned OBGYN Provider 04/09/21 3 Shamar Claros MD [address] [place] [address] [place] [address] Assigned PCP 09/08/22 Patti Ferris MD 606 24[facility] [address] [address] Assigned OBGYN Provider 04/27/23 documented as of this encounter
--- OUTSIDE RECORDS SUMMARY | 2024-03-27 09:06 | XMS_ITS | Encounter Summary ---
Author Organization [facility] Address [address] [place] [address] Care Team Providers Care Cellar Pumper Name Role Phone Shamar Claros MD Primary Care Provider Alanis Dillard CNM Unavailable [phone] Melina Sousa PA-C Unavailable [phone] Janis Jacobs MD Unavailable [phone] Shamar Claros MD Unavailable [phone] Patti Ferris MD Unavailable [phone] Encounter Details Date Type Department Care Team (Late st Contact Info) Description 01/29/2021 [facility] [place] [address] [facility] [address] [place] [address] [place] [address] [place] [address] [place] [address] Social History Tobacco Use [...] on filedocumented in this encounter Care Teams Cellar Pumper Relationship Specialty Start Date End Date Shamar Claros MD [address] [facility] [address] PCP - General Internal Medicine 05/17/17 Alanis Dillard CNM [address] [place] [address] Assigned OBGYN Provider 05/06/20 Melina Sousa PA-C [address] [place] [address] 903232 Assigned PCP 12/25/20 03/23/22 Janis Jacobs MD [address] [place] [address] Assigned OBGYN Provider 04/09/21 3 Shamar Claros MD [address] [facility] [place] [address] Assigned PCP 09/08/22 Patti Ferris MD [address] 623134 Assigned OBGYN Provider 04/27/23 documented as of this encounter
--- OUTSIDE RECORDS SUMMARY | 2024-03-27 09:06 | XMS_ITS | Encounter Summary ---
Author Organization [place] Address [address] [place] [address] Care Team Providers Care Court Registry Officer Name Role Phone Shamar Claros MD Primary Care Provider [phone] Melina Sousa PA-C Unavailable [phone] Janis Jacobs MD Unavailable [phone] Shamar Claros MD Unavailable [phone] Patti Ferris MD Unavailable [phone] Encounter Details Date Type Department Care [...] Coronavirus / COVID-19? Yes 07/20/2021 9:51 PM NURSE RESEARCH documented as of this encounter Plan of Treatment Not on file documented as of this encounter Visit Diagnoses Not on filedocumented in this encounter Additional Health Concerns Assessment Noted Time PHQ-9 Depression Total Score: 8 03/31/20 21 7:02 AM CDT documented as of this encounter Care Teams Court Registry Officer Relationship Specialty Start Date End Date Shamar Claros MD [address] [facility] [place] [address] PCP - General Internal Medicine 05/17/17 Melina Sousa PA-C [address] [place] [address] Assigned PCP 12/25/20 03/23/22 Janis Jacobs MD [address] [place] [address] Assigned OBGYN Provider 04/09/21 3 Shamar Claros MD [address] [facility] [place] [address] Assigned PCP 09/08/22 Patti Ferris MD [address] [address] Assigned OBGYN Provider 04/27/23 documented as of this encounter
--- OUTSIDE RECORDS SUMMARY | 2024-03-27 09:06 | XMS_ITS | Referral Summary ---
Author Organization [place] Address [address] [place] [address] Care Team Providers Care Local Government Legislator Name Role Phone Shamar Claros MD Primary Care Provider [phone] Shamar Claros MD Unavailable [phone] Patti Ferris MD Unavailable [phone] Allergies Active Allergy Reactions Criticality Noted [...] with antibiotics in the past 60 days Eldridge 1 spray into both nostrils daily 9.9 [...] Comments Blood Pressure 127/85 07/21/2021 5:26 AM BRAKE ADJUSTER Pulse 83 07/21/2021 5:26 AM BRAKE ADJUSTER Temperature 37.4 ??C (99.4 ??F) 07/20/2021 9:53 PM CS T Respiratory Rate 20 07/21/2021 5:26 AM BRAKE ADJUSTER Oxygen Saturation 97% 07/21/2021 5:26 AM BRAKE ADJUSTER Inhaled Oxygen Concentration - - Weight 144.4 kg (318 lb 5.5 oz) 07/20/2021 9:53 PM BRAKE ADJUSTER Height 172.7 cm (5' 8) 10/12/2019 11:2 [...] ANTIGEN ANTIBODY COMBO Routine 09/17/2016 2:24 PM BRAKE ADJUSTER Encounter for supervision of normal first in second trimester from Last 3 Months or Most Recently Relevant to Health Maintenance Results * Pap imaged thin layer screen with HPV - recommended age 30 - 65 years (select HPV order below) (04/15/2020 2:38 PM CDT) PAP NIL COPATH Lindaath Report Patient Name: MARY ELLEN SCOTT MR#: [id number] Specimen #: [id number] Collected: 04/15/2020 Received: 04/18/2020 Reported: 04/20/2020 12:33 [...] adenocarcinomas or other cancers. COLLECTION SITE: Client: ??[facility] Location: [place] ([place]) The [facility], with the professional component performed at the [facility], [address] [place] [phone] ([phone]) COPATH Cytologic material (specimen) 04/15/2020 2:38 PM CDT 04/18/2020 11:10 AM CDT [facility] SPECIMEN COPATH * HPV High Risk Types DNA Cervical (04/15/2020 2:00 PM CDT) HPV Source SurePath 04/15/2020 2:38 PM CDT [facility] HPV 16 DNA Negative NEG^Nega tive 04/22/2020 2:32 PM CDT [facility] HPV 18 DNA Negative NEG^Nega tive 04/22/2020 2:32 PM CDT [facility] Other HR HPV Negative NEG^Nega tive 04/22/2020 2:32 PM CDT [facility] Final Diagnosis This patient's sample is negative for HPV DNA. 04/22/2020 2:32 PM CDT [facility] Comment: This test was developed and its performance characteristics determined by the [facility], Molecular Diagnostics Laboratory. It has not [...] Description Cervical Cells 04/15/2020 2:38 PM CDT [facility] Cervical Cells CERVIX UTERI STRUCTURE / Unknown 04/15/2020 2:00 PM CDT 04/15/2020 2:42 PM CDT Joseph Crandall CNM LAB - BLOOD ORDERABL ES [place]AC [place] [address] [place] [address] [address] * HIV Antigen Antibody Combo (09/17/2016 2:24 PM BRAKE ADJUSTER) HIV Antigen Antibody Combo Nonreactive HIV-1 p24 Ag & HIV-1/HIV-2 Ab Not Detected NR [facility] Blood specimen (specimen) 09/17/2016 2:24 PM BRAKE ADJUSTER 09/17/2016 2:25 PM BRAKE ADJUSTER Irasema Trevino MD LAB - BLOOD ORDWillam GARCIA Performing Organization Address City/[facility]/ZIP Co de Phone Number [address] [address] from Last 3 Months or Most Recently Relevant to Health Maintenance Advance Directives For more information, please contact: [phone] * Full Code (Latest Code Status on File) Date Activated Date Inactivated Comments 03/02/2017 9:48 AM 07/20/2021 9:47 PM Care Teams Local Government Legislator Relationship Specialty Start Date End Date Shamar Claros MD [address] [facility] [place] [address] PCP - General Internal Medicine 05/17/17 Shamar Claros MD [address] [facility] [place] [id number] Assigned PCP 09/08/22 Patti Ferris MD [address] [id number] Assigned OBGYN Provider 04/27/23
--- OUTSIDE RECORDS SUMMARY | 2024-03-27 09:06 | XMS_ITS | Encounter Summary ---
Author Organization [place] Address [address] [place] [address] Care Team Providers Care Hiv Nurse Name Role Phone Shamar Claros MD Primary Care Provider Alanis Dillard CNKatty Unavailable [phone] Melina Souas PA-C Unavailable [phone] Janis Jacobs MD Unavailable [phone] Shamar Claros MD Unavailable [phone] Patti Ferris MD Unavailable [phone] Reason for Visit * Reason Onset Date Comments Medication Question 03/28/2021 Encounter Details Date Type Department Care Team (Late st Contact Info) Description 03/28/2021 MyC Medical Advice [address] [place] [address] Janis Jacobs MD [facility] [place] [address] Medication Question Social History Tobacco [...] on filedocumented in this encounter Care Teams Hiv Nurse Relationship Specialty Start Date End Date Shamar Claros MD [address] [facility] [place] [address] PCP - General Internal Medicine 05/17/17 Alanis Dillard CNM [address] [place] [address] Assigned OBGYN Provider 05/06/20 Melina Sousa PA-C [address] [place] [address] Assigned PCP 12/25/20 03/23/22 Janis Jacobs MD [address] [place] [address] Assigned OBGYN Provider 04/09/21 3 Shamar Claros MD [address] [facility] [place] [address] Assigned PCP 09/08/22 Patti Ferris MD [address] [place] [address] Assigned OBGYN Provider 04/27/23 documented as of this encounter
--- OUTSIDE RECORDS SUMMARY | 2024-03-27 09:06 | XMS_ITS | Clinical Summary ---
Author Organization [place] Address [address] [place] [address] Care Team Providers Care Fugitive Investigator Name Role Phone Shamar Claros MD Primary Care Provider [phone] Shamar Claros MD Unavailable [phone] Patti Ferris MD Unavailable [phone] Allergies Active Allergy Reactions Criticality Noted [...] with antibiotics in the past 60 days Lyndon 1 spray into both nostrils daily 9.9 [...] Comments Blood Pressure 127/85 07/21/2021 5:26 AM PRIVATE DUTY RN Pulse 83 07/21/2021 5:26 AM PRIVATE DUTY RN Temperature 37.4 ??C (99.4 ??F) 07/20/2021 9:53 PM CS T Respiratory Rate 20 07/21/2021 5:26 AM PRIVATE DUTY RN Oxygen Saturation 97% 07/21/2021 5:26 AM PRIVATE DUTY RN Inhaled Oxygen Concentration - - Weight 144.4 kg (318 lb 5.5 oz) 07/20/2021 9:53 PM PRIVATE DUTY RN Height 172.7 cm (5' 8) 10/12/2019 11:2 [...] 01/25/2027 01/25/2017, 02/19/2012, 02/23/2002, Additional history exists HEPATITIS B IMMUNIZATION Completed 003, 06/17/2003, 02/25/2003, Additional history exists HIV SCREENING Completed 09/17/2016 [...] ANTIGEN ANTIBODY COMBO Routine 09/17/2016 2:24 PM PRIVATE DUTY RN Encounter for supervision of normal first in second trimester from Last 3 Months or Most Recently Relevant to Health Maintenance Results * Pap imaged thin layer screen with HPV - recommended age 30 - 65 years (select HPV order below) (04/15/2020 2:38 PM CDT) PAP JAKUB Pascual Report Patient Name: MARY ELLEN SCOTT MR#: [id number] Specimen #: [id number] Collected: 04/15/2020 Received: 04/18/2020 Reported: 04/20/2020 12:33 [...] adenocarcinomas or other cancers. COLLECTION SITE: Client: ??[facility] Location: [place] ([place]) The technical component of this testing was completed at the [facility], with the professional component performed at the [facility], [address] [place] [phone] ([phone]) COPATH Cytologic material (specimen) 04/15/2020 2:38 PM CDT 04/18/2020 11:10 AM CDT Joseph Crandall CN LAB - [facility] SPECIMEN COPATH * HPV High Risk Types DNA Cervical (04/15/2020 2:00 PM CDT) HPV Source Sure[facility] 04/15/2020 2:38 PM CDT [facility] SON[facility] HPV 16 DNA Negative NEG^Nega tive 04/22/2020 2:32 PM CDT [facility] HPV 18 DNA Negative NEG^Nega tive 04/22/2020 2:32 PM CDT [facility] Other HR HPV Negative NEG^Nega tive 04/22/2020 2:32 PM CDT [facility] Final Diagnosis This patient's sample is negative for HPV DNA. 04/22/2020 2:32 PM CDT [facility] Comment: This test was developed and its performance characteristics determined by the [facility], Molecular Diagnostics Laboratory. It has not [...] Description Cervical Cells 04/15/2020 2:38 PM CDT [facility] Cervical Cells CERVIX UTERI STRUCTURE / Unknown 04/15/2020 2:00 PM CDT 04/15/2020 2:42 PM CDT Joseph Crandall CNM LAB - BLOOD ORDERABL ES [facility] [address] [place] [address] [address] * HIV Antigen Antibody Combo (09/17/2016 2:24 PM PRIVATE DUTY RN) HIV Antigen Antibody Combo Nonreactive HIV-1 p24 Ag & HIV-1/HIV-2 Ab Not Detected NR [facility] Blood specimen (specimen) 09/17/2016 2:24 PM PRIVATE DUTY RN 09/17/2016 2:25 PM PRIVATE DUTY RN Irasema Trevino MD LAB - BLOOD COMFORT GARCIA [facility] [address] [place] [address] from Last 3 Months or Most Recently Relevant to Health Maintenance Advance Directives For more information, please contact: [phone] * Full Code (Latest Code Status on File) Date Activated Date Inactivated Comments 03/02/2017 9:48 AM 07/20/2021 9:47 PM Care Teams Fugitive Investigator Relationship Specialty Start Date End Date Shamar Claros MD [address] [facility] [place] [address] PCP - General Internal Medicine 05/17/17 Shamar Clraos MD [address] [facility] [place] [address] Assigned PCP 09/08/22 Patti Ferris MD [address] [place] [address] Assigned OBGYN Provider 04/27/23
--- OUTSIDE RECORDS SUMMARY | 2024-03-27 09:06 | XMS_ITS | Encounter Summary ---
Author Organization [place] Address [address] [place] [address] Care Team Providers Care Education Rep Name Role Phone Shamar Claros MD Primary Care Provider [phone] Melina Sousa PA-C Unavailable [phone] Janis Jacobs MD Unavailable [phone] Shamar Claros MD Unavailable [phone] Patti Ferris MD Unavailable [phone] Encounter Details Date Type Department Care Team (Late st Contact Info) Description 07/12/2021 [facility] Medical Advice [facility] Women's [address] [place] [phone] Britney Hanson Social History Tobacco Use Types [...] documented as of this encounter Care Teams Education Rep Relationship Specialty Start Date [place]os [place] [address] [facility] [place] [address] PCP - General Internal Medicine 05/17/17 Melina Sousa PA-C [address] [place] [address] Assigned PCP 12/25/20 03/23/22 Janis Jacobs MD [address] [place] [address] Assigned OBGYN Provider 04/09/21 3 Shamar Claros MD [address] [facility] [place] [address] Assigned PCP 09/08/22 Patti Ferris MD [address] [facility] [address] [address] Assigned OBGYN Provider 04/27/23 documented as of this encounter
== END 2024-03-27 09:04 | disposition home or self-care (01) ==
LOC: MRI 09:04
PROVIDERS: Visit Provider Surgery
DX: R10.9 Unspecified abdominal pain (principal); K80.20 Calculus of gallbladder without cholecystitis without obstruction; K76.0 Fatty (change of) liver, not elsewhere classified
CPT/HCPCS: 74181